=== PATIENT | female | born 1985 | race Caucasian/White ===

== ENCOUNTER 2023-09-20 10:57 | Emergency (ER) | payer OTHER, SELFPAY ==
[2023-09-20 11:01] VITALS: BP 155/112
--- NOTE | 2023-09-20 11:38 | ED.GENMED ---
History of Present Illness
General
Chief Complaint: Suicidal Ideation
Source: patient and records
Exam Limitations: none
Time Seen by Provider: 09/20/23 11:16
Nursing documentation reviewed up to this point in time: agreed with
Travel History
Have you had any contact with someone who has COVID-19?: No
Do you have any symptoms of coronavirus? Fever > 100 degrees, chills, cough, shortness of breath, sore throat, loss of taste or smell, muscle aches, or headache?: No
History of Present Illness
History of Present Illness:
37-year-old female with past medical history as documented who presents to the emergency department for evaluation of suicidal ideation. Patient says that she has had 'a steady decline in my mental health' over the past 2 weeks. She says that she
is persistently suicidal and that yesterday she tried to strangulate herself although she was unsuccessful she says. She says she did not sustain any injuries to her neck. She was admitted to the hospital in July after an intentional overdose
with Tylenol toxicity. Patient denies any ingestions recently. She says that she was initially at [facility] earlier today�she says she was there on 302 and was discharged from the manage she spoke with her psychiatrist who recommended
she come here due to worsening mental health and suicidality. Patient denies any physical complaints today. She denies any drug or alcohol use.
Past History
Past History
ED Past Medical History: Arrthythmia (Tachycardia), Asthma, HTN, Seizures, Hypothyroidism, Psychiatric (Bipolar, PTSD, suicide attempts, Anxiety/Depression, Borderline personality, ) and Other (TBI 2006, migraines, Cardiomyopathy,
Subarachnoid/Subdural hemorrhage, Intraparenchymal hem, Sleep apnea, GI bleeding, Pernicious anemia, ADHD, DVT with IVC filter)
ED Past Surgical History: , Orthopedic (R and left knee surgery, Carlos L leg removed, Left arm plate, Right wrist surgery, ) and Other (Green field filter)
Social History
Tobacco: Smoker
Alcohol: None
Drug: None
Personal: Single
Living: alone
Employment: Disabled
Family History
Family History: Other (Diabetes, colon cancer, thyroid disease)
Review of Systems
Review of Systems
All Other Systems: ROS reviewed and negative except as documented in HPI and ROS
Constitutional: Denies fever
Respiratory: Denies trouble breathing
Cardiac: Denies chest pain
ABD/GI: Denies abdominal pain, nausea or vomiting
: Denies flank pain
Musculoskeletal: Denies neck pain or back pain
Neurological: Denies dizzy, headache, weakness or numbness
Phy Exam
Physical Exam
Physical Exam:
General: Awake, alert, oriented x3; no acute distress
Head: Normocephalic, atraumatic
Eyes: Conjunctiva normal, sclera anicteric
Throat: Airway intact, handling secretions
Neck: Trachea midline, supple without meningismus; no bruising, no tenderness, no bruits
Lungs: Clear to auscultation bilaterally, no wheezing, rales, rhonchi
Heart: Regular rate and rhythm, no murmurs, gallops, or rubs
Abd: Soft, non distended, nontender
Neuro: No gross deficits
Skin: no rash
Extremities: No edema in extremities, warm and well-perfused
Psych: Depressed mood, normal affect
Scores
Heart Failure Risk
Heart Failure Risk Score: Not Applicable
Heart Score for Chest Pain Patients
STEMI patient?: Not applicable
Withdrawal Assessment of Alcohol
Withdrawal Assessment Completed?: Not applicable
Course
Orders/Labs/Results
Orders:
Orders
09/20/23 11:02
EKG [Electrocardiogram (*1)] Urgent
Reason for Study: Chest Pain
EKG- Treatment ONCE
09/20/23 11:33
Crisis Consult Routine
Reason for Consult: suicidal
Test Result ONCE
09/20/23 11:44
PSYCHIATRY CONSULT Urgent
Consulting Provider: Valeriano Peck
Was physician already notified: Yes
09/20/23 12:46
COVID-19 Antigen Urgent
Source: Nasal Swab
Drug Screen, Urine [Urine Drug Abuse Screen] Urgent
Date Specimen was Collected: 09/20/23
Time Specimen was Collected: 11:41
Fentanyl, Urine Urgent
09/20/23 13:15
Acetaminophen Urgent
Alcohol Urgent
Complete Blood Count/With Diff Urgent
Comprehensive Metabolic Panel Urgent
HCG, Serum Qualitative Screen Urgent
Salicylate Urgent
09/20/23 14:21
Metoprolol Xl [Toprol Xl] 12.5 mg PO NOW STA
09/20/23 15:42
Lorazepam [Ativan] 1 mg PO Q6HPRN PRN
09/20/23 15:54
Case Management Consult ONCE
Case Management Consult: Suicide Risk
Comment: Pt is being seen by crisis for placement at this time, COVID+
09/20/23 15:59
Valsartan [Diovan] 40 mg PO NOW STA
09/20/23 17:42
Diazepam [Valium] 5 mg PO NOW STA
09/20/23 18:32
Albuterol [ProAIR HFA INHALER] 2 puff INH R Q4HPRN PRN
Abnormal Lab Results
09/20/23 09/20/23
12:46 13:15
Hgb 10.9 L g/dL
(12.0-16.0)
Hct 32.8 L %
(37.0-47.0)
MCV 77.0 L fL
(81.0-99.0)
MCH 25.6 L pg
(27.0-31.0)
RDW 15.5 H %
(11.5-14.5)
MPV 11.2 H fL
(7.4-10.4)
Salicylates < 1.0 L mg/dl
(2.0-20.0)
Acetaminophen < 10 L ug/ml
(10-30)
U Benzodiazepines Scrn Positive H
(Negative)
SARS-CoV-2 Antigen Positive A
(Negative)
09/20/23 13:15
09/20/23 13:15
Vital Signs
Initial and Last Documented VS:
Initial Vital Signs
Temp Pulse Resp BP Pulse Ox
98.9 F 141 20 155/112 97
09/20/23 11:01 09/20/23 11:01 09/20/23 11:01 09/20/23 11:01 09/20/23 11:01
Last Documented Vital Signs
Temp Pulse Resp BP Pulse Ox
98.9 F 123 20 133/99 97
09/20/23 11:01 09/20/23 16:09 09/20/23 11:01 09/20/23 16:09 09/20/23 11:01
MDM/Problems Addressed
Differential Diagnosis Includes:
Suicidal ideation
MDM/Problems Addressed:
37-year-old female presents for evaluation of suicidal ideation. She says she attempted to strangle herself yesterday unsuccessfully. History of similar presentation many times in the past�was admitted in July after an overdose. She is
hypertensive and tachycardic here. She is known to have resting tachycardia. Exam as above. Will plan to place an IV and check labs including a CBC and CMP, hCG, Tylenol and salicylate level, alcohol level, UDS. Screening EKG. Monitor on
one-to-one observation. Consult to crisis. Reassess after the above.
Screening EKG shows sinus tachycardia no significant changes. Patient is refusing any blood work or urine testing. She does not want any laboratory evaluation until she is seen by a psychiatrist. No clear indication for lab testing against her
well at this point. I did discuss the case with the psychiatrist evaluate. She has already been assessed by crisis.
Patient now agreeable to blood work, still pending psychiatric evaluation. Continue to monitor.
Labs reviewed: CBC shows stable anemia, CMP no clinically significant abnormalities. UDS positive for benzodiazepines. Tylenol and salicylate levels negative. Alcohol level negative. Her screening COVID swab was positive. She has no symptoms of
COVID. Continue to monitor.
Psychiatry evaluated patient in the ER. Recommended inpatient psychiatric treatment. Patient is amenable to treatment�will continue to monitor while pending placement. Patient's blood pressure has been elevated here�she was on metoprolol during
her previous hospitalization this was discontinued due to some hypotension. She tells me that she was recently restarted on medicine for blood pressure but she actually takes valsartan now at a dose of 40 mg daily, did not take her dose today.
Will provide her home dose.
Chronic conditions affecting care:
Anxiety/depression
Acute Exacerbation and/or Progression of Chronic Illness:
Acutely hypertensive
Acute Exacerbation and/or Progression of Chronic Illness: HTN
*Pulse Oximetry
Patient hypoxic: no
*EKG
Interpreted by ED Provider?: Yes
Heart Rate: 117
Rate: tachycardiac
Rhythm: sinus and sinus tachycardia
[place]: normal axis
Interval: normal interval
QRS Pattern: left vent hypertrophy
Ischemia: no ischemia
*Critical Care Note
Total Time (30-74mins, 75-104mins- exclusive of procedures): Not Applicable
Data Reviewed
Source: patient and records
Patient Management
Discussion with other providers: Other (Crisis)
ED Attending Note
-
Portions of this chart may have been created with voice recognition software.� Occasional wrong word or��sound alike� substitutions may have occurred due to the inherent limitations of voice recognition software.
Discharge Plan
Departure
Patient Disposition: Psych Facility
Date of Disposition: 09/20/23
Time of Disposition: 14:21
Patient with high blood pressure during this ER visit?: Yes
Discharge Problem:
Suicidal ideation, COVID-19
Instructions: Suicide Prevention
Prescriptions:
No Action
gabapentin 300 mg capsule
300 mg PO BID
folic acid 1 mg Tablet
1 mg PO DAILY
Rx Instructions:
AM
cholecalciferol (vitamin D3) [Vitamin D3] 25 mcg (1,000 unit) Tablet
25 mcg PO DAILY
Rx Instructions:
AM
levothyroxine 25 mcg Tablet
25 mcg PO DAILY
ondansetron 4 mg Tablet,Disintegrating
4 mg PO Q6H PRN (Reason: nausea)
omeprazole 40 mg capsule,delayed release(DR/EC)
40 mg PO DAILY
clonidine HCl 0.1 mg tablet
0.1 mg PO BID
diazepam 5 mg tablet
5 mg PO TID
Patient Comments:
09/20/2023: last filled 09/13/23, 7 tabs for 2 days from [facility]
melatonin 10 mg Tablet
10 mg PO HS
Linzess 72 mcg capsule
72 mcg PO DAILY
cyanocobalamin (vitamin B-12) 1,000 mcg/mL solution
1,000 mcg IM MONTHLY
triamcinolone acetonide [Nasacort] 55 mcg Aerosol,[place]
1 spray INTRANASAL DAILY PRN (Reason: allergies)
Rx Instructions:
administer into each nostril
celecoxib 100 mg capsule
100 mg PO BID
valsartan 40 mg tablet
40 mg PO DAILY
Aimovig Autoinjector 140 mg/mL auto-injector
140 mg SC MONTHLY
Nurtec ODT 75 mg tablet,disintegrating
75 mg PO Q48H
albuterol sulfate 90 mcg/actuation Hfa Aerosol Inhaler
2 puff INHALATION R Q6 PRN (Reason: sob/wheezing)
Referrals:
UNKNOWN,NO INTERVIEW [Family Provider] -
Interventions
Interventions:
*Risk Screen - Suicide Last Done: 09/20/23 15:51
*General Assessment Last Done: 09/20/23 15:51
*Neglect/Abuse Screening Last Done: 09/20/23 15:51
ED- Fall Risk Assessment Last Done: 09/20/23 15:51
*ED COVID-19 Vaccine History Last Done: 09/20/23 15:51
ED-Psychological Assessment Last Done: 09/20/23 15:51
[2023-09-20 13:20] LABS: COVID-19 Antigen Positive (Negative)
[2023-09-20 13:27] LABS: Amphetamines Negative (Negative); Barbiturates Negative (Negative); Benzodiazepines Positive (Negative); Buprenorphine Negative (Negative); Cocaine Negative (Negative); Marijuana Negative (Negative); Methadone Negative (Negative); Methamphetamines Negative (Negative); Opiates Negative (Negative); Phencyclidine Negative (Negative); Tricyclic Antidepressants Negative (Negative)
[2023-09-20 13:33] LABS: % Basophils 0.5 % (0-2); % Eosinophils 1.1 % (0-6); % Immature Granulocytes 0.4 % (0-0.5); % Lymphocytes 22.9 % (20.5-51.1); % Monocytes 8.5 % (1.7-9.3); % Neutrophils 66.6 % (42.2-75.2); Absolute Eosinophils 0.1 10^3/uL (0-0.7); Absolute Lymphocytes 1.3 10^3/uL (1.2-3.4); Absolute Monocytes 0.5 10^3/uL (0.1-0.6); Absolute Neutrophils 3.7 10^3/uL (1.4-6.5); Hematocrit 32.8 % (37.0-47.0); Hemoglobin 10.9 g/dL (12.0-16.0); Mean Corp Hgb Conc. 33.2 g/dL (33.0-37.0); Mean Corpuscular Hgb 25.6 pg (27.0-31.0); Mean Platelet Volume 11.2 fL (7.4-10.4); Nucleated Red Blood Cells % 0 %; Platelet Count 267 10^3/uL (130-400); Red Blood Cell Count 4.26 10^6/uL (4.20-5.40); Red Cell Dist. Width 15.5 % (11.5-14.5); White Blood Cell Count 5.6 10^3/uL (4.8-10.8)
[2023-09-20 13:44] LABS: ALT (SGPT) 18 U/L (0-35); AST (SGOT) 27 U/L (14-36); Acetaminophen < 10 ug/ml (10-30); Albumin 4.6 g/dl (3.5-5.0); Alkaline Phosphatase 115 U/L (38-126); Blood Urea Nitrogen 9 mg/dl (7-17); Calcium 9.2 mg/dl (8.4-10.2); Carbon Dioxide 23 mmol/L (22-30); Chloride 106 mmol/L (98-107); Glucose 96 mg/dl (70-99); Salicylate < 1.0 mg/dl (2.0-20.0); Sodium 136 mmol/L (135-145); Total Bilirubin 0.5 mg/dl (0.2-1.3); Total Protein 7.3 g/dl (6.3-8.2); eGFR > 60.00
[2023-09-20 13:46] LABS: Alcohol None Detected
[2023-09-20 13:52] LABS: Fentanyl, Urine Negative (Negative)
[2023-09-20 14:00] LABS: HCG, Serum Qualitative Screen Negative
--- NOTE | 2023-09-20 15:44 | W.PN.UPDATE ---
Update Note
Progress Note Update
Patient is stating she has suicidal thoughts and has attempted to strangle self. She reports being dysphoric and anhedonic and feels she has nothing to live for. She is now also diagnosed with COVID and feels that her tiredness and loss of energy
may be related to this infection. Appetite stable, denies insomnia.
At this point patient is willing to sign in voluntarily but it will be difficult for her to be placed given her past history and COVID diagnosis.
If she wants to leave she should be reassessed and if no longer seen as danger to self and having a place to go she can be discharged.
Will order Ativan prn; discussed with Dr. Elder.
Will continue F/U while she is in hospital.
--- NOTE | 2023-09-20 15:50 | EDRN ---
Pt stated she will not change into scrubs as she has not been provided the correct size of 2X.
[2023-09-20 15:51] VITALS: BMI 33.7
[2023-09-20] MEDS: DIOVAN 40 MG PO (16:09)
--- NOTE | 2023-09-20 16:17 | EDRN ---
Pt was upset about her lunch tray and demanded that a new tray be ordered. New tray was ordered and will need to be picked up in 45 minutes. Pt was upset that ALL her meds were not ordered for her. This RN informed pt that a med rec would need to be
done then the physician can order her meds. Pt is unaware of what meds she is taking. Pt was offered Ativan as ordered for her anxiety. Pt declined saying 'I take valium 5 mg' so many times a day but I did not understand how many times a day. pt is
now in paper scrubs after she was brought appropriate size. Pt administered her valsartan and pharmacy technician instructor went to [facility] for pt's med list and is working on the medication reconciliation at this time.
--- NOTE | 2023-09-20 16:38 | PHANOTE ---
Med Rec Note:
Spoke with Devora Vasquez and got a list of medications from their provider. Called and spoke with Pharmacist at [facility] to confirm what regime of medications pt is currently supposed to be on.
Did not interview pt due to pt's current behavior and pt being Covid +.
--- NOTE | 2023-09-20 18:25 | EDRN ---
Pt is now asking for her inhaler. THis RN will not MD know.
[2023-09-20] MEDS: VALIUM 5 MG PO (18:29)
--- NOTE | 2023-09-20 18:32 | EDRN ---
Pharmacy called to send an albuterol inhaler.
[2023-09-20] MEDS: ProAIR HFA INHALER 2 PUFF INH (18:54)
--- NOTE | 2023-09-20 19:12 | EDRN ---
Pt is requesting all of her nighttime medications at this time.
[2023-09-20] MEDS: CATAPRES PO (22:52)
[2023-09-20] MEDS: MELATONIN PO (23:00)
[2023-09-21] MEDS: CATAPRES 0.100000000000000006 MG PO ×2 (01:29→08:15)
[2023-09-21] MEDS: MELATONIN 10 MG PO (01:29)
[2023-09-21] MEDS: CELEBREX 100 MG PO ×2 (01:31→08:14)
[2023-09-21] MEDS: VALIUM 5 MG PO ×2 (02:24→10:41)
[2023-09-21] MEDS: ProAIR HFA INHALER 2 PUFF INH ×2 (02:24→08:12)
[2023-09-21] MEDS: MOTRIN 800 MG PO (04:08)
[2023-09-21] MEDS: LINZESS 72 MCG PO (08:13)
[2023-09-21] MEDS: FOLVITE 1 MG PO (08:14)
--- NOTE | 2023-09-21 09:21 | ED.CRISIS ---
ED Crisis Note
ED Crisis Note
Subjective:
201
Assessment/Plan:
Patient expresses recent suicidal thoughts. Crisis is working on placement, however, given patient has an acute COVID infection this has made the process more challenging. Patient appears nontoxic and is breathing comfortably, she appears well and
comfortable
--- NOTE | 2023-09-21 11:09 | W.PN.UPDATE ---
Update Note
Progress Note Update
Patient reports she still has suicidal thoughts but in the Crisis unit she has been relatively cooperative and not agitated or aggressive.Appetite stable. She is now interested in going back to the [facility] but realizes that is not possible
given her statements regarding harming herself.
ER changed the Ativan to Valium prn.
We will continue F/U.
[2023-09-21 13:31] LABS: COVID-19 Antigen Positive (Negative)
[2023-09-21 14:07] VITALS: BP 114/65
[2023-09-21] MEDS: MOTRIN 600 MG PO (14:35)
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
[2023-09-21] MEDS: NEURONTIN PO (23:41)
[2023-09-21] MEDS: MELATONIN PO (23:41)
[2023-09-21] MEDS: CELEBREX PO (23:41)
[2023-09-21] MEDS: CATAPRES PO (23:41)
[2023-09-22 10:59] VITALS: BP 138/91
[2023-09-22] MEDS: CELEBREX 100 MG PO ×2 (11:51→20:10)
[2023-09-22] MEDS: NEURONTIN 300 MG PO ×2 (11:51→20:09)
[2023-09-22] MEDS: FOLVITE 1 MG PO (11:52)
[2023-09-22] MEDS: CATAPRES 0.100000000000000006 MG PO ×2 (11:52→20:09)
[2023-09-22] MEDS: LINZESS 72 MCG PO (11:52)
[2023-09-22] MEDS: VALIUM 5 MG PO ×2 (12:01→20:10)
[2023-09-22] MEDS: MOTRIN 600 MG PO (13:53)
[2023-09-22 14:05] VITALS: BP 132/88
[2023-09-22] MEDS: ATIVAN 1 MG PO (16:01)
--- NOTE | 2023-09-22 17:10 | W.PN.UPDATE ---
Update Note
Progress Note Update
Pt seen, record/paperwork reviewed, discussed with Crisis staff. Pt on 302 for suicidal ideation with plan and stated intent. Pt pressing for release, stating she is 'not a danger' to herself. Pt stating wish to go to [facility], states she was
'decompensating on Sunday' at the [facility]. Pt has active warrant and charge for aggravated assault, reportedly in [facility]. Pt Covid positive. Pt states she had brief SI yesterday, though this conflicts with the record. Pt denies SI
today, pushing to be released. Pt complains about not receiving her medications on time. Pt agitated, yelling earlier, would not cooperate with staying in her room to allow interview with pt in room next to hers.
Imp: Unspecified Depression
Borderline personality d/o
Rec: continue observation/assessment on 302 with placement effort, although unlikely to place due to history and Covid positive status
--- NOTE | 2023-09-22 18:37 | ED.CRISIS ---
ED Crisis Note
ED Crisis Note
Subjective:
Expresses suicidal thoughts
Objective:
Verbally combative. Walking around the room
Assessment/Plan:
302 upheld. Psych recommended bed search. Patient becoming combative walking around. Security escorted her to her room. She is requesting Ativan and DuoNeb. Patient given both
[2023-09-22] MEDS: DUONEB 3 ML INH (18:40)
[2023-09-22 20:15] VITALS: BP 130/78
[2023-09-22] MEDS: MELATONIN 10 MG PO (20:21)
[2023-09-23] MEDS: MOTRIN 600 MG PO (00:29)
[2023-09-23 00:54] VITALS: BP 124/76
[2023-09-23] MEDS: DUONEB 3 ML INH (04:13)
[2023-09-23] MEDS: NEURONTIN 300 MG PO (09:40)
[2023-09-23] MEDS: CELEBREX 100 MG PO (09:40)
[2023-09-23] MEDS: FOLVITE 1 MG PO (09:41)
[2023-09-23] MEDS: CATAPRES 0.100000000000000006 MG PO (09:41)
[2023-09-23] MEDS: LINZESS 72 MCG PO (09:48)
--- NOTE | 2023-09-23 09:50 | ED.CRISIS ---
ED Crisis Note
ED Crisis Note
Subjective:
Patient awake and alert requesting to go home today. She states she just wants to take a shower. She states she is no longer suicidal. She shows me an email with her counselor and she plans to follow-up. No other new complaint
Objective:
Awake, alert, not suicidal, rational conversation was had. Patient is eating and drinking without difficulty.
Assessment/Plan:
Case discussed with Dr. Moreland. At this time we both feel that she is stable for discharge. No clinical concerns on my evaluation this morning. The patient does agree to follow-up with her counselor and return for any progressive symptoms
--- NOTE | 2023-09-23 09:55 | W.PN.UPDATE ---
Update Note
Progress Note Update
Pt seen, reviewed with Crisis staff, discussed with Dr Terrazas. Pt alert, calm, cooperative, with stable affect. Pt consistently denies SI; mood appears to be stable. Pt asking to go home to recuperate from being Covid positive- has mild symptoms;
pt aware that she cannot be placed in a psych facility. Pt states she will return to her [facility] apartment ([facility] transitional living) and follow up with outpatient care. No agitation, no signs of psychosis.
Imp: Unspecified Depression; hx of PTSD, appears stable for discharge; do not find grounds for 303 petition/to extend involuntary commitment
�� � � �Borderline personality d/o
Rec: Would continue current medications. If continuing Valium 5 mg prn, would give max 2 per day
Pt appears stable to be released from the 302
[2023-09-23] MEDS: ProAIR HFA INHALER 2 PUFF INH (10:38)
[2023-09-23 12:14] VITALS: BP 117/55
== END 2023-09-23 10:00 | disposition home or self-care (01) ==
LOC: EMR 10:57
PROVIDERS: CONSULT PHYSICIAN Psychiatry & Neurology Psychiatry; EMERGENCY PHYSICIAN Emergency Medicine
DX: R45.851 Suicidal ideations (principal); U07.1 COVID-19; F17.200 Nicotine dependence, unspecified, uncomplicated; I10 Essential (primary) hypertension
CPT/HCPCS: 99285; 94640; 80053; 80143; 80179; 80306; 80307; 82077; 84703; 85025; 87811; 93005

== ENCOUNTER 2023-11-10 12:17 | Emergency (ER) | payer OTHER, SELFPAY ==
[2023-11-10 12:26] VITALS: BP 127/91
--- NOTE | 2023-11-10 13:30 | ED.GENMED ---
History of Present Illness
General
Chief Complaint: Crisis Evaluation
Source: patient
Exam Limitations: none
Time Seen by Provider: 11/10/23 12:49
Nursing documentation reviewed up to this point in time: agreed with
Travel History
Have you had any contact with someone who has COVID-19?: No
Do you have any symptoms of coronavirus? Fever > 100 degrees, chills, cough, shortness of breath, sore throat, loss of taste or smell, muscle aches, or headache?: No
History of Present Illness
History of Present Illness:
37-year-old female presents for medical evaluation prior to psychiatric placement history of mental illness recently incarcerated and then released had suicidal ideation was admitted through the [facility] system just discharged yesterday meds were
adjusted on hold today as well some pictures of her son who is in an open adoption she felt suicidal came here
Does not appear intoxicated, she is cooperative with the exam
Past History
Past History
ED Past Medical History: Arrthythmia (Tachycardia), Asthma, HTN, Seizures, Hypothyroidism, Psychiatric (Bipolar, PTSD, suicide attempts, Anxiety/Depression, Borderline personality, ) and Other (TBI 2005, migraines, Cardiomyopathy,
Subarachnoid/Subdural hemorrhage, Intraparenchymal hem, Sleep apnea, GI bleeding, Pernicious anemia, ADHD, DVT with IVC filter)
ED Past Surgical History: , Orthopedic (R and left knee surgery, Carlos L leg removed, Left arm plate, Right wrist surgery, ) and Other (Green field filter)
Social History
Tobacco: Smoker
Alcohol: None
Drug: None
Personal: Single
Living: alone
Employment: Disabled
Family History
Family History: Other (Diabetes, colon cancer, thyroid disease)
Review of Systems
Review of Systems
All Other Systems: Not applicable
Constitutional: Denies fever
Cardiac: Reports no symptoms
ABD/GI: Reports no symptoms
: Reports no symptoms
Psychiatric: Reports suicidal; Denies anxiety or hallucinations
Phy Exam
Physical Exam
Physical Exam:
Physical Exam
General: Cooperative female
Neck: No jaundice
Lungs: no acute respiratory distress.
Neuro: alert and oriented. no focal neurological deficits
Skin: no rash
Psychiatric: Cooperative does not appear to be hallucinating, states she feels suicidal
Extremities: no edema.
Course
Orders/Labs/Results
Orders:
Orders
11/10/23 13:23
Acetaminophen Urgent
Alcohol Urgent
Complete Blood Count/With Diff Urgent
Comprehensive Metabolic Panel Urgent
HCG, Serum Qualitative Screen Urgent
Salicylate Urgent
Urine Drug Abuse Screen Urgent
Date Specimen was Collected: 11/10/23
Time Specimen was Collected: 13:28
Test Result ONCE
Vital Signs
Initial and Last Documented VS:
Initial Vital Signs
Temp Pulse Resp BP Pulse Ox
99.0 F 117 18 127/91 98
11/10/23 12:26 11/10/23 12:26 11/10/23 12:26 11/10/23 12:26 11/10/23 12:26
Last Documented Vital Signs
Temp Pulse Resp BP Pulse Ox
99.0 F 117 18 127/91 98
11/10/23 12:26 11/10/23 12:26 11/10/23 12:26 11/10/23 12:26 11/10/23 12:26
MDM/Problems Addressed
Differential Diagnosis Includes:
Suicidal ideation, anxiety depression psychosis borderline personality
MDM/Problems Addressed:
Suicidal
Chronic conditions affecting care:
Mental illness
Acute Exacerbation and/or Progression of Chronic Illness:
Mental illness
*Pulse Oximetry
Patient hypoxic: no
*Critical Care Note
Total Time (30-74mins, 75-104mins- exclusive of procedures): Not Applicable
Update Note
Update Note:
Reviewed with crisis plan will be labs and then placement
ED Attending Note
-
Portions of this chart may have been created with voice recognition software.� Occasional wrong word or��sound alike� substitutions may have occurred due to the inherent limitations of voice recognition software.
Discharge Plan
Departure
Patient Disposition: Psych Facility
Date of Disposition: 11/10/23
Time of Disposition: 13:34
Patient with high blood pressure during this ER visit?: No
Condition: Good
Covid-19: Not Applicable
Discharge Problem:
Suicidal ideation
Prescriptions:
No Action
gabapentin 300 mg capsule
300 mg PO BID
folic acid 1 mg Tablet
1 mg PO DAILY
Rx Instructions:
AM
cholecalciferol (vitamin D3) [Vitamin D3] 25 mcg (1,000 unit) Tablet
25 mcg PO DAILY
Rx Instructions:
AM
levothyroxine 25 mcg Tablet
25 mcg PO DAILY
ondansetron 4 mg Tablet,Disintegrating
4 mg PO Q6H PRN (Reason: nausea)
omeprazole 40 mg capsule,delayed release(DR/EC)
40 mg PO DAILY
clonidine HCl 0.1 mg tablet
0.1 mg PO BID
diazepam 5 mg tablet
5 mg PO TID
Patient Comments:
09/20/2023: last filled 09/13/23, 7 tabs for 2 days from [place]
melatonin 10 mg Tablet
10 mg PO HS
Linzess 72 mcg capsule
72 mcg PO DAILY
cyanocobalamin (vitamin B-12) 1,000 mcg/mL solution
1,000 mcg IM MONTHLY
triamcinolone acetonide [Nasacort] 55 mcg Aerosol,[place]
1 spray INTRANASAL DAILY PRN (Reason: allergies)
Rx Instructions:
administer into each nostril
celecoxib 100 mg capsule
100 mg PO BID
valsartan 40 mg tablet
40 mg PO DAILY
Aimovig Autoinjector 140 mg/mL auto-injector
140 mg SC MONTHLY
Nurtec ODT 75 mg tablet,disintegrating
75 mg PO Q48H
albuterol sulfate 90 mcg/actuation Hfa Aerosol Inhaler
2 puff INHALATION R Q6 PRN (Reason: sob/wheezing)
Referrals:
UNKNOWN - PT NOT,INTERVIEWE [Family Provider] -
Interventions
Interventions:
*General Assessment Last Done: 11/10/23 12:26
*ED COVID-19 Vaccine History Last Done: 11/10/23 12:26
ED-Psychological Assessment Last Done: 11/10/23 12:49
[2023-11-10 13:50] LABS: % Basophils 0.6 % (0-2); % Immature Granulocytes 0.5 % (0-0.5); % Lymphocytes 25.9 % (20.5-51.1); % Monocytes 5.3 % (1.7-9.3); % Neutrophils 65.7 % (42.2-75.2); Absolute Eosinophils 0.1 10^3/uL (0-0.7); Absolute Lymphocytes 1.7 10^3/uL (1.2-3.4); Absolute Monocytes 0.4 10^3/uL (0.1-0.6); Absolute Neutrophils 4.4 10^3/uL (1.4-6.5); Hematocrit 28.5 % (37.0-47.0); Hemoglobin 9.6 g/dL (12.0-16.0); Mean Corp Hgb Conc. 33.7 g/dL (33.0-37.0); Mean Corpuscular Hgb 25.7 pg (27.0-31.0); Mean Corpuscular Volume 76.4 fL (81.0-99.0); Mean Platelet Volume 11.4 fL (7.4-10.4); Nucleated Red Blood Cells % 0 %; Platelet Count 285 10^3/uL (130-400); Red Blood Cell Count 3.73 10^6/uL (4.20-5.40); Red Cell Dist. Width 15.3 % (11.5-14.5); White Blood Cell Count 6.6 10^3/uL (4.8-10.8)
[2023-11-10 14:03] LABS: HCG, Serum Qualitative Screen Negative
[2023-11-10 14:05] LABS: ALT (SGPT) 13 U/L (0-35); AST (SGOT) 18 U/L (14-36); Acetaminophen < 10 ug/ml (10-30); Albumin 3.7 g/dl (3.5-5.0); Alkaline Phosphatase 96 U/L (38-126); Blood Urea Nitrogen 7 mg/dl (7-17); Calcium 8.8 mg/dl (8.4-10.2); Carbon Dioxide 22 mmol/L (22-30); Chloride 106 mmol/L (98-107); Glucose 108 mg/dl (70-99); Potassium 4.1 mmol/L (3.5-5.1); Salicylate < 1.0 mg/dl (2.0-20.0); Sodium 134 mmol/L (135-145); Total Bilirubin 0.2 mg/dl (0.2-1.3); Total Protein 6.3 g/dl (6.3-8.2); eGFR > 60.00
[2023-11-10 14:08] LABS: Alcohol None Detected
[2023-11-10 14:18] LABS: Amphetamines Negative (Negative); Barbiturates Negative (Negative); Benzodiazepines Positive (Negative); Buprenorphine Negative (Negative); Cocaine Negative (Negative); Marijuana Negative (Negative); Methadone Negative (Negative); Methamphetamines Negative (Negative); Opiates Negative (Negative); Phencyclidine Negative (Negative); Tricyclic Antidepressants Positive (Negative)
[2023-11-10 14:27] LABS: Fentanyl, Urine Negative (Negative)
[2023-11-10] MEDS: ZANAFLEX 4 MG PO (14:33)
== END 2023-11-10 17:42 ==
LOC: EMR 12:17
PROVIDERS: EMERGENCY PHYSICIAN Emergency Medicine
DX: R45.851 Suicidal ideations (principal); I10 Essential (primary) hypertension; F17.200 Nicotine dependence, unspecified, uncomplicated; Z53.29 Procedure and treatment not carried out because of patient's decision for other reasons
CPT/HCPCS: 80053; 80143; 80179; 80306; 80307; 82077; 84703; 85025; 99285

== ENCOUNTER 2023-11-10 18:46 | Emergency (ER) | payer OTHER, SELFPAY ==
--- NOTE | 2023-11-10 19:47 | EDRN ---
Attempted to obtain vital signs and admission questions. Pt states 'I am not answering anything.' Pt asked if pt has SI with plan. Pt denies at this time.
--- NOTE | 2023-11-10 21:53 | ED.GENMED ---
History of Present Illness
General
Chief Complaint: Suicidal Ideation
Source: patient
Exam Limitations: none
Time Seen by Provider: 11/10/23 19:28
Travel History
Have you had any contact with someone who has COVID-19?: Unable to Answer
Do you have any symptoms of coronavirus? Fever > 100 degrees, chills, cough, shortness of breath, sore throat, loss of taste or smell, muscle aches, or headache?: Unable to Answer
History of Present Illness
History of Present Illness:
Patient presented with depression. 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 She was brought back by police. Patient does not want to be here and would like to go home.
Past History
Past History
ED Past Medical History: Arrthythmia (Tachycardia), Asthma, HTN, Seizures, Hypothyroidism, Psychiatric (Bipolar, PTSD, suicide attempts, Anxiety/Depression, Borderline personality, ) and Other (TBI 2006, migraines, Cardiomyopathy,
Subarachnoid/Subdural hemorrhage, Intraparenchymal hem, Sleep apnea, GI bleeding, Pernicious anemia, ADHD, DVT with IVC filter)
ED Past Surgical History: , Orthopedic (R and left knee surgery, Carlos L leg removed, Left arm plate, Right wrist surgery, ) and Other (Green field filter)
Social History
Tobacco: Smoker
Alcohol: None
Drug: None
Personal: Single
Living: alone
Employment: Disabled
Family History
Family History: Other (Diabetes, colon cancer, thyroid disease)
Review of Systems
Review of Systems
All Other Systems: Not applicable
Respiratory: Reports no symptoms
Cardiac: Reports no symptoms
Phy Exam
Physical Exam
Physical Exam:
GENERAL: Alert and oriented. Pounding on the crisis room door. No distress.
LUNGS: No respiratory distress
NEUROLOGICAL: Alert and oriented , grossly non-focal. Gait normal
SKIN: Warm and dry
PSYCH: Somewhat agitated but relatively cooperative
*Critical Care Note
Total Time (30-74mins, 75-104mins- exclusive of procedures): Not Applicable
Update Note
Update Note:
302 was upheld. Apparently placement is pending. No acute medical issues
ED Attending Note
-
Portions of this chart may have been created with voice recognition software.� Occasional wrong word or��sound alike� substitutions may have occurred due to the inherent limitations of voice recognition software.
Discharge Plan
Departure
Patient Disposition: Psych Facility
Date of Disposition: 11/10/23
Time of Disposition: 21:54
Discharge Problem:
Depression/suicidal ideation
Prescriptions:
No Action
gabapentin 300 mg capsule
300 mg PO BID
folic acid 1 mg Tablet
1 mg PO DAILY
Rx Instructions:
AM
cholecalciferol (vitamin D3) [Vitamin D3] 25 mcg (1,000 unit) Tablet
25 mcg PO DAILY
Rx Instructions:
AM
levothyroxine 25 mcg Tablet
25 mcg PO DAILY
ondansetron 4 mg Tablet,Disintegrating
4 mg PO Q6H PRN (Reason: nausea)
omeprazole 40 mg capsule,delayed release(DR/EC)
40 mg PO DAILY
clonidine HCl 0.1 mg tablet
0.1 mg PO BID
diazepam 5 mg tablet
5 mg PO TID
Patient Comments:
09/20/2023: last filled 09/13/23, 7 tabs for 2 days from [place]
melatonin 10 mg Tablet
10 mg PO HS
Linzess 72 mcg capsule
72 mcg PO DAILY
cyanocobalamin (vitamin B-12) 1,000 mcg/mL solution
1,000 mcg IM MONTHLY
triamcinolone acetonide [Nasacort] 55 mcg Aerosol,[place]
1 spray INTRANASAL DAILY PRN (Reason: allergies)
Rx Instructions:
administer into each nostril
celecoxib 100 mg capsule
100 mg PO BID
valsartan 40 mg tablet
40 mg PO DAILY
Aimovig Autoinjector 140 mg/mL auto-injector
140 mg SC MONTHLY
Nurtec ODT 75 mg tablet,disintegrating
75 mg PO Q48H
albuterol sulfate 90 mcg/actuation Hfa Aerosol Inhaler
2 puff INHALATION R Q6 PRN (Reason: sob/wheezing)
Referrals:
NONE,* [Family Provider] -
Interventions
Interventions:
*Risk Screen - Suicide Last Done: 11/10/23 19:48
*General Assessment Last Done: 11/10/23 19:48
*Neglect/Abuse Screening Last Done: 11/10/23 19:48
*ED COVID-19 Vaccine History Last Done: 11/10/23 19:48
ED-Psychological Assessment Last Done: 11/10/23 21:16
[2023-11-10] MEDS: TORADOL 30 MG IM (23:03)
== END 2023-11-11 00:40 ==
LOC: EMR 18:46
PROVIDERS: EMERGENCY PHYSICIAN Emergency Medicine
DX: R45.851 Suicidal ideations (principal); F32.A Depression, unspecified; F17.200 Nicotine dependence, unspecified, uncomplicated
CPT/HCPCS: 99285; 96372

== ENCOUNTER 2023-11-24 13:35 | Emergency (ER) | payer OTHER, SELFPAY ==
[2023-11-24 13:37] VITALS: BP 125/98
[2023-11-24 14:01] VITALS: BP 116/71
== END 2023-11-24 14:50 | disposition home or self-care (01) ==
LOC: EMR 13:35
PROVIDERS: EMERGENCY PHYSICIAN Emergency Medicine; FAMILY PHYSICIAN Nurse Practitioner Primary Care
DX: R07.9 Chest pain, unspecified (principal); R11.0 Nausea; R53.83 Other fatigue; R06.00 Dyspnea, unspecified
CPT/HCPCS: 99281; 93005

== ENCOUNTER 2024-06-25 09:40 | Emergency (ER) | payer OTHER, SELFPAY ==
[2024-06-25 09:42] VITALS: BP 118/78
[2024-06-25 10:15] VITALS: BMI 40.2
--- NOTE | 2024-06-25 10:20 | ED.GENMED ---
History of Present Illness
General
Chief Complaint: Crisis Evaluation
Source: patient
Exam Limitations: none
Time Seen by Provider: 06/25/24 10:12
Nursing documentation reviewed up to this point in time: agreed with
History of Present Illness
History of Present Illness:
38 yo female well know to [facility] and the ED, hx Arrthythmia (Tachycardia), Asthma, HTN, Seizures, Hypothyroidism, Psychiatric (Bipolar, PTSD, suicide attempts, Anxiety/Depression, Borderline personality, ) and Other (TBI 2006, migraines,
Cardiomyopathy, Subarachnoid/Subdural hemorrhage, Intraparenchymal hem, Sleep apnea, GI bleeding, Pernicious anemia, ADHD, DVT with IVC filter), presents stating 'I'm dissociating, nightmares,' Took a gummy this a.m. 'made my psyche problems worse.'
Pt denies any physical issues, denies feeling suicidal.
[facility] they made arrangement for her to go to [facility] but she didn't want to go so she left. She is asking for a meal.
She states [facility] and ACT team goes to her residence 5 days a week for her meds.
States 'I don't know' when asked what we can do for her today.
Lisa from Crisis in.
Past History
Past History
ED Past Medical History: Arrthythmia (Tachycardia), Asthma, HTN, Seizures, Hypothyroidism, Psychiatric (Bipolar, PTSD, suicide attempts, Anxiety/Depression, Borderline personality, ) and Other (TBI 2006, migraines, Cardiomyopathy,
Subarachnoid/Subdural hemorrhage, Intraparenchymal hem, Sleep apnea, GI bleeding, Pernicious anemia, ADHD, DVT with IVC filter)
ED Past Surgical History: , Orthopedic (R and left knee surgery, Carlos L leg removed, Left arm plate, Right wrist surgery, ) and Other (Green field filter)
Social History
Tobacco: Smoker
Alcohol: None
Drug: Other (Took a Hemp gummy this a.m.)
Personal: Single
Living: alone
Employment: Disabled
Family History
Family History: Other (Diabetes, colon cancer, thyroid disease)
Review of Systems
Review of Systems
Allergies reviewed?: Yes
All Other Systems: ROS reviewed and negative except as documented in HPI and ROS
Constitutional: Reports no symptoms
EENT: Reports no symptoms
Respiratory: Reports no symptoms
Cardiac: Reports no symptoms
ABD/GI: Reports no symptoms
: Reports no symptoms
Musculoskeletal: Reports no symptoms
Skin: Reports no symptoms
Neurological: Reports no symptoms
Psychiatric: Reports other (here 'psyche problems' are 'worse')
Phy Exam
Physical Exam
Physical Exam:
GENERAL: No acute distress. A&Ox3.
CONSTITUTIONAL: Afebrile.
EYES: clear, conjunctivae normal
ENMT: moist mucus membranes
RESPIRATORY: Regular respirations, nonlabored, lungs clear.
CARDIOVASCULAR: Regular rate and rhythm, no murmurs, no rubs.
GI: Soft, nontender, normal BS
MUSCULOSKELETAL: Moves with ease. Well perfused.
SKIN: Warm, dry, pink
PSYCH: Normal mood and affect. Well kept, interactive and appropriate
NEUROLOGIC: Awake, alert and oriented. No focal neurological deficits
Course
Vital Signs
Initial and Last Documented VS:
Initial Vital Signs
Temp Pulse Resp BP Pulse Ox
97.8 F 88 18 118/78 99
06/25/24 09:42 06/25/24 09:42 06/25/24 09:42 06/25/24 09:42 06/25/24 09:42
Last Documented Vital Signs
Temp Pulse Resp BP Pulse Ox
97.8 F 88 18 118/78 99
06/25/24 09:42 06/25/24 09:42 06/25/24 09:42 06/25/24 09:42 06/25/24 09:42
MDM/Problems Addressed
MDM/Problems Addressed:
38 yo female well know to [facility] and the ED, hx Arrthythmia (Tachycardia), Asthma, HTN, Seizures, Hypothyroidism, Psychiatric (Bipolar, PTSD, suicide attempts, Anxiety/Depression, Borderline personality, ) and Other (TBI 2006, migraines,
Cardiomyopathy, Subarachnoid/Subdural hemorrhage, Intraparenchymal hem, Sleep apnea, GI bleeding, Pernicious anemia, ADHD, DVT with IVC filter), presents stating 'I'm dissociating, nightmares,' Took a gummy this a.m. 'made my psyche problems worse.'
Pt denies any physical issues, denies feeling suicidal.
She states she was at [facility] days ago, they made arrangement for her to go to [facility] but she didn't want to go so she left. She is asking for a meal.
She states she goes [facility] a [facility] and ACT team goes to her residence 5 days a week for her meds.
States 'I don't know' when asked what we can do for her today.
Lisa from Crisis in.
11:10 a.m.
Pt is asking to leave, this is OK with Crisis
Again, she denies SI, she is going back 'to my place.'
*Critical Care Note
Total Time (30-74mins, 75-104mins- exclusive of procedures): Not Applicable
ED Attending Note
-
Portions of this chart may have been created with voice recognition software.� Occasional wrong word or��sound alike� substitutions may have occurred due to the inherent limitations of voice recognition software.
Discharge Plan
Departure
Patient Disposition: Home (Routine Discharge)
Date of Disposition: 06/25/24
Time of Disposition: 11:10
Patient with high blood pressure during this ER visit?: No
Condition: Good
Discharge Problem:
Emotional disorder
Prescriptions:
No Action
gabapentin 300 mg capsule
300 mg PO BID
folic acid 1 mg Tablet
1 mg PO DAILY
Rx Instructions:
AM
cholecalciferol (vitamin D3) [Vitamin D3] 25 mcg (1,000 unit) Tablet
25 mcg PO DAILY
Rx Instructions:
AM
levothyroxine 25 mcg Tablet
25 mcg PO DAILY
ondansetron 4 mg Tablet,Disintegrating
4 mg PO Q6H PRN (Reason: nausea)
omeprazole 40 mg capsule,delayed release(DR/EC)
40 mg PO DAILY
clonidine HCl 0.1 mg tablet
0.1 mg PO BID
diazepam 5 mg tablet
5 mg PO TID
Patient Comments:
09/20/2023: last filled 09/13/23, 7 tabs for 2 days from [place]
melatonin 10 mg Tablet
10 mg PO HS
Linzess 72 mcg capsule
72 mcg PO DAILY
cyanocobalamin (vitamin B-12) 1,000 mcg/mL solution
1,000 mcg IM MONTHLY
triamcinolone acetonide [Nasacort] 55 mcg Aerosol,[place]
1 spray INTRANASAL DAILY PRN (Reason: allergies)
Rx Instructions:
administer into each nostril
celecoxib 100 mg capsule
100 mg PO BID
valsartan 40 mg tablet
40 mg PO DAILY
Aimovig Autoinjector 140 mg/mL auto-injector
140 mg SC MONTHLY
Nurtec ODT 75 mg tablet,disintegrating
75 mg PO Q48H
albuterol sulfate 90 mcg/actuation Hfa Aerosol Inhaler
2 puff INHALATION R Q6 PRN (Reason: sob/wheezing)
Referrals:
Tiffanie Xiong CRNP [Family Provider] -
Activity Restrictions/Additional Instructions:
Keep your appointments with [facility] out pt.
Interventions
Interventions:
*Risk Screen - Suicide Last Done: 06/25/24 11:00
*General Assessment Last Done: 06/25/24 10:30
*Neglect/Abuse Screening Last Done: 06/25/24 11:00
ED- Fall Risk Assessment Last Done: 06/25/24 11:00
*ED COVID-19 Vaccine History Last Done: 06/25/24 10:30
*Nursing Disposition Last Done: 06/25/24 11:00
ED-Psychological Assessment Last Done: 06/25/24 11:00
Discharge Date and Time
Discharge Date/Time: 06/25/24 11:00
Print Language: JAPANESE
== END 2024-06-25 11:00 | disposition home or self-care (01) ==
LOC: EMR 09:40
PROVIDERS: EMERGENCY PHYSICIAN Emergency Medicine; FAMILY PHYSICIAN Nurse Practitioner Primary Care
DX: F34.9 Persistent mood [affective] disorder, unspecified (principal); E03.9 Hypothyroidism, unspecified; F17.200 Nicotine dependence, unspecified, uncomplicated; G47.30 Sleep apnea, unspecified; I10 Essential (primary) hypertension; I42.9 Cardiomyopathy, unspecified; J45.909 Unspecified asthma, uncomplicated; Z86.718 Personal history of other venous thrombosis and embolism; Z87.820 Personal history of traumatic brain injury
CPT/HCPCS: 99283

== ENCOUNTER 2024-06-29 09:30 | Emergency (ER) | payer OTHER, SELFPAY ==
--- NOTE | 2024-06-29 09:43 | ED.GENMED ---
History of Present Illness
General
Chief Complaint: Crisis Evaluation
Source: patient
Time Seen by Provider: 06/29/24 09:36
History of Present Illness
History of Present Illness:
Increasing depression with some remote suicidal ideation but has no plan and states she would not do it at this time. She just wants more help and feels she needs med adjustments. She came voluntarily. She has no medical complaints
Past History
Past History
ED Past Medical History: Arrthythmia (Tachycardia), Asthma, HTN, Seizures, Hypothyroidism, Psychiatric (Bipolar, PTSD, suicide attempts, Anxiety/Depression, Borderline personality, ) and Other (TBI 2006, migraines, Cardiomyopathy,
Subarachnoid/Subdural hemorrhage, Intraparenchymal hem, Sleep apnea, GI bleeding, Pernicious anemia, ADHD, DVT with IVC filter)
ED Past Surgical History: , Orthopedic (R and left knee surgery, Carlos L leg removed, Left arm plate, Right wrist surgery, ) and Other (Green field filter)
Social History
Tobacco: Smoker
Alcohol: None
Drug: Other (Took a Hemp gummy this a.m.)
Personal: Single
Living: alone
Employment: Disabled
Family History
Family History: Other (Diabetes, colon cancer, thyroid disease)
Review of Systems
Review of Systems
All Other Systems: Not applicable
Constitutional: Denies fever or chills
Respiratory: Reports no symptoms
Cardiac: Reports no symptoms
ABD/GI: Reports no symptoms
Phy Exam
Physical Exam
Physical Exam:
GENERAL: Alert and oriented in no apparent distress
EYE: Orbits normal.
NECK: Supple
CARDIAC: Regular rate and rhythm without any obvious murmurs.
LUNGS: Clear breath sounds,normal
ABDOMEN: Soft, without focal tenderness or distention
NEUROLOGICAL: Alert and oriented , grossly non-focal
SKIN: Warm and dry, no rash or lesion, no discoloration, skin intact.
MUSCULOSKELETAL: No edema,no deformity.Good color
PSYCH: Normal and appropriate interaction.
Course
Orders/Labs/Results
Orders:
Orders
06/29/24 09:42
Crisis Consult Urgent
Reason for Consult: depression suicidal ideation
06/29/24 09:57
1:1 Observation - Suicide/ Violent Behavior As Directed
06/29/24 12:37
Test Result ONCE
06/29/24 12:38
Fentanyl, Urine Urgent
HCG, Urine Qualitative Screen Urgent
Date Specimen was Collected: 06/29/24
Time Specimen was Collected: 12:37
Urine Drug Abuse Screen Urgent
Date Specimen was Collected: 06/29/24
Time Specimen was Collected: 12:37
06/29/24 12:59
Lorazepam [Ativan] 1 mg PO NOW STA
Abnormal Lab Results
06/29/24
12:38
Ur Amphetamines Screen Positive H
(Negative)
Vital Signs
Initial and Last Documented VS:
Initial Vital Signs
Temp Pulse Resp BP Pulse Ox
98.3 F 94 18 128/85 97
06/29/24 09:50 06/29/24 09:50 06/29/24 09:50 06/29/24 09:50 06/29/24 09:50
Last Documented Vital Signs
Temp Pulse Resp BP Pulse Ox
98.7 F 69 16 112/69 99
06/29/24 10:00 06/29/24 14:00 06/29/24 14:00 06/29/24 14:00 06/29/24 14:00
MDM/Problems Addressed
Differential Diagnosis Includes:
Patient presents with increasing depression and some suicidal ideation although no plan or expectation to attempt. She just feels like she is going downhill and is requesting more help and care. She denies acute medical complaints denying chest of
breath fever chills unusual headaches etc. Medically she feels well. She lives in a transitional house by herself. She does not work. She has no drug or alcohol issues. Medically stable. No indication for labs at this time. Previous labs were
reviewed from a few months ago and were all stable. Her exam is unremarkable. Currently she is here voluntarily. At this time I would not commit her. She has no plan to attempt.
*Pulse Oximetry
Patient hypoxic: no
*Critical Care Note
Total Time (30-74mins, 75-104mins- exclusive of procedures): Not Applicable
Data Reviewed
Review of Other/Old Records Reveals: Labs, Records and Testing
Update Note
Update Note:
253pm.... Patient apparently will be somewhat of a difficult placement. She is here voluntarily. Crisis talk to the patient explaining this. She was offered to stay but states she now wants to go home. At this time she is not acutely suicidal
and has no plan. No indication or reason for psychiatric committal.
ED Attending Note
-
Portions of this chart may have been created with voice recognition software.� Occasional wrong word or��sound alike� substitutions may have occurred due to the inherent limitations of voice recognition software.
Discharge Plan
Departure
Patient Disposition: Psych Facility
Date of Disposition: 06/29/24
Time of Disposition: 10:44
Patient with high blood pressure during this ER visit?: No
Prescriptions:
No Action
gabapentin 300 mg capsule
300 mg PO BID
folic acid 1 mg Tablet
1 mg PO DAILY
Rx Instructions:
AM
cholecalciferol (vitamin D3) [Vitamin D3] 25 mcg (1,000 unit) Tablet
25 mcg PO DAILY
Rx Instructions:
AM
levothyroxine 25 mcg Tablet
25 mcg PO DAILY
ondansetron 4 mg Tablet,Disintegrating
4 mg PO Q6H PRN (Reason: nausea)
omeprazole 40 mg capsule,delayed release(DR/EC)
40 mg PO DAILY
clonidine HCl 0.1 mg tablet
0.1 mg PO BID
diazepam 5 mg tablet
5 mg PO TID
Patient Comments:
09/20/2023: last filled 09/13/23, 7 tabs for 2 days from [place]
melatonin 10 mg Tablet
10 mg PO HS
Linzess 72 mcg capsule
72 mcg PO DAILY
cyanocobalamin (vitamin B-12) 1,000 mcg/mL solution
1,000 mcg IM MONTHLY
triamcinolone acetonide [Nasacort] 55 mcg Aerosol,[place]
1 spray INTRANASAL DAILY PRN (Reason: allergies)
Rx Instructions:
administer into each nostril
celecoxib 100 mg capsule
100 mg PO BID
valsartan 40 mg tablet
40 mg PO DAILY
Aimovig Autoinjector 140 mg/mL auto-injector
140 mg SC MONTHLY
Nurtec ODT 75 mg tablet,disintegrating
75 mg PO Q48H
albuterol sulfate 90 mcg/actuation Hfa Aerosol Inhaler
2 puff INHALATION R Q6 PRN (Reason: sob/wheezing)
Interventions
Interventions:
*Risk Screen - Suicide Last Done: 06/29/24 09:50
*General Assessment Last Done: 06/29/24 09:50
*Neglect/Abuse Screening Last Done: 06/29/24 09:50
ED- Fall Risk Assessment Last Done: 06/29/24 09:50
*ED COVID-19 Vaccine History Last Done: 06/29/24 09:50
*Nursing Disposition Last Done: 06/29/24 14:53
ED-Psychological Assessment Last Done: 06/29/24 09:50
Discharge Date and Time
Discharge Date/Time: 06/29/24 14:53
Print Language: CITIZ[place]
[2024-06-29 09:50] VITALS: BP 128/85; BMI 38.6
[2024-06-29 10:00] VITALS: BP 128/85
[2024-06-29 11:00] VITALS: BP 118/74
[2024-06-29 12:00] VITALS: BP 117/67
[2024-06-29 13:00] VITALS: BP 121/79
[2024-06-29] MEDS: ATIVAN 1 MG PO (13:01)
[2024-06-29 13:04] LABS: HCG, Urine Qualitative Screen Negative
[2024-06-29 13:15] LABS: Amphetamines Positive (Negative); Barbiturates Negative (Negative); Benzodiazepines Negative (Negative); Buprenorphine Negative (Negative); Cocaine Negative (Negative); Marijuana Negative (Negative); Methadone Negative (Negative); Methamphetamines Negative (Negative); Opiates Negative (Negative); Phencyclidine Negative (Negative); Tricyclic Antidepressants Negative (Negative)
[2024-06-29 13:37] LABS: Fentanyl, Urine Negative (Negative)
[2024-06-29 14:00] VITALS: BP 112/69
== END 2024-06-29 14:53 ==
LOC: EMR 09:30
PROVIDERS: EMERGENCY PHYSICIAN Emergency Medicine
DX: F32.A Depression, unspecified (principal); I10 Essential (primary) hypertension; E03.9 Hypothyroidism, unspecified; F17.200 Nicotine dependence, unspecified, uncomplicated; G47.30 Sleep apnea, unspecified; J45.909 Unspecified asthma, uncomplicated; Z87.820 Personal history of traumatic brain injury; Z91.51 Personal history of suicidal behavior; Z86.718 Personal history of other venous thrombosis and embolism
CPT/HCPCS: 99283; 80306; 80307; 81025

== ENCOUNTER 2024-07-01 09:16 | Emergency (ER) | payer OTHER, SELFPAY ==
[2024-07-01 09:20] VITALS: BP 145/87
--- NOTE | 2024-07-01 09:46 | ED.GENMED ---
History of Present Illness
General
Chief Complaint: Crisis Evaluation
Source: patient
Time Seen by Provider: 07/01/24 09:34
History of Present Illness
History of Present Illness:
38-year-old female presents to the emergency room complaining having suicidal ideations. Patient states she wants to overdose on Tylenol. She also states that she feels like banging her head against the wall. She has had suicidal thoughts and
suicide attempts in the past. Patient was actually here yesterday but was determined not to be in need of a 302. Patient states she did not actually do anything to herself. Patient has had multiple visits for similar complaints.
Past History
Past History
ED Past Medical History: Arrthythmia (Tachycardia), Asthma, HTN, Seizures, Hypothyroidism, Psychiatric (Bipolar, PTSD, suicide attempts, Anxiety/Depression, Borderline personality, ) and Other (TBI 2005, migraines, Cardiomyopathy,
Subarachnoid/Subdural hemorrhage, Intraparenchymal hem, Sleep apnea, GI bleeding, Pernicious anemia, ADHD, DVT with IVC filter)
ED Past Surgical History: , Orthopedic (R and left knee surgery, Carlos L leg removed, Left arm plate, Right wrist surgery, ) and Other (Green field filter)
Social History
Tobacco: Smoker
Alcohol: None
Drug: Other (Took a Hemp gummy this a.m.)
Personal: Single
Living: alone
Employment: Disabled
Family History
Family History: Other (Diabetes, colon cancer, thyroid disease)
Phy Exam
Physical Exam
Physical Exam:
General: Awake, Alert, Oriented X3. Flat affect
Vitals: unremarkable
Head: Atraumatic
Eyes: Pupils equal, EOMI
Throat: Airway intact, no exudates
Neck: Trachea midline
Lungs: Clear and equal b/l
Heart: Regular rate, no murmurs
Abd: Soft, Nontender, No pulsatile mass
Neuro: Nonfocal
Skin: Warm, dry, no rash
Extremities: pulses equal b/l, no edema
Course
Orders/Labs/Results
Orders:
Orders
07/01/24 09:45
Crisis Consult Urgent
Reason for Consult: suididal ideations
07/01/24 12:09
Fentanyl, Urine Urgent
Urine Drug Abuse Screen Urgent
Date Specimen was Collected: 07/01/24
Time Specimen was Collected: 12:06
07/01/24 13:31
Diphenhydramine [Benadryl] 50 mg PO HSPRN PRN
07/01/24 16:00
Gabapentin [Neurontin] 800 mg PO TID
07/01/24 17:00
METFORMIN HCl [Glucophage] 500 mg PO BID@0800,1700
07/01/24 20:00
Celecoxib [Celebrex] 100 mg PO BID
Clonidine [Catapres] 0.1 mg PO BID
Risperidone [Risperdal] 2 mg PO BID
Tramadol HCl [Ultram] 50 mg PO BID
07/01/24 22:00
Melatonin 5 mg PO HS
Trazodone [Desyrel] 200 mg PO HS
07/02/24 06:00
Levothyroxine [Synthroid] 25 mcg PO DAILY @ 0600
Linaclotide [Linzess] 145 mcg PO DAILY @ 0600
07/02/24 08:00
Famotidine [Pepcid] 40 mg PO DAILY
Loratadine [Claritin] 10 mg PO DAILY
Propranolol Extended Release [Inderal LA] 60 mg PO DAILY
Abnormal Lab Results
07/01/24
12:09
Ur Amphetamines Screen Positive H
(Negative)
Vital Signs
Initial and Last Documented VS:
Initial Vital Signs
Temp Pulse Resp BP Pulse Ox
98.5 F 90 18 145/87 100
07/01/24 09:20 07/01/24 09:20 07/01/24 09:20 07/01/24 09:20 07/01/24 09:20
Last Documented Vital Signs
Temp Pulse Resp BP Pulse Ox
98.5 F 90 18 145/87 100
07/01/24 09:20 07/01/24 09:20 07/01/24 09:20 07/01/24 09:20 07/01/24 09:20
MDM/Problems Addressed
Differential Diagnosis Includes:
suicidal ideations, manipulative behavior
MDM/Problems Addressed:
Pt presents stating she has suicidal ideations. She communicates a plan of taking Tylenol to kill herself. Pt has had multiple visits for similar and very disruptive behavior. Pt will need to be held for psychiatry to assess how to proceed.
*Pulse Oximetry
Patient hypoxic: no
*Critical Care Note
Total Time (30-74mins, 75-104mins- exclusive of procedures): Not Applicable
ED Attending Note
-
Portions of this chart may have been created with voice recognition software.� Occasional wrong word or��sound alike� substitutions may have occurred due to the inherent limitations of voice recognition software.
Discharge Plan
Departure
Patient Disposition: [facility]
Date of Disposition: 07/03/24
Time of Disposition: 09:06
Patient Status:: 302
Condition: Fair
Discharge Problem:
Suicidal ideations
Prescriptions:
No Action
levothyroxine 25 mcg Tablet
25 mcg PO DAILY
ondansetron 4 mg Tablet,Disintegrating
4 mg PO Q6H PRN (Reason: nausea)
clonidine HCl 0.1 mg tablet
0.1 mg PO BID
celecoxib 100 mg capsule
100 mg PO BID
Nurtec ODT 75 mg tablet,disintegrating
75 mg PO Q48H
albuterol sulfate 90 mcg/actuation Hfa Aerosol Inhaler
2 puff INHALATION R Q6 PRN (Reason: sob/wheezing)
metformin 500 mg tablet
500 mg PO BID@0800,1700
diphenhydramine HCl [Banophen] 50 mg capsule
50 mg PO HS
famotidine 40 mg tablet
40 mg PO DAILY
propranolol 60 mg capsule,extended release 24 hr
60 mg PO DAILY
sennosides-docusate sodium [Stool Softener-Stimulant Laxat] 8.6-50 mg tablet
1 tab PO DAILY
tramadol 50 mg tablet
50 mg PO BID
Rx Instructions:
07/01/24: filled 60 tabs/30 days on 06/04/24 at [facility]
risperidone 2 mg tablet
2 mg PO BID
methocarbamol 750 mg tablet
750 mg PO BIDPRN PRN (Reason: pain)
gabapentin 800 mg tablet
800 mg PO TID
trazodone 100 mg tablet
200 mg PO HS
ergocalciferol (vitamin D2) [Vitamin D2] 1,250 mcg (50,000 unit) capsule
1,250 mcg PO MO
loratadine 10 mg tablet
10 mg PO DAILY
budesonide-formoterol 80-4.5 mcg/actuation HFA aerosol inhaler
2 inh INHALATION BID
lisdexamfetamine 20 mg capsule
20 mg PO DAILY
Rx Instructions:
07/01/24: filled # day supply on 06/04/24 [facility]
Linzess 145 mcg capsule
145 mcg PO DAILY
Caplyta 42 mg capsule
42 mg PO DAILY
docusate sodium 100 mg Capsule
100 mg PO Q48H
cyanocobalamin (vitamin B-12) 1,000 mcg Tablet, Sublingual
1,000 mcg SUBLINGUAL DAILY
melatonin 5 mg Tablet
5 mg PO HS
Referrals:
UNKNOWN,NO INTERVIEW [Family Provider] -
Interventions
Interventions:
*Risk Screen - Suicide Last Done: 07/01/24 09:22
*General Assessment Last Done: 07/01/24 09:22
*Neglect/Abuse Screening Last Done: 07/01/24 09:22
ED- Fall Risk Assessment Last Done: 07/01/24 16:02
*ED COVID-19 Vaccine History Last Done: 07/01/24 16:02
*Nursing Disposition Last Done: 07/01/24 16:02
ED-Psychological Assessment Last Done: 07/01/24 10:10
Discharge Date and Time
Discharge Date/Time: 07/01/24 16:04
Print Language: CITIZEN [place]
[2024-07-01 12:43] LABS: Amphetamines Positive (Negative); Barbiturates Negative (Negative); Benzodiazepines Negative (Negative); Buprenorphine Negative (Negative); Cocaine Negative (Negative); Marijuana Negative (Negative); Methadone Negative (Negative); Methamphetamines Negative (Negative); Opiates Negative (Negative); Phencyclidine Negative (Negative); Tricyclic Antidepressants Negative (Negative)
[2024-07-01 13:06] LABS: Fentanyl, Urine Negative (Negative)
--- NOTE | 2024-07-01 15:20 | CON.MD ---
Consultation - Medical
-
patient seen chart reviewed. discussed w staff. the patient is very well known to me from rx here at and at [facility]. she comes to er w complaint of si 'off and on' she made a comment to one of our staff re wanting to od on tylenol staff member
petitioned for a 302 . when i saw her the patient protested that while she had such thoughts she had no intention of acting upon them. she has a comprehensive care team incuding [facility] at [facility] and two therapists at [facility] gennaro and favio and also
has a home health ink printer. she is seeing gennaro tomorrow favio on and home health tomorrow as well. she was dc from [facility] after a five + mo stay in apr. she was hosp originally for an od. she had prior to that been in [facility] but
charges were dismissed. she reports her son emerald now nine told her he loves her in the summer and this was a great plus for her but still w the stressors of her life she wound up in the hospital. she is feeling more supported at present but had
presented yesterday to [facility] and felt dissed when the doctor there told her to seek [facility] or crisis residential. she then came her today for support. her meds are dispensed through act and delivered each day. she is taking risperdal and aplyta as
well as clonidine gabapentin. she has pain meds of back and knee pain including tramadol and robaxin. she does not know doses and cannot name all of her meds but has a list and as started act packages them and delivers them for her. sleep is fair.
appetite is good. ate her lunch here. no psychosis noted.
please see prior records for extensive history
mental status exam: casual dress. no acute distress. speech and thought process normal. mood now neutral affect ok denies will harm self. no psychosis intelligence average insight judgment very variable and diminish with stress and frustration
dx borderline personality disorder ptsd unspecified mood disorder
plan will not uphold 302. patient to return to ACT and usual therapies. called act and spoke to staff member to apprise her that patient is leaving the ER and will need her meds tomorrow.
== END 2024-07-01 16:04 ==
LOC: EMR 09:16
PROVIDERS: EMERGENCY PHYSICIAN Emergency Medicine; OTHER PHYSICIAN Psychiatry & Neurology Psychiatry
DX: R45.851 Suicidal ideations (principal); F17.200 Nicotine dependence, unspecified, uncomplicated
CPT/HCPCS: 99283; 80306; 80307

== ENCOUNTER 2024-07-12 14:45 | Emergency (ER) | payer OTHER, SELFPAY ==
[2024-07-12 14:47] VITALS: BP 136/95
--- NOTE | 2024-07-12 15:28 | ED.GENMED ---
History of Present Illness
General
Chief Complaint: Suicidal Ideation
Time Seen by Provider: 07/12/24 15:08
History of Present Illness
History of Present Illness:
38-year-old female with history of borderline personality well-known to this hospital presents for depression and vague suicidal ideation. When asked if she has a plan she states 'male that I always go back to what I always do'. She was seen in
this emergency department last week for similar complaints at that time a 302 was initially filed however psychiatry saw the patient and released 302. Patient is undergoing care from [facility] and receives visiting aides to provide
medications at least twice a week. She denies access to weapons at home.
Past History
Past History
ED Past Medical History: Arrthythmia (Tachycardia), Asthma, HTN, Seizures, Hypothyroidism, Psychiatric (Bipolar, PTSD, suicide attempts, Anxiety/Depression, Borderline personality, ) and Other (TBI 2005, migraines, Cardiomyopathy,
Subarachnoid/Subdural hemorrhage, Intraparenchymal hem, Sleep apnea, GI bleeding, Pernicious anemia, ADHD, DVT with IVC filter)
ED Past Surgical History: , Orthopedic (R and left knee surgery, Carlos L leg removed, Left arm plate, Right wrist surgery, ) and Other (Green field filter)
Social History
Tobacco: Smoker
Alcohol: None
Drug: Other (Took a Hemp gummy this a.m.)
Personal: Single
Living: alone
Employment: Disabled
Family History
Family History: Other (Diabetes, colon cancer, thyroid disease)
Review of Systems
Review of Systems
Allergies reviewed?: Yes
All Other Systems: ROS reviewed and negative except as documented in HPI and ROS
Phy Exam
Physical Exam
Physical Exam:
GEN: Well appearing, NAD, WDWN
HEENT: Oral mucosa moist, no scleral icterus
Cardiac: Regular rate
Lung: No respiratory distress, no tachypnea
MSK: No gross deformity or injuries
Skin: Good color, no pallor or jaundice, no rashes
Neuro: AO x3, moves all extremities freely
Psych: Calm, flat and withdrawn affect
Course
Orders/Labs/Results
Orders:
Orders
07/12/24 14:49
Crisis Consult Urgent
Reason for Consult: SI
Vital Signs
Initial and Last Documented VS:
Initial Vital Signs
Temp Pulse Resp BP Pulse Ox
97.6 F 84 16 136/95 100
07/12/24 14:47 07/12/24 14:47 07/12/24 14:47 07/12/24 14:47 07/12/24 14:47
Last Documented Vital Signs
Temp Pulse Resp BP Pulse Ox
97.6 F 84 16 136/95 100
07/12/24 14:47 07/12/24 14:47 07/12/24 14:47 07/12/24 14:47 07/12/24 14:47
MDM/Problems Addressed
MDM/Problems Addressed:
Patient does not have any side, this patient has a resting level of severe depression with passive SI. She was seen by crisis and we are in agreement that the patient does not require inpatient hospitalization, discharged home
*Critical Care Note
Total Time (30-74mins, 75-104mins- exclusive of procedures): Not Applicable
ED Attending Note
-
Portions of this chart may have been created with voice recognition software.� Occasional wrong word or��sound alike� substitutions may have occurred due to the inherent limitations of voice recognition software.
Discharge Plan
Departure
Patient Disposition: Home (Routine Discharge)
Date of Disposition: 07/12/24
Time of Disposition: 15:28
Patient with high blood pressure during this ER visit?: No
Discharge Problem:
Depression
Instructions: Depression, Adult (DC)
Prescriptions:
No Action
levothyroxine 25 mcg Tablet
25 mcg PO DAILY
ondansetron 4 mg Tablet,Disintegrating
4 mg PO Q6H PRN (Reason: nausea)
clonidine HCl 0.1 mg tablet
0.1 mg PO BID
celecoxib 100 mg capsule
100 mg PO BID
Nurtec ODT 75 mg tablet,disintegrating
75 mg PO Q48H
albuterol sulfate 90 mcg/actuation Hfa Aerosol Inhaler
2 puff INHALATION R Q6 PRN (Reason: sob/wheezing)
metformin 500 mg tablet
500 mg PO BID@0800,1700
diphenhydramine HCl [Banophen] 50 mg capsule
50 mg PO HS
famotidine 40 mg tablet
40 mg PO DAILY
propranolol 60 mg capsule,extended release 24 hr
60 mg PO DAILY
sennosides-docusate sodium [Stool Softener-Stimulant Laxat] 8.6-50 mg tablet
1 tab PO DAILY
tramadol 50 mg tablet
50 mg PO BID
Rx Instructions:
07/01/24: filled 60 tabs/30 days on 06/04/24 at [place]
risperidone 2 mg tablet
2 mg PO BID
methocarbamol 750 mg tablet
750 mg PO BIDPRN PRN (Reason: pain)
gabapentin 800 mg tablet
800 mg PO TID
trazodone 100 mg tablet
200 mg PO HS
ergocalciferol (vitamin D2) [Vitamin D2] 1,250 mcg (50,000 unit) capsule
1,250 mcg PO MO
loratadine 10 mg tablet
10 mg PO DAILY
budesonide-formoterol 80-4.5 mcg/actuation HFA aerosol inhaler
2 inh INHALATION BID
lisdexamfetamine 20 mg capsule
20 mg PO DAILY
Rx Instructions:
07/01/24: filled # day supply on 06/04/24 [place]
Linzess 145 mcg capsule
145 mcg PO DAILY
Caplyta 42 mg capsule
42 mg PO DAILY
docusate sodium 100 mg Capsule
100 mg PO Q48H
cyanocobalamin (vitamin B-12) 1,000 mcg Tablet, Sublingual
1,000 mcg SUBLINGUAL DAILY
melatonin 5 mg Tablet
5 mg PO HS
Referrals:
UNKNOWN - PT NOT,INTERVIEWE [Family Provider] -
Interventions
Interventions:
*Risk Screen - Suicide Last Done: 07/12/24 14:47
*General Assessment Last Done: 07/12/24 16:00
*Neglect/Abuse Screening Last Done: 07/12/24 14:50
ED- Fall Risk Assessment Last Done: 07/12/24 16:00
*ED COVID-19 Vaccine History Last Done: 07/12/24 16:00
*Nursing Disposition Last Done: 07/12/24 16:00
ED-Psychological Assessment Last Done: 07/12/24 16:41
Discharge Date and Time
Discharge Date/Time: 07/12/24 16:00
Print Language: AMHARIC
== END 2024-07-12 16:00 | disposition home or self-care (01) ==
LOC: EMR 14:45
PROVIDERS: EMERGENCY PHYSICIAN Emergency Medicine
DX: F32.A Depression, unspecified (principal); R45.851 Suicidal ideations; J45.909 Unspecified asthma, uncomplicated; E03.9 Hypothyroidism, unspecified; G47.30 Sleep apnea, unspecified; I10 Essential (primary) hypertension; I42.9 Cardiomyopathy, unspecified; Z91.51 Personal history of suicidal behavior; Z87.820 Personal history of traumatic brain injury; Z86.718 Personal history of other venous thrombosis and embolism; F17.200 Nicotine dependence, unspecified, uncomplicated
CPT/HCPCS: 99283

== ENCOUNTER 2024-07-16 19:54 | Inpatient (IN) | payer OTHER, SELFPAY ==
[2024-07-16] VITALS (10 sets, daily range): BP systolic 86–153; BP diastolic 53–91; BMI 40.8
--- NOTE | 2024-07-16 15:31 | ED.GENMED ---
History of Present Illness
General
Chief Complaint: Depression
Source: patient
Exam Limitations: none
Time Seen by Provider: 07/16/24 15:30
Nursing documentation reviewed up to this point in time: agreed with
History of Present Illness
History of Present Illness:
38-year-old female with history as documented presents to the emergency department for evaluation of suicidal ideation. Patient reports that she has been dealing with suicidal ideation for at least the past few weeks. She has been here in this
emergency room multiple times this month she also says that she was in the emergency room at [facility] multiple times for similar and has been pursuing intensive outpatient treatment but feels she is not having any improvement. She has 2
therapists and apparently disclosed to one of her therapists that she had a plan to overdose on Tylenol�she adamantly denies that she has had a specific plan and she denies any attempts at self-harm or overdose recently although she did have suicide
attempt by overdose in the past. She is seeking inpatient psychiatric treatment. Physically she denies any complaints�denies any chest pain, abdominal pain, nausea, recent illness. She reports compliance with all of her neuropsychiatric
medications. She reports that she had a drink of alcohol today, denies any drug use.
Past History
Past History
ED Past Medical History: Arrthythmia (Tachycardia), Asthma, HTN, Seizures, Hypothyroidism, Psychiatric (Bipolar, PTSD, suicide attempts, Anxiety/Depression, Borderline personality, ) and Other (TBI 2006, migraines, Cardiomyopathy,
Subarachnoid/Subdural hemorrhage, Intraparenchymal hem, Sleep apnea, GI bleeding, Pernicious anemia, ADHD, DVT with IVC filter)
ED Past Surgical History: , Orthopedic (R and left knee surgery, Carlos L leg removed, Left arm plate, Right wrist surgery, ) and Other (Green field filter)
Social History
Tobacco: Smoker
Alcohol: None
Drug: Other (Took a Hemp gummy this a.m.)
Personal: Single
Living: alone
Employment: Disabled
Family History
Family History: Other (Diabetes, colon cancer, thyroid disease)
Review of Systems
Review of Systems
All Other Systems: ROS reviewed and negative except as documented in HPI and ROS
Constitutional: Denies fever
Respiratory: Denies trouble breathing
Cardiac: Denies chest pain
ABD/GI: Denies abdominal pain, nausea or vomiting
: Denies flank pain
Musculoskeletal: Denies neck pain or back pain
Neurological: Denies headache
Phy Exam
Physical Exam
Physical Exam:
General: Awake, alert, oriented x3; no acute distress
Head: Normocephalic, atraumatic
Eyes: Conjunctiva normal, pupils equal round and reactive to light bilaterally, sclera anicteric
Throat: Airway intact, handling secretions
Neck: Trachea midline, supple without meningismus
Lungs: Clear to auscultation bilaterally, no wheezing, rales, rhonchi
Heart: Regular rate and rhythm, no murmurs, gallops, or rubs
Abd: Soft, non distended, nontender
Neuro: No gross deficits
Extremities: No edema in extremities, equal pulses in all extremities
Psych: Depressed mood, flat affect
Scores
Heart Failure Risk
Heart Failure Risk Score: Not Applicable
Heart Score for Chest Pain Patients
STEMI patient?: Not applicable
Withdrawal Assessment of Alcohol
Withdrawal Assessment Completed?: Not applicable
Course
Orders/Labs/Results
Orders:
Orders
07/16/24 15:30
Electrocardiogram (*1) Urgent
Reason for Study: QTc Monitoring
EKG- Treatment ONCE
Drug Screen, Urine [Urine Drug Abuse Screen] Urgent
Test Result ONCE
07/16/24 15:31
Crisis Consult Routine
Reason for Consult: suicidal ideation
07/16/24 15:38
Acetaminophen Urgent
Alcohol Urgent
Complete Blood Count/With Diff Urgent
Comprehensive Metabolic Panel Urgent
HCG, Serum Qualitative Screen Urgent
Salicylate Urgent
07/16/24 15:49
1:1 Observation - Suicide/ Violent Behavior As Directed
07/16/24 15:53
Acetylcysteine [Acetadote] 10,000 mg 0.45% Sodium Chloride 1000 ml [0.45%NaCl] 1,000 ml IV ONCE
Acetylcysteine [Acetadote] 15,000 mg 0.45% Sodium Chloride 250 ml [0.45%NaCl] 200 ml IV NOW
Acetylcysteine [Acetadote] 5,000 mg 0.45% Sodium Chloride 500 ml [0.45%NaCl] 500 ml IV ONCE
07/16/24 15:58
Prothrombin Time Urgent
07/16/24 16:19
PSYCHIATRY CONSULT Urgent
Consulting Provider: Shari Hannah
Was physician already notified: Yes
07/16/24 19:38
Acetaminophen Urgent
Abnormal Lab Results
07/16/24
15:38
RBC 4.14 L 10^6/uL
(4.20-5.40)
Hgb 10.8 L g/dL
(12.0-16.0)
Hct 34.0 L %
(37.0-47.0)
MCH 26.1 L pg
(27.0-31.0)
MCHC 31.8 L g/dL
(33.0-37.0)
MPV 11.1 H fL
(7.4-10.4)
Abs Immat Gran (auto) 0.1 H 10^3/uL
(0-0.05)
Immature Gran % 0.9 H %
(0-0.5)
Glucose 123 H mg/dl
(70-99)
Total Bilirubin 0.1 L mg/dl
(0.2-1.3)
Salicylates < 1.0 L mg/dl
(2.0-20.0)
Acetaminophen 140 H ug/ml
(10-30)
07/16/24 15:38
07/16/24 15:38
Vital Signs
Initial and Last Documented VS:
Initial Vital Signs
BP
153/91
07/16/24 15:28
Last Documented Vital Signs
Temp Pulse Resp BP Pulse Ox
37.2 C 111 15 153/91 96
07/16/24 15:36 07/16/24 15:36 07/16/24 15:36 07/16/24 15:36 07/16/24 15:36
MDM/Problems Addressed
Differential Diagnosis Includes:
Suicidal ideation
MDM/Problems Addressed:
38-year-old female presents to the emergency room for evaluation of worsening suicidality. She did apparently disclose plan to overdose to a therapist although she denies this to me. She denies any recent attempts at self-harm/overdose but given
her history we will plan to check labs including a CBC and a CMP, Tylenol salicylate level, alcohol level, UDS. Check EKG. Will monitor closely�if medically cleared plan for inpatient psychiatric treatment. Case discussed with crisis to assist.
After further discussion with patient and nurse patient did admit that today she took Tylenol and attempt to overdose and kill herself. She says that she took 24 total tablets of 500 mg acetaminophen (12,000 mg total reported ingestion). She says
she cannot remember exactly what time she took it but she thinks it has been at least a few hours. She denies taking any other medications.
Case discussed with poison control: Agreed with workup as above; recommended no activated charcoal with at least a few hours reported since ingestion unlikely be of benefit. With somewhat unclear timing and large reported ingestion recommended
empiric N-acetylcysteine while awaiting results.
Labs reviewed: CBC shows stable anemia, CMP notable for normal LFTs. hCG negative. Salicylate level negative. Tylenol level 140�unclear where [facility] falls [facility] without clear ingestion timing, will need repeat level in 4 hours
for trend. Will continue with empiric NAC. Trend APAP levels and LFTs. Admit for continued monitoring. Patient willing to undergo voluntary treatment but back up 302 filed by therapist. Case discussed with psychiatry to follow. Case discussed
with hospitalist for admission.
Chronic conditions affecting care:
Anxiety/depression, BPD
*Pulse Oximetry
Patient hypoxic: no
*Critical Care Note
Total Time (30-74mins, 75-104mins- exclusive of procedures): Not Applicable
Data Reviewed
Review of Other/Old Records Reveals: Labs and Records
Source: patient, records and ambulance crew
Patient Management
Discussion with other providers: Hospitalist (Discussed with hospitalist), Streetcar Repairer Helper (Discussed with psychiatry) and Other (Discussed with crisis team, discussed with poison control)
Escalation/DeEscalation of care consider admission/obs:
Admission indicated
ED Attending Note
-
Portions of this chart may have been created with voice recognition software.� Occasional wrong word or��sound alike� substitutions may have occurred due to the inherent limitations of voice recognition software.
Discharge Plan
Departure
Patient Disposition: Admit
Date of Disposition: 07/16/24
Time of Disposition: 16:26
Admit to doctor: Ninfa
Presentation/result/management discussed w/ accepting MD/DO: Hospitalist
Discharge Problem:
Tylenol overdose, Suicidal ideations
Prescriptions:
No Action
levothyroxine 25 mcg Tablet
25 mcg PO DAILY
ondansetron 4 mg Tablet,Disintegrating
4 mg PO Q6H PRN (Reason: nausea)
clonidine HCl 0.1 mg tablet
0.1 mg PO BID
celecoxib 100 mg capsule
100 mg PO BID
Nurtec ODT 75 mg tablet,disintegrating
75 mg PO Q48H
albuterol sulfate 90 mcg/actuation Hfa Aerosol Inhaler
2 puff INHALATION R Q6 PRN (Reason: sob/wheezing)
metformin 500 mg tablet
500 mg PO BID@0800,1700
diphenhydramine HCl [Banophen] 50 mg capsule
50 mg PO HS
famotidine 40 mg tablet
40 mg PO DAILY
propranolol 60 mg capsule,extended release 24 hr
60 mg PO DAILY
sennosides-docusate sodium [Stool Softener-Stimulant Laxat] 8.6-50 mg tablet
1 tab PO DAILY
tramadol 50 mg tablet
50 mg PO BID
Rx Instructions:
07/01/24: filled 60 tabs/30 days on 06/04/24 at [facility]
risperidone 2 mg tablet
2 mg PO BID
methocarbamol 750 mg tablet
750 mg PO BIDPRN PRN (Reason: pain)
gabapentin 800 mg tablet
800 mg PO TID
trazodone 100 mg tablet
200 mg PO HS
ergocalciferol (vitamin D2) [Vitamin D2] 1,250 mcg (50,000 unit) capsule
1,250 mcg PO MO
loratadine 10 mg tablet
10 mg PO DAILY
budesonide-formoterol 80-4.5 mcg/actuation HFA aerosol inhaler
2 inh INHALATION BID
lisdexamfetamine 20 mg capsule
20 mg PO DAILY
Rx Instructions:
07/01/24: filled #/ day supply on 06/04/24 [facility]
Linzess 145 mcg capsule
145 mcg PO DAILY
Caplyta 42 mg capsule
42 mg PO DAILY
docusate sodium 100 mg Capsule
100 mg PO Q48H
cyanocobalamin (vitamin B-12) 1,000 mcg Tablet, Sublingual
1,000 mcg SUBLINGUAL DAILY
melatonin 5 mg Tablet
5 mg PO HS
Referrals:
UNKNOWN - PT NOT,INTERVIEWE [Family Provider] -
Discharge Date and Time
Print Language: GERMAN
[2024-07-16 15:56] LABS: % Basophils 0.5 % (0-2); % Eosinophils 2.9 % (0-6); % Immature Granulocytes 0.9 % (0-0.5); % Lymphocytes 26.8 % (20.5-51.1); % Monocytes 6.1 % (1.7-9.3); % Neutrophils 62.8 % (42.2-75.2); Absolute Basophils 0.1 10^3/uL (0-0.2); Absolute Eosinophils 0.3 10^3/uL (0-0.7); Absolute Immature Granulocytes 0.1 10^3/uL (0-0.05); Absolute Lymphocytes 2.5 10^3/uL (1.2-3.4); Absolute Monocytes 0.6 10^3/uL (0.1-0.6); Absolute Neutrophils 5.8 10^3/uL (1.4-6.5); Hemoglobin 10.8 g/dL (12.0-16.0); Mean Corp Hgb Conc. 31.8 g/dL (33.0-37.0); Mean Corpuscular Hgb 26.1 pg (27.0-31.0); Mean Corpuscular Volume 82.1 fL (81.0-99.0); Nucleated Red Blood Cells % 0 %; Red Blood Cell Count 4.14 10^6/uL (4.20-5.40); Red Cell Dist. Width 14.2 % (11.5-14.5); White Blood Cell Count 9.3 10^3/uL (4.8-10.8)
[2024-07-16 15:57] LABS: HCG, Serum Qualitative Screen Negative
[2024-07-16 16:02] LABS: ALT (SGPT) 22 U/L (0-35); AST (SGOT) 23 U/L (14-36); Acetaminophen 140 ug/ml (10-30); Albumin 4.4 g/dl (3.5-5.0); Alkaline Phosphatase 95 U/L (38-126); Blood Urea Nitrogen 7 mg/dl (7-17); Calcium 8.8 mg/dl (8.4-10.2); Carbon Dioxide 23 mmol/L (22-30); Chloride 103 mmol/L (98-107); Estimated Creatinine Clearance > 125 ml/min; Glucose 123 mg/dl (70-99); Potassium 4.2 mmol/L (3.5-5.1); Salicylate < 1.0 mg/dl (2.0-20.0); Sodium 139 mmol/L (135-145); Total Bilirubin 0.1 mg/dl (0.2-1.3); eGFR > 60.00
[2024-07-16 16:03] LABS: Alcohol None Detected
[2024-07-16 16:21] LABS: Mean Platelet Volume 11.1 fL (7.4-10.4); Platelet Count 268 10^3/uL (130-400)
[2024-07-16] MEDS: ACETADOTE 275 MG IV (17:17)
[2024-07-16 17:29] LABS: Amphetamines Positive (Negative); Barbiturates Negative (Negative); Benzodiazepines Positive (Negative); Buprenorphine Negative (Negative); Cocaine Negative (Negative); INR 0.95; Marijuana Negative (Negative); Methadone Negative (Negative); Methamphetamines Negative (Negative); Opiates Negative (Negative); PT 13.2 Sec (11.4-14.6); Phencyclidine Negative (Negative); Tricyclic Antidepressants Negative (Negative)
[2024-07-16 17:31] LABS: Acetaminophen 124 ug/ml (10-30)
[2024-07-16] MEDS: NSS 1000 IV (17:31)
[2024-07-16 17:43] LABS: Fentanyl, Urine Negative (Negative)
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
[2024-07-16] MEDS: ACETADOTE 525 MG IV (19:16)
--- NOTE | 2024-07-16 20:37 | W.PN.UPDATE ---
Update Note
Progress Note Update
This is an addendum to the H&P written by Nazanin Easley on 07/16/2024. Patient seen and examined independently with COUNSELING AIDE.
38-year-old female past medical history of bipolar disorder, PTSD, suicide times, anxiety/depression, TBI in 2006, subarachnoid/subdural hemorrhage, intraparenchymal hemorrhage, seizures, migraines, cardiomyopathy, hypertension, asthma, diabetes,
hypothyroidism, sleep apnea, GI bleeding, pernicious anemia, DVT with IVC filter, presenting for Tylenol overdose. She ingested 24 tablets of 500 mg equaling 12,000 mg of Tylenol.
Patient recently had her Valium increased from 2.5 to 5 mg twice daily on 07/07.
UDS positive for amphetamines, benzos consistent with her Vyvanse and Valium use.
Labs show normal LFTs. PT/INR normal. ER discussed with poison control who recommended NAC protocol and checking labs per NAC protocol. Check LFTs, Tylenol level, PT/INR every 4 hours. Discussed possibility of transfer to tertiary center with
GI, but given normal labs patient is able to stay for now. Patient initially hypotensive but blood pressures improved with IV fluids.
One-to-one sitter. Psychiatry consulted.
[2024-07-16] MEDS: ACETADOTE 1050 MG IV (23:41)
[2024-07-16] MEDS: BENADRYL 25 MG PO (23:50)
[2024-07-16] MEDS: NEURONTIN 800 MG PO (23:50)
[2024-07-16] MEDS: ULTRAM 50 MG PO (23:51)
[2024-07-16] MEDS: CELEBREX 100 MG PO (23:51)
[2024-07-16] MEDS: RISPERDAL 2 MG PO (23:51)
[2024-07-16] MEDS: DESYREL 200 MG PO (23:51)
[2024-07-16] MEDS: NSS IV (23:55)
--- NOTE | 2024-07-17 00:10 | EDRN ---
Assumed care of pt. in rm. Crisis 1, pt. refuses to keep case monitor on. Pt. is upset she is a hold in ED, states, 'can't you guys just put me on med-surg, I'm not going to be able to sleep in this room'. RN explained to pt. she is IMU admit and
no beds available, pt. provided pillows/blanket, lights dimmed, all efforts in place to attempt to keep pt. comfortable in current room. Pt. took oral nighttime medications, has IV fluids ordered; however, currently has medication infusion that is
not compatible w/ 0.9% NSS, and pt. refuses this RN to place second IV/ is refusing current ordered labs. Pt. is aware will need repeat labs drawn during her stay, is agreeable to 'get stuck when you stick me for morning labs'. RN will again offer
second IV access at that time via ultrasound, so has two sources of access, but pt. is currently refusing.
[2024-07-17 04:13] VITALS: BP 124/85
--- NOTE | 2024-07-17 04:14 | EDRN ---
Pt. was agreeable for this RN to attempt venipuncture for ordered labs. This RN attempted in rt. AC, was unsuccessful. Second RN to bedside to assist, attempted venipuncture to lt. upper arm, unsuccessful. Pt. stated, 'that's it, if you guys don't
get it with the second stick you're not sticking me again'. Pt. was agreeable to allow RN to obtain vitals. Vitals stable.
[2024-07-17] MEDS: NSS 1000 IV (04:18)
[2024-07-17 05:06] LABS: % Basophils 0.5 % (0-2); % Eosinophils 3.2 % (0-6); % Immature Granulocytes 0.8 % (0-0.5); % Lymphocytes 26.2 % (20.5-51.1); % Monocytes 7.5 % (1.7-9.3); % Neutrophils 61.8 % (42.2-75.2); Absolute Eosinophils 0.2 10^3/uL (0-0.7); Absolute Immature Granulocytes 0.1 10^3/uL (0-0.05); Absolute Lymphocytes 1.6 10^3/uL (1.2-3.4); Absolute Monocytes 0.5 10^3/uL (0.1-0.6); Absolute Neutrophils 3.7 10^3/uL (1.4-6.5); Hematocrit 32.7 % (37.0-47.0); Hemoglobin 10.3 g/dL (12.0-16.0); Mean Corp Hgb Conc. 31.5 g/dL (33.0-37.0); Mean Corpuscular Hgb 25.9 pg (27.0-31.0); Mean Corpuscular Volume 82.2 fL (81.0-99.0); Mean Platelet Volume 10.6 fL (7.4-10.4); Nucleated Red Blood Cells % 0 %; Platelet Count 261 10^3/uL (130-400); Red Blood Cell Count 3.98 10^6/uL (4.20-5.40); Red Cell Dist. Width 14.1 % (11.5-14.5)
[2024-07-17 05:14] LABS: APTT 26.4 Sec (23.4-35.0)
[2024-07-17 05:26] LABS: AST (SGOT) 23 U/L (14-36); Albumin 3.6 g/dl (3.5-5.0); Alkaline Phosphatase 72 U/L (38-126); Blood Urea Nitrogen 8 mg/dl (7-17); Carbon Dioxide 24 mmol/L (22-30); Estimated Creatinine Clearance > 125 ml/min; Glucose 90 mg/dl (70-99); Total Bilirubin 0.2 mg/dl (0.2-1.3); eGFR > 60.00
[2024-07-17 05:39] LABS: ALT (SGPT) 20 U/L (0-35); Acetaminophen < 10 ug/ml (10-30); Calcium 8.1 mg/dl (8.4-10.2); Chloride 108 mmol/L (98-107); Potassium 4.4 mmol/L (3.5-5.1); Sodium 140 mmol/L (135-145)
[2024-07-17 06:37] VITALS: BP 132/89
[2024-07-17] MEDS: SYNTHROID 25 MCG PO (06:40)
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
[2024-07-17] MEDS: RISPERDAL 2 MG PO (08:33)
[2024-07-17] MEDS: VITAMIN B-12 1000 MCG PO (08:33)
[2024-07-17] MEDS: LINZESS 145 MCG PO (08:33)
[2024-07-17] MEDS: CLARITIN 10 MG PO (08:34)
[2024-07-17] MEDS: CELEBREX 100 MG PO (08:34)
[2024-07-17] MEDS: ULTRAM 50 MG PO (08:34)
[2024-07-17] MEDS: GLUCOPHAGE 500 MG PO (08:36)
[2024-07-17] MEDS: NEURONTIN 800 MG PO (08:36)
[2024-07-17] MEDS: SENOKOT-S 1 TABLET PO (08:36)
[2024-07-17] MEDS: COLACE 100 MG PO (08:36)
[2024-07-17] MEDS: PEPCID 40 MG PO (08:36)
[2024-07-17 08:38] LABS: Glucose - Point of Care 98 mg/dl (70-99)
[2024-07-17 09:10] LABS: APTT 27.5 Sec (23.4-35.0)
[2024-07-17 09:20] LABS: ALT (SGPT) 21 U/L (0-35); AST (SGOT) 19 U/L (14-36); Acetaminophen < 10 ug/ml (10-30); Albumin 3.9 g/dl (3.5-5.0); Alkaline Phosphatase 79 U/L (38-126); Blood Urea Nitrogen 6 mg/dl (7-17); Calcium 8.5 mg/dl (8.4-10.2); Carbon Dioxide 24 mmol/L (22-30); Chloride 107 mmol/L (98-107); Estimated Creatinine Clearance > 125 ml/min; Glucose 88 mg/dl (70-99); Potassium 4.7 mmol/L (3.5-5.1); Sodium 141 mmol/L (135-145); Total Bilirubin 0.2 mg/dl (0.2-1.3); Total Protein 6.3 g/dl (6.3-8.2); eGFR > 60.00
[2024-07-17] MEDS: NSS IV (09:32)
--- NOTE | 2024-07-17 10:32 | W.PN.HOSP.TC ---
Addendum entered and electronically signed by Kait Holder MD 07/17/24 13:45:
I saw and evaluated the patient independently. I reviewed the resident�s note and agree with findings and plan as documented by Dr. Dong.
GENERAL: well developed, well nourished, morbidly obese in no apparent distress
HEENT: NC/AT--poor dentition
HEART: regular rate and rhythm, +S1, +S2
LUNGS : clear to auscultation bilaterally
ABDOM: soft, nontender, nondistended, + bowel sounds
EXT: no cyanosis, clubbing, or edema
NEUROLOGIC: grossly intact
Intentional Acetaminophen overdose--pt denies it was suicide attempt (she said 'I know how much tylenol to take so I don't hurt myself. I couldn't deal with my stress.')--finished NAC protocol--seen in consultation by GI and psych--Acetaminophen
levels downtrending from 140--> 124--> <10--UDS positive for amphetamines and benzos, consistent with home medications--lever tests now WNL--psych cleared for D/C, Dr. Hannah
Acute hypotension/ history of essential HTN--BP at time of admission 86/53, increased to 120/71 after IV NSS--hold clonidine and propranolol until BP stabilizes
Bipolar disorder/ PTSD/Suicidal Ideation/ Anxiety and depression--continue risperidone and Caplyta
Chronic Back pain--continue tramadol, gabapentin, celebrex
type 2 diabetes mellitus--Accu-Cheks with SSI, check DcvL2b--Hjhawyly metformin--pt denies h/o, states metformin is for weight loss.....
migraines--continue Nurtec
Asthma--continue budesonide and albuterol
GERD--Continue Pepcid
Pernicious anemia--Hemoglobin 10.8 near baseline, continue vitamin B12
Hypothyroidism---Continue levothyroxine
ADHD--Hold Vyvanse during admission
Chronic constipation--Continue Linzess
Nicotine use--Cessation discussed by admitting team
Insomnia--Continue trazodone
History of sleep apnea/Class III obesity BMI 40.8--affects all aspects of care
history of TBI/history of subarachnoid/ subdural/intraparenchymal hemorrhage
VTE prophylaxis: SCDs
Full code
Original Note:
Today's Communication/Plan
-
.
Assessment / Plan
Assessment / Plan
Patient is a 38 YO F with past medical history bipolar disorder, PTSD, suicide attempts, anxiety/depression, TBI 2009, seizures, migraines, cardiomyopathy, subarachnoid/subdural hemorrhage, intraparenchymal hemorrhage,, HTN, asthma, hypothyroidism,
tachycardia sleep apnea, GI bleed, pernicious anemia, ADHD, DVT with IVC filter, nicotine abuse, marijuana Gummies, chronic normocytic anemia, class III obesity BMI 40.8 kg presenting to with suicidal ideation after attempted suicide attempt on
07/16.
# Intentional Acetaminophen overdose
history of salicylate OD in 12/18, treated at [facility]
Acetaminophen levels downtrending from 140--> 124--> <10
UDS positive for amphetamines and benzos, consistent with home medications
Current LFTs not indicative of liver failure, follow LFTs
GI consulted and recommend NAC
Psych consulted and ok for discharge
#Acute hypotension/ history of essential HTN
BP at time of admission 86/53, increased to 120/71 after IV NSS
hold clonidine and propranolol until BP stabilizes
1-1 observation
#Bipolar disorder/ PTSD/Suicidal Ideation/ Anxiety and depression
continue risperidone and Caplyta
#Chronic Back pain
continue tramadol, gabapentin, celebrex
#DM2
Accu-Cheks with SSI, check HgbA1c
Continue metformin
#migraines
continue Nurtec
#Asthma
continue budesonide and albuterol
#GERD
Continue Pepcid
#Pernicious anemia
Hemoglobin 10.8 near baseline, continue vitamin B12
#Hypothyroidism
Continue levothyroxine
#ADHD
Hold Vyvanse during admission
#Chronic constipation
Continue Linzess
#Nicotine use
Cessation discussed by admitting team
#Insomnia
Continue trazodone
#History of sleep apnea
#Class III obesity BMI 40.8
#history of TBI
#history of subarachnoid/ subdural/intraparenchymal hemorrhage
VTE prophylaxis: SCDs
Full code
Anticipated Discharge: Within 24 hours
Subjective/Interval History
-
Date of Service: July 17, 2024
Patient is a 38 YO F with past medical history bipolar disorder, PTSD, suicide attempts, anxiety/depression, TBI 2009, seizures, migraines, cardiomyopathy, subarachnoid/subdural hemorrhage, intraparenchymal hemorrhage,, HTN, asthma, hypothyroidism,
tachycardia sleep apnea, GI bleed, pernicious anemia, ADHD, DVT with IVC filter, nicotine abuse, marijuana Gummies, chronic normocytic anemia, class III obesity BMI 40.8 kg presenting to with suicidal ideation after attempted suicide attempt on
07/16. She states she tool 24 tablets of 500 mg acetaminophen (87240 mg total) at an unknown time. She states she took the same amount to OD in November 2023, for which she was treated for at [facility] and [facility]. UDS positive for amphetamines and
benzodiazepines, consistent with her Vyvanse and Valium use.This morning she reports no acute events overnight. She reports no headache, NVD, CP, SOB, tremulousness, or hallucinations. She reports intermittent RUQ and LUQ abdominal pain without
inciting events for last few weeks.
Objective Data
-
Labs:
Laboratory Results
07/17/24 07/17/24 07/17/24
00:04 02:21 04:34
WBC 6.0
Hgb 10.3 L
Hct 32.7 L
Plt Count 261
APTT Cancelled Cancelled 26.4
Sodium Cancelled Cancelled 140
Potassium Cancelled Cancelled 4.4
Chloride Cancelled Cancelled 108 H
Carbon Dioxide Cancelled Cancelled 24
BUN Cancelled Cancelled 8
Creatinine Cancelled Cancelled 0.6
Glucose Cancelled Cancelled 90
Calcium Cancelled Cancelled 8.1 L
Total Bilirubin Cancelled Cancelled 0.2
AST Cancelled Cancelled 23
ALT Cancelled Cancelled 20
Alkaline Phosphatase Cancelled Cancelled 72
07/17/24 07/17/24 07/17/24
08:41 14:21 18:21
WBC
Hgb
Hct
Plt Count
APTT 27.5 Pending Pending
Sodium 141 Pending Pending
Potassium 4.7 Pending Pending
Chloride 107 Pending Pending
Carbon Dioxide 24 Pending Pending
BUN 6 L Pending Pending
Creatinine 0.5 L Pending Pending
Glucose 88 Pending Pending
Calcium 8.5 Pending Pending
Total Bilirubin 0.2 Pending Pending
AST 19 Pending Pending
ALT 21 Pending Pending
Alkaline Phosphatase 79 Pending Pending
07/17/24
22:21
WBC
Hgb
Hct
Plt Count
APTT Pending
Sodium Pending
Potassium Pending
Chloride Pending
Carbon Dioxide Pending
BUN Pending
Creatinine Pending
Glucose Pending
Calcium Pending
Total Bilirubin Pending
AST Pending
ALT Pending
Alkaline Phosphatase Pending
Vital Signs:
Vital Signs
Temp Pulse Resp BP Pulse Ox
98.9 F 89 18 132/89 98
07/16/24 15:36 07/17/24 06:37 07/17/24 06:37 07/17/24 06:37 11/21/24 06:37
Review of Systems
-
History Source: Patient
Constitutional: Reports No Symptoms
EENT: Reports No Symptoms Reported
Respiratory: Reports No Symptoms
Cardiac: Reports No Symptoms
Abdomen/GI: Reports No Symptoms
Genitourinary: Reports No Symptoms
Musculoskeletal: Reports No Symptoms
Neuro: Reports No Symptoms
Physical Exam
-
General: Well Developed, Well Nourished, No Apparent Distress, Comfortable and Conversant
HEENT: Normocephalic and Atraumatic
Respiratory: Clear to Auscultation
Cardiac: Regular Rhythm and S1/S2
GI: Soft, Nondistended, Normal Bowel Sounds and Tender
Musculoskeletal: No Clubbing, No Cyanosis and No Edema
Skin: Warm and Dry
Neuro: AO x 3
Psych: Calm
Data Reviewed
-
Labs: Labs Reviewed by me and Discussed with Physician
Old Records: Reviewed
[2024-07-17 12:10] LABS: Glucose - Point of Care 149 mg/dl (70-99)
--- NOTE | 2024-07-17 13:10 | CON.MD ---
Consultation - Medical
-
Patient seen, chart reviewed from prior times here. Patient is well known both here and at [facility]. Presented following intentional ingestion of Tylenol, reportedly 12,000mg. Acetaminophen levels 140-->124--> <10. UDS positive for amphetamines and
benzos, which is consistent with home medications. Completed NAC protocol and doing well physically, medically cleared now.
Patient denies this being a suicide attempt, rather an impulsive action in response to being reminded of her son's birthday. Reports having a 9 yr old son whom was adopted in open adoption agreement, yesterday was his birthday and patient forgot the
day of so was overwhelmed emotionally when reminded by the concrete bucket unloaderweight caller for [facility] team. Says that she had not been suicidal prior, has been working on skills to manage emotions, engaging in hobbies & therapy weekly. Ordered [employer] right before
taking the Tylenol and was planning on eating the food when delivered, so remained future oriented. Someone from [facility] reached out to her shortly afterward and she immediately disclosed taking the Tylenol. Is glad she is OK now and is able to identify
impulsivitiy of behavior. Is seeing son in few weeks and is looking forward to this, has already prepared his presents for his birthday and for the upcoming holidays - visibly lights up when talking about this.
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 Has extensive psychiatric hx with multiple prior inpatient admissions, both on 201 and 302. Medication management is via ACT team, takes risperidone,
caplyta, clonidine, gabapentin, vyvanse. No acute psychiatric symptoms currently reported or observed, recent impulsive behavior is part of patient's usual presentation and impulsivity often present at baseline. Patient is clear and adamant she is
not suicidal, has told multiple staff both now and in the past that she knows how much to take if she truly wanted to hurt herself. Is laying comfortably in bed, listening to music and eating.
Please see prior records for extensive history
MSE: calm,cooperative,pleasant,speech is normal rate & rhythm,,mood is OK, affect is appropriate & congruent to mood, thought process is logical & goal directed, thought content: deniesSI/HI/AVH/delusions. AAOx3. Memory not formally tested. Insight
fair. Judgement fair
dx, as per hx: borderline personality disorder ptsd unspecified mood disorder
Discharge home - no acute psychiatric need for inpatient admission at this time, is future oriented. Behavior not unusual for baseline presentation and without suicidal intent. Has extensive psychiatric supports at home.
--- NOTE | 2024-07-17 13:36 | W.DCSUMMARY ---
Addendum entered and electronically signed by Kait Holder MD 07/17/24 18:52:
Read, reviewed, and agree. See same day progress note for additional details. Time spent coordinating care, DC planning, review of DC plan of care with resident, transition of care, review of records in EMR, med rec, consults, notes, d/w
consultants, nursing, family, and CM = 42 minutes
Patient denied that this was a suicide attempt but rather a reaction to her stress levels. This was confirmed by psychiatry. Patient has been deemed cleared for discharge by both GI and psychiatry at this time.
Original Note:
Discharge Summary
Discharge Data
Date of Admission: 07/16/24
Date of Discharge: 07/17/24
Total time spent discharging patient (in min): 42
-
Pending Results: No
Hospital Course
Presenting symptom: Acetaminophen overdose
Hospital admission: Suicidal ideation
Hospital course:Patient is a 38 YO F with past medical history bipolar disorder, PTSD, suicide attempts, anxiety/depression, TBI 2009, seizures, migraines, cardiomyopathy, subarachnoid/subdural hemorrhage, intraparenchymal hemorrhage,, HTN, asthma,
hypothyroidism, tachycardia sleep apnea, GI bleed, pernicious anemia, ADHD, DVT with IVC filter, nicotine abuse, marijuana Gummies, chronic normocytic anemia, class III obesity BMI 40.8 kg presenting to with suicidal ideation after attempted
suicide attempt on 07/16. She states she tool 24 tablets of 500 mg acetaminophen (16060 mg total) at an unknown time. She states she took the same amount to OD in November 2023, for which she was treated for at [place] and [facility]. UDS positive for
amphetamines and benzodiazepines, consistent with her Vyvanse and Valium use. GI was consulted and patient was started on NAC. Psych was consulted and cleared patient medically for home discharge.
# Intentional Acetaminophen overdose
Patient treated with NAC per GI recommendations. Acetaminophen levels <10.
#Acute hypotension/ history of essential HTN: Resolved
#Bipolar disorder/ PTSD/Suicidal Ideation/ Anxiety and depression: continue risperidone and Caplyta
#Chronic Back pain: continue tramadol, gabapentin, celebrex
#DM2: Continue metformin
#migraines: continue Nurtec
#Asthma: continue budesonide and albuterol
#GERD: Continue Pepcid
#Pernicious anemia: continue vitamin B12
#Hypothyroidism: Continue levothyroxine
#ADHD: Hold Vyvanse during admission. Can resume at home.
#Chronic constipation: Continue Linzess
#Nicotine use: Cessation discussed by admitting team
#Insomnia: Continue trazodone
#History of sleep apnea
#Class III obesity BMI 40.8
#history of TBI
#history of subarachnoid/ subdural/intraparenchymal hemorrhage
Imaging reviewed during admission: NA
Discharge Plan
-
Patient Disposition: Home (Routine Discharge)
Discharge Diagnosis/Procedures: Suicidal ideation
Condition: Fair
Diet: No restrictions and As tolerated
Activity: No restrictions and As tolerated
Driving Restrictions: As prior to admission
Bathing Restrictions: None
Referrals:
UNKNOWN - PT NOT,INTERVIEWE [Family Provider] -
Prescriptions:
Continued
levothyroxine 25 mcg Tablet
25 mcg PO DAILY
ondansetron 4 mg Tablet,Disintegrating
4 mg PO Q6HPRN PRN (Reason: nausea)
clonidine HCl 0.1 mg tablet
0.1 mg PO BID
celecoxib 100 mg capsule
100 mg PO BID
Nurtec ODT 75 mg tablet,disintegrating
75 mg PO Q48H
albuterol sulfate 90 mcg/actuation Hfa Aerosol Inhaler
2 puff INHALATION R Q6 PRN (Reason: sob/wheezing)
metformin 500 mg tablet
500 mg PO BID@0800,1700
diphenhydramine HCl [Banophen] 50 mg capsule
50 mg PO HS
famotidine 40 mg tablet
40 mg PO DAILY
propranolol 60 mg capsule,extended release 24 hr
60 mg PO DAILY
sennosides-docusate sodium [Stool Softener-Stimulant Laxat] 8.6-50 mg tablet
1 tab PO DAILY
tramadol 50 mg tablet
50 mg PO BID
Rx Instructions:
07/01/24: filled 60 tabs/30 days on 06/04/24 at [facility]
risperidone 2 mg tablet
2 mg PO BID
gabapentin 800 mg tablet
800 mg PO TID
trazodone 100 mg tablet
200 mg PO HS
ergocalciferol (vitamin D2) [Vitamin D2] 1,250 mcg (50,000 unit) capsule
1,250 mcg PO MO
loratadine 10 mg tablet
10 mg PO DAILY
budesonide-formoterol 80-4.5 mcg/actuation HFA aerosol inhaler
2 inh INHALATION R BID
lisdexamfetamine [Vyvanse] 20 mg capsule
20 mg PO DAILY
Rx Instructions:
07/01/24: filled # day supply on 06/04/24 [facility]
Linzess 145 mcg capsule
145 mcg PO DAILY
Caplyta 42 mg capsule
42 mg PO DAILY
docusate sodium 100 mg Capsule
100 mg PO Q48H
cyanocobalamin (vitamin B-12) 1,000 mcg Tablet, Sublingual
1,000 mcg SUBLINGUAL DAILY
melatonin 5 mg Tablet
5 mg PO HS
cyclobenzaprine 5 mg tablet
5 mg PO TIDPRN PRN (Reason: muscle spasms)
diazepam [Valium] 5 mg Tablet
5 mg PO BID
Discharge Orders:
Discharge Patient (As Directed); Ordered 07/17/24
Ordered By: Ara Dong
Discharge Date and Time
Print Language: KISWAHILI
--- NOTE | 2024-07-17 14:00 | CM ---
Patient seen in ED crisis with physician. Patient states that she lives alone with an aide that she recently fired. Patient states that she is working with the agency who is arranging for another aide. Patient unable to clarify name of agency.
Patient stated that her aide was fired for not paying attention to the patient and working on her own problems. Patient stated that she has a ride home and would be following up with her psychiatrist and would be willing to go to partial
hospitalization after talking to Psychiatrist. Patient also to follow up with [employer] [employer] bilingual patient support caseworker and is aware of their vacation schedule and how to get a hold of them. Patient eager to go home. CM will continue to follow for discharge planning
needs.
Plan; Home with partial hospitalization pending psychiatrist assessment
[2024-07-17 14:07] LABS: Glycohemoglobin (HgbA1c) 5.7 % (4.0-5.6)
== END 2024-07-17 15:00 | disposition home or self-care (01) | DRG 918 ==
LOC: ED 19:54
PROVIDERS: Clinical Nurse Specialist Family Health; ADMITTING PHYSICIAN Hospitalist; ATTENDING PHYSICIAN Internal Medicine; CONSULT PHYSICIAN Internal Medicine Gastroenterology; CONSULT PHYSICIAN Psychiatry & Neurology Psychiatry; EMERGENCY PHYSICIAN Emergency Medicine
DX: T39.1X2A Poisoning by 4-Aminophenol derivatives, intentional self-harm, initial encounter (principal); I42.9 Cardiomyopathy, unspecified; Z68.41 Body mass index [BMI] 40.0-44.9, adult; F31.9 Bipolar disorder, unspecified; F41.9 Anxiety disorder, unspecified; D51.0 Vitamin B12 deficiency anemia due to intrinsic factor deficiency; E03.9 Hypothyroidism, unspecified; F60.3 Borderline personality disorder; F90.9 Attention-deficit hyperactivity disorder, unspecified type; G47.30 Sleep apnea, unspecified; I10 Essential (primary) hypertension; R56.9 Unspecified convulsions; G43.909 Migraine, unspecified, not intractable, without status migrainosus; I95.9 Hypotension, unspecified; R82.5 Elevated urine levels of drugs, medicaments and biological substances; Y92.009 Unspecified place in unspecified non-institutional (private) residence as the place of occurrence of the external cause; E66.813 Obesity, class 3; D64.9 Anemia, unspecified; F12.90 Cannabis use, unspecified, uncomplicated; F17.210 Nicotine dependence, cigarettes, uncomplicated; E66.01 Morbid (severe) obesity due to excess calories; J45.909 Unspecified asthma, uncomplicated; F43.10 Post-traumatic stress disorder, unspecified; E11.9 Type 2 diabetes mellitus without complications; V49.9XXS Car occupant (driver) (passenger) injured in unspecified traffic accident, sequela; M54.9 Dorsalgia, unspecified; G89.29 Other chronic pain; K21.9 Gastro-esophageal reflux disease without esophagitis; K59.09 Other constipation; G47.00 Insomnia, unspecified; Z60.2 Problems related to living alone; Z91.51 Personal history of suicidal behavior; Z87.820 Personal history of traumatic brain injury; Z86.718 Personal history of other venous thrombosis and embolism; Z85.038 Personal history of other malignant neoplasm of large intestine; Z79.890 Hormone replacement therapy; Z87.19 Personal history of other diseases of the digestive system; Z95.828 Presence of other vascular implants and grafts; Z83.3 Family history of diabetes mellitus; Z88.8 Allergy status to other drugs, medicaments and biological substances; Z91.041 Radiographic dye allergy status; Z79.84 Long term (current) use of oral hypoglycemic drugs
CPT/HCPCS: 80053; 80143; 80179; 80306; 80307; 82077; 82962; 83036; 84703; 85025; 85610; 85730; 93005; 96361; 96374; 99285; J0132; J7030

== ENCOUNTER 2024-07-20 10:12 | Emergency (ER) | payer OTHER, SELFPAY ==
[2024-07-20 10:13] VITALS: BP 124/83
--- NOTE | 2024-07-20 10:36 | ED.GENMED ---
History of Present Illness
General
Chief Complaint: Suicidal Ideation
Source: patient, records and previous hospital records
Exam Limitations: none
Time Seen by Provider: 07/20/24 10:19
Nursing documentation reviewed up to this point in time: agreed with
History of Present Illness
History of Present Illness:
38-year-old female presents with suicidal thoughts, related to planning to see her adopted son soon, was admitted recently with a suicide attempt on Tylenol treated with Mucomyst, discharged with normal LFTs no recurrent overdose, no jaundice, took
some Valium today as prescribed states she has been feeling suicidal with no specific plan
Past History
Past History
ED Past Medical History: Arrthythmia (Tachycardia), Asthma, HTN, Seizures, Hypothyroidism, Psychiatric (Bipolar, PTSD, suicide attempts, Anxiety/Depression, Borderline personality, ) and Other (TBI 2005, migraines, Cardiomyopathy,
Subarachnoid/Subdural hemorrhage, Intraparenchymal hem, Sleep apnea, GI bleeding, Pernicious anemia, ADHD, DVT with IVC filter)
ED Past Surgical History: , Orthopedic (R and left knee surgery, Carlos L leg removed, Left arm plate, Right wrist surgery, ) and Other (Green field filter)
Social History
Tobacco: Smoker
Alcohol: None
Personal: Single
Living: alone
Employment: Disabled
Family History
Family History: Other (Diabetes, colon cancer, thyroid disease)
Review of Systems
Review of Systems
All Other Systems: Not applicable
EENT: Reports other (no jaundice)
Psychiatric: Reports depression and suicidal
Phy Exam
Physical Exam
Physical Exam:
Physical Exam
General: no apparent distress, not acutely ill
Neck: No jaundice
Lungs: no acute respiratory distress.
Neuro: alert and oriented. no focal neurological deficits
Skin: no rash
Psychiatric: Affect is flat she is cooperative admits to suicidal ideation does not appear to be hallucinating
Course
Orders/Labs/Results
Orders:
Orders
07/20/24 10:15
1:1 Observation - Suicide/ Violent Behavior As Directed
Crisis Consult Urgent
Reason for Consult: Suicidal
Vital Signs
Initial and Last Documented VS:
Initial Vital Signs
Temp Pulse Resp BP Pulse Ox
98.1 F 118 18 124/83 100
07/20/24 10:13 07/20/24 10:13 07/20/24 10:13 07/20/24 10:13 07/20/24 10:13
Last Documented Vital Signs
Temp Pulse Resp BP Pulse Ox
98.3 F 74 25 114/74 97
07/20/24 13:27 07/20/24 13:27 07/20/24 13:27 07/20/24 13:27 07/20/24 13:27
MDM/Problems Addressed
Differential Diagnosis Includes:
Suicidal ideations bipolar, borderline,
MDM/Problems Addressed:
Suicide
Chronic conditions affecting care: Psychiatric illness
Acute Exacerbation and/or Progression of Chronic Illness: Psychiatric illness
*Critical Care Note
Total Time (30-74mins, 75-104mins- exclusive of procedures): Not Applicable
Update Note
Update Note:
Update discussed with crisis and they have recommended inpatient psychiatric care
ED Attending Note
-
Portions of this chart may have been created with voice recognition software.� Occasional wrong word or��sound alike� substitutions may have occurred due to the inherent limitations of voice recognition software.
Discharge Plan
Departure
Patient Disposition: Psych Facility
Date of Disposition: 07/20/24
Time of Disposition: 12:38
Patient with high blood pressure during this ER visit?: No
Condition: Good
Covid-19: Not Applicable
Discharge Problem:
Suicidal ideations
Prescriptions:
No Action
levothyroxine 25 mcg Tablet
25 mcg PO DAILY
ondansetron 4 mg Tablet,Disintegrating
4 mg PO Q6HPRN PRN (Reason: nausea)
clonidine HCl 0.1 mg tablet
0.1 mg PO BID
celecoxib 100 mg capsule
100 mg PO BID
Nurtec ODT 75 mg tablet,disintegrating
75 mg PO Q48H
albuterol sulfate 90 mcg/actuation Hfa Aerosol Inhaler
2 puff INHALATION R Q6 PRN (Reason: sob/wheezing)
metformin 500 mg tablet
500 mg PO BID@0800,1700
diphenhydramine HCl [Banophen] 50 mg capsule
50 mg PO HS
famotidine 40 mg tablet
40 mg PO DAILY
propranolol 60 mg capsule,extended release 24 hr
60 mg PO DAILY
sennosides-docusate sodium [Stool Softener-Stimulant Laxat] 8.6-50 mg tablet
1 tab PO DAILY
tramadol 50 mg tablet
50 mg PO BID
Rx Instructions:
07/01/24: filled 60 tabs/30 days on 06/04/24 at [facility]
risperidone 2 mg tablet
2 mg PO BID
gabapentin 800 mg tablet
800 mg PO TID
trazodone 100 mg tablet
200 mg PO HS
ergocalciferol (vitamin D2) [Vitamin D2] 1,250 mcg (50,000 unit) capsule
1,250 mcg PO MO
loratadine 10 mg tablet
10 mg PO DAILY
budesonide-formoterol 80-4.5 mcg/actuation HFA aerosol inhaler
2 inh INHALATION R BID
lisdexamfetamine [Vyvanse] 20 mg capsule
20 mg PO DAILY
Rx Instructions:
07/01/24: filled # day supply on 06/04/24 [facility]
Linzess 145 mcg capsule
145 mcg PO DAILY
Caplyta 42 mg capsule
42 mg PO DAILY
docusate sodium 100 mg Capsule
100 mg PO Q48H
cyanocobalamin (vitamin B-12) 1,000 mcg Tablet, Sublingual
1,000 mcg SUBLINGUAL DAILY
melatonin 5 mg Tablet
5 mg PO HS
cyclobenzaprine 5 mg tablet
5 mg PO TIDPRN PRN (Reason: muscle spasms)
diazepam [Valium] 5 mg Tablet
5 mg PO BID
Referrals:
Tiffanie Xiong CRNP [Family Provider] -
Interventions
Interventions:
*Risk Screen - Suicide Last Done: 07/20/24 10:14
*General Assessment Last Done: 07/20/24 10:13
*Neglect/Abuse Screening Last Done: 07/20/24 10:13
Discharge Date and Time
Print Language: GABONESE
[2024-07-20 13:27] VITALS: BP 114/74
[2024-07-20] MEDS: ULTRAM 50 MG PO (15:09)
[2024-07-20 18:18] VITALS: BP 117/80
[2024-07-20] MEDS: GLUCOPHAGE 500 MG PO (18:33)
[2024-07-20] MEDS: FLEXERIL 5 MG PO (18:33)
== END 2024-07-20 19:58 ==
LOC: EMR 10:12
PROVIDERS: EMERGENCY PHYSICIAN Emergency Medicine; FAMILY PHYSICIAN Nurse Practitioner Primary Care
DX: R45.851 Suicidal ideations (principal); F31.9 Bipolar disorder, unspecified; F41.9 Anxiety disorder, unspecified; E03.9 Hypothyroidism, unspecified; F17.200 Nicotine dependence, unspecified, uncomplicated; I10 Essential (primary) hypertension; G47.30 Sleep apnea, unspecified; Z87.820 Personal history of traumatic brain injury; Z91.51 Personal history of suicidal behavior
CPT/HCPCS: 99285

== ENCOUNTER 2024-07-27 14:21 | Emergency (ER) | payer OTHER, SELFPAY ==
[2024-07-27 14:25] VITALS: BP 144/97
[2024-07-27 14:48] VITALS: BMI 40.8
--- NOTE | 2024-07-27 16:23 | ED.GENMED ---
History of Present Illness
General
Chief Complaint: Crisis Evaluation
Time Seen by Provider: 07/27/24 15:28
History of Present Illness
History of Present Illness:
I did not evaluate patient, patient was not in the room when I went to see her. I was told by security staff that she had eloped.
Past History
Past History
ED Past Medical History: Arrthythmia (Tachycardia), Asthma, HTN, Seizures, Hypothyroidism, Psychiatric (Bipolar, PTSD, suicide attempts, Anxiety/Depression, Borderline personality, ) and Other (TBI 2006, migraines, Cardiomyopathy,
Subarachnoid/Subdural hemorrhage, Intraparenchymal hem, Sleep apnea, GI bleeding, Pernicious anemia, ADHD, DVT with IVC filter)
ED Past Surgical History: , Orthopedic (R and left knee surgery, Carlos L leg removed, Left arm plate, Right wrist surgery, ) and Other (Green field filter)
Social History
Tobacco: Smoker
Alcohol: None
Drug: Other (Took a Hemp gummy this a.m.)
Personal: Single
Living: alone
Employment: Disabled
Family History
Family History: Other (Diabetes, colon cancer, thyroid disease)
Phy Exam
Physical Exam
Physical Exam:
n/a
Course
Orders/Labs/Results
Orders:
Orders
07/27/24 14:28
1:1 Observation - Suicide/ Violent Behavior As Directed
Vital Signs
Initial and Last Documented VS:
Initial Vital Signs
Temp Pulse Resp BP Pulse Ox
98.3 F 98 20 144/97 99
07/27/24 14:25 07/27/24 14:25 07/27/24 14:25 07/27/24 14:25 07/27/24 14:25
Last Documented Vital Signs
Temp Pulse Resp BP Pulse Ox
98.3 F 98 20 144/97 99
07/27/24 14:25 07/27/24 14:25 07/27/24 14:25 07/27/24 14:25 07/27/24 14:25
*Critical Care Note
Total Time (30-74mins, 75-104mins- exclusive of procedures): Not Applicable
ED Attending Note
-
Portions of this chart may have been created with voice recognition software.� Occasional wrong word or��sound alike� substitutions may have occurred due to the inherent limitations of voice recognition software.
Discharge Plan
Departure
Patient Disposition: Elopement
Date of Disposition: 07/27/24
Time of Disposition: 16:23
Discharge Problem:
Eloped from emergency department
Prescriptions:
No Action
levothyroxine 25 mcg Tablet
25 mcg PO DAILY
ondansetron 4 mg Tablet,Disintegrating
4 mg PO Q6HPRN PRN (Reason: nausea)
clonidine HCl 0.1 mg tablet
0.1 mg PO BID
celecoxib 100 mg capsule
100 mg PO BID
Nurtec ODT 75 mg tablet,disintegrating
75 mg PO Q48H
albuterol sulfate 90 mcg/actuation Hfa Aerosol Inhaler
2 puff INHALATION R Q6 PRN (Reason: sob/wheezing)
metformin 500 mg tablet
500 mg PO BID@0800,1700
diphenhydramine HCl [Banophen] 50 mg capsule
50 mg PO HS
famotidine 40 mg tablet
40 mg PO DAILY
propranolol 60 mg capsule,extended release 24 hr
60 mg PO DAILY
sennosides-docusate sodium [Stool Softener-Stimulant Laxat] 8.6-50 mg tablet
1 tab PO DAILY
tramadol 50 mg tablet
50 mg PO BID
Rx Instructions:
07/01/24: filled 60 tabs/30 days on 06/04/24 at [facility] [place]
risperidone 2 mg tablet
2 mg PO BID
gabapentin 800 mg tablet
800 mg PO TID
trazodone 100 mg tablet
200 mg PO HS
ergocalciferol (vitamin D2) [Vitamin D2] 1,250 mcg (50,000 unit) capsule
1,250 mcg PO MO
loratadine 10 mg tablet
10 mg PO DAILY
budesonide-formoterol 80-4.5 mcg/actuation HFA aerosol inhaler
2 inh INHALATION R BID
lisdexamfetamine [Vyvanse] 20 mg capsule
20 mg PO DAILY
Rx Instructions:
07/01/24: filled # day supply on 06/04/24 [facility], [place]
Linzess 145 mcg capsule
145 mcg PO DAILY
Caplyta 42 mg capsule
42 mg PO DAILY
docusate sodium 100 mg Capsule
100 mg PO Q48H
cyanocobalamin (vitamin B-12) 1,000 mcg Tablet, Sublingual
1,000 mcg SUBLINGUAL DAILY
melatonin 5 mg Tablet
5 mg PO HS
cyclobenzaprine 5 mg tablet
5 mg PO TIDPRN PRN (Reason: muscle spasms)
diazepam [Valium] 5 mg Tablet
5 mg PO BID
Referrals:
UNKNOWN - PT NOT,INTERVIEWE [Family Provider] -
Interventions
Interventions:
*Risk Screen - Suicide Last Done: 07/27/24 14:25
*General Assessment Last Done: 07/27/24 14:25
*Neglect/Abuse Screening Last Done: 07/27/24 14:25
ED- Fall Risk Assessment Last Done: 07/27/24 14:48
*ED COVID-19 Vaccine History Last Done: 07/27/24 14:46
*Nursing Disposition Last Done: 07/27/24 18:10
ED-Psychological Assessment Last Done: 07/27/24 14:49
Discharge Date and Time
Discharge Date/Time: 07/27/24 18:12
Print Language: BHUTANESE
== END 2024-07-27 18:12 | disposition left against medical advice (07) ==
LOC: EMR 14:21
PROVIDERS: EMERGENCY PHYSICIAN Emergency Medicine
DX: J45.909 Unspecified asthma, uncomplicated (principal); I10 Essential (primary) hypertension; E03.9 Hypothyroidism, unspecified; F31.9 Bipolar disorder, unspecified; F41.9 Anxiety disorder, unspecified; F43.10 Post-traumatic stress disorder, unspecified; F90.9 Attention-deficit hyperactivity disorder, unspecified type; G47.30 Sleep apnea, unspecified; I42.9 Cardiomyopathy, unspecified; F17.200 Nicotine dependence, unspecified, uncomplicated; Z80.0 Family history of malignant neoplasm of digestive organs; Z83.3 Family history of diabetes mellitus; Z83.49 Family history of other endocrine, nutritional and metabolic diseases; Z86.718 Personal history of other venous thrombosis and embolism; Z87.820 Personal history of traumatic brain injury; Z91.51 Personal history of suicidal behavior
CPT/HCPCS: 99283

== ENCOUNTER 2024-08-02 16:13 | Emergency (ER) | payer OTHER, SELFPAY ==
--- NOTE | 2024-08-02 16:15 | ED.GENMED ---
History of Present Illness
General
Chief Complaint: Crisis Evaluation
Time Seen by Provider: 08/02/24 16:14
History of Present Illness
History of Present Illness:
TIME OF INITIAL ENCOUNTER: 4:15 PM
HPI: Patient is well-known to this emergency department. She has a history of bipolar and/or borderline personality disorder and has had suicidal ideation/attempt in the past. The patient tells me that she took 24 of the extra strength Tylenol
approximately 5 to 6 hours ago. She has been feeling suicidal. She states that she lives by herself in an apartment complex next little while in [place].
EXAM:
GENERAL: Flat depressed affect, somewhat upset
HEENT: Moist oral mucosa
CARDIOVASCULAR: No murmurs, normal heart rate, regular rhythm, No chest wall tenderness
PULMONARY: No respiratory distress, breath sounds are clear and equal
ABDOMEN: Soft with no peritoneal signs, no tenderness, elevated BMI
NEUROLOGIC: Excellent strength all extremities, no coordination deficits
PSYCHIATRIC: Flat/depressed affect, appears somewhat upset
EXTREMITIES: Nontender, no edema, moves all extremities equally
SKIN: No rash, no lesions
NUMBER AND COMPLEXITY OF PROBLEMS ADDRESSED AT THE ENCOUNTER
� Chronic conditions affecting care: Bipolar, borderline, anxiety/depression, history of SI, history of TBI/SAH, asthma, migraines, chronic constipation, insomnia
� Acute Exacerbation and/or Progression of Chronic Illness: This is an acute but recurring problem
� Differential Diagnosis includes: Suicide attempt, Tylenol overdose
AMOUNT AND/OR COMPLEXITY OF DATA TO BE REVIEWED AND ANALYZED
� I performed an independent evaluation of and my interpretation is:
EKG:
CT:
X-rays:
Laboratory Studies:
Other:
� Review of other/old records: The patient was treated for intentional Tylenol overdose last month with [facility]
� Clinical information was obtained by an independent historian: I spoke to EMS who indicates that she was picked up just outside of the [facility] in [place]
� Prescriptions/Medications Considered but not given:
� Further testing considered but not performed:
RISK OF COMPLICATIONS AND/OR MORBIDITY OR MORTALITY OF PATIENT MANAGEMENT
� Social determinants of health affecting care: Lives at home by herself
� Discussion with other providers:
� Escalation of care including admission/observation vs risk of discharge considered: The patient reports intentionally overdosing on Tylenol�labs obtained.
ANY OTHER UPDATES:
6 PM: As I went in to reassess the patient, crisis security indicates that the patient had left. I did not authorize her to be discharged. I looked for her in the waiting room which she was not found. She does have a history of similar events.
Past History
Past History
ED Past Medical History: Arrthythmia (Tachycardia), Asthma, HTN, Seizures, Hypothyroidism, Psychiatric (Bipolar, PTSD, suicide attempts, Anxiety/Depression, Borderline personality, ) and Other (TBI 2006, migraines, Cardiomyopathy,
Subarachnoid/Subdural hemorrhage, Intraparenchymal hem, Sleep apnea, GI bleeding, Pernicious anemia, ADHD, DVT with IVC filter)
ED Past Surgical History: , Orthopedic (R and left knee surgery, Carlos L leg removed, Left arm plate, Right wrist surgery, ) and Other (Green field filter)
Social History
Tobacco: Smoker
Alcohol: None
Drug: Other (Took a Hemp gummy this a.m.)
Personal: Single
Living: alone
Employment: Disabled
Family History
Family History: Other (Diabetes, colon cancer, thyroid disease)
Phy Exam
Physical Exam
Physical Exam:
See HPI
Course
Orders/Labs/Results
Orders:
Orders
08/02/24 16:23
Acetaminophen Urgent
Alcohol Urgent
Complete Blood Count/With Diff Urgent
Comprehensive Metabolic Panel Urgent
HCG, Serum Qualitative Screen Urgent
Prothrombin Time Urgent
Salicylate Urgent
Urine Drug Abuse Screen Urgent
Test Result ONCE
Vital Signs
Initial and Last Documented VS:
Initial Vital Signs
Temp Pulse Resp BP Pulse Ox
37.0 C 110 18 124/86 98
08/02/24 16:17 08/02/24 16:17 08/02/24 16:17 08/02/24 16:17 08/02/24 16:17
Last Documented Vital Signs
Temp Pulse Resp BP Pulse Ox
37.0 C 110 18 124/86 98
08/02/24 16:17 08/02/24 16:17 08/02/24 16:17 08/02/24 16:17 08/02/24 16:17
*Critical Care Note
Total Time (30-74mins, 75-104mins- exclusive of procedures): Not Applicable
ED Attending Note
-
Portions of this chart may have been created with voice recognition software.� Occasional wrong word or��sound alike� substitutions may have occurred due to the inherent limitations of voice recognition software.
Discharge Plan
Departure
Prescriptions:
No Action
levothyroxine 25 mcg Tablet
25 mcg PO DAILY
ondansetron 4 mg Tablet,Disintegrating
4 mg PO Q6HPRN PRN (Reason: nausea)
clonidine HCl 0.1 mg tablet
0.1 mg PO BID
celecoxib 100 mg capsule
100 mg PO BID
Nurtec ODT 75 mg tablet,disintegrating
75 mg PO Q48H
albuterol sulfate 90 mcg/actuation Hfa Aerosol Inhaler
2 puff INHALATION R Q6 PRN (Reason: sob/wheezing)
metformin 500 mg tablet
500 mg PO BID@0800,1700
diphenhydramine HCl [Banophen] 50 mg capsule
50 mg PO HS
famotidine 40 mg tablet
40 mg PO DAILY
propranolol 60 mg capsule,extended release 24 hr
60 mg PO DAILY
sennosides-docusate sodium [Stool Softener-Stimulant Laxat] 8.6-50 mg tablet
1 tab PO DAILY
tramadol 50 mg tablet
50 mg PO BID
Rx Instructions:
07/01/24: filled 60 tabs/30 days on 06/04/24 at [facility]
risperidone 2 mg tablet
2 mg PO BID
gabapentin 800 mg tablet
800 mg PO TID
trazodone 100 mg tablet
200 mg PO HS
ergocalciferol (vitamin D2) [Vitamin D2] 1,250 mcg (50,000 unit) capsule
1,250 mcg PO MO
loratadine 10 mg tablet
10 mg PO DAILY
budesonide-formoterol 80-4.5 mcg/actuation HFA aerosol inhaler
2 inh INHALATION R BID
lisdexamfetamine [Vyvanse] 20 mg capsule
20 mg PO DAILY
Rx Instructions:
07/01/24: filled # day supply on 06/04/24 [facility]
Linzess 145 mcg capsule
145 mcg PO DAILY
Caplyta 42 mg capsule
42 mg PO DAILY
docusate sodium 100 mg Capsule
100 mg PO Q48H
cyanocobalamin (vitamin B-12) 1,000 mcg Tablet, Sublingual
1,000 mcg SUBLINGUAL DAILY
melatonin 5 mg Tablet
5 mg PO HS
cyclobenzaprine 5 mg tablet
5 mg PO TIDPRN PRN (Reason: muscle spasms)
diazepam [Valium] 5 mg Tablet
5 mg PO BID
Referrals:
UNKNOWN - PT NOT,INTERVIEWE [Family Provider] -
Interventions
Interventions:
*Risk Screen - Suicide Last Done: 08/02/24 16:28
*General Assessment Last Done: 08/02/24 16:28
*ED COVID-19 Vaccine History Last Done: 08/02/24 16:28
Discharge Date and Time
Print Language: ISRAELI
[2024-08-02 16:17] VITALS: BP 124/86
== END 2024-08-02 17:58 | disposition left against medical advice (07) ==
LOC: EMR 16:13
PROVIDERS: EMERGENCY PHYSICIAN Emergency Medicine
DX: R45.851 Suicidal ideations (principal); F31.9 Bipolar disorder, unspecified; F17.200 Nicotine dependence, unspecified, uncomplicated; E03.9 Hypothyroidism, unspecified; F41.9 Anxiety disorder, unspecified; I42.9 Cardiomyopathy, unspecified; J45.909 Unspecified asthma, uncomplicated; I10 Essential (primary) hypertension; Z86.718 Personal history of other venous thrombosis and embolism; Z87.820 Personal history of traumatic brain injury; Z91.51 Personal history of suicidal behavior
CPT/HCPCS: 99281

== ENCOUNTER 2024-08-18 20:58 | Emergency (ER) | payer OTHER, SELFPAY ==
--- NOTE | 2024-08-18 21:26 | ED.GENMED ---
History of Present Illness
General
Chief Complaint: Suicidal Ideation
Source: patient
Time Seen by Provider: 08/18/24 21:20
History of Present Illness
History of Present Illness:
38-year-old female presents to the emergency room by ambulance due to suicidal ideations. Patient has had multiple visits to the emergency room for similar complaints. She has had suicide attempts in the past. Patient has frequently been quite
uncooperative and combative in the emergency room. She was evidently just discharged from [place] for suicidal ideations. Patient states her plan was to hang herself today. She did wrap a bedsheet around her neck and began to strangle herself but
stopped. She denies any loss of consciousness. She has ingested pills in the past but denies ingestion today. Infectious states she is out of her medication.
Past History
Past History
ED Past Medical History: Arrthythmia (Tachycardia), Asthma, HTN, Seizures, Hypothyroidism, Psychiatric (Bipolar, PTSD, suicide attempts, Anxiety/Depression, Borderline personality, ) and Other (TBI 2005, migraines, Cardiomyopathy,
Subarachnoid/Subdural hemorrhage, Intraparenchymal hem, Sleep apnea, GI bleeding, Pernicious anemia, ADHD, DVT with IVC filter)
ED Past Surgical History: , Orthopedic (R and left knee surgery, Carlos L leg removed, Left arm plate, Right wrist surgery, ) and Other (Green field filter)
Social History
Tobacco: Smoker
Alcohol: None
Drug: Other (Took a Hemp gummy this a.m.)
Personal: Single
Living: alone
Employment: Disabled
Family History
Family History: Other (Diabetes, colon cancer, thyroid disease)
Phy Exam
Physical Exam
Physical Exam:
General: Awake, Alert, Oriented X3. Flat affect
Vitals: unremarkable
Head: Atraumatic
Eyes: Pupils equal, EOMI
Throat: Airway intact, no exudates
Neck: Trachea midline
Lungs: Clear and equal b/l
Heart: Regular rate, no murmurs
Abd: Soft, Nontender, No pulsatile mass
Neuro: Nonfocal l
Skin: Warm, dry, no rash
Extremities: pulses equal b/l, no edema
Course
Orders/Labs/Results
Orders:
Orders
08/18/24 21:06
Crisis Consult Urgent
Reason for Consult: SI with plan
08/18/24 21:09
1:1 Observation - Suicide/ Violent Behavior As Directed
08/18/24 21:26
Test Result ONCE
08/18/24 21:30
Acetaminophen Urgent
Complete Blood Count/With Diff Urgent
Comprehensive Metabolic Panel Urgent
HCG, Serum Qualitative Screen Urgent
Salicylate Urgent
08/18/24 21:32
Urine Drug Abuse Screen Urgent
08/18/24 21:39
Lorazepam [Ativan] 2 mg PO NOW STA
08/18/24 22:05
1:1 Observation - Suicide/ Violent Behavior As Directed
Haloperidol Lactate [Haldol] 5 mg IM NOW STA
Restraints - Violent As Directed
Restraint Type-: Locked-4 point/4 rails
Apply From (date): 08/18/24
Apply from (time): 22:05
Remove (date): 08/19/24
Remove (time): 02:05
08/18/24 22:13
EKG- Treatment ONCE
08/19/24 06:00
Electrocardiogram (*1) IN AM
Reason for Study: QTc Monitoring
Abnormal Lab Results
08/18/24
21:30
Hgb 10.9 L g/dL
(12.0-16.0)
Hct 33.6 L %
(37.0-47.0)
MCV 77.4 L fL
(81.0-99.0)
MCH 25.1 L pg
(27.0-31.0)
MCHC 32.4 L g/dL
(33.0-37.0)
RDW 15.6 H %
(11.5-14.5)
Abs Immat Gran (auto) 0.1 H 10^3/uL
(0-0.05)
Absolute Neuts (auto) 6.6 H 10^3/uL
(1.4-6.5)
Immature Gran % 0.6 H %
(0-0.5)
Sodium 134 L mmol/L
(135-145)
BUN 6 L mg/dl
(7-17)
Glucose 109 H mg/dl
(70-99)
Salicylates < 1.0 L mg/dl
(2.0-20.0)
Acetaminophen < 10 L ug/ml
(10-30)
08/18/24 21:30
08/18/24 21:30
Vital Signs
Initial and Last Documented VS:
Initial Vital Signs
Temp Pulse Resp BP Pulse Ox
98.3 F 91 20 123/91 96
08/18/24 21:33 08/18/24 21:33 08/18/24 21:33 08/18/24 21:33 08/18/24 21:33
Last Documented Vital Signs
Temp Pulse Resp BP Pulse Ox
98.3 F 91 20 123/91 96
08/18/24 21:33 08/18/24 21:33 08/18/24 21:33 08/18/24 21:33 08/18/24 21:33
MDM/Problems Addressed
Differential Diagnosis Includes:
Depression, suicidal ideations, toxic ingestion
MDM/Problems Addressed:
Patient presents ambulance after expressing suicidal ideations. Patient states she attempted to kill self by strangling herself with a bedsheet. Fortunately there is no evidence of any asphyxiation or ligature around her neck. Labs are
reassuring. Salicylate and Tylenol levels are nondetectable. Urinalysis and urine drug screen ordered but patient has yet to provide urine. Crisis consult obtained. Plan is to place her for inpatient management. She remains a safety hold.
*Pulse Oximetry
Patient hypoxic: no
*EKG
Interpreted by ED Provider?: Yes
Interpretation: normal
Heart Rate: 83
Rate: normal
Rhythm: sinus
[place]: normal axis
Interval: normal interval
QRS Pattern: normal QRS
Ischemia: no ischemia
*Gift Packer Interpretation
Rate: normal
Interpretation: normal
Rhythm: sinus
*Critical Care Note
Total Time (30-74mins, 75-104mins- exclusive of procedures): Not Applicable
ED Attending Note
-
Portions of this chart may have been created with voice recognition software.� Occasional wrong word or��sound alike� substitutions may have occurred due to the inherent limitations of voice recognition software.
Discharge Plan
Departure
Patient Disposition: Psych Facility
Date of Disposition: 08/19/24
Time of Disposition: 02:53
Condition: Fair
Discharge Problem:
Suicidal ideation
Prescriptions:
No Action
levothyroxine 25 mcg Tablet
25 mcg PO DAILY
ondansetron 4 mg Tablet,Disintegrating
4 mg PO Q6HPRN PRN (Reason: nausea)
clonidine HCl 0.1 mg tablet
0.1 mg PO BID
celecoxib 100 mg capsule
100 mg PO BID
Nurtec ODT 75 mg tablet,disintegrating
75 mg PO Q48H
albuterol sulfate 90 mcg/actuation Hfa Aerosol Inhaler
2 puff INHALATION R Q6 PRN (Reason: sob/wheezing)
metformin 500 mg tablet
500 mg PO BID@0800,1700
diphenhydramine HCl [Banophen] 50 mg capsule
50 mg PO HS
famotidine 40 mg tablet
40 mg PO DAILY
propranolol 60 mg capsule,extended release 24 hr
60 mg PO DAILY
sennosides-docusate sodium [Stool Softener-Stimulant Laxat] 8.6-50 mg tablet
1 tab PO DAILY
tramadol 50 mg tablet
50 mg PO BID
Rx Instructions:
07/01/24: filled 60 tabs/30 days on 06/04/24 at [facility]
risperidone 2 mg tablet
2 mg PO BID
gabapentin 800 mg tablet
800 mg PO TID
trazodone 100 mg tablet
200 mg PO HS
ergocalciferol (vitamin D2) [Vitamin D2] 1,250 mcg (50,000 unit) capsule
1,250 mcg PO MO
loratadine 10 mg tablet
10 mg PO DAILY
budesonide-formoterol 80-4.5 mcg/actuation HFA aerosol inhaler
2 inh INHALATION R BID
lisdexamfetamine [Vyvanse] 20 mg capsule
20 mg PO DAILY
Rx Instructions:
07/01/24: filled # day supply on 06/04/24 [facility]
Linzess 145 mcg capsule
145 mcg PO DAILY
Caplyta 42 mg capsule
42 mg PO DAILY
docusate sodium 100 mg Capsule
100 mg PO Q48H
cyanocobalamin (vitamin B-12) 1,000 mcg Tablet, Sublingual
1,000 mcg SUBLINGUAL DAILY
melatonin 5 mg Tablet
5 mg PO HS
cyclobenzaprine 5 mg tablet
5 mg PO TIDPRN PRN (Reason: muscle spasms)
diazepam [Valium] 5 mg Tablet
5 mg PO BID
Referrals:
NONE,* [Family Provider] -
Interventions
Interventions:
*Risk Screen - Suicide Last Done: 08/18/24 21:07
*General Assessment Last Done: 08/18/24 21:35
*Neglect/Abuse Screening Last Done: 08/18/24 22:31
ED-Psychological Assessment Last Done: 08/18/24 21:35
Discharge Date and Time
Print Language: SAUDI ARABIAN
[2024-08-18 21:33] VITALS: BP 123/91
[2024-08-18 21:36] LABS: % Basophils 0.4 % (0-2); % Eosinophils 2.1 % (0-6); % Immature Granulocytes 0.6 % (0-0.5); % Lymphocytes 23.9 % (20.5-51.1); % Monocytes 5.5 % (1.7-9.3); % Neutrophils 67.5 % (42.2-75.2); Absolute Eosinophils 0.2 10^3/uL (0-0.7); Absolute Immature Granulocytes 0.1 10^3/uL (0-0.05); Absolute Lymphocytes 2.3 10^3/uL (1.2-3.4); Absolute Monocytes 0.5 10^3/uL (0.1-0.6); Absolute Neutrophils 6.6 10^3/uL (1.4-6.5); Hematocrit 33.6 % (37.0-47.0); Hemoglobin 10.9 g/dL (12.0-16.0); Mean Corp Hgb Conc. 32.4 g/dL (33.0-37.0); Mean Corpuscular Hgb 25.1 pg (27.0-31.0); Mean Corpuscular Volume 77.4 fL (81.0-99.0); Mean Platelet Volume 10.3 fL (7.4-10.4); Nucleated Red Blood Cells % 0 %; Platelet Count 322 10^3/uL (130-400); Red Blood Cell Count 4.34 10^6/uL (4.20-5.40); Red Cell Dist. Width 15.6 % (11.5-14.5); White Blood Cell Count 9.7 10^3/uL (4.8-10.8)
[2024-08-18] MEDS: ATIVAN 2 MG PO (21:42)
[2024-08-18 21:57] LABS: ALT (SGPT) 20 U/L (0-35); AST (SGOT) 22 U/L (14-36); Albumin 4.5 g/dl (3.5-5.0); Alkaline Phosphatase 103 U/L (38-126); Blood Urea Nitrogen 6 mg/dl (7-17); Calcium 9.2 mg/dl (8.4-10.2); Carbon Dioxide 24 mmol/L (22-30); Chloride 101 mmol/L (98-107); Glucose 109 mg/dl (70-99); HCG, Serum Qualitative Screen Negative; Potassium 3.9 mmol/L (3.5-5.1); Sodium 134 mmol/L (135-145); Total Bilirubin 0.4 mg/dl (0.2-1.3); Total Protein 7.2 g/dl (6.3-8.2); eGFR > 60.00
[2024-08-18 22:07] LABS: Acetaminophen < 10 ug/ml (10-30); Salicylate < 1.0 mg/dl (2.0-20.0)
[2024-08-18] MEDS: HALDOL 5 MG IM (22:09)
[2024-08-19 07:34] VITALS: BP 140/86; BMI 28.2
--- NOTE | 2024-08-19 09:38 | ED.CRISIS ---
ED Crisis Note
ED Crisis Note
Subjective:
38-year-old female with history as documented multiple visits with suicidality and prior suicide attempts. She is currently here with suicidal ideation and apparently she says she attempted to strangle himself with a bedsheet. Initially she was
willing to stay voluntarily for psychiatric treatment but was becoming acutely agitated overnight required physical and chemical restraints. 302 petitioned.
Objective:
Resting comfortably in the bed not in distress. Breathing comfortably. Calm.
Assessment/Plan:
38-year-old female currently here on a 302 for suicidality with reported attempt at strangulation. She does have multiple prior suicide attempts including serious attempts with Tylenol overdose recently. Medical screening exam unremarkable, we are
monitoring pending psychiatric placement. Psychiatry has been consulted to follow while awaiting placement.
Update
Progress Note Update
Patient becoming acutely agitated now once again she is yelling, banging on the door and trying to leave the emergency room. She is being held on a 302 for suicidality with reported suicide attempt and high risk history. Will proceed with physical
and chemical restraints, de-escalate physical restraints as able. Monitor very closely. EKG last night did show acceptable QTc.
We were able to verbally de-escalate patient without restraint, orders canceled. She is requesting a dose of Valium for severe anxiety which we will provide.
Patient seen and evaluated by the psychiatrist and they are releasing her from 302. She is requesting discharge. She will be in an intensive outpatient program. Discharged in consultation with psychiatry and crisis team.
[2024-08-19] MEDS: VALIUM 5 MG PO (10:29)
--- NOTE | 2024-08-19 10:30 | CON.MD ---
Consultation - Medical
-
This 38 yr old white female presented to the ER yesterday for suicidal ideation. She has a long hx of suicidal thoughts and is in treatment at [facility] and with the ACT team through [facility]. Pt was discharged from [facility] last
Sunday (4 days ago). after signing a 72 hour release. She claims she has not had her usual psych meds since then- Caplyta, Risperdal, Gabapentin, Vyvanse, and Valium prn.
She lives in transitional housing in her own apartment at [facility].
Pt tells me that she was having thoughts of harming herself- perhaps strangling herself- but then called for help instead. As of this morning she is denying thoughts of harming herself and wants to return home. The ACT team is scheduled to do a
home visit this afternoon to bring her her medications and to check on her.
MSE- Talkative young woman, thoughts distractible but nonpsychotic. Denies aud hallucinations. Denies current S.I. Mood wnl.
Oriented x 3. Insight and judgment fair.
A/P- Borderline personality disorder, hx of bipolar disorder (from [facility] chart).
recommend she be discharged from ER to return home.
Crisis plan needs to be reviewed with pt and treatment team to try and break this cycle of ER /Crisis center visits.
30 minutes spent w patient.
--- NOTE | 2024-08-19 10:36 | EDRN ---
[facility] is speaking with the pt now and the pt is currently trying to get an uber
== END 2024-08-19 10:40 | disposition home or self-care (01) ==
LOC: EMR 20:58
PROVIDERS: CONSULT PHYSICIAN Psychiatry & Neurology Psychiatry; EMERGENCY PHYSICIAN Emergency Medicine
DX: F60.3 Borderline personality disorder (principal); R45.851 Suicidal ideations; F31.9 Bipolar disorder, unspecified; E03.9 Hypothyroidism, unspecified; F17.200 Nicotine dependence, unspecified, uncomplicated; I10 Essential (primary) hypertension; I42.9 Cardiomyopathy, unspecified; J45.909 Unspecified asthma, uncomplicated; Z87.820 Personal history of traumatic brain injury; Z91.51 Personal history of suicidal behavior
CPT/HCPCS: 96372; 99284; 80053; 80143; 80179; 84703; 85025; 93005

== ENCOUNTER 2024-08-27 10:27 | Emergency (ER) | payer OTHER, SELFPAY ==
[2024-08-27 10:42] VITALS: BP 115/84
--- NOTE | 2024-08-27 11:46 | ED.GENMED ---
History of Present Illness
General
Chief Complaint: Crisis Evaluation
Source: patient
Exam Limitations: none
Time Seen by Provider: 08/27/24 11:38
Nursing documentation reviewed up to this point in time: agreed with
History of Present Illness
History of Present Illness:
38 yo female well know to this ER states she's here for anxiety and 'dissociating.' States she felt suicidal but she will feel better if she talks to Crisis. Crisis consulted.
Past History
Past History
ED Past Medical History: Arrthythmia (Tachycardia), Asthma, HTN, Seizures, Hypothyroidism, Psychiatric (Bipolar, PTSD, suicide attempts, Anxiety/Depression, Borderline personality, ) and Other (TBI 2006, migraines, Cardiomyopathy,
Subarachnoid/Subdural hemorrhage, Intraparenchymal hem, Sleep apnea, GI bleeding, Pernicious anemia, ADHD, DVT with IVC filter)
ED Past Surgical History: , Orthopedic (R and left knee surgery, Carlos L leg removed, Left arm plate, Right wrist surgery, ) and Other (Green field filter)
Social History
Tobacco: Smoker
Alcohol: None
Drug: Other (Took a Hemp gummy this a.m.)
Personal: Single
Living: alone
Employment: Disabled
Family History
Family History: Other (Diabetes, colon cancer, thyroid disease)
Review of Systems
Review of Systems
Allergies reviewed?: Yes
All Other Systems: ROS reviewed and negative except as documented in HPI and ROS
Respiratory: Denies trouble breathing
Cardiac: Denies chest pain
ABD/GI: Denies abdominal pain
Skin: Reports no symptoms
Neurological: Reports no symptoms
Psychiatric: Reports anxiety
Phy Exam
Physical Exam
Physical Exam:
GENERAL: No acute distress. A&Ox3.
CONSTITUTIONAL: Afebrile.
EYES: clear, conjunctivae normal
ENMT: moist mucus membranes
RESPIRATORY: Regular respirations, nonlabored, lungs clear.
CARDIOVASCULAR: Regular rate and rhythm, no murmurs, no rubs.
GI: Soft, nontender
MUSCULOSKELETAL: Moves with ease. Well perfused.
SKIN: Warm, dry, pink
PSYCH: Normal mood and affect. Well kept, interactive and appropriate
NEUROLOGIC: Awake, alert and oriented. No focal neurological deficits
Course
Orders/Labs/Results
Orders:
Orders
08/27/24 10:45
1:1 Observation - Suicide/ Violent Behavior As Directed
Crisis Consult Urgent
Reason for Consult: SI
Vital Signs
Initial and Last Documented VS:
Initial Vital Signs
Temp Pulse Resp BP Pulse Ox
98.4 F 104 22 115/84 99
08/27/24 10:42 08/27/24 10:42 08/27/24 10:42 08/27/24 10:42 08/27/24 10:42
Last Documented Vital Signs
Temp Pulse Resp BP Pulse Ox
98.4 F 104 22 115/84 99
08/27/24 10:42 08/27/24 10:42 08/27/24 10:42 08/27/24 10:42 08/27/24 10:42
MDM/Problems Addressed
MDM/Problems Addressed:
Crisis in and cleared pt for discharge, pt states she feels better after talking to Crisis person.
Medically cleared for discharge
Has appt with her therapist tomorrow.
*Critical Care Note
Total Time (30-74mins, 75-104mins- exclusive of procedures): Not Applicable
ED Attending Note
-
Portions of this chart may have been created with voice recognition software.� Occasional wrong word or��sound alike� substitutions may have occurred due to the inherent limitations of voice recognition software.
Discharge Plan
Departure
Patient Disposition: Home (Routine Discharge)
Date of Disposition: 08/27/24
Time of Disposition: 11:45
Patient with high blood pressure during this ER visit?: No
Condition: Good
Discharge Problem:
Anxiety
Instructions: Anxiety, Adult (DC)
Prescriptions:
No Action
levothyroxine 25 mcg Tablet
25 mcg PO DAILY
ondansetron 4 mg Tablet,Disintegrating
4 mg PO Q6HPRN PRN (Reason: nausea)
clonidine HCl 0.1 mg tablet
0.1 mg PO BID
celecoxib 100 mg capsule
100 mg PO BID
Nurtec ODT 75 mg tablet,disintegrating
75 mg PO Q48H
albuterol sulfate 90 mcg/actuation Hfa Aerosol Inhaler
2 puff INHALATION R Q6 PRN (Reason: sob/wheezing)
metformin 500 mg tablet
500 mg PO BID@0800,1700
diphenhydramine HCl [Banophen] 50 mg capsule
50 mg PO HS
famotidine 40 mg tablet
40 mg PO DAILY
propranolol 60 mg capsule,extended release 24 hr
60 mg PO DAILY
sennosides-docusate sodium [Stool Softener-Stimulant Laxat] 8.6-50 mg tablet
1 tab PO DAILY
risperidone 2 mg tablet
2 mg PO BID
gabapentin 800 mg tablet
800 mg PO TID
trazodone 100 mg tablet
200 mg PO HS
ergocalciferol (vitamin D2) [Vitamin D2] 1,250 mcg (50,000 unit) capsule
1,250 mcg PO MO
loratadine 10 mg tablet
10 mg PO DAILY
budesonide-formoterol 80-4.5 mcg/actuation HFA aerosol inhaler
2 inh INHALATION R BID
lisdexamfetamine [Vyvanse] 20 mg capsule
20 mg PO DAILY
Rx Instructions:
07/01/24: filled # day supply on 06/04/24 [facility]
Linzess 145 mcg capsule
145 mcg PO DAILY
Caplyta 42 mg capsule
42 mg PO DAILY
docusate sodium 100 mg Capsule
100 mg PO Q48H
cyanocobalamin (vitamin B-12) 1,000 mcg Tablet, Sublingual
1,000 mcg SUBLINGUAL DAILY
melatonin 5 mg Tablet
5 mg PO HS
cyclobenzaprine 5 mg tablet
5 mg PO TIDPRN PRN (Reason: muscle spasms)
diazepam [Valium] 5 mg Tablet
5 mg PO BID
Referrals:
UNKNOWN - PT NOT,INTERVIEWE [Family Provider] -
Activity Restrictions/Additional Instructions:
Keep your appointment with your therapist tomorrow
Interventions
Interventions:
*Risk Screen - Suicide Last Done: 08/27/24 10:42
*General Assessment Last Done: 08/27/24 10:42
*Neglect/Abuse Screening Last Done: 08/27/24 10:42
*Nursing Disposition Last Done: 08/27/24 11:56
ED-Psychological Assessment Last Done: 08/27/24 11:10
Discharge Date and Time
Discharge Date/Time: 08/27/24 11:57
Print Language: NAMIBIAN
== END 2024-08-27 11:57 | disposition home or self-care (01) ==
LOC: EMR 10:27
PROVIDERS: EMERGENCY PHYSICIAN Emergency Medicine
DX: F41.9 Anxiety disorder, unspecified (principal); F31.9 Bipolar disorder, unspecified; E03.9 Hypothyroidism, unspecified; I10 Essential (primary) hypertension; G47.30 Sleep apnea, unspecified; F17.200 Nicotine dependence, unspecified, uncomplicated; Z86.718 Personal history of other venous thrombosis and embolism; Z91.51 Personal history of suicidal behavior
CPT/HCPCS: 99283

== ENCOUNTER 2024-09-04 18:29 | Inpatient (IN) | payer OTHER, SELFPAY ==
[2024-09-04] VITALS (9 sets, daily range): BP systolic 89–127; BP diastolic 68–89; BMI 42.0
--- NOTE | 2024-09-04 16:30 | ED.GENMED ---
History of Present Illness
General
Chief Complaint: Overdose Intentional
Source: patient
Exam Limitations: none
Time Seen by Provider: 09/04/24 15:52
Nursing documentation reviewed up to this point in time: agreed with
History of Present Illness
History of Present Illness:
38-year-old female with past medical history as noted including borderline personality disorder and multiple suicide attempts in the past; she presents to the ER today reporting intentional overdose on Tylenol. Patient reports that her
mother's birthday is tomorrow and this stressor in the context of recent issues with her outpatient psychiatry team has made her increasingly depressed and posterior to the point of suicide she says. She says that at around 10 AM (6 hours prior to
arrival) she ingested approximately #50 tablets of 500 mg Tylenol. She denies any coingestants. She says that she feels mildly nauseated and vomited prior to arrival. She says that she decided to come to the ER for help. She says that right now
she does not want to but when things get stressful she does feel suicidal. Denies homicidal ideation. Aside from feeling nauseated she denies any other complaints. She has multiple similar presentations in the past.
Past History
Past History
ED Past Medical History: Arrthythmia (Tachycardia), Asthma, HTN, Seizures, Hypothyroidism, Psychiatric (Bipolar, PTSD, suicide attempts, Anxiety/Depression, Borderline personality, ) and Other (TBI 2006, migraines, Cardiomyopathy,
Subarachnoid/Subdural hemorrhage, Intraparenchymal hem, Sleep apnea, GI bleeding, Pernicious anemia, ADHD, DVT with IVC filter)
ED Past Surgical History: , Orthopedic (R and left knee surgery, Carlos L leg removed, Left arm plate, Right wrist surgery, ) and Other (Green field filter)
Social History
Tobacco: Smoker
Alcohol: None
Drug: Other (Took a Hemp gummy this a.m.)
Personal: Single
Living: alone
Employment: Disabled
Family History
Family History: Other (Diabetes, colon cancer, thyroid disease)
Review of Systems
Review of Systems
All Other Systems: ROS reviewed and negative except as documented in HPI and ROS
Respiratory: Denies trouble breathing
Cardiac: Denies chest pain
ABD/GI: Reports nausea and vomiting; Denies abdominal pain or diarrhea
: Denies flank pain
Musculoskeletal: Denies neck pain or back pain
Neurological: Denies headache
Phy Exam
Physical Exam
Physical Exam:
General: Awake, alert, oriented x3; no acute distress
Head: Normocephalic, atraumatic
Eyes: Conjunctiva normal, sclera anicteric
Throat: Airway intact, handling secretions
Neck: Trachea midline, supple without meningismus
Lungs: Clear to auscultation bilaterally, no wheezing, rales, rhonchi
Heart: Tachycardia with regular rhythm, no murmurs, gallops, or rubs
Abd: Soft, non distended, nontender
Neuro: No gross deficit
Skin: no rash
Extremities: Warm and well-perfused with no edema
Scores
Heart Failure Risk
Heart Failure Risk Score: Not Applicable
Heart Score for Chest Pain Patients
STEMI patient?: Not applicable
Withdrawal Assessment of Alcohol
Withdrawal Assessment Completed?: Not applicable
Course
Orders/Labs/Results
Orders:
Orders
09/04/24 15:45
1:1 Observation - Suicide/ Violent Behavior As Directed
Crisis Consult Urgent
Reason for Consult: suicide attempt
09/04/24 15:53
Electrocardiogram (*1) Urgent
Reason for Study: QTc Monitoring
EKG- Treatment ONCE
Acetaminophen Urgent
Alcohol Urgent
Complete Blood Count/With Diff Urgent
Comprehensive Metabolic Panel Urgent
Drug Screen, Urine [Urine Drug Abuse Screen] Urgent
HCG, Serum Qualitative Screen Urgent
Salicylate Urgent
Urinalysis Reflex To Culture Urgent
Test Result ONCE
09/04/24 16:18
Acetylcysteine [Acetadote] 10,000 mg 0.45% Sodium Chloride 1000 ml [0.45%NaCl] 1,000 ml IV ONCE
Acetylcysteine [Acetadote] 15,000 mg 0.45% Sodium Chloride 250 ml [0.45%NaCl] 200 ml IV NOW
Acetylcysteine [Acetadote] 5,000 mg 0.45% Sodium Chloride 500 ml [0.45%NaCl] 500 ml IV ONCE
Vital Signs
Initial and Last Documented VS:
Initial Vital Signs
Temp Pulse Resp BP Pulse Ox
36.6 C 105 16 127/80 97
09/04/24 15:41 09/04/24 15:41 09/04/24 15:41 09/04/24 15:41 09/04/24 15:41
Last Documented Vital Signs
Temp Pulse Resp BP Pulse Ox
36.6 C 105 16 127/80 97
09/04/24 15:41 09/04/24 15:41 09/04/24 15:41 09/04/24 15:41 09/04/24 15:41
MDM/Problems Addressed
Differential Diagnosis Includes:
Intentional overdose
MDM/Problems Addressed:
38-year-old female presents for evaluation after an intentional overdose on Tylenol due to depression/suicidality. Tachycardic but otherwise normal vitals. She has some nausea but no other symptoms reported. Similar presentation in the past. She
says ingestion time was roughly 10 AM, reports ingestion of approximately #50 total 500 mg tablets of acetaminophen. Denies coingestions. Based on this timeline no utility for activated charcoal. IV placed labs sent off including a CBC and a CMP,
hCG, Tylenol and salicylate levels, alcohol level, UDS. Will check an EKG for QTc monitoring. Case discussed with poison control�will treat empirically with N-acetylcysteine based on reported amount of ingestion and history of similar requiring
N-acetylcysteine. Will place on continuous observation after the suicide attempt. Case discussed with psychiatry for consultation as well as our crisis team.
Chronic conditions affecting care:
Depression, borderline personality disorder
*Pulse Oximetry
Patient hypoxic: no
*EKG
Interpreted by ED Provider?: Yes
Heart Rate: 90
Rate: normal
Rhythm: sinus
Garrison: left axis deviation
Interval: normal interval and normal QT interval
QRS Pattern: left vent hypertrophy
Ischemia: no ischemia
*Critical Care Note
Total Time (30-74mins, 75-104mins- exclusive of procedures): Not Applicable
Data Reviewed
Review of Other/Old Records Reveals: Labs, Records and Discharge Summary
Source: patient and records
Patient Management
Discussion with other providers: Hospitalist (Discussed with hospitalist), Recreation Attendant (Discussed with poison control, discussed with psychiatry) and Other (Discussed with crisis team)
Escalation/DeEscalation of care consider admission/obs:
Admission indicated
ED Attending Note
-
Portions of this chart may have been created with voice recognition software.� Occasional wrong word or��sound alike� substitutions may have occurred due to the inherent limitations of voice recognition software.
Discharge Plan
Departure
Discharge Problem:
Intentional overdose, Tylenol overdose, Suicide attempt
Prescriptions:
No Action
levothyroxine 25 mcg Tablet
25 mcg PO DAILY
ondansetron 4 mg Tablet,Disintegrating
4 mg PO Q6HPRN PRN (Reason: nausea)
clonidine HCl 0.1 mg tablet
0.1 mg PO BID
celecoxib 100 mg capsule
100 mg PO BID
Nurtec ODT 75 mg tablet,disintegrating
75 mg PO Q48H
albuterol sulfate 90 mcg/actuation Hfa Aerosol Inhaler
2 puff INHALATION R Q6 PRN (Reason: sob/wheezing)
metformin 500 mg tablet
500 mg PO BID@0800,1700
diphenhydramine HCl [Banophen] 50 mg capsule
50 mg PO HS
famotidine 40 mg tablet
40 mg PO DAILY
propranolol 60 mg capsule,extended release 24 hr
60 mg PO DAILY
sennosides-docusate sodium [Stool Softener-Stimulant Laxat] 8.6-50 mg tablet
1 tab PO DAILY
risperidone 2 mg tablet
2 mg PO BID
gabapentin 800 mg tablet
800 mg PO TID
trazodone 100 mg tablet
200 mg PO HS
ergocalciferol (vitamin D2) [Vitamin D2] 1,250 mcg (50,000 unit) capsule
1,250 mcg PO MO
loratadine 10 mg tablet
10 mg PO DAILY
budesonide-formoterol 80-4.5 mcg/actuation HFA aerosol inhaler
2 inh INHALATION R BID
lisdexamfetamine [Vyvanse] 20 mg capsule
20 mg PO DAILY
Rx Instructions:
07/01/24: filled # day supply on 06/04/24 [facility]
Linzess 145 mcg capsule
145 mcg PO DAILY
Caplyta 42 mg capsule
42 mg PO DAILY
docusate sodium 100 mg Capsule
100 mg PO Q48H
cyanocobalamin (vitamin B-12) 1,000 mcg Tablet, Sublingual
1,000 mcg SUBLINGUAL DAILY
melatonin 5 mg Tablet
5 mg PO HS
cyclobenzaprine 5 mg tablet
5 mg PO TIDPRN PRN (Reason: muscle spasms)
diazepam [Valium] 5 mg Tablet
5 mg PO BID
Referrals:
UNKNOWN - PT NOT,INTERVIEWE [Family Provider] -
Interventions
Interventions:
*Risk Screen - Suicide Last Done: 09/04/24 15:41
*General Assessment Last Done: 09/04/24 15:41
*Neglect/Abuse Screening Last Done: 09/04/24 15:41
ED- Fall Risk Assessment Last Done: 09/04/24 16:13
*ED COVID-19 Vaccine History Last Done: 09/04/24 16:13
ED- Cardiac Assessment Last Done: 09/04/24 16:13
ED- Neurological Assessment Last Done: 09/04/24 16:13
ED-Psychological Assessment Last Done: 09/04/24 16:13
ED- Pulmonary Assessment Last Done: 09/04/24 16:13
Discharge Date and Time
Print Language: BARBADIAN
[2024-09-04 16:43] LABS: % Basophils 0.6 % (0-2); % Eosinophils 3.3 % (0-6); % Immature Granulocytes 0.6 % (0-0.5); % Lymphocytes 26.3 % (20.5-51.1); % Monocytes 6.3 % (1.7-9.3); % Neutrophils 62.9 % (42.2-75.2); Absolute Basophils 0.1 10^3/uL (0-0.2); Absolute Eosinophils 0.3 10^3/uL (0-0.7); Absolute Immature Granulocytes 0.1 10^3/uL (0-0.05); Absolute Lymphocytes 2.2 10^3/uL (1.2-3.4); Absolute Monocytes 0.5 10^3/uL (0.1-0.6); Absolute Neutrophils 5.2 10^3/uL (1.4-6.5); Hematocrit 30.7 % (37.0-47.0); Hemoglobin 9.8 g/dL (12.0-16.0); Mean Corp Hgb Conc. 31.9 g/dL (33.0-37.0); Mean Corpuscular Hgb 24.6 pg (27.0-31.0); Mean Corpuscular Volume 76.9 fL (81.0-99.0); Nucleated Red Blood Cells % 0 %; Platelet Count 306 10^3/uL (130-400); Red Blood Cell Count 3.99 10^6/uL (4.20-5.40); Red Cell Dist. Width 15.6 % (11.5-14.5); White Blood Cell Count 8.3 10^3/uL (4.8-10.8)
[2024-09-04 17:26] LABS: ALT (SGPT) 21 U/L (0-35); AST (SGOT) 25 U/L (14-36); Albumin 4.1 g/dl (3.5-5.0); Alcohol None Detected; Alkaline Phosphatase 98 U/L (38-126); Blood Urea Nitrogen 11 mg/dl (7-17); Calcium 8.7 mg/dl (8.4-10.2); Carbon Dioxide 23 mmol/L (22-30); Estimated Creatinine Clearance > 125 ml/min; Glucose 159 mg/dl (70-99); Salicylate < 1.0 mg/dl (2.0-20.0); Total Bilirubin 0.2 mg/dl (0.2-1.3); Total Protein 6.5 g/dl (6.3-8.2); eGFR > 60.00
[2024-09-04] MEDS: ACETADOTE 275 MG IV (17:28)
[2024-09-04 17:35] LABS: HCG, Serum Qualitative Screen Negative
[2024-09-04 17:40] LABS: Acetaminophen 255 ug/ml (10-30)
--- NOTE | 2024-09-04 17:49 | HPS.HSE ---
Family Physician
-
Family Physician: INTERVIEWE UNKNOWN - PT NOT
Chief Complaint
-
suicidal attempt
History of Present Illness
38-year-old female with past medical history of borderline personality disorder and multiple suicide attempts,Bipolar, depression, anxiety presented to us with intentional overdose on Tylenol. she is in lots of stress and took 50mg of 500ml Tylenol.
She denies any co ingestants. She says that she feels mildly nauseated and vomited prior to arrival. she is complaining of abdominal pain since then. she is also having [place]. denied dizzy or syncope. denied fever, chills, chest pain, sob. denied
dysuria or hematuria.
initiated on Acetadote and admitting for further management.
Medical History
Past Medical History
Past Medical History: Reports Other
Additional Past Medical History:
achycardia), Asthma, HTN, Seizures, Hypothyroidism, Psychiatric (Bipolar, PTSD, suicide attempts, Anxiety/Depression, Borderline personality, ) and Other (TBI 2005, migraines, Cardiomyopathy, Subarachnoid/Subdural hemorrhage, Intraparenchymal hem,
Sleep apnea, GI bleeding, Pernicious anemia, ADHD, DVT with IVC filter)
Past Surgical History: Reports Other
Additional Past Surgical History:
, Orthopedic (R and left knee surgery, Carlos L leg removed, Left arm plate, Right wrist surgery, ) and Other (Green field filter)
Social History
Tobacco: Smoker (1-2 pACKS DAILY)
Alcohol: None
Drug: None
Personal: Single
Living: Alone
Family History
Family History: Not pertinent
Allergies / Home Medications
Allergies reflects when Allergies were last updated in [facility] [employer].
Home Medications with original date entered in [facility] [employer]
Allergy/Medication List:
Allergies
Allergy/AdvReac Type Severity Reaction Status Date / Time
chlorpromazine Allergy AGITATION Verified 09/04/24 15:41
Iodinated Contrast Media Allergy Unknown Verified 09/04/24 15:41
olanzapine [From Zyprexa] Allergy Rash Verified 09/04/24 15:41
zafirlukast Allergy HALF OF Verified 09/04/24 15:41
BODY
TURNED
PURPLE
Home Medications
levothyroxine 25 mcg tablet 25 mcg PO DAILY Thyroid 03/23/23
celecoxib 100 mg capsule 100 mg PO BID Pain 09/20/23
clonidine HCl 0.1 mg tablet 0.1 mg PO BID anxiety/BP 09/20/23
cyanocobalamin (vitamin B-12) 1,000 mcg sublingual tablet 1,000 mcg sublingual DAILY Supplement 07/01/24
ergocalciferol (vitamin D2) 1,250 mcg (50,000 unit) capsule (Vitamin D2) 1,250 mcg PO MO Supplement 07/01/24
famotidine 40 mg tablet 40 mg PO DAILY GERD 07/01/24
gabapentin 800 mg tablet 800 mg PO TID Pain 07/01/24
linaclotide 145 mcg capsule (Linzess) 145 mcg PO DAILY Constipation 07/01/24
lumateperone 42 mg capsule (Caplyta) 42 mg PO DAILY Mental Health/Anxiety 07/01/24
melatonin 5 mg tablet 5 mg PO HS Sleep 07/01/24
metformin 500 mg tablet 500 mg PO BID diabetes 07/01/24
propranolol 60 mg capsule,24 hr,extended release 60 mg PO DAILY Blood Pressure 07/01/24
risperidone 2 mg tablet 2 mg PO HS Mental Health/Anxiety 07/01/24
diazepam 5 mg tablet (Valium) 5 mg PO DAILY anxiety 07/16/24
atogepant 60 mg tablet (Qulipta) 60 mg PO NOON 09/04/24
dextroamphetamine-amphetamine ER 20 mg 24hr capsule,extend release 20 mg PO DAILY 09/04/24
diazepam 5 mg tablet 2.5 mg PO DAILYPRN PRN anxiety 09/04/24
methocarbamol 500 mg tablet 500 mg PO TIDPRN PRN muscle spasms 09/04/24
omeprazole 40 mg capsule,delayed release 40 mg PO DAILY 09/04/24
risperidone 1 mg tablet 1 mg PO DAILY 09/04/24
tramadol 50 mg tablet 50 mg PO BIDPRN PRN moderate pain 09/04/24
trazodone 150 mg tablet 300 mg PO HS 09/04/24
Review of Systems
-
Constitutional: Reports No Symptoms
EENT: Reports No Symptoms
Respiratory: Reports No Symptoms
Cardiac: Reports No Symptoms
Abdomen/GI: Reports Abdominal Pain, Nausea and Vomiting
: Reports No Symptoms
Musculoskeletal: Reports No Symptoms
Skin: Reports No Symptoms
Neurological: Reports No Symptoms
Endocrine: Reports No Symptoms
Hematologic/Lymphatic: Reports No Symptoms
Psych: Reports No Symptoms
Physical Exam
Vital Signs
Vital Signs
Temp Pulse Resp BP Pulse Ox
97.8 F 86 20 111/83 96
09/04/24 15:41 09/04/24 16:30 09/04/24 16:30 09/04/24 16:20 09/04/24 16:30
Physical Exam
General: Well Developed, Well Nourished and No Apparent Distress
HEENT: NormoCephalic, Moist mucous membranes and Atraumatic
Respiratory: Clear
Cardiac: S1/S2 and Regular Rhythm; No Murmur or Rub
GI: Soft, Non Tender, Non Distended and Normal Bowel Sounds; No Organomegaly
Rectal: Deferred by Provider
Musculoskeletal: No Clubbing, No Cyanosis and No Edema
Skin: No Rash
Neuro: Nonfocal/grossly intact
Psych: Calm and Depressed
Laboratory Results
-
09/04/24 16:31
09/04/24 16:31
Laboratory Results
Total Bilirubin 0.2 mg/dl (0.2-1.3) 09/04/24 16:31
AST 25 U/L (14-36) 09/04/24 16:31
ALT 21 U/L (0-35) 09/04/24 16:31
Alkaline Phosphatase 98 U/L (38-126) 09/04/24 16:31
Data Reviewed
-
Lab Data: Labs Reviewed by me
Impression/Plan
-
#APAP overdose
-empirically started on NAC
-psych and crisis consulted
#anemia of chronic disease
-hgb stable at 9.8
-no active bleeding
-ctm
Acute hypotension/ history of essential HTN
-hold clonidine and propranolol until BP stabilizes
#Bipolar disorder/ PTSD/Suicidal Ideation/ Anxiety and depression
-continue risperidone and Caplyta,dextroamphetamine-amphetamine, diazepam and trazadone
#Chronic Back pain--continue tramadol, gabapentin, celebrex
#type 2 diabetes mellitus--Accu-Cheks with SSI, check [id number]--Aweiacfb metformin
#migraines--continue qulipta
#Asthma
-not in acute exacerbation
#GERD--Continue Pepcid
#Hypothyroidism---Continue levothyroxine
#Chronic constipation--Continue Linzess
#Nicotine use--Cessation discussed by admitting team.Denied Nicotine patch
#Insomnia--Continue trazodone
#History of sleep apnea/Class III obesity BMI 40.8--affects all aspects of care
#history of TBI/history of subarachnoid/ subdural/intraparenchymal hemorrhage
#VTE prophylaxis: SCDs
#Full code
[2024-09-04 17:53] LABS: Chloride 101 mmol/L (98-107); Potassium 4.2 mmol/L (3.5-5.1); Sodium 134 mmol/L (135-145)
[2024-09-04 17:55] LABS: Urine Albumin Trace (Neg - Trace); Urine Bilirubin Negative (Negative); Urine Character Clear (Clear); Urine Color Yellow; Urine Glucose Negative (Negative); Urine Ketone Negative (Negative); Urine Leukocyte Trace (Negative); Urine Nitrite Negative (Negative); Urine Occult Blood Negative (Negative); Urine Urobilinogen Negative (Neg - 1+)
[2024-09-04 18:04] LABS: Amphetamines Positive (Negative); Barbiturates Negative (Negative); Benzodiazepines Positive (Negative); Buprenorphine Negative (Negative); Cocaine Negative (Negative); Marijuana Negative (Negative); Methadone Negative (Negative); Methamphetamines Negative (Negative); Opiates Negative (Negative); Phencyclidine Negative (Negative); Tricyclic Antidepressants Negative (Negative)
[2024-09-04 18:07] LABS: Urine Squamous Cell >30 /LPF (Few)
[2024-09-04 18:08] LABS: Urine Red Blood Cell 0-2 /HPF (0-2)
[2024-09-04 18:09] LABS: Urine Bacteria Moderate (Negative)
[2024-09-04 18:11] LABS: Urine Yeast Few (Negative)
--- NOTE | 2024-09-04 18:11 | W.PN.UPDATE ---
Update Note
Progress Note Update
This is an addendum to the H&P written by Ruth Ann Alvarez on 09/04/2024. Patient seen and examined independently with ATTENDANT CAMPGROUND.
38-year-old female past medical history of borderline personality disorder, anxiety/depression, ADHD, multiple suicide attempts previously, asthma, hypertension, seizures, hypothyroidism, TBI in 2005, migraines, cardiomyopathy, subarachnoid/subdural
hemorrhage, obstructive sleep apnea, pernicious anemia, presenting with intentional Tylenol overdose at 10 AM. Her diseases mother's birthday is tomorrow.
She ingested 50 tablets of 500 mg of Tylenol. Had nausea/vomiting.
She was admitted for Tylenol overdose 2 months ago.
EKG shows normal sinus rhythm. Labs otherwise unremarkable including LFTs. Tylenol level 255. Salicylates negative. Alcohol negative. UDS pending.
Patient slightly hypotensive. Hold clonidine and propranolol for now.
Start N-acetylcysteine per protocol and check CMP/Tylenol level every 6 hours. IV fluids. One-to-one sitter. Psychiatry/crisis consulted.
[2024-09-04] MEDS: ZOFRAN 4 MG IV (18:14)
[2024-09-04 18:27] LABS: Fentanyl, Urine Negative (Negative)
[2024-09-04 18:35] LABS: INR 1.01; PT 13.8 Sec (11.4-14.6)
[2024-09-04] MEDS: ACETADOTE 525 MG IV (18:45)
[2024-09-04] MEDS: NSS 1000 IV (19:28)
[2024-09-05] VITALS (7 sets, daily range): BP systolic 97–133; BP diastolic 50–93
[2024-09-05] MEDS: ACETADOTE 1050 MG IV (00:43)
[2024-09-05] MEDS: GLUCOPHAGE PO (00:46)
[2024-09-05] MEDS: NEURONTIN 800 MG PO ×2 (00:47→09:57)
[2024-09-05] MEDS: NSS 1000 IV (00:48)
[2024-09-05] MEDS: DESYREL 300 MG PO (00:48)
[2024-09-05] MEDS: RISPERDAL 2 MG PO (00:48)
[2024-09-05] MEDS: MELATONIN 5 MG PO (00:48)
[2024-09-05 00:59] LABS: ALT (SGPT) 20 U/L (0-35); AST (SGOT) 25 U/L (14-36); Acetaminophen 21 ug/ml (10-30); Albumin 3.7 g/dl (3.5-5.0); Alkaline Phosphatase 67 U/L (38-126); Blood Urea Nitrogen 10 mg/dl (7-17); Carbon Dioxide 22 mmol/L (22-30); Chloride 103 mmol/L (98-107); Estimated Creatinine Clearance > 125 ml/min; Glucose 115 mg/dl (70-99); Potassium 4.2 mmol/L (3.5-5.1); Sodium 134 mmol/L (135-145); Total Bilirubin 0.3 mg/dl (0.2-1.3); Total Protein 6.2 g/dl (6.3-8.2); eGFR > 60.00
[2024-09-05] MEDS: CELEBREX 100 MG PO ×2 (00:59→09:45)
[2024-09-05 06:42] LABS: ALT (SGPT) 20 U/L (0-35); AST (SGOT) 22 U/L (14-36); Acetaminophen < 10 ug/ml (10-30); Albumin 3.5 g/dl (3.5-5.0); Alkaline Phosphatase 85 U/L (38-126); Blood Urea Nitrogen 8 mg/dl (7-17); Carbon Dioxide 23 mmol/L (22-30); Chloride 105 mmol/L (98-107); Estimated Creatinine Clearance > 125 ml/min; Glucose 112 mg/dl (70-99); Potassium 4.1 mmol/L (3.5-5.1); Sodium 136 mmol/L (135-145); Total Bilirubin 0.3 mg/dl (0.2-1.3); Total Protein 5.9 g/dl (6.3-8.2); eGFR > 60.00
--- NOTE | 2024-09-05 08:05 | EDRN ---
At assessment pt is aaox3, vss, iv patent with ordered medications infusing. Pt assessment currently benign. Pt refusing AccuCheck and insulin at this time, states she will take her morning medications when her breakfast arrives and not before.
Safety one to one maintained at the bedside. Pt updated on current plan of care. Care ongoing.
[2024-09-05] MEDS: GLUCOPHAGE 500 MG PO (09:43)
[2024-09-05] MEDS: RISPERDAL 1 MG PO (09:44)
[2024-09-05] MEDS: VALIUM 5 MG PO (09:44)
[2024-09-05] MEDS: PEPCID 40 MG PO (09:45)
[2024-09-05] MEDS: NON-FORMULARY ITEM 500 MG PO (10:17)
--- NOTE | 2024-09-05 11:07 | CM ---
Addendum entered by Ana Richard RN 09/05/24 15:04:
CM was updated that DR. Arredondo will clear patient for home with outpatient follow up.
Original Note:
CM reviewed medical records. Patient is well known to [facility] and this CM. CM will await psychiatry's note to follow up on discharge planning efforts.
PLAN: Pending psychiatry's note.
--- NOTE | 2024-09-05 11:09 | W.PN.HOSP.TC ---
Today's Communication/Plan
-
Tylenol level currently undetectable with normal liver function test.
Patient refused to complete third back of acetylcysteine.
Denies any further suicidal ideation.
Pending psychiatric consult.
Disposition up to crisis and psychiatry determination.
Assessment / Plan
Assessment / Plan
Impression:
Intentional Tylenol overdose
Other conditions:
Borderline personality disorder
Depression/anxiety/ADHD.
Multiple suicidal attempts in the past.
Essential hypertension.
Hypothyroidism.
Migraines.
Cardiomyopathy by history.
Obstructive sleep apnea.
Pernicious anemia.
Chronic pain on opiates.
Plan:
Intentional Tylenol overdose.
Tylenol level on presentation over 200
Normal liver function test
Completing acetylcysteine infusion
Follow-up: Level less than 10.
Hemodynamically stable with no evidence of encephalopathy and normal liver function test
Continue to monitor LFT once completed acetylcysteine infusion.
Suicidal attempt.
Prior history of such.
Borderline personality disorder.
ADHD
Patient currently denies any suicidal ideation and overall not happy with her psychiatric treatment as outpatient as well as she is upset given her mother's birthday time.
She is attempting to leave AGAINST MEDICAL ADVICE pending psychiatric evaluation.
Outpatient psychiatric regimen: Risperdal, Valium, trazodone
Type 2 diabetes.
Obesity with BMI of 42.
Check hemoglobin A1c.
Continue with diabetic control diet
Continue metformin
Hypothyroidism on replacement
Chronic pain.
Continue Neurontin.
Continue tramadol
DVT prophylaxis with Lovenox
Anticipated Discharge: 24 - 48 hours
Subjective/Interval History
-
Date of Service: September 05, 2024
Objective Data
-
Labs:
Laboratory Results
09/05/24 09/05/24
00:32 05:38
Sodium 134 L 136
Potassium 4.2 4.1
Chloride 103 105
Carbon Dioxide 22 23
BUN 10 8
Creatinine 0.5 L 0.5 L
Glucose 115 H 112 H
Calcium 8.0 L 8.0 L
Total Bilirubin 0.3 0.3
AST 25 22
ALT 20 20
Alkaline Phosphatase 67 85
Vital Signs:
Vital Signs
Temp Pulse Resp BP Pulse Ox
98.4 F 82 18 124/75 96
09/04/24 16:00 09/05/24 09:00 09/05/24 09:00 09/05/24 04:00 09/04/24 23:45
Physical Exam
-
General: Well Developed and No Apparent Distress
HEENT: Normocephalic, Atraumatic and Moist Mucous Membranes
Respiratory: Clear to Auscultation
Cardiac: Regular Rhythm and S1/S2; Negative Murmur, Rub or Gallop
GI: Soft, Nontender, Nondistended and Normal Bowel Sounds; Negative Organomegaly
Rectal: Deferred by Provider
Musculoskeletal: No Clubbing, No Cyanosis and No Edema
Skin: Negative Rash
Neuro: Nonfocal/Grossly Intact
--- NOTE | 2024-09-05 11:27 | EDRN ---
Pt stated she was going to sign out AMA if she was not seen by the dr. fairchild. Dr. abrams made aware and to the bedside. Dr. abrams gave pt paper to sign out AMA. building certifier made aware and told this RN to hold patient as she was going to get crisis
back involved. Crisis quickly to the bedside to speak with pt. Pt calmed down, agreeable to stay, back up [address] Pt made aware of current plan of care. 1:1 maintained at the bedside for safety, care ongoing.
[2024-09-05 11:57] LABS: Glycohemoglobin (HgbA1c) 5.8 % (4.0-5.6)
[2024-09-05] MEDS: NON-FORMULARY ITEM 60 MG PO (12:52)
[2024-09-05] MEDS: NSS IV (14:39)
--- NOTE | 2024-09-05 15:13 | CON.MD ---
Addendum entered and electronically signed by Marguerite Arredondo MD 09/05/24 15:43:
note dr barnard was in agreement w ak. we also discussed futility of medication as a panacea and neither of us feels DID is an appropriate dx. removing her from forensic act program is being discussed. i will speak to [facility] staff as well.
Addendum entered and electronically signed by Marguerite Arredondo MD 09/05/24 15:39:
spoke to dr barnard and fact team
Addendum entered and electronically signed by Marguerite Arredondo MD 09/05/24 15:34:
medical: cardiomyopathy of florinda was told she should never become again.
Original Note:
Consultation - Medical
-
patient seen chart reviewed. this patient is very well knowm to me from numerous interventions over the years. she is currently seen for therapy at [facility] and also is engaged in the forensic act program at [facility] where she sees dr bermudez
evon. the patient was angry yesterday for a number of reasons. she cited she does not want to be in fact for one thing...and she says '[facility]' is insisting that she be rx there. she also says that they do not have a female available to meet
with her on and she does not like the men in the program except for her dr. she said she was offered a visit at 5 pm w a woman she likes but that was too late. florinda makes no pretense of any other reason for the tylenol overdose except
that she was angry and wanted to show the staff how she felt and she did not feel there was any other way to get that message through to them. we processed all the negatives about that response and how it has not helped her move from point a to
point b in all the years i have known her. she showed me a px of her nine year old son and i pointed out to her that her by suicide would telegraph a lot of negative vibes to him which did seem to make some impression her. as in the past she
is now that she has been medically cleared clear that she is no longer wanting to hurt herself for any reason. she is dealing with a lot of medical issues...high prolactin anemia iron deficiency and is in the throes of workup for same. she is
currently medicated with caplyta 42 mg risperdal 1 in the am 2 mg q hs adderall 20 mg which she has not started and is considering not taking bc she realizes it could affect her sleep trazodone 300 mg q hs valium 5 mg in the am and 2.5 mg once
daily prn melatonin 5 mg q hs sleep is fair with medications. appetite is good. her mood is at this point neutral now that her anger is dissipated. there is no evidence of psychosis
past psych hx patient has extensive hx of psych rx in local facilities and on license of [facility]. she has been on just about every psych med there is and from what i have seen no appreciable + results. see above re current rx
medical hx patient w a number of med issues see above ibs migraines knee and back pain. anemia low serum fe being addressed gerd ibs vit d deficiency obesity
substance abuse denied
fh there is a fh of psych
social resides in own place. has a son who has been adopted. 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
mse alert ox3 cooperative pleasant speech and thought process nl mood is neutral affect appropriate at the moment denies si no psychosis ave intelligence insight lacking judgment at this moment is fair.
dx borderline personality disorder ptsd unspecified mood disorder
plan florinda is not at this moment suicidal. she acknowledges that this was not an act of wanting to but rather to express her anger and get her staff to notice we discussed how this in the end is counterproductive and results in staff being
unable to help her and possibly pulling away from her. we talked about how only she can make the decision to move forward with her life in a + direction and learn to deal with stress and frustration. also empathized w the pain and loneliness of her
life but on a + note there are people willing to help her if she does not push them awayi will talk to dr barnard at [facility] and apprise him that she is being discharged. she is committed to attending to her medical issues. we discussed the
impact of obesity on her life which is profound. i would support dc of risperdal which is causing prolactin issue and doubtless contributes to obesity. i told her point blank i don't think medication cocktails are the full answer to her issues. she
will be allowed to leave the er when dc orders are written. she should talk w her prescribers specialists and therapists and has appts set up already .
--- NOTE | 2024-09-05 15:15 | EDRN ---
Pt seen, spoken with, and cleared by Dr. Arredondo. Per Dr. Arredondo pt can leave the department and go home. This RN updated Dr. montgomery who states his recommendation is for the patient to stay medical observation one more night, pt refuses to stay
any longer. Pt signed ama form. Pt vss, iv removed, ambulatory with independent steady gait out of department.
== END 2024-09-05 15:31 | disposition home or self-care (01) | DRG 918 ==
LOC: ED 18:29
PROVIDERS: Registered Nurse; ADMITTING PHYSICIAN Hospitalist; ATTENDING PHYSICIAN Internal Medicine; CONSULT PHYSICIAN Psychiatry & Neurology Psychiatry; EMERGENCY PHYSICIAN Emergency Medicine
DX: T39.1X2A Poisoning by 4-Aminophenol derivatives, intentional self-harm, initial encounter (principal); I42.9 Cardiomyopathy, unspecified; Z68.41 Body mass index [BMI] 40.0-44.9, adult; R11.2 Nausea with vomiting, unspecified; Y92.9 Unspecified place or not applicable; F41.9 Anxiety disorder, unspecified; F31.9 Bipolar disorder, unspecified; F60.3 Borderline personality disorder; D51.0 Vitamin B12 deficiency anemia due to intrinsic factor deficiency; E03.9 Hypothyroidism, unspecified; F90.9 Attention-deficit hyperactivity disorder, unspecified type; G43.909 Migraine, unspecified, not intractable, without status migrainosus; G47.33 Obstructive sleep apnea (adult) (pediatric); I10 Essential (primary) hypertension; R56.9 Unspecified convulsions; J45.909 Unspecified asthma, uncomplicated; F43.10 Post-traumatic stress disorder, unspecified; D63.8 Anemia in other chronic diseases classified elsewhere; I95.9 Hypotension, unspecified; G89.29 Other chronic pain; M54.9 Dorsalgia, unspecified; E11.9 Type 2 diabetes mellitus without complications; K21.9 Gastro-esophageal reflux disease without esophagitis; K59.09 Other constipation; G47.00 Insomnia, unspecified; E66.813 Obesity, class 3; F17.210 Nicotine dependence, cigarettes, uncomplicated; Z91.51 Personal history of suicidal behavior; Z83.3 Family history of diabetes mellitus; Z80.0 Family history of malignant neoplasm of digestive organs; Z83.49 Family history of other endocrine, nutritional and metabolic diseases; Z87.820 Personal history of traumatic brain injury; Z86.718 Personal history of other venous thrombosis and embolism; Z95.828 Presence of other vascular implants and grafts; Z79.890 Hormone replacement therapy; Z79.1 Long term (current) use of non-steroidal anti-inflammatories (NSAID); Z79.84 Long term (current) use of oral hypoglycemic drugs; Z79.51 Long term (current) use of inhaled steroids; Z88.8 Allergy status to other drugs, medicaments and biological substances; Z91.041 Radiographic dye allergy status
CPT/HCPCS: 80053; 80143; 80179; 80306; 80307; 81003; 81015; 82077; 83036; 84703; 85025; 85610; 87086; 93005; 96374; 99285; J0132; J7030

== ENCOUNTER 2024-09-23 09:11 | Emergency (ER) | payer OTHER, SELFPAY ==
[2024-09-23 09:26] VITALS: BP 143/101
[2024-09-23 09:59] LABS: COVID-19 Antigen Negative (Negative)
[2024-09-23 12:22] VITALS: BP 145/89
[2024-09-23] MEDS: DELTASONE 50 MG PO (12:22)
--- NOTE | 2024-09-25 09:57 | ED.GENMED ---
History of Present Illness
General
Chief Complaint: Breathing Problem
Source: patient
Exam Limitations: none
Time Seen by Provider: 09/23/24 11:41
History of Present Illness
History of Present Illness:
38-year-old female complaining of ongoing cough congestion. Minimal sputum. No pleuritic pain. Some central chest pain with coughing however. No fever. Started Augmentin yesterday.
Past History
Past History
ED Past Medical History: Arrthythmia (Tachycardia), Asthma, HTN, Seizures, Hypothyroidism, Psychiatric (Bipolar, PTSD, suicide attempts, Anxiety/Depression, Borderline personality, ) and Other (TBI 2006, migraines, Cardiomyopathy,
Subarachnoid/Subdural hemorrhage, Intraparenchymal hem, Sleep apnea, GI bleeding, Pernicious anemia, ADHD, DVT with IVC filter)
ED Past Surgical History: , Orthopedic (R and left knee surgery, Carlos L leg removed, Left arm plate, Right wrist surgery, ) and Other ([place] filter)
Social History
Tobacco: Smoker
Alcohol: None
Drug: Other (Took a Hemp gummy this a.m.)
Personal: Single
Living: alone
Employment: Disabled
Family History
Family History: Other (Diabetes, colon cancer, thyroid disease)
Review of Systems
Review of Systems
All Other Systems: Not applicable
Constitutional: Denies fever
Respiratory: Denies hemoptysis
Cardiac: Denies syncope
Phy Exam
Physical Exam
Physical Exam:
GENERAL: Alert and oriented in no apparent distress
EYE: Orbits normal.
NECK: Supple, no significant adenopathy.
ENT: Pharynx without erythema
CARDIAC: Regular rate and rhythm without any obvious murmurs.
LUNGS: No respiratory distress. Mild end expiratory wheezing. Mild nasal congestion with speaking
ABDOMEN: Soft, without focal tenderness or distention
NEUROLOGICAL: Alert and oriented , grossly non-focal
SKIN: Warm and dry, no rash or lesion, no discoloration, skin intact.
MUSCULOSKELETAL: No edema,no deformity.Good color
PSYCH: Normal and appropriate interaction.
Course
Orders/Labs/Results
Orders:
Orders
09/23/24 09:29
Electrocardiogram (*1) Urgent
Reason for Study: Shortness of Breath
EKG- Treatment ONCE
09/23/24 09:38
COVID-19 Antigen Urgent
Source: Nasal Swab
Influenza A+B Rapid Molecular Urgent
KERLINE Source: Nasal Swab
Specimen Description:
09/23/24 12:09
Prednisone [Deltasone] 50 mg PO NOW STA
Vital Signs
Initial and Last Documented VS:
Initial Vital Signs
Temp Pulse Resp BP Pulse Ox
98.4 F 96 16 143/101 96
09/23/24 09:26 09/23/24 09:26 09/23/24 09:26 09/23/24 09:26 09/23/24 09:26
Last Documented Vital Signs
Temp Pulse Resp BP Pulse Ox
98.4 F 86 16 145/89 97
09/23/24 09:26 09/23/24 12:22 09/23/24 12:22 09/23/24 12:22 09/23/24 12:22
MDM/Problems Addressed
Differential Diagnosis Includes:
Symptoms all consistent with bronchitis. Some mild end expiratory wheezing with asthma history. Just darted Augmentin yesterday. However likely viral. Discussed x-ray versus ongoing treatment. Patient is comfortable with holding on x-ray at
this time think is very reasonable. With her asthma history and end expiratory wheezing we will add a short course of steroids.
*EKG
Interpreted by ED Provider?: Yes
Comparison EKG: no changes
Heart Rate: 88
Rate: normal
Rhythm: sinus
[place]: normal axis
Interval: normal interval
QRS Pattern: normal QRS
Ischemia: no ischemia
*Critical Care Note
Total Time (30-74mins, 75-104mins- exclusive of procedures): Not Applicable
ED Attending Note
-
Portions of this chart may have been created with voice recognition software.� Occasional wrong word or��sound alike� substitutions may have occurred due to the inherent limitations of voice recognition software.
Discharge Plan
Departure
Patient Disposition: Home (Routine Discharge)
Date of Disposition: 09/23/24
Time of Disposition: 12:18
Patient with high blood pressure during this ER visit?: Yes
Discharge Problem:
Bronchitis
Instructions: Bronchitis in adults - ED discharge instructions, BLOOD PRESSURE
Prescriptions:
New
prednisone 10 mg tablet
10 mg PO DAILY Qty: 20 0RF
Rx Instructions:
4 tabs day one then one less tab every other day until done
No Action
levothyroxine 25 mcg Tablet
25 mcg PO DAILY
clonidine HCl 0.1 mg tablet
0.1 mg PO BID
celecoxib 100 mg capsule
100 mg PO BID
metformin 500 mg tablet
500 mg PO BID
famotidine 40 mg tablet
40 mg PO DAILY
propranolol 60 mg capsule,extended release 24 hr
60 mg PO DAILY
risperidone 2 mg tablet
2 mg PO HS
gabapentin 800 mg tablet
800 mg PO TID
ergocalciferol (vitamin D2) [Vitamin D2] 1,250 mcg (50,000 unit) capsule
1,250 mcg PO MO
Linzess 145 mcg capsule
145 mcg PO DAILY
Caplyta 42 mg capsule
42 mg PO DAILY
cyanocobalamin (vitamin B-12) 1,000 mcg Tablet, Sublingual
1,000 mcg SUBLINGUAL DAILY
melatonin 5 mg Tablet
5 mg PO HS
diazepam [Valium] 5 mg Tablet
5 mg PO DAILY
methocarbamol 500 mg Tablet
500 mg PO TIDPRN PRN (Reason: muscle spasms)
omeprazole 40 mg Capsule,Delayed Release(Dr/Ec)
40 mg PO DAILY
tramadol 50 mg Tablet
50 mg PO BIDPRN PRN (Reason: moderate pain)
dextroamphetamine-amphetamine 20 mg Capsule,Extended Release 24hr
20 mg PO DAILY
trazodone 150 mg Tablet
300 mg PO HS
risperidone 1 mg Tablet
1 mg PO DAILY
diazepam 5 mg Tablet
2.5 mg PO DAILYPRN PRN (Reason: anxiety)
Qulipta 60 mg Tablet
60 mg PO NOON
Referrals:
Tiffanie Xiong CRNP [Family Provider] - Follow up in 2-3 days
Activity Restrictions/Additional Instructions:
Continue the Augmentin
Start the oral prednisone tomorrow
Get rechecked if symptoms have not improved in 2 or 3 days or if symptoms progress.
Also recommend a chest x-ray if symptoms or not improving in 2 to 4 days
Your prescription was sent to your pharmacy
Interventions
Interventions:
*Risk Screen - Suicide Last Done: 09/23/24 09:26
*General Assessment Last Done: 09/23/24 12:23
*Neglect/Abuse Screening Last Done: 09/23/24 12:23
ED- Fall Risk Assessment Last Done: 09/23/24 12:29
*ED COVID-19 Vaccine History Last Done: 09/23/24 12:23
*Nursing Disposition Last Done: 09/23/24 12:29
KN-Cdeosf-Vciofswyez Assessment Last Done: 09/23/24 12:23
ED- Cardiac Assessment Last Done: 09/23/24 12:23
ED- Pulmonary Assessment Last Done: 09/23/24 12:23
Discharge Date and Time
Discharge Date/Time: 09/23/24 12:30
Print Language: YORUBA
== END 2024-09-23 12:30 | disposition home or self-care (01) ==
LOC: EMR 09:11
PROVIDERS: EMERGENCY PHYSICIAN Emergency Medicine; FAMILY PHYSICIAN Nurse Practitioner Primary Care
DX: J40 Bronchitis, not specified as acute or chronic (principal); I10 Essential (primary) hypertension; E03.9 Hypothyroidism, unspecified; F31.9 Bipolar disorder, unspecified; F41.9 Anxiety disorder, unspecified; F90.9 Attention-deficit hyperactivity disorder, unspecified type; G47.30 Sleep apnea, unspecified; I42.9 Cardiomyopathy, unspecified; F17.200 Nicotine dependence, unspecified, uncomplicated; Z80.0 Family history of malignant neoplasm of digestive organs; Z83.3 Family history of diabetes mellitus; Z83.49 Family history of other endocrine, nutritional and metabolic diseases; Z86.718 Personal history of other venous thrombosis and embolism; Z87.820 Personal history of traumatic brain injury; Z91.51 Personal history of suicidal behavior
CPT/HCPCS: 99283; 87502; 87811; 93005

== ENCOUNTER 2024-10-02 09:38 | Emergency (ER) | payer OTHER, SELFPAY ==
[2024-10-02 09:40] VITALS: BP 145/94
--- NOTE | 2024-10-02 10:26 | ED.GENMED ---
History of Present Illness
General
Chief Complaint: Crisis Evaluation
Source: patient
Exam Limitations: none
Time Seen by Provider: 10/02/24 09:58
History of Present Illness
History of Present Illness:
Patient complaining of some increased suicidal ideation. Was thinking of taking Tylenol. Has not acted on this. Also complaining of ongoing cough. Some right upper back pleuritic pain. Cough is not improved. Still has some wheezing at times.
Here primarily for psychiatric concerns
Past History
Past History
ED Past Medical History: Arrthythmia (Tachycardia), Asthma, HTN, Seizures, Hypothyroidism, Psychiatric (Bipolar, PTSD, suicide attempts, Anxiety/Depression, Borderline personality, ) and Other (TBI 2006, migraines, Cardiomyopathy,
Subarachnoid/Subdural hemorrhage, Intraparenchymal hem, Sleep apnea, GI bleeding, Pernicious anemia, ADHD, DVT with IVC filter)
ED Past Surgical History: , Orthopedic (R and left knee surgery, Carlos L leg removed, Left arm plate, Right wrist surgery, ) and Other (Green field filter)
Social History
Tobacco: Smoker
Alcohol: None
Drug: Other (Took a Hemp gummy this a.m.)
Personal: Single
Living: alone
Employment: Disabled
Family History
Family History: Other (Diabetes, colon cancer, thyroid disease)
Review of Systems
Review of Systems
All Other Systems: Not applicable
Constitutional: Denies fever or chills
Respiratory: Denies hemoptysis
Cardiac: Denies chest pain
Phy Exam
Physical Exam
Physical Exam:
GENERAL: Alert and oriented in no apparent distress
EYE: Orbits normal.
NECK: Supple
CARDIAC: Regular rate and rhythm without any obvious murmurs.
LUNGS: No respiratory distress. Occasional dry cough. Minimal bibasilar rhonchi.
ABDOMEN: Soft, without focal tenderness or distention
NEUROLOGICAL: Alert and oriented , grossly non-focal
SKIN: Warm and dry, no rash or lesion, no discoloration, skin intact.
MUSCULOSKELETAL: No edema,no deformity.Good color
PSYCH: Normal and appropriate interaction.
Course
Orders/Labs/Results
Orders:
Orders
10/02/24 09:44
1:1 Observation - Suicide/ Violent Behavior As Directed
10/02/24 10:11
Crisis Consult Urgent
Reason for Consult: Depression/suicidal ideation
CXR2 [CR Chest - 2 Views ] Urgent
Comment:
Reason For Exam: Ongoing cough
10/02/24 11:31
Test Result ONCE
US Periph Venous LOWER Ext LT Urgent
Comment:
Reason For Exam: Left calf pain
10/02/24 11:36
Fentanyl, Urine Urgent
HCG, Urine Qualitative Screen Urgent
Date Specimen was Collected: 10/02/24
Time Specimen was Collected: 11:31
Urine Drug Abuse Screen Urgent
Date Specimen was Collected: 10/02/24
Time Specimen was Collected: 11:31
10/02/24 13:00
Case Management Consult ONCE
Case Management Consult: Other
10/02/24 13:33
Apixaban [Eliquis] 10 mg PO NOW STA
Abnormal Lab Results
10/02/24
11:36
Ur Amphetamines Screen Positive H
(Negative)
U Benzodiazepines Scrn Positive H
(Negative)
Vital Signs
Initial and Last Documented VS:
Initial Vital Signs
Temp Pulse Resp BP Pulse Ox
99.1 F 96 16 145/94 96
10/02/24 09:40 10/02/24 09:40 10/02/24 09:40 10/02/24 09:40 10/02/24 09:40
Last Documented Vital Signs
Temp Pulse Resp BP Pulse Ox
99.1 F 96 16 145/94 96
10/02/24 09:40 10/02/24 09:40 10/02/24 09:40 10/02/24 09:40 10/02/24 09:40
MDM/Problems Addressed
Differential Diagnosis Includes:
Patient with 2 issues. #1 his suicidal ideation with some mild plan. History of same. Referred to crisis. Problem #2 is ongoing cough. I saw her previously. She was placed on Augmentin and steroids. However cough has persisted. We will get a
chest x-ray. Likely ongoing viral issue.
*Pulse Oximetry
Patient hypoxic: no
*Critical Care Note
Total Time (30-74mins, 75-104mins- exclusive of procedures): Not Applicable
Data Reviewed
Review of Other/Old Records Reveals: Labs, Records, Radiology Studies and Testing
Update Note
Update Note:
Patient's leg exam has mild tenderness to the left posterior calf. No obvious cord. No warmth no erythema no swelling. She does have any occlusive DVT of her left peroneal vein. She has a Michael filter that has been there for about 15 years
from trauma at that time. However the [place] filter is broken per the patient. She has a remote history of intracranial bleed but again this was trauma related about 15 years ago. She is on Celebrex. She has no GI bleed history she has no
contraindication to anticoagulation. She has had some respiratory issues recently that clinically sound more viral or asthma related. It is remotely possible that she could have some small PEs however clinically she is very stable. She is a very
difficult IV stick and would be difficult to get a antecubital IV in. In addition she is allergic to the dye. CT scan for PE evaluation would not change control specialist as she is clinically stable and nontoxic. She is not hypoxic she is not in
respiratory distress discussed the options of proving plus minus pulmonary emboli versus management of the DVT. Both management protocols would be the same at this point there is no indication for admission for this reason. She had labs done in
August. These are all stable. No indication for repeating labs at this time. It appears anticoagulation after the epidural yesterday is reasonable. I have tried to contact her pain specialist to confirm that they are okay with starting
anticoagulation. We will also include case management to make sure of coverage.
1320.... Discussed with patient's pain management person. Anticoagulation is fine at this time
1340... Cleared by psychiatry. Prescriptions will be sent in. Patient nontoxic cooperative and stable
ED Attending Note
-
Portions of this chart may have been created with voice recognition software.� Occasional wrong word or��sound alike� substitutions may have occurred due to the inherent limitations of voice recognition software.
Discharge Plan
Departure
Patient Disposition: Home (Routine Discharge)
Date of Disposition: 10/02/24
Time of Disposition: 13:42
Patient with high blood pressure during this ER visit?: Yes
Discharge Problem:
Depression/suicidal ideation, DVT left leg
Instructions: Depression, Adult (DC), Managing increased bleeding risk, Deep vein thrombosis (DVT) - ED discharge instructions, BLOOD PRESSURE
Prescriptions:
New
Eliquis DVT-PE Treat 30D Start 5 mg (74 tabs) tablets,dose pack
See Rx Instructions .ROUTE .COMPLEX Qty: 74 0RF
Rx Instructions:
orally per package directions
No Action
levothyroxine 25 mcg Tablet
25 mcg PO DAILY
clonidine HCl 0.1 mg tablet
0.1 mg PO BID
celecoxib 100 mg capsule
100 mg PO BID
metformin 500 mg tablet
500 mg PO BID
famotidine 40 mg tablet
40 mg PO DAILY
propranolol 60 mg capsule,extended release 24 hr
60 mg PO DAILY
risperidone 2 mg tablet
2 mg PO HS
gabapentin 800 mg tablet
800 mg PO TID
ergocalciferol (vitamin D2) [Vitamin D2] 1,250 mcg (50,000 unit) capsule
1,250 mcg PO MO
Linzess 145 mcg capsule
145 mcg PO DAILY
Caplyta 42 mg capsule
42 mg PO DAILY
cyanocobalamin (vitamin B-12) 1,000 mcg Tablet, Sublingual
1,000 mcg SUBLINGUAL DAILY
melatonin 5 mg Tablet
5 mg PO HS
diazepam [Valium] 5 mg Tablet
5 mg PO DAILY
methocarbamol 500 mg Tablet
500 mg PO TIDPRN PRN (Reason: muscle spasms)
omeprazole 40 mg Capsule,Delayed Release(Dr/Ec)
40 mg PO DAILY
tramadol 50 mg Tablet
50 mg PO BIDPRN PRN (Reason: moderate pain)
dextroamphetamine-amphetamine 20 mg Capsule,Extended Release 24hr
20 mg PO DAILY
trazodone 150 mg Tablet
300 mg PO HS
risperidone 1 mg Tablet
1 mg PO DAILY
diazepam 5 mg Tablet
2.5 mg PO DAILYPRN PRN (Reason: anxiety)
Qulipta 60 mg Tablet
60 mg PO NOON
prednisone 10 mg tablet
10 mg PO DAILY Qty: 20 0RF
Rx Instructions:
4 tabs day one then one less tab every other day until done
Referrals:
UNKNOWN - PT NOT,INTERVIEWE [Family Provider] -
Activity Restrictions/Additional Instructions:
Your prescription will be sent to your pharmacy
Stop your Celebrex. You cannot take any of these kind of medications while on the blood thinner
Recommend repeat ultrasound in 7 to 10 days
Return with increasing shortness of breath increasing leg pain or any other concerning symptoms
The Eliquis is 2 tablets twice a day for 1 week. Then 1 tablet twice a day.
Close follow-up with your primary physician in the next few days
Interventions
Interventions:
*Risk Screen - Suicide Last Done: 10/02/24 09:40
*General Assessment Last Done: 10/02/24 12:02
*Neglect/Abuse Screening Last Done: 10/02/24 09:40
ED- Fall Risk Assessment Last Done: 10/02/24 11:08
*ED COVID-19 Vaccine History Last Done: 10/02/24 12:02
*Nursing Disposition Last Done: 10/02/24 14:10
ED-Psychological Assessment Last Done: 10/02/24 11:08
Discharge Date and Time
Discharge Date/Time: 10/02/24 14:17
Print Language: SWEDISH
[2024-10-02 11:51] LABS: HCG, Urine Qualitative Screen Negative
[2024-10-02 12:04] LABS: Amphetamines Positive (Negative); Barbiturates Negative (Negative); Benzodiazepines Positive (Negative); Buprenorphine Negative (Negative); Cocaine Negative (Negative); Marijuana Negative (Negative); Methadone Negative (Negative); Methamphetamines Negative (Negative); Opiates Negative (Negative); Phencyclidine Negative (Negative); Tricyclic Antidepressants Negative (Negative)
[2024-10-02 12:27] LABS: Fentanyl, Urine Negative (Negative)
[2024-10-02] MEDS: ELIQUIS 10 MG PO (14:00)
--- NOTE | 2024-10-02 14:28 | W.PN.UPDATE ---
Update Note
Progress Note Update
patient seen chart reviewed. florinda is well known to me. she comes to with c.o suicidal ideation with thought of od w tylenol which she later rethought and decided she was not longer having these thoughts and requested dc. in the course of
medical assessment she was found to have dvt and dr carlton decided to put her on anticoagulants. he asked me how to proceed with scrip safely. i met with her to ascertain that she was no longer having si which is the case. she does want to go home
and is stating she will be safe. (this is usual for her). i spoke to dr lara barnard her md at [facility] and to the emergency tech extrusion technician. dr barnard recommends we give her one dose of anticoagulant today , call in the scrip to [facility], and
they will get it and dispense next dose tomorrow. gino is in agreement with this plan.she will call her brother to pick her up and bring her home.
== END 2024-10-02 14:17 | disposition home or self-care (01) ==
LOC: EMR 09:38
PROVIDERS: EMERGENCY PHYSICIAN Emergency Medicine
DX: F32.A Depression, unspecified (principal); R45.851 Suicidal ideations; I82.402 Acute embolism and thrombosis of unspecified deep veins of left lower extremity; J45.909 Unspecified asthma, uncomplicated; I10 Essential (primary) hypertension; E03.9 Hypothyroidism, unspecified; F43.10 Post-traumatic stress disorder, unspecified; F90.9 Attention-deficit hyperactivity disorder, unspecified type; F60.3 Borderline personality disorder; D51.0 Vitamin B12 deficiency anemia due to intrinsic factor deficiency; G47.30 Sleep apnea, unspecified; I42.9 Cardiomyopathy, unspecified; F17.200 Nicotine dependence, unspecified, uncomplicated; Z79.01 Long term (current) use of anticoagulants; Z80.0 Family history of malignant neoplasm of digestive organs; Z83.3 Family history of diabetes mellitus; Z83.49 Family history of other endocrine, nutritional and metabolic diseases; Z86.718 Personal history of other venous thrombosis and embolism; Z87.820 Personal history of traumatic brain injury; Z91.51 Personal history of suicidal behavior
CPT/HCPCS: 99284; 71046; 80306; 80307; 81025; 93971

== ENCOUNTER 2024-10-09 14:04 | Emergency (ER) | payer OTHER, SELFPAY ==
[2024-10-09 14:30] VITALS: BP 124/94
[2024-10-09 14:50] VITALS: BMI 42.3
--- NOTE | 2024-10-09 15:07 | ED.GENMED ---
History of Present Illness
General
Chief Complaint: DVT/Possible Blood Clot
Time Seen by Provider: 10/09/24 15:07
History of Present Illness
History of Present Illness:
TIME OF INITIAL ENCOUNTER: 3:10 PM
HPI: The patient was seen here 1 week ago and was found to have a left peroneal vein thrombus. The following day she went to [facility] due to shortness of breath and reports having a negative CTA for PE. More recently she has been having right
lower extremity pain. She was instructed to come here for ultrasound imaging. 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 She also reports having a stool that was dark and possibly bloody in appearance. It was loose.
EXAM:
GENERAL: Well appearing in no distress
HEENT: Moist oral mucosa, poor dentition
CARDIOVASCULAR: No murmurs, borderline tachycardic heart rate, regular rhythm, No chest wall tenderness
PULMONARY: No respiratory distress, breath sounds are clear and equal
ABDOMEN: Soft with no peritoneal signs, no tenderness
NEUROLOGIC: Excellent strength all extremities, no coordination deficits
PSYCHIATRIC: Appropriate mental status, normal insight and judgement
EXTREMITIES: Surgical scars noted to both legs, soft compartments, no evidence of cellulitis, no clinical signs for DVT, some mild tenderness noted to palpation of the right knee diffusely but no significant joint effusion
SKIN: No rash, no lesions
NUMBER AND COMPLEXITY OF PROBLEMS ADDRESSED AT THE ENCOUNTER
� Chronic conditions affecting care: Multiple visits for suicidal ideation in the past, peripartum cardiomyopathy, pernicious anemia, bipolar disorder and/or borderline personality disorder bipolar
� Acute Exacerbation and/or Progression of Chronic Illness: This is an acute problem
� Differential Diagnosis includes: Nonspecific musculoskeletal pain, DVT, worsening anemia
AMOUNT AND/OR COMPLEXITY OF DATA TO BE REVIEWED AND ANALYZED
� I performed an independent evaluation of and my interpretation is:
EKG:
CT:
X-rays:
Laboratory Studies: White count 12.6, hemoglobin 11.7, of note, the hemoglobin on 09/04/2024 was 9.8
Other: Ultrasound imaging shows no blood clot in either leg
� Review of other/old records: I reviewed the note from 10/02/2024t that time she was found to have an occlusive thrombus at the mid/distal segments of the left peroneal vein, more proximal veins were patent. She was placed on
Eliquis.
� Clinical information was obtained by an independent historian: None needed
� Prescriptions/Medications Considered but not given:
� Further testing considered but not performed:
RISK OF COMPLICATIONS AND/OR MORBIDITY OR MORTALITY OF PATIENT MANAGEMENT
� Social determinants of health affecting care: Lives at home
� Discussion with other providers:
� Escalation of care including admission/observation vs risk of discharge considered: The patient reports having a negative CTA at [facility] 6 days ago for PE. She has a known left peroneal vein DVT and is compliant with taking
Eliquis (states she missed 1 dose last week). Will obtain ultrasound imaging. The patient's hemoglobin has improved compared to 1 month ago.
ANY OTHER UPDATES:
4:45 PM: I reassessed patient. Initial tachycardia has spontaneously improved. Doubt any clinically significant GI bleed as hemoglobin has improved and her main symptom is the pain at the right lower extremity.
Past History
Past History
ED Past Medical History: Arrthythmia (Tachycardia), Asthma, HTN, Seizures, Hypothyroidism, Psychiatric (Bipolar, PTSD, suicide attempts, Anxiety/Depression, Borderline personality, ) and Other (TBI 2005, migraines, Cardiomyopathy,
Subarachnoid/Subdural hemorrhage, Intraparenchymal hem, Sleep apnea, GI bleeding, Pernicious anemia, ADHD, DVT with IVC filter)
ED Past Surgical History: , Orthopedic (R and left knee surgery, Carlos L leg removed, Left arm plate, Right wrist surgery, ) and Other (Green field filter)
Social History
Tobacco: Smoker
Alcohol: None
Drug: Other (Took a Hemp gummy this a.m.)
Personal: Single
Living: alone
Employment: Disabled
Family History
Family History: Other (Diabetes, colon cancer, thyroid disease)
Phy Exam
Physical Exam
Physical Exam:
See HPI
Course
Orders/Labs/Results
Orders:
Orders
10/09/24 14:58
Complete Blood Count/With Diff Urgent
Comprehensive Metabolic Panel Urgent
10/09/24 15:16
US Periph Venous LOWER Ext [place] Urgent
Reason For Exam: known L peroneal V clot; some SOB
Abnormal Lab Results
10/09/24
14:58
WBC 12.6 H 10^3/uL
(4.8-10.8)
Hgb 11.7 L g/dL
(12.0-16.0)
Hct 35.8 L %
(37.0-47.0)
MCV 77.8 L fL
(81.0-99.0)
MCH 25.4 L pg
(27.0-31.0)
MCHC 32.7 L g/dL
(33.0-37.0)
RDW 20.1 H %
(11.5-14.5)
Abs Immat Gran (auto) 0.2 H 10^3/uL
(0-0.05)
Absolute Neuts (auto) 9.3 H 10^3/uL
(1.4-6.5)
Absolute Monos (auto) 0.7 H 10^3/uL
(0.1-0.6)
Immature Gran % 1.4 H %
(0-0.5)
Lymphocytes % 16.4 L %
(20.5-51.1)
Glucose 140 H mg/dl
(70-99)
10/09/24 14:58
10/09/24 14:58
Vital Signs
Initial and Last Documented VS:
Initial Vital Signs
Temp Pulse Resp BP Pulse Ox
37.6 C 119 18 124/94 98
10/09/24 14:30 10/09/24 14:30 10/09/24 14:30 10/09/24 14:30 10/09/24 14:30
Last Documented Vital Signs
Temp Pulse Resp BP Pulse Ox
36.6 C 101 16 115/76 96
10/09/24 16:24 10/09/24 16:24 10/09/24 16:24 10/09/24 16:24 10/09/24 16:24
*Critical Care Note
Total Time (30-74mins, 75-104mins- exclusive of procedures): Not Applicable
ED Attending Note
-
Portions of this chart may have been created with voice recognition software.� Occasional wrong word or��sound alike� substitutions may have occurred due to the inherent limitations of voice recognition software.
Discharge Plan
Departure
Patient Disposition: Home (Routine Discharge)
Date of Disposition: 10/09/24
Time of Disposition: 16:46
Patient with high blood pressure during this ER visit?: Yes
Discharge Problem:
Musculoskeletal pain of right lower extremity
Instructions: BLOOD PRESSURE
Prescriptions:
No Action
levothyroxine 25 mcg Tablet
25 mcg PO DAILY
clonidine HCl 0.1 mg tablet
0.1 mg PO BID
celecoxib 100 mg capsule
100 mg PO BID
metformin 500 mg tablet
500 mg PO BID
famotidine 40 mg tablet
40 mg PO DAILY
propranolol 60 mg capsule,extended release 24 hr
60 mg PO DAILY
risperidone 2 mg tablet
2 mg PO HS
gabapentin 800 mg tablet
800 mg PO TID
ergocalciferol (vitamin D2) [Vitamin D2] 1,250 mcg (50,000 unit) capsule
1,250 mcg PO MO
Linzess 145 mcg capsule
145 mcg PO DAILY
Caplyta 42 mg capsule
42 mg PO DAILY
cyanocobalamin (vitamin B-12) 1,000 mcg Tablet, Sublingual
1,000 mcg SUBLINGUAL DAILY
melatonin 5 mg Tablet
5 mg PO HS
diazepam [Valium] 5 mg Tablet
5 mg PO DAILY
methocarbamol 500 mg Tablet
500 mg PO TIDPRN PRN (Reason: muscle spasms)
omeprazole 40 mg Capsule,Delayed Release(Dr/Ec)
40 mg PO DAILY
tramadol 50 mg Tablet
50 mg PO BIDPRN PRN (Reason: moderate pain)
dextroamphetamine-amphetamine 20 mg Capsule,Extended Release 24hr
20 mg PO DAILY
trazodone 150 mg Tablet
300 mg PO HS
risperidone 1 mg Tablet
1 mg PO DAILY
diazepam 5 mg Tablet
2.5 mg PO DAILYPRN PRN (Reason: anxiety)
Qulipta 60 mg Tablet
60 mg PO NOON
prednisone 10 mg tablet
10 mg PO DAILY Qty: 20 0RF
Rx Instructions:
4 tabs day one then one less tab every other day until done
Eliquis DVT-PE Treat 30D Start 5 mg (74 tabs) tablets,dose pack
See Rx Instructions .ROUTE .COMPLEX Qty: 74 0RF
Rx Instructions:
orally per package directions
Referrals:
Tiffanie Xiong CRNP [Family Provider] -
Activity Restrictions/Additional Instructions:
There is no blood clot in either leg. Your hemoglobin level has improved compared to prior. Return here if worse or other concerns. Follow-up with your primary care doctor.
Interventions
Interventions:
*Risk Screen - Suicide Last Done: 10/09/24 14:09
*ED COVID-19 Vaccine History Last Done: 10/09/24 14:51
ED- Cardiac Assessment Last Done: 10/09/24 16:44
ED- Pulmonary Assessment Last Done: 10/09/24 16:44
ED-Peripheral Vascular Assessment Last Done: 10/09/24 14:51
ED-Skin Assessment Last Done: 10/09/24 14:51
Discharge Date and Time
Print Language: CITIZEN [place]
[2024-10-09 15:39] LABS: ALT (SGPT) 21 U/L (0-35); AST (SGOT) 19 U/L (14-36); Albumin 4.1 g/dl (3.5-5.0); Alkaline Phosphatase 86 U/L (38-126); Blood Urea Nitrogen 12 mg/dl (7-17); Calcium 9.1 mg/dl (8.4-10.2); Carbon Dioxide 25 mmol/L (22-30); Chloride 101 mmol/L (98-107); Estimated Creatinine Clearance > 125 ml/min; Glucose 140 mg/dl (70-99); Potassium 3.9 mmol/L (3.5-5.1); Sodium 137 mmol/L (135-145); Total Bilirubin 0.2 mg/dl (0.2-1.3); Total Protein 6.7 g/dl (6.3-8.2); eGFR > 60.00
[2024-10-09 16:03] LABS: % Basophils 0.9 % (0-2); % Eosinophils 2.1 % (0-6); % Immature Granulocytes 1.4 % (0-0.5); % Lymphocytes 16.4 % (20.5-51.1); % Monocytes 5.6 % (1.7-9.3); % Neutrophils 73.6 % (42.2-75.2); Absolute Basophils 0.1 10^3/uL (0-0.2); Absolute Eosinophils 0.3 10^3/uL (0-0.7); Absolute Immature Granulocytes 0.2 10^3/uL (0-0.05); Absolute Lymphocytes 2.1 10^3/uL (1.2-3.4); Absolute Monocytes 0.7 10^3/uL (0.1-0.6); Absolute Neutrophils 9.3 10^3/uL (1.4-6.5); Hematocrit 35.8 % (37.0-47.0); Hemoglobin 11.7 g/dL (12.0-16.0); Mean Corp Hgb Conc. 32.7 g/dL (33.0-37.0); Mean Corpuscular Hgb 25.4 pg (27.0-31.0); Mean Corpuscular Volume 77.8 fL (81.0-99.0); Mean Platelet Volume 10.2 fL (7.4-10.4); Nucleated Red Blood Cells % 0 %; Platelet Count 286 10^3/uL (130-400); Red Cell Dist. Width 20.1 % (11.5-14.5); White Blood Cell Count 12.6 10^3/uL (4.8-10.8)
[2024-10-09 16:24] VITALS: BP 115/76
== END 2024-10-09 17:04 | disposition home or self-care (01) ==
LOC: EMR 14:04
PROVIDERS: Emergency Medicine; EMERGENCY PHYSICIAN Emergency Medicine; FAMILY PHYSICIAN Nurse Practitioner Primary Care
DX: M79.604 Pain in right leg (principal); I10 Essential (primary) hypertension; F17.200 Nicotine dependence, unspecified, uncomplicated
CPT/HCPCS: 99284; 80053; 85025; 93970

== ENCOUNTER 2024-10-14 12:30 | Emergency (ER) | payer OTHER, SELFPAY ==
[2024-10-14 12:42] VITALS: BP 137/96
--- NOTE | 2024-10-14 13:27 | ED.GENMED ---
History of Present Illness
General
Chief Complaint: Crisis Evaluation
Source: patient and records
Exam Limitations: none
Time Seen by Provider: 10/14/24 12:53
Nursing documentation reviewed up to this point in time: agreed with
History of Present Illness
History of Present Illness:
38-year-old female with history as noted significant for borderline personality disorder and multiple prior suicide attempts who presents to the ER today saying that she is suicidal. She says that since Sunday she has had increased suicidal
thoughts. She says she is thinking of overdosing on Tylenol again. She says that this has been exacerbated by social issues. Came to the ER for crisis help and seeking inpatient care. She denies any attempts at suicide today that she said she
has not ingested any Tylenol or any other medications. She denies any other issues. She said she physically feels well denies any abdominal pain, nausea, vomiting or any other issues.
Past History
Past History
ED Past Medical History: Arrthythmia (Tachycardia), Asthma, HTN, Seizures, Hypothyroidism, Psychiatric (Bipolar, PTSD, suicide attempts, Anxiety/Depression, Borderline personality, ) and Other (TBI 2005, migraines, Cardiomyopathy,
Subarachnoid/Subdural hemorrhage, Intraparenchymal hem, Sleep apnea, GI bleeding, Pernicious anemia, ADHD, DVT with IVC filter)
ED Past Surgical History: , Orthopedic (R and left knee surgery, Carlos L leg removed, Left arm plate, Right wrist surgery, ) and Other (Green field filter)
Social History
Tobacco: Smoker
Alcohol: None
Drug: Other (Took a Hemp gummy this a.m.)
Personal: Single
Living: alone
Employment: Disabled
Family History
Family History: Other (Diabetes, colon cancer, thyroid disease)
Review of Systems
Review of Systems
All Other Systems: ROS reviewed and negative except as documented in HPI and ROS
Respiratory: Denies trouble breathing
Cardiac: Denies chest pain
ABD/GI: Denies abdominal pain, nausea or vomiting
: Denies flank pain
Musculoskeletal: Denies neck pain or back pain
Neurological: Denies headache
Psychiatric: Reports suicidal; Denies hallucinations
Phy Exam
Physical Exam
Physical Exam:
General: Awake, alert, oriented x3; no acute distress
Head: Normocephalic, atraumatic
Eyes: Conjunctiva normal, sclera anicteric
Throat: Airway intact, handling secretions
Neck: Trachea midline, supple without meningismus
Lungs: Clear to auscultation bilaterally, no wheezing, rales, rhonchi
Heart: Regular rate and rhythm, no murmurs, gallops, or rubs
Abd: Soft, non distended, nontender
Neuro: No gross deficit
Extremities: Warm and well-perfused
Psych: Depressed mood, irritable affect
Scores
Heart Failure Risk
Heart Failure Risk Score: Not Applicable
Heart Score for Chest Pain Patients
STEMI patient?: Not applicable
Withdrawal Assessment of Alcohol
Withdrawal Assessment Completed?: Not applicable
Course
Orders/Labs/Results
Orders:
Orders
10/14/24 12:33
1:1 Observation - Suicide/ Violent Behavior As Directed
Crisis Consult Urgent
Reason for Consult: SI with plan
10/14/24 12:50
Urine Drug Abuse Screen Urgent
Date Specimen was Collected: 10/14/24
Time Specimen was Collected: 12:51
10/14/24 13:36
Consult Psychiatry [PSYCHIATRY CONSULT] Urgent
Consulting Provider: Ever West
Was physician already notified: Yes
10/14/24 15:11
Acetaminophen Urgent
Alcohol Urgent
CMP [Comprehensive Metabolic Panel] Urgent
Complete Blood Count/With Diff Urgent
Salicylate Urgent
10/14/24 15:14
Diazepam [Valium] 2 mg PO NOW STA
Abnormal Lab Results
10/14/24
15:11
MCH 26.2 L pg
(27.0-31.0)
MCHC 32.2 L g/dL
(33.0-37.0)
RDW 20.0 H %
(11.5-14.5)
MPV 10.5 H fL
(7.4-10.4)
Abs Immat Gran (auto) 0.1 H 10^3/uL
(0-0.05)
Immature Gran % 0.9 H %
(0-0.5)
Lymphocytes % 20.2 L %
(20.5-51.1)
Sodium 134 L mmol/L
(135-145)
Creatinine 0.5 L mg/dL
(0.6-1.0)
Glucose 102 H mg/dl
(70-99)
Salicylates < 1.0 L mg/dl
(2.0-20.0)
Acetaminophen < 10 L ug/ml
(10-30)
10/14/24 15:11
10/14/24 15:11
Vital Signs
Initial and Last Documented VS:
Initial Vital Signs
Temp Pulse Resp BP Pulse Ox
37.1 C 103 18 137/96 97
10/14/24 12:42 10/14/24 12:42 10/14/24 12:42 10/14/24 12:42 10/14/24 12:42
Last Documented Vital Signs
Temp Pulse Resp BP Pulse Ox
37.1 C 103 18 137/96 99
10/14/24 12:42 10/14/24 12:42 10/14/24 12:42 10/14/24 12:42 10/14/24 13:46
MDM/Problems Addressed
Differential Diagnosis Includes:
Suicidal ideation
MDM/Problems Addressed:
38-year-old female presents with suicidal ideation with a plan to overdose on Tylenol. Multiple attempts at suicide in the past with similar. Vitals and exam as above. Will check labs including CBC and a CMP, alcohol level, UDS, Tylenol and
salicylate levels given her history. Monitor on continuous observation. Discussed with crisis team for consultation.
Patient initially refusing blood work but allowed for blood draw after discussion with her. Lab work is pending. She insist that she did not overdose. She was seen by Dr. West�he feels that she is psychologically stable and at her baseline and
can be treated as an outpatient. Patient says she now feels comfortable with this and in fact prefers and is requesting discharge. Will discharge pending labs. She is requesting her home dose of Valium which we will provide.
Labs reviewed: CBC and CMP no clinically significant abnormalities. Tylenol and salicylate levels negative. Patient requesting discharge cleared by psychiatry, stable for discharge.
Chronic conditions affecting care:
Borderline personality disorder, anxiety/depression
*Pulse Oximetry
Patient hypoxic: no
*Critical Care Note
Total Time (30-74mins, 75-104mins- exclusive of procedures): Not Applicable
Data Reviewed
Source: patient and records
Patient Management
Discussion with other providers: Superintendent Quarry (Seen in consultation with psychiatry) and Other (Discussed with our crisis team)
ED Attending Note
-
Portions of this chart may have been created with voice recognition software.� Occasional wrong word or��sound alike� substitutions may have occurred due to the inherent limitations of voice recognition software.
Discharge Plan
Departure
Patient Disposition: Home (Routine Discharge)
Date of Disposition: 10/14/24
Time of Disposition: 15:55
Patient with high blood pressure during this ER visit?: Yes
Discharge Problem:
Suicidal ideation
Instructions: Depression in adults
Prescriptions:
No Action
levothyroxine 25 mcg Tablet
25 mcg PO DAILY
clonidine HCl 0.1 mg tablet
0.1 mg PO BID
celecoxib 100 mg capsule
100 mg PO BID
metformin 500 mg tablet
500 mg PO BID
famotidine 40 mg tablet
40 mg PO DAILY
propranolol 60 mg capsule,extended release 24 hr
60 mg PO DAILY
risperidone 2 mg tablet
2 mg PO HS
gabapentin 800 mg tablet
800 mg PO TID
ergocalciferol (vitamin D2) [Vitamin D2] 1,250 mcg (50,000 unit) capsule
1,250 mcg PO MO
Linzess 145 mcg capsule
145 mcg PO DAILY
Caplyta 42 mg capsule
42 mg PO DAILY
cyanocobalamin (vitamin B-12) 1,000 mcg Tablet, Sublingual
1,000 mcg SUBLINGUAL DAILY
melatonin 5 mg Tablet
5 mg PO HS
diazepam [Valium] 5 mg Tablet
5 mg PO DAILY
methocarbamol 500 mg Tablet
500 mg PO TIDPRN PRN (Reason: muscle spasms)
omeprazole 40 mg Capsule,Delayed Release(Dr/Ec)
40 mg PO DAILY
tramadol 50 mg Tablet
50 mg PO BIDPRN PRN (Reason: moderate pain)
dextroamphetamine-amphetamine 20 mg Capsule,Extended Release 24hr
20 mg PO DAILY
trazodone 150 mg Tablet
300 mg PO HS
risperidone 1 mg Tablet
1 mg PO DAILY
diazepam 5 mg Tablet
2.5 mg PO DAILYPRN PRN (Reason: anxiety)
Qulipta 60 mg Tablet
60 mg PO NOON
prednisone 10 mg tablet
10 mg PO DAILY Qty: 20 0RF
Rx Instructions:
4 tabs day one then one less tab every other day until done
Eliquis DVT-PE Treat 30D Start 5 mg (74 tabs) tablets,dose pack
See Rx Instructions .ROUTE .COMPLEX Qty: 74 0RF
Rx Instructions:
orally per package directions
Referrals:
UNKNOWN - PT NOT,INTERVIEWE [Family Provider] -
Interventions
Interventions:
*Risk Screen - Suicide Last Done: 10/14/24 12:32
*General Assessment Last Done: 10/14/24 13:20
*Neglect/Abuse Screening Last Done: 10/14/24 13:20
ED- Fall Risk Assessment Last Done: 10/14/24 13:20
*ED COVID-19 Vaccine History Last Done: 10/14/24 12:42
ED-Psychological Assessment Last Done: 10/14/24 13:20
Discharge Date and Time
Print Language: [place]
--- NOTE | 2024-10-14 15:00 | CS.PSYCHR ---
Consult Summary - Psychiatry
-
Pt is a 38 yo female with a long psychiatric history, diagnosed with Borderline personality d/o, PTSD, followed by the [facility] FACT Team. Pt brought in by police for reported suicidal ideation and plan to OD on Tylenol. Pt states several
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 Pt reportedly wanted the FACT
Team to file [facility] for a housing voucher today, and they would not agree to do it today.
Pt states she is 'cool now', denies any intent to harm self or attempt suicide. Pt states she does not keep Tylenol due to her hx of OD, does not have access- does not drive and her walking is limited due to back/leg pain. Pt reports Risperdal at
[facility] was switched to a trial of Thorazine, also takes Trazodone at 'max' dose, melatonin. Pt states she would like to be home for visiting staff at 5 pm, would like to take a hot bath for her back.
MSE: Pt seen resting on stretcher, alert, calm, cooperative. Speech coherent, thought goal-directed, affect stable, mood okay. Denies SI/HI. No agitation. No signs of psychosis
Imp/Rec: Pt appears stable for discharge, denies any suicidal ideation/plan/intent. Pt psychiatrically cleared to return home with continued follow-up by [facility] FACT Team
[2024-10-14] MEDS: VALIUM 2 MG PO (15:27)
[2024-10-14 15:39] LABS: % Basophils 0.7 % (0-2); % Eosinophils 3.1 % (0-6); % Immature Granulocytes 0.9 % (0-0.5); % Lymphocytes 20.2 % (20.5-51.1); % Monocytes 5.6 % (1.7-9.3); % Neutrophils 69.5 % (42.2-75.2); Absolute Basophils 0.1 10^3/uL (0-0.2); Absolute Eosinophils 0.3 10^3/uL (0-0.7); Absolute Immature Granulocytes 0.1 10^3/uL (0-0.05); Absolute Lymphocytes 1.9 10^3/uL (1.2-3.4); Absolute Monocytes 0.5 10^3/uL (0.1-0.6); Absolute Neutrophils 6.5 10^3/uL (1.4-6.5); Hematocrit 38.5 % (37.0-47.0); Hemoglobin 12.4 g/dL (12.0-16.0); Mean Corp Hgb Conc. 32.2 g/dL (33.0-37.0); Mean Corpuscular Hgb 26.2 pg (27.0-31.0); Mean Corpuscular Volume 81.2 fL (81.0-99.0); Mean Platelet Volume 10.5 fL (7.4-10.4); Nucleated Red Blood Cells % 0 %; Platelet Count 308 10^3/uL (130-400); Red Blood Cell Count 4.74 10^6/uL (4.20-5.40); White Blood Cell Count 9.4 10^3/uL (4.8-10.8)
[2024-10-14 15:54] LABS: ALT (SGPT) 23 U/L (0-35); AST (SGOT) 22 U/L (14-36); Acetaminophen < 10 ug/ml (10-30); Albumin 4.4 g/dl (3.5-5.0); Alkaline Phosphatase 100 U/L (38-126); Blood Urea Nitrogen 7 mg/dl (7-17); Calcium 9.4 mg/dl (8.4-10.2); Carbon Dioxide 24 mmol/L (22-30); Chloride 100 mmol/L (98-107); Glucose 102 mg/dl (70-99); Potassium 4.4 mmol/L (3.5-5.1); Salicylate < 1.0 mg/dl (2.0-20.0); Sodium 134 mmol/L (135-145); Total Bilirubin 0.3 mg/dl (0.2-1.3); Total Protein 7.2 g/dl (6.3-8.2); eGFR > 60.00
[2024-10-14 15:57] LABS: Alcohol None Detected
== END 2024-10-14 15:55 | disposition home or self-care (01) ==
LOC: EMR 12:30
PROVIDERS: CONSULT PHYSICIAN Psychiatry & Neurology Psychiatry; EMERGENCY PHYSICIAN Emergency Medicine
DX: R45.851 Suicidal ideations (principal); I10 Essential (primary) hypertension; Z91.51 Personal history of suicidal behavior; F41.9 Anxiety disorder, unspecified; F31.9 Bipolar disorder, unspecified; F17.200 Nicotine dependence, unspecified, uncomplicated; F60.3 Borderline personality disorder
CPT/HCPCS: 99283; 80053; 80143; 80179; 82077; 85025

== ENCOUNTER 2024-11-18 11:48 | Emergency (ER) | payer OTHER, SELFPAY ==
[2024-11-18 12:01] VITALS: BP 130/87
--- NOTE | 2024-11-18 13:32 | ED.GENMED ---
History of Present Illness
General
Chief Complaint: Suicidal Ideation
Source: patient
Exam Limitations: none
Time Seen by Provider: 11/18/24 12:34
Nursing documentation reviewed up to this point in time: agreed with
History of Present Illness
History of Present Illness:
38-year-old female with past medical history as documented multiple ER visits and well-known to [facility]; she presents to the emergency room today initially stating suicidal ideation. Patient has history of borderline personality
disorder and frequently presents with suicidality that seems to come and go. She has had a number of suicide attempts by Tylenol overdose in the past. She says that over the weekend she was having some suicidal thoughts with a plan to overdose.
She says that she called the ACT team today and when the nurse asked her if she had been having suicidal thoughts recently she said yes; for this reason they referred her to [facility] for crisis assessment. Patient tells me that she is not actively
suicidal and does not plan to kill herself. She says she did not take any medications. She mentioned left calf pain to the nurse in triage�she has a history of DVT and is on Eliquis and says that she has had calf pain in the left side since. She
says that she recently had an ultrasound and they told her 'the clot was all gone.' She denies any other physical complaints. She says that she does not want to be here and she does not feel that she needs inpatient psychiatric treatment at this
time.
Past History
Past History
ED Past Medical History: Arrthythmia (Tachycardia), Asthma, HTN, Seizures, Hypothyroidism, Psychiatric (Bipolar, PTSD, suicide attempts, Anxiety/Depression, Borderline personality, ) and Other (TBI 2006, migraines, Cardiomyopathy,
Subarachnoid/Subdural hemorrhage, Intraparenchymal hem, Sleep apnea, GI bleeding, Pernicious anemia, ADHD, DVT with IVC filter)
ED Past Surgical History: , Orthopedic (R and left knee surgery, Carlos L leg removed, Left arm plate, Right wrist surgery, ) and Other (Green field filter)
Social History
Tobacco: Smoker
Alcohol: None
Drug: Other (Took a Hemp gummy this a.m.)
Personal: Single
Living: alone
Employment: Disabled
Family History
Family History: Other (Diabetes, colon cancer, thyroid disease)
Review of Systems
Review of Systems
All Other Systems: ROS reviewed and negative except as documented in HPI and ROS
Constitutional: Denies fever or chills
Respiratory: Denies cough or trouble breathing
Cardiac: Denies chest pain
ABD/GI: Denies abdominal pain, nausea or vomiting
: Denies flank pain
Musculoskeletal: Reports muscle pain (Chronic calf pain); Denies neck pain or back pain
Neurological: Denies headache
Phy Exam
Physical Exam
Physical Exam:
General: Awake, alert, laying in bed comfortably not in any distress
Head: Normocephalic, atraumatic
Eyes: Conjunctiva normal, sclera anicteric
Throat: Airway intact, handling secretions
Neck: Trachea midline, good active range of motion
Lungs: Breathing comfortably no distress
Heart: Regular rate
Neuro: No gross deficits
Skin: no rash, no jaundice, no signs of cutting or self-harm
Extremities: No edema in extremities, equal pulses in all extremities�specifically no edema in the left leg, no calf tenderness, no palpable cords, strong DP and PT pulse left lower extremity, no skin changes in the left lower extremity
Psych: Depressed mood, flat affect
Scores
Heart Failure Risk
Heart Failure Risk Score: Not Applicable
Heart Score for Chest Pain Patients
STEMI patient?: Not applicable
Withdrawal Assessment of Alcohol
Withdrawal Assessment Completed?: Not applicable
Course
Orders/Labs/Results
Orders:
Orders
11/18/24 12:35
Acetaminophen Urgent
Alcohol Urgent
Complete Blood Count/With Diff Urgent
Comprehensive Metabolic Panel Urgent
Drug Screen, Urine [Urine Drug Abuse Screen] Urgent
HCG, Serum Qualitative Screen Urgent
Salicylate Urgent
Test Result ONCE
11/18/24 12:57
Crisis Consult Routine
Reason for Consult: SI with plan
11/18/24 13:39
PSYCHIATRY CONSULT Urgent
Consulting Provider: Ever West
Was physician already notified: Yes
Vital Signs
Initial and Last Documented VS:
Initial Vital Signs
Temp Pulse Resp BP Pulse Ox
36.9 C 107 20 130/87 96
11/18/24 12:01 11/18/24 12:01 11/18/24 12:01 11/18/24 12:01 11/18/24 12:01
Last Documented Vital Signs
Temp Pulse Resp BP Pulse Ox
36.9 C 107 20 130/87 96
11/18/24 12:01 11/18/24 12:01 11/18/24 12:01 11/18/24 12:01 11/18/24 12:01
MDM/Problems Addressed
Differential Diagnosis Includes:
Suicidal ideation
MDM/Problems Addressed:
38-year-old female with history as documented presents for evaluation of suicidal ideation over the weekend�she says that she had suicidal thoughts over the weekend which seem to have improved. She disclosed this to the ACT team who referred her to
the ER for crisis assessment. Vitals and exam as above. Her only physical complaint is chronic left calf pain�she says she had a recent ultrasound that showed that her previously diagnosed DVT had resolved and she has been on Eliquis and reports
compliance. Offered ultrasound of the calf to follow-up on this in an abundance of caution given her history but she feels this is unnecessary and based on her clinical exam I tend to agree. Plan was initially for screening blood work prior to
psychiatric assessment. Patient declined and given that she has no symptoms, well-appearing with benign exam I do not think that there is any indication for involuntarily drawing blood work at this point in time. She says that she is not currently
suicidal and she does have a long history of waxing and waning suicidality. She feels that she can go home right now and the only reason she is here is because the ACT team told her that she had to come to the hospital. Given her history of
suicide attempts in the past I did discuss the case with our psychiatry and crisis team to perform an assessment. She is agreeable to this.
Patient seen by crisis team and our psychiatrist and again denying active suicidality at present. She wishes to go home and at this point no indication for involuntary commitment to the hospital. Discharged with close outpatient follow-up�patient
is already well-established with an outpatient team.
Chronic conditions affecting care:
Psychiatric conditions as noted�bipolar, anxiety/depression, borderline personality
*Pulse Oximetry
Patient hypoxic: no
*Critical Care Note
Total Time (30-74mins, 75-104mins- exclusive of procedures): Not Applicable
Data Reviewed
Source: patient and records
Further Testing Considered But Not Given:
Considered ultrasound, blood work as described above
Patient Management
Discussion with other providers: [facility]ighter (Discussed with psychiatry) and Other (Discussed with crisis team)
ED Attending Note
-
Portions of this chart may have been created with voice recognition software.� Occasional wrong word or��sound alike� substitutions may have occurred due to the inherent limitations of voice recognition software.
Discharge Plan
Departure
Patient Disposition: Home (Routine Discharge)
Date of Disposition: 11/18/24
Time of Disposition: 13:49
Patient with high blood pressure during this ER visit?: No
Discharge Problem:
Suicidal ideation
Instructions: Suicide prevention
Prescriptions:
No Action
levothyroxine 25 mcg Tablet
25 mcg PO DAILY
clonidine HCl 0.1 mg tablet
0.1 mg PO BID
celecoxib 100 mg capsule
100 mg PO BID
metformin 500 mg tablet
500 mg PO BID
famotidine 40 mg tablet
40 mg PO DAILY
propranolol 60 mg capsule,extended release 24 hr
60 mg PO DAILY
risperidone 2 mg tablet
2 mg PO HS
gabapentin 800 mg tablet
800 mg PO TID
ergocalciferol (vitamin D2) [Vitamin D2] 1,250 mcg (50,000 unit) capsule
1,250 mcg PO MO
Linzess 145 mcg capsule
145 mcg PO DAILY
Caplyta 42 mg capsule
42 mg PO DAILY
cyanocobalamin (vitamin B-12) 1,000 mcg Tablet, Sublingual
1,000 mcg SUBLINGUAL DAILY
melatonin 5 mg Tablet
5 mg PO HS
diazepam [Valium] 5 mg Tablet
5 mg PO DAILY
methocarbamol 500 mg Tablet
500 mg PO TIDPRN PRN (Reason: muscle spasms)
omeprazole 40 mg Capsule,Delayed Release(Dr/Ec)
40 mg PO DAILY
tramadol 50 mg Tablet
50 mg PO BIDPRN PRN (Reason: moderate pain)
dextroamphetamine-amphetamine 20 mg Capsule,Extended Release 24hr
20 mg PO DAILY
trazodone 150 mg Tablet
300 mg PO HS
risperidone 1 mg Tablet
1 mg PO DAILY
diazepam 5 mg Tablet
2.5 mg PO DAILYPRN PRN (Reason: anxiety)
Qulipta 60 mg Tablet
60 mg PO NOON
prednisone 10 mg tablet
10 mg PO DAILY Qty: 20 0RF
Rx Instructions:
4 tabs day one then one less tab every other day until done
Eliquis DVT-PE Treat 30D Start 5 mg (74 tabs) tablets,dose pack
See Rx Instructions .ROUTE .COMPLEX Qty: 74 0RF
Rx Instructions:
orally per package directions
Referrals:
UNKNOWN - PT DOES,NOT KNOW [Family Provider] -
Activity Restrictions/Additional Instructions:
Thank you for visiting the Emergency Department at [facility].
1. Please schedule a follow up appointment as directed. Call first thing tomorrow morning to make an appointment.
2. If indicated, please take your medications as instructed and indicated on discharge paperwork.
3. If any of your symptoms do not improve, or persist, or become more severe within 6-12 hours, please return to the emergency department for further care.
4. Please return to the emergency department if you develop a headache, neck pain/stiffness, fever greater than 100.4F, chest pain, shortness of breath, persistent nausea, vomiting, slurred speech, difficulty walking, numbness/tingling, weakness,
signs of infection or any other symptoms that are worrisome to you.
Please call [phone] if you have any questions.
Interventions
Interventions:
*Risk Screen - Suicide Last Done: 11/18/24 12:06
*General Assessment Last Done: 11/18/24 12:06
*Neglect/Abuse Screening Last Done: 11/18/24 12:06
*ED- Fall Risk Assessment Last Done: 11/18/24 12:06
*ED COVID-19 Vaccine History Last Done: 11/18/24 12:06
ED-Psychological Assessment Last Done: 11/18/24 12:06
Discharge Date and Time
Print Language: CITIZEN [place]
--- NOTE | 2024-11-18 15:08 | W.PN.UPDATE ---
Update Note
Progress Note Update
Pt seen, reviewed with Crisis staff. Pt alert, oriented, calm, making appropriate eye contact, trying to get a construction operations manager for her phone. Pt states she was told to come in for assessment or her ACT Team/ therapist would call the police. She
apparently expressed suicidal ideation/plan prior to arrival, but denies any suicidal ideation/plan/intent at present. Pt is future-oriented, stating she wants to get home in time to get her medications. Pt reports having some medical issues and
side effects from [place]. Pt is reacting to discussion about her psychiatric diagnosis- states her therapist said she is in a '[place] area' regarding dissociation; pt is convinced she has DID. Pt shows no signs of dissociation or psychosis this
afternoon.
Imp/Rec: Borderline personality d/o; hx of PTSD, appears at usual baseline. Pt appears stable for discharge, to return home with ACT Team follow-up
== END 2024-11-18 14:18 | disposition home or self-care (01) ==
LOC: EMR 11:48
PROVIDERS: CONSULT PHYSICIAN Psychiatry & Neurology Psychiatry; EMERGENCY PHYSICIAN Emergency Medicine
DX: R45.851 Suicidal ideations (principal); F41.9 Anxiety disorder, unspecified; F60.3 Borderline personality disorder; F17.200 Nicotine dependence, unspecified, uncomplicated; Z91.51 Personal history of suicidal behavior
CPT/HCPCS: 99283

== ENCOUNTER 2024-11-28 14:53 | Emergency (ER) | payer OTHER, SELFPAY ==
[2024-11-28 15:20] VITALS: BP 131/100
[2024-11-28 15:57] LABS: % Basophils 0.5 % (0-2); % Eosinophils 1.9 % (0-6); % Immature Granulocytes 0.3 % (0-0.5); % Lymphocytes 24.9 % (20.5-51.1); % Monocytes 4.5 % (1.7-9.3); % Neutrophils 67.9 % (42.2-75.2); Absolute Eosinophils 0.2 10^3/uL (0-0.7); Absolute Lymphocytes 2.1 10^3/uL (1.2-3.4); Absolute Monocytes 0.4 10^3/uL (0.1-0.6); Absolute Neutrophils 5.8 10^3/uL (1.4-6.5); Hematocrit 39.7 % (37.0-47.0); Hemoglobin 13.5 g/dL (12.0-16.0); Mean Corpuscular Volume 82.4 fL (81.0-99.0); Mean Platelet Volume 10.6 fL (7.4-10.4); Nucleated Red Blood Cells % 0 %; Platelet Count 274 10^3/uL (130-400); Red Blood Cell Count 4.82 10^6/uL (4.20-5.40); Red Cell Dist. Width 16.4 % (11.5-14.5); White Blood Cell Count 8.6 10^3/uL (4.8-10.8)
[2024-11-28 16:08] LABS: ALT (SGPT) 16 U/L (0-35); AST (SGOT) 17 U/L (14-36); Albumin 4.9 g/dl (3.5-5.0); Alkaline Phosphatase 91 U/L (38-126); Blood Urea Nitrogen 10 mg/dl (7-17); Calcium 9.9 mg/dl (8.4-10.2); Carbon Dioxide 23 mmol/L (22-30); Chloride 106 mmol/L (98-107); Glucose 106 mg/dl (70-99); Potassium 4.1 mmol/L (3.5-5.1); Sodium 140 mmol/L (135-145); Total Bilirubin 0.4 mg/dl (0.2-1.3); Total Protein 7.5 g/dl (6.3-8.2); eGFR > 60.00
[2024-11-28 16:19] LABS: Troponin I < 0.012 ng/ml
[2024-11-28] MEDS: ZOFRAN ODT (ORALLY DISINTEGRATING) 4 MG PO (17:26)
[2024-11-28 18:00] VITALS: BP 81/45
== END 2024-11-28 18:25 ==
LOC: EMR 14:53
PROVIDERS: EMERGENCY PHYSICIAN Emergency Medicine
DX: R11.2 Nausea with vomiting, unspecified (principal); R07.89 Other chest pain; R05.9 Cough, unspecified; R03.0 Elevated blood-pressure reading, without diagnosis of hypertension
CPT/HCPCS: 80053; 84484; 85025; 93005

== ENCOUNTER 2024-12-02 01:49 | Inpatient (IN) | payer OTHER, SELFPAY ==
[2024-12-01 18:44] VITALS: BP 139/93
[2024-12-01 20:19] VITALS: BP 116/85
[2024-12-01] MEDS: NSS 1000 IV (21:06)
[2024-12-01] MEDS: ULTRAM 50 MG PO (21:07)
[2024-12-01] MEDS: ZOFRAN 4 MG IV (21:07)
[2024-12-01] MEDS: PROTONIX IV 40 MG IV (21:08)
[2024-12-01 21:17] LABS: Hematocrit 38.8 % (37.0-47.0); Hemoglobin 13.2 g/dL (12.0-16.0); Mean Corpuscular Hgb 28.1 pg (27.0-31.0); Mean Corpuscular Volume 82.6 fL (81.0-99.0); Mean Platelet Volume 10.8 fL (7.4-10.4); Platelet Count 311 10^3/uL (130-400); Red Cell Dist. Width 16.1 % (11.5-14.5); White Blood Cell Count 12.5 10^3/uL (4.8-10.8)
[2024-12-01 21:23] LABS: HCG, Serum Qualitative Screen Negative
[2024-12-01 21:26] LABS: Lipase 91 U/L (23-300)
[2024-12-01 21:27] LABS: ALT (SGPT) 15 U/L (0-35); AST (SGOT) 17 U/L (14-36); Albumin 4.4 g/dl (3.5-5.0); Alkaline Phosphatase 83 U/L (38-126); Blood Urea Nitrogen 15 mg/dl (7-17); Calcium 9.9 mg/dl (8.4-10.2); Carbon Dioxide 25 mmol/L (22-30); Chloride 104 mmol/L (98-107); Glucose 140 mg/dl (70-99); Potassium 4.1 mmol/L (3.5-5.1); Sodium 138 mmol/L (135-145); Total Bilirubin 0.3 mg/dl (0.2-1.3); Total Protein 6.9 g/dl (6.3-8.2); eGFR > 60.00
[2024-12-01 21:33] LABS: Troponin I < 0.012 ng/ml
[2024-12-01 21:36] LABS: % Basophils 0.5 % (0-2); % Eosinophils 2.5 % (0-6); % Immature Granulocytes 0.5 % (0-0.5); % Lymphocytes 26.2 % (20.5-51.1); % Monocytes 5.7 % (1.7-9.3); % Neutrophils 64.6 % (42.2-75.2); Absolute Basophils 0.1 10^3/uL (0-0.2); Absolute Eosinophils 0.3 10^3/uL (0-0.7); Absolute Immature Granulocytes 0.1 10^3/uL (0-0.05); Absolute Lymphocytes 3.3 10^3/uL (1.2-3.4); Absolute Monocytes 0.7 10^3/uL (0.1-0.6); Absolute Neutrophils 8.1 10^3/uL (1.4-6.5); Nucleated Red Blood Cells % 0 %
--- NOTE | 2024-12-01 22:09 | ED.GENMED ---
History of Present Illness
General
Chief Complaint: Chest Pain
Source: patient
Exam Limitations: none
Time Seen by Provider: 12/01/24 20:17
Nursing documentation reviewed up to this point in time: agreed with
History of Present Illness
History of Present Illness:
Patient status post lower back surgery 1 week ago, along with known gallbladder disease, scheduled for surgery later this year, currently on Eliquis secondary to previously diagnosed DVT, presents to ED secondary to continual back pain, chest pain,
abdominal pain, along with multiple vomiting episodes today. Denies diarrhea. Denies fever. Denies shortness of breath. Denies leg pain or swelling. Denies trauma. Patient states that she has seen surgeon at [facility], but schedule
for surgery has been delayed, as she was told that she needed to be on Eliquis for at least 6 months before surgery can be performed.
Past History
Past History
ED Past Medical History: Arrthythmia (Tachycardia), Asthma, HTN, Seizures, Hypothyroidism, Psychiatric (Bipolar, PTSD, suicide attempts, Anxiety/Depression, Borderline personality, ) and Other (TBI 2006, migraines, Cardiomyopathy,
Subarachnoid/Subdural hemorrhage, Intraparenchymal hem, Sleep apnea, GI bleeding, Pernicious anemia, ADHD, DVT with IVC filter)
ED Past Surgical History: , Orthopedic (R and left knee surgery, Carlos L leg removed, Left arm plate, Right wrist surgery, ) and Other (Green field filter)
Social History
Tobacco: Smoker
Alcohol: None
Drug: Other (Took a Hemp gummy this a.m.)
Personal: Single
Living: alone
Employment: Disabled
Family History
Family History: Other (Diabetes, colon cancer, thyroid disease)
Review of Systems
Review of Systems
Allergies reviewed?: Yes
All Other Systems: ROS reviewed and negative except as documented in HPI and ROS
Constitutional: Reports no symptoms; Denies fever
Respiratory: Reports no symptoms
Cardiac: Reports chest pain
ABD/GI: Reports abdominal pain, nausea and vomiting; Denies diarrhea
Musculoskeletal: Reports no symptoms
Skin: Reports no symptoms
Neurological: Reports no symptoms
Phy Exam
Physical Exam
Physical Exam:
Physical Exam
General: mild distress, not acutely ill. afebrile
Head: nc/at. eomi
Neck: supple. normal range of motion.
Heart: s1/s2 regular rate and rhythm
Lungs: no acute respiratory distress. clear bilaterally
Abdomen: normal bowel sounds. mild epigastric/RUQ tenderness to palpation.
Neuro: alert and oriented x 3. no focal neurological deficits
Skin: no rash
Psychiatric: well kept. interactive and cooperative
Extremities: no edema. no calf tenderness.
Scores
Heart Score for Chest Pain Patients
STEMI patient?: Not applicable
Course
Orders/Labs/Results
Orders:
Orders
12/01/24 18:41
Electrocardiogram (*1) Urgent
Reason for Study: Chest Pain
EKG- Treatment ONCE
12/01/24 18:51
Test Result ONCE
12/01/24 20:18
CR Chest - 2 Views Urgent
Comment:
Reason For Exam: chest pain
12/01/24 20:55
0.9% Sodium Chloride 1000 ml [Nss] 1,000 ml IV BOLUS
Ondansetron Injectable [Zofran] 4 mg IV NOW STA
Pantoprazole [Protonix IV] 40 mg IV NOW STA
Tramadol HCl [Ultram] 50 mg PO NOW STA
12/01/24 21:00
Complete Blood Count/With Diff Urgent
Comprehensive Metabolic Panel Urgent
HCG, Serum Qualitative Screen Urgent
Lipase Urgent
Troponin I Urgent
12/01/24 21:35
US Abdomen Complete/Upper Urgent
Comment:
Reason For Exam: RUQ/epigastric pain
12/01/24 23:45
0.9% Sodium Chloride 500 ml [Nss] 500 ml IV 100 mls/hr
12/01/24 23:48
HYDROmorphone [Dilaudid] 0.5 mg IV NOW STA
12/01/24 23:51
Piperacillin/Tazo 3.375 Gram [Zosyn] 3.375 gram in 50 ml IV NOW
12/02/24 01:34
Admit/Transfer Patient As Directed
Co-Sign Provider:
Level of Care: Inpatient admission
Assign to:: Medical/Surgical
Physician / Group: Yoav
Diagnosis: Symptomatic Cholelithiasis
Reason for Hospitalization: Symptomatic Cholelithiasis
Expected length of stay greater than two midnights?: Yes
ELOS- Estimated Length of Stay in days: 2
I certify the patient meets the requirements for IP care: Yes
12/02/24 01:36
PRN Pain Medication Management As Directed
May give lesser potent ordered pain med per pt: Yes
preference::
Protocol:: Medication orders for pain may be administered in a
manner that supports deferring to patient preference
when the pt is:
- Requesting an ordered lesser potent pain medication.
Least to most potent pain medications are defined
as: acetaminophen < NSAID < tramadol < opioids
(morphine, oxycodone, hydromorphone).
- Requesting a lesser dose of the same medication IF
ORDERED.
- Requesting a less intrusive route of administration
if both routes are prescribed by the provider (PO <
IV).
12/02/24 01:38
Code Status As Directed
Resuscitation Status: Full Code
12/02/24 01:59
Acetaminophen [Tylenol] 650 mg PO Q4HPRN PRN
Dextrose 50%-Water [Dextrose 50% Syringe] 12.5 grams IV [id number] PRN
Diazepam [Valium] 2.5 mg PO DAILYPRN PRN
Glucagon [GlucaGen] 1 mg IM PRN PRN
HYDROmorphone [Dilaudid] 0.5 mg IV Q4HPRN PRN
Trimethobenzamide [Tigan] 200 mg IM Q6HPRN PRN
12/02/24 01:59
Consult Notification Routine
Specialty to Notify: Surgical
SURGICAL CONSULT Routine
Consulting Provider: Fish Ortiz
Was physician already notified: No
Reason for consult: Cholelithiasis
Activity As Directed
Activity Level: Ambulate
Bedside Glucose Monitoring As Directed
Frequency: AC&HS
Additional Instructions:: Change to q6h if pt on TPN, tube feeding or not eating
I/O [Intake/ Output] As Directed
Frequency: Per unit guidelines
Records Request [Obtain Records] As Directed
Dates of Information to be Released: Jeronimo
Type of Information Requested: Entire Record
Obtain Records from: [facility]
Vital Signs As Directed
Frequency: Per unit guidelines
Weight As Directed
Frequency: Daily
DX Deep Vein Thrombosis Video Routine
12/02/24 Breakfast
NPO
Allow oral meds: Yes
Allow clear liquids: Sips of Clears
Complete Blood Count/No Diff IN AM
Glycohemoglobin (HgbA1c) IN AM
Levothyroxine [Synthroid] 25 mcg PO DAILY@0600
Piperacillin/Tazo 3.375 Gram [Zosyn] 3.375 gram in 50 ml IV Q6H
12/02/24 07:30
Insulin Aspart Corrective Low [Novolog Flexpen-Low Resistance] See Protocol SC AC
12/02/24 08:00
Cyanocobalamin [Vitamin B-12] 1,000 mcg PO DAILY
Diazepam [Valium] 5 mg PO DAILY
Famotidine [Pepcid] 40 mg PO DAILY
Gabapentin [Neurontin] 800 mg PO TID
Propranolol Extended Release [Inderal LA] 60 mg PO DAILY
12/02/24 18:00
Enoxaparin Sodium [Lovenox] 40 mg SC QPM
12/02/24 22:00
Chlorpromazine [Thorazine] 50 mg PO HS
Clonidine [Catapres] 0.1 mg PO HS
Diphenhydramine [Benadryl] 50 mg PO HS
Melatonin 5 mg PO HS
Trazodone [Desyrel] 300 mg PO HS
Abnormal Lab Results
12/01/24
21:00
WBC 12.5 H 10^3/uL
(4.8-10.8)
RDW 16.1 H %
(11.5-14.5)
MPV 10.8 H fL
(7.4-10.4)
Abs Immat Gran (auto) 0.1 H 10^3/uL
(0-0.05)
Absolute Neuts (auto) 8.1 H 10^3/uL
(1.4-6.5)
Absolute Monos (auto) 0.7 H 10^3/uL
(0.1-0.6)
Glucose 140 H mg/dl
(70-99)
12/01/24 21:00
12/01/24 21:00
Vital Signs
Initial and Last Documented VS:
Initial Vital Signs
Temp Pulse Resp BP Pulse Ox
97.4 F 117 20 139/93 97
12/01/24 18:44 12/01/24 18:44 12/01/24 18:44 12/01/24 18:44 12/01/24 18:44
Last Documented Vital Signs
Temp Pulse Resp BP Pulse Ox
98 F 79 16 119/69 97
12/01/24 20:19 12/02/24 02:35 12/02/24 02:35 12/02/24 02:35 12/02/24 02:35
MDM/Problems Addressed
MDM/Problems Addressed:
Ultrasound report reviewed and discussed with patient. History and exam concerning for significant distress secondary to biliary colic with dehydration. In light of mild leukocytosis, with normal LFTs, difficult to exclude potential cholecystitis.
As such, patient will be admitted for further evaluation and treatment. Empiric dose of Zosyn given in ED.
*Critical Care Note
Total Time (30-74mins, 75-104mins- exclusive of procedures): Not Applicable
ED Attending Note
-
Portions of this chart may have been created with voice recognition software.� Occasional wrong word or��sound alike� substitutions may have occurred due to the inherent limitations of voice recognition software.
Discharge Plan
Departure
Patient Disposition: Admit
Date of Disposition: 12/01/24
Time of Disposition: 23:55
Admit to: Med/Surg
Presentation/result/management discussed w/ accepting MD/DO: Hospitalist
Discharge Problem:
Biliary colic
Interventions
Interventions:
*Risk Screen - Suicide Last Done: 12/01/24 18:44
*Neglect/Abuse Screening Last Done: 12/01/24 21:15
*ED- Fall Risk Assessment Last Done: 12/01/24 20:19
*ED COVID-19 Vaccine History Last Done: 12/01/24 20:19
ED- Cardiac Assessment Last Done: 12/01/24 20:19
[2024-12-02] MEDS: ZOSYN 50 IV ×5 (00:04→23:42)
[2024-12-02] MEDS: DILAUDID 0.5 MG IV ×4 (00:06→20:08)
[2024-12-02] MEDS: NSS 500 IV (00:10)
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
--- NOTE | 2024-12-02 01:45 | EDRN ---
Report received, Dr. Cason in to see patient and work on admission
[2024-12-02 02:35] VITALS: BP 119/69; BMI 39.1
[2024-12-02] MEDS: VALIUM 2.5 MG PO (02:44)
--- NOTE | 2024-12-02 02:47 | EDRN ---
Patient reporting some anxiety and having a hard time sleeping, given her PRN Valium, also asked for warm blankets, asked about something to drink aware she is NPO.
--- NOTE | 2024-12-02 04:21 | EDRN ---
patient reported being nausea, went to give her Tigan, she states she can't take that because she has a reaction to it at the site of injection, added to her allergy list this and abner texted the [employer] covering med. surg. to inform her of this,
awaiting new orders, patient has not thrown up thus far.
[2024-12-02] MEDS: SYNTHROID 25 MCG PO (05:55)
[2024-12-02 05:58] VITALS: BP 113/83
[2024-12-02 06:00] VITALS: BMI 37.9
[2024-12-02] MEDS: ZOFRAN 4 MG IV ×2 (06:01→21:04)
[2024-12-02 06:34] LABS: ALT (SGPT) 15 U/L (0-35); AST (SGOT) 16 U/L (14-36); Albumin 4.2 g/dl (3.5-5.0); Alkaline Phosphatase 83 U/L (38-126); Blood Urea Nitrogen 13 mg/dl (7-17); Calcium 8.9 mg/dl (8.4-10.2); Carbon Dioxide 24 mmol/L (22-30); Chloride 108 mmol/L (98-107); Direct Bilirubin 0.2 mg/dl (0.0-0.4); Estimated Creatinine Clearance > 125 ml/min; Glucose 89 mg/dl (70-99); Potassium 4.4 mmol/L (3.5-5.1); Sodium 140 mmol/L (135-145); Total Bilirubin 0.5 mg/dl (0.2-1.3); Total Protein 6.4 g/dl (6.3-8.2); eGFR > 60.00
[2024-12-02 06:51] LABS: Hematocrit 35.5 % (37.0-47.0); Hemoglobin 11.9 g/dL (12.0-16.0); Mean Corp Hgb Conc. 33.5 g/dL (33.0-37.0); Mean Corpuscular Volume 83.5 fL (81.0-99.0); Platelet Count 231 10^3/uL (130-400); Red Blood Cell Count 4.25 10^6/uL (4.20-5.40); Red Cell Dist. Width 16.2 % (11.5-14.5); White Blood Cell Count 8.6 10^3/uL (4.8-10.8)
[2024-12-02 07:25] VITALS: BP 118/75
[2024-12-02] MEDS: NSS IV ×3 (08:09→17:29)
[2024-12-02] MEDS: PROTONIX 40 MG PO (08:15)
[2024-12-02] MEDS: VALIUM 5 MG PO (08:17)
[2024-12-02] MEDS: PEPCID 40 MG PO (08:17)
[2024-12-02] MEDS: TIGAN 200 MG IM (08:22)
[2024-12-02] MEDS: NEURONTIN 800 MG PO ×3 (08:22→20:09)
[2024-12-02 10:00] VITALS: BP 120/85
[2024-12-02 10:32] LABS: Glycohemoglobin (HgbA1c) 5.7 % (4.0-5.6)
--- NOTE | 2024-12-02 11:02 | CON.GS ---
Medical History
-
Chief Complaint: Abdominal pain
History of Present Illness:
Patient is a 39 yo F with a PMH of obesity, depression/anxiety, bipolar disorder, PTSD, GERD, HTN, NIDDM, DVT (on Eliquis, LD 12/01/2024), hypothyroidism, IBS, s/p multiple orthopedic procedures, s/p IVC filter placement with partial retrieval, s/p
, and recently s/p MILD procedure in 11/2024. Ms. Aviles states that she has had intermittent epigastric and RUQ abdominal pain radiating to her back over the past 3 weeks. Symptoms occur postprandially and last minutes before self
resolving. Associated nausea, several episodes of emesis overnight. She reports darker urine. She has chronic GI issues related to IBS and fluctuates between constipation and diarrhea, she states that she not infrequently has to take stool
softeners and lactulose. She denies any clear or pale stools. No jaundice. Afebrile. Currently she states that her symptoms have improved though has some mild residual epigastric discomfort. Of note, she is previously met with a surgeon at
[facility] with plans for outpatient management of her gallbladder.
Past Medical History
Past Medical History: GERD, HTN, Hypothyroidism, NIDDM, Psychiatric (Depression/anxiety, bipolar disorder, PTSD) and Other (DVT, IBS)
Past Surgical History: , Orthopedic (LEFT foot surgery, RIGHT knee surgery, LEFT tib-fib ORIF, LEFT UE ORIF, RIGHT carpal tunnel release, MILD procedure) and Other (IVC filter s/p partial retrieval)
Social History
Tobacco: Smoker (1/2 PPD and vaping)
Alcohol: None
Drug: None
Living: Other (Lives at [facility] assisted living with a beam builder helper who visits daily)
Family History
Family History: Reviewed & Noncontributory
Allergies / Home Medications
Allergy/AdvReac Type Severity Reaction Status Date / Time
trimethobenzamide Allergy Mild Itching Verified 12/02/24 03:50
[From Tigan]
chlorpromazine Allergy AGITATION Verified 12/01/24 18:43
Iodinated Contrast Media Allergy Unknown Verified 12/01/24 18:43
olanzapine [From Zyprexa] Allergy Rash Verified 12/01/24 18:43
zafirlukast Allergy HALF OF Verified 12/01/24 18:43
BODY
TURNED
PURPLE
�Medication �Instructions �Recorded �Confirmed �Type
levothyroxine 25 mcg tablet 25 mcg PO DAILY Thyroid 03/23/23 12/02/24 History
clonidine HCl 0.1 mg tablet 0.1 mg PO HS anxiety/BP 09/20/23 12/02/24 History
cyanocobalamin (vitamin B-12) 1,000 mcg sublingual DAILY 07/01/24 12/02/24 History
1,000 mcg sublingual tablet Supplement
ergocalciferol (vitamin D2) 1,250 1,250 mcg PO MO Supplement 07/01/24 12/02/24 History
mcg (50,000 unit) capsule (Vitamin
D2)
famotidine 40 mg tablet 40 mg PO DAILY GERD 07/01/24 12/02/24 History
gabapentin 800 mg tablet 800 mg PO TID Pain 07/01/24 12/02/24 History
linaclotide 145 mcg capsule 145 mcg PO DAILY Constipation 07/01/24 12/02/24 History
(Linzess)
melatonin 5 mg tablet 5 mg PO HS Sleep 07/01/24 12/02/24 History
metformin 500 mg tablet 500 mg PO BID diabetes 07/01/24 12/02/24 History
propranolol 60 mg capsule,24 60 mg PO DAILY Blood Pressure 07/01/24 12/02/24 History
hr,extended release
diazepam 5 mg tablet (Valium) 5 mg PO DAILY anxiety 07/16/24 12/02/24 History
diazepam 5 mg tablet 2.5 mg PO DAILYPRN PRN anxiety 09/04/24 12/02/24 History
omeprazole 40 mg capsule,delayed 40 mg PO DAILY 09/04/24 12/02/24 History
release
trazodone 150 mg tablet 300 mg PO HS 09/04/24 12/02/24 History
apixaban 5 mg tablet (Eliquis) 5 mg PO BID 12/02/24 12/02/24 History
chlorpromazine 50 mg tablet 50 mg PO HS 12/02/24 12/02/24 History
diphenhydramine HCl 50 mg capsule 50 mg PO HS 12/02/24 12/02/24 History
eptinezumab-jjmr 100 mg/mL 100 mg IV [id number] 12/02/24 12/02/24 History
intravenous solution (Vyepti)
ubrogepant 100 mg tablet (Ubrelvy) 100 mg PO DAILY PRN migraine 12/02/24 12/02/24 History
Review of Systems
-
A 10 point review of systems was completed, and was negative except as per HPI.
Physical Exam
Vital Signs
Temp Pulse Resp BP Pulse Ox
97.4 F 68 20 120/85 96
12/02/24 10:00 12/02/24 10:00 12/02/24 10:00 12/02/24 10:00 12/02/24 10:00
12/01/24 12/02/24 12/03/24
06:59 06:59 06:59
Actual Weight 120 kg
Body Mass Index (BMI) 39.1
Lab Results
12/02/24 05:49
12/02/24 05:49
WBC 8.6 10^3/uL (4.8-10.8) 12/02/24 05:49
Hgb 11.9 g/dL (12.0-16.0) L 12/02/24 05:49
Hct 35.5 % (37.0-47.0) L 12/02/24 05:49
Plt Count 231 10^3/uL (130-400) D 12/02/24 05:49
Abs Immat Gran (auto) 0.1 10^3/uL (0-0.05) H 12/01/24 21:00
Neutrophils % 64.6 % (42.2-75.2) 12/01/24 21:00
Physical Exam
General: Well Developed, Well Nourished and No Apparent Distress
HEENT: Normocephalic and Anicteric
Respiratory: Non Labored Respirations
Cardiac: Regular Rhythm
GI: Soft, Non Distended, Tender (Mild epigastric and RUQ), Obese and Other (Nonperitoneal, negative Lerner's sign)
Skin: Warm and Dry
Neuro: Nonfocal/Grossly Intact
Data Reviewed
-
Ultrasound: Image Personally Visualized and interpreted and Report Reviewed by me
Labs: Labs Reviewed by me
Old Records: Reviewed
Assessment / Plan
-
Patient is a 39 yo F p/w symptomatic cholelithiasis
The natural history and pathophysiology of biliary and stone disease was discussed. Workup thus far including labs and imaging was reviewed. Options for management including attempt at outpatient management as previously scheduled versus
cholecystectomy during this admission were considered and discussed. Given her mild residual discomfort, current admission status, and almost 24 hours off Eliquis plan for management during this hospitalization. Of note, we discussed that she
likely has other chronic GI issues including constipation, IBS, and anxiety/gastritis that may contribute to some of her chronic GI issues. That being said her intermittent postprandial abdominal discomfort appears more in line with symptomatic
cholelithiasis as it currently stands.
Plan for a laparoscopic cholecystectomy with possible cholangiogram. The procedure itself, as well as the risks, benefits, and alternatives was discussed. Specifically, we discussed the risks of bleeding, infection, injury to surrounding
structures (bowel, bile ducts), CBD injury, need for open procedure. Typical postprocedure recovery was discussed. All questions answered.
-- Laparoscopic cholecystectomy with IOC, added to OR schedule tomorrow after Eliquis washout
-- NPO, IVF
-- Abx: Zosyn
-- Pain control: Tylenol, IV Dilaudid PRN
-- Continue to hold Eliquis
-- Further care per Hospitalist
--- NOTE | 2024-12-02 11:22 | W.PN.UPDATE ---
Update Note
Progress Note Update
seen and examiend
strange affect
follow up with surgery recs
on eliquis for dvt hx. if planned for surgery will need to stop and start hep gtt along with follow q6h ptt with hep protocol
ubervly ordered
[2024-12-02] MEDS: INDERAL LA 60 MG PO (12:10)
[2024-12-02] MEDS: VITAMIN B-12 1000 MCG PO (12:13)
[2024-12-02 13:06] LABS: Glucose - Point of Care 109 mg/dl (70-99)
[2024-12-02] MEDS: NON-FORMULARY ITEM 100 MG PO (14:06)
[2024-12-02 15:32] VITALS: BP 117/70
--- NOTE | 2024-12-02 16:44 | CM ---
senior nurse manager reviewed patient's chart and met with patient. Patient has had multiple admissions to the ED, mainly through crisis. [facility], patient is currently in Trans[facility] though [facility] program. Patient
reports she is independent with adl's and ambulation, has cane and walker if she needs it. From TBI patient has WAIVER services with caregivers 7 days a week 6 hours per day.
PCP: Dylan in [place]
Pharmacy: [facility] on [address].
Plan; Back to her condo/transitional housing and Waiver services.
[2024-12-02] MEDS: NSS 1000 IV (17:28)
--- NOTE | 2024-12-02 18:32 | PTCARENOTE ---
late entry: patient's own methacarbamol stored in pharmacy and belongings in security. Yellow pharmacy receipt and [employer] security receipt in paper chart.
[2024-12-02 18:34] LABS: Glucose - Point of Care 98 mg/dl (70-99)
--- NOTE | 2024-12-02 18:35 | PTCARENOTE ---
late entry: concerns raised by CM regarding need for 1:1. Suicide screen reassessed. Result per screen indicated moderate suicide risk. Reports she has a plan but unable to share because her 'others made the plan' therefore claims she in her
current state doesn't know the plan (reports history of dissociative personality disorder). Reports last suicidal ideation was 'in Janurary.' See flowsheet for more details on suicide screen. 1:1 observation auto populates w/ this suicide risk
documentation. This information was made known to Radha Murphy CM, Odalis [facility]ITTS Director, [facility] nursing supervisory training specialist all made aware of the above information.
[2024-12-02] MEDS: CATAPRES 0.1 MG PO (20:09)
[2024-12-02] MEDS: MELATONIN 5 MG PO (20:09)
[2024-12-02] MEDS: BENADRYL 50 MG PO (20:10)
[2024-12-02] MEDS: DESYREL 300 MG PO (20:10)
--- NOTE | 2024-12-02 20:10 | PTCARENOTE ---
Pt states 'I am not going to take the lovenox. I don't want it.' Reiterated to Pt purpose for lovenox and Pt verbalized understanding. States 'I know, I don't want it.' 1:1 observation and safe environment maintained.
[2024-12-02] MEDS: THORAZINE 50 MG PO (20:11)
[2024-12-02 23:00] VITALS: BP 108/66
[2024-12-03] VITALS (7 sets, daily range): BP systolic 83–122; BP diastolic 44–81; BMI 37.8
[2024-12-03 00:55] LABS: Glucose - Point of Care 138 mg/dl (70-99)
[2024-12-03] MEDS: NSS 1000 IV (04:14)
[2024-12-03] MEDS: SYNTHROID 25 MCG PO (06:39)
[2024-12-03] MEDS: ZOSYN 50 IV ×2 (06:40→12:14)
[2024-12-03] MEDS: DILAUDID 0.5 MG IV (06:40)
[2024-12-03 06:51] LABS: Glucose - Point of Care 111 mg/dl (70-99)
[2024-12-03] MEDS: PEPCID 40 MG PO (08:05)
[2024-12-03] MEDS: INDERAL LA 60 MG PO (08:05)
[2024-12-03] MEDS: VALIUM 5 MG PO (08:05)
[2024-12-03] MEDS: PROTONIX 40 MG PO (08:05)
[2024-12-03] MEDS: VITAMIN B-12 1000 MCG PO (08:05)
[2024-12-03] MEDS: NEURONTIN 800 MG PO (08:06)
--- NOTE | 2024-12-03 10:57 | W.PN.HOSP.TC ---
Today's Communication/Plan
-
Assessment / Plan
Assessment / Plan
NAD
Scleral Anicteric
DMM
No JVD
CTABL
RRR, S1/S2
Soft, NT, ND, BS+
Warm, Dry
AAOx3
Calm, thought process intact
Symptomatic cholelithiasis
- Surgery planned for OR later today
Continue n.p.o.
IV fluids
Zosyn
Tylenol and Dilaudid
Hold Eliquis, received 1 dose of Lovenox last night
PTSD/bipolar
- I evaluated her this morning. No suicidal or homicidal ideations. There is no intent nor thought process to commit suicide. However she did tell someone yesterday that she had a plan but she was not going to tell anyone. Therefore 121 was
started
- When I asked her about what she said to someone else yesterday she said note that is not true and adamantly refuses that she ever said this
At this time I do not believe she is suicidal nor homicidal. She does not have auditory visual tactile hallucinations. She denies being psychiatrically decompensated at this time. Would recommend to [facility]
Continue clonidine, Thorazine, Valium, Neurontin, propranolol, trazodone
Hypothyroidism
Continue levothyroxine
GERD
Continue Pepcid
Anticipated Discharge: 24 - 48 hours
Subjective/Interval History
-
Date of Service: December 03, 2024
Seen and examined. No new complaints. No acute overnight events.
Tells me that she is going for surgery around 08/07/1930.
Asking when she would be going home
Objective Data
-
Vital Signs:
Vital Signs
Temp Pulse Resp BP Pulse Ox
98.0 F 64 18 107/68 95
12/03/24 07:20 12/03/24 08:05 12/03/24 07:20 12/03/24 08:05 12/03/24 07:20
I&O
12/02/24 12/03/24 12/04/24
06:59 06:59 06:59
Output Total 425 / 425
Balance -425 / -425
--- NOTE | 2024-12-03 11:20 | PTCARENOTE ---
1:1 canceled by , states that pt has not expressed suicidal ideation.
[2024-12-03 12:49] LABS: Glucose - Point of Care 113 mg/dl (70-99)
--- NOTE | 2024-12-03 13:13 | CM ---
Met with patient as there was a consult for suicide risk. Patient denied any feelings or thoughts of SI. She stated that she has DID and is unable to regulate her emotions but feels safe at this time.
Plan: Case management will continue to follow and assist with discharge planning. Home when stable at [facility]
--- NOTE | 2024-12-03 13:38 | W.SUR.PREOP ---
Pre-Operative Surgical Note
-
I have examined this patient prior to the performance of the scheduled procedure.
The patient's condition is unchanged from the time of the current History and
Physical and the patient is able to undergo the scheduled procedure.
--- NOTE | 2024-12-03 13:38 | W.PN.GS2 ---
Today's Communication / Plan
-
-- Lap eleonora with IOC
Assessment / Plan
-
Patient is a 39 yo F p/w symptomatic cholelithiasis
AVSS
No repeat labs
The natural history and pathophysiology of biliary and stone disease was discussed. Options for management reviewed. Plan for a laparoscopic cholecystectomy. The procedure itself, as well as the risks, benefits, and alternatives was discussed.
All questions answered. Consent signed.
-- Lap eleonora with IOC
-- NPO, IVF
-- Abx: Zosyn
Subjective Data
-
Date of Service: December 03, 2024
Symptoms stable. Continue discomfort. No nausea or emesis. No fevers.
Objective Data
-
Intake and Output
12/02/24 12/03/24 12/04/24
06:59 06:59 06:59
Output Total 425 / 425
Balance -425 / -425
Output:
Urine, Voided 425 / 425
Vital Signs
Temp Pulse Resp BP Pulse Ox
98.0 F 64 18 107/68 95
12/03/24 07:20 12/03/24 08:05 12/03/24 07:20 12/03/24 08:05 12/03/24 07:20
Lab Results
12/02/24 11:27
12/02/24 05:49
Calcium 8.9 mg/dl (8.4-10.2) 12/02/24 05:49
Total Bilirubin 0.5 mg/dl (0.2-1.3) 12/02/24 05:49
Direct Bilirubin 0.2 mg/dl (0.0-0.4) 12/02/24 05:49
AST 16 U/L (14-36) 12/02/24 05:49
ALT 15 U/L (0-35) 12/02/24 05:49
Alkaline Phosphatase 83 U/L (38-126) 12/02/24 05:49
Total Protein 6.4 g/dl (6.3-8.2) 12/02/24 05:49
Albumin 4.2 g/dl (3.5-5.0) 12/02/24 05:49
Physical Exam
-
Gen: NAD
Abd: soft, tender in epigastrium, obese, non-peritoneal
Patient has a aleman catheter: No
Patient has a central line: No
--- NOTE | 2024-12-03 16:10 | W.IMMPOSTOP ---
Addendum entered and electronically signed by Fish Ortiz MD 12/03/24 16:36:
Plan:
-- No Hep gtt of therapeutic anticoagulation until tomorrow
-- No therapeutic Lovenox or PO anticoagulation for 48 hours post-op
Original Note:
Surgical Immed Post Op Note
-
Primary Surgeon: Diana
Assisting Surgeon: FERNANDO RomeroY1
Pre-op Diagnosis: Symptomatic cholelithiasis
Post-op Diagnosis: Symptomatic cholelithiasis
Procedure Performed: Laparoscopic cholecystectomy with IOC
Anesthesia Type: General
Specimen / Cultures:
1. Gallbladder
Estimated Blood Loss: 3 cc
Complications: None
Operative Findings:
1. Distended, thin walled GB, thick sludge
2. Critical view of safety
3. IOC negative
[2024-12-03] MEDS: NEURONTIN PO (17:38)
[2024-12-03] MEDS: NSS IV (17:38)
--- NOTE | 2024-12-03 17:40 | PTCARENOTE ---
Phone call conversation between Dr. Gurmeet Ibrahim and patient Caterina Aviles took place over speaker phone so that this RN (Erika Johnson) could witness.
Patient adamant about leaving AMA. Dr. Gurmeet Ibrahim completed competency evaluation to determine patient had understanding of her hospitalization. Patient able to recall why she came to the hospital and hospitalization events. Dr. Ibrahim, and
numerous other health care member including nursing reiterated the importance of postoperative recovery/the fact that she had general anesthesia and could leave later on tonight. Patient vocalized that 'My bedtime is 7pm, I am not staying here.' He
also explained that she is leaving at the risk of potential , septic shock, or infection. Caterina Aviles still requests to leave AMA. Dr. Ibrahim also reaffirmed that patient did not have any suicidal or homicidal thoughts.
AMA form signed by patient.
--- NOTE | 2024-12-04 14:11 | W.DCSUMMARY ---
Discharge Summary
Discharge Data
Date of Admission: 12/02/24
Date of Discharge: 12/03/24
-
Pending Results: No
Hospital Course
Left AMA
I was notified by nursing that she wanted to leave AMA. Therefore I called the nurses personal cell phone using the [employer]. Please refer to update nursing note for collateral information. Stated that she need to get home immediately as her
bedtime was 7 PM. I informed her she just had surgery I spoke with the surgical team and they recommended to wait until 8 9 PM until we can discharge her safely. If she wants to leave prior to that then this would likely be AGAINST MEDICAL ADVICE.
She told me it will take her approximately half an hour to get home by the time she gets home and neighbor arrived will be 6:30 PM. I asked her if she understood what has happened during this hospitalization she was able to verbalize to me in full
day exact steps and what exactly transpired including surgery. She also told me that she was on a 1-1. She denied suicidal homicidal ideation denied any type of hallucination such as tactile auditory and visual. She states that she is confident
she understands that if she goes home and if something happens/adverse events such as develops ileus/aspiration/respiratory arrest, hemorrhagic/circulatory/septic shock, falls, etc. taking out we were after recently having anesthesia to her
then she would be responsible as we discussed that at this time she is not medically cleared for discharge. She verbalized understanding and was okay with taking this risk.
It should also be noted that she did not even want to speak with me. I informed her that if she does not speak with me then I would have to deem her as not having capacity as she just received anesthesia previously and unclear if she is in her
right headspace. Once I said this she was able to calm down and she had a intellectual conversation with me. This conversation was witnessed by bedside nurse that documented on the nursing report.
I did inform her that surgery sent over her medications to her pharmacy. That she would need to follow-up with surgical specialties within 2 weeks and take good care of of her healing wounds from recent surgery. She verbalized understanding.
Discharge Plan
-
Patient Disposition: Against Medical Advice
Discharge Diagnosis/Procedures: Laparoscopic cholecystectomy with cholangiogram
Condition: Good
Diet: Regular and Low Fat
Additional Diets: If issues of bloating or diarrhea follow a low-fat diet
Activity: No strenuous activity
Additional Activity: No heavy lifting (>20 lbs) or strenuous activities for 2 to 3 weeks postoperatively
Driving Restrictions: No driving if too sore or take narcotics
Bathing Restrictions: OK to Shower
Wound Care: Keep incisions clean and dry. Glue will flake off in 2 to 3 weeks. Stitches will dissolve. Use ice to the abdomen to reduce any bruising or swelling.
Activity Restrictions/Additional Instructions:
Call for fevers (>100.5), nausea or vomiting, worsening abdominal pain, yellowing of the eyes or skin
Referrals:
Tiffanie Xiong CRNP [Family Provider] -
Fish Ortiz MD [Active] - in two to four weeks
Prescriptions:
New
acetaminophen [acetaminophen] 325 mg tablet
650 mg PO Q4HPRN PRN (Reason: mild pain) Qty: 1 0RF
tramadol 50 mg tablet
50 mg PO Q6HPRN PRN (Reason: severe pain/breakthrough pain) Qty: 5 0RF
ibuprofen 200 mg tablet
400 - 600 mg PO Q6HPRN PRN (Reason: moderate pain) Qty: 1 0RF
Continued
levothyroxine 25 mcg Tablet
25 mcg PO DAILY
clonidine HCl 0.1 mg tablet
0.1 mg PO HS
metformin 500 mg tablet
500 mg PO BID
famotidine 40 mg tablet
40 mg PO DAILY
propranolol 60 mg capsule,extended release 24 hr
60 mg PO DAILY
gabapentin 800 mg tablet
800 mg PO TID
ergocalciferol (vitamin D2) [Vitamin D2] 1,250 mcg (50,000 unit) capsule
1,250 mcg PO MO
Linzess 145 mcg capsule
145 mcg PO DAILY
cyanocobalamin (vitamin B-12) 1,000 mcg Tablet, Sublingual
1,000 mcg SUBLINGUAL DAILY
melatonin 5 mg Tablet
5 mg PO HS
diazepam [Valium] 5 mg Tablet
5 mg PO DAILY
omeprazole 40 mg Capsule,Delayed Release(Dr/Ec)
40 mg PO DAILY
trazodone 150 mg Tablet
300 mg PO HS
diazepam 5 mg Tablet
2.5 mg PO DAILYPRN PRN (Reason: anxiety)
diphenhydramine HCl 50 mg Capsule
50 mg PO HS
chlorpromazine 50 mg Tablet
50 mg PO HS
Vyepti 100 mg/mL Solution
100 mg IV [id number]
Ubrelvy 100 mg Tablet
100 mg PO DAILY PRN (Reason: migraine)
methocarbamol 500 mg Tablet
500 mg PO QIDPRN PRN (Reason: muscle spasms)
Held
Eliquis 5 mg Tablet
5 mg PO BID
Hold Instructions: Resume on 12/05/24.
Discharge Date and Time
Discharge Date/Time: 12/03/24 14:48
Print Language: MALAY
== END 2024-12-03 14:48 | disposition left against medical advice (07) | DRG 418 ==
LOC: 1 ACUTE 01:49
PROVIDERS: Student in an Organized Health Care Education/Training Program; ADMITTING PHYSICIAN Hospitalist; ATTENDING PHYSICIAN Hospitalist; CONSULT PHYSICIAN Surgery; EMERGENCY PHYSICIAN Emergency Medicine; FAMILY PHYSICIAN Nurse Practitioner Primary Care
PROC: BF141ZZ Fluoroscopy of Gallbladder, Bile Ducts and Pancreatic Ducts using Low Osmolar Contrast (ICD-10-PCS; 2024-12-03)
PROC: 0FT44ZZ Resection of Gallbladder, Percutaneous Endoscopic Approach (ICD-10-PCS; 2024-12-03)
DX: K80.20 Calculus of gallbladder without cholecystitis without obstruction (principal); F31.30 Bipolar disorder, current episode depressed, mild or moderate severity, unspecified; F17.210 Nicotine dependence, cigarettes, uncomplicated; Z79.01 Long term (current) use of anticoagulants; F43.10 Post-traumatic stress disorder, unspecified; E03.9 Hypothyroidism, unspecified; K21.9 Gastro-esophageal reflux disease without esophagitis; Z53.29 Procedure and treatment not carried out because of patient's decision for other reasons; K82.8 Other specified diseases of gallbladder; Z79.899 Other long term (current) drug therapy
CPT/HCPCS: 88304; 71046; 74300; 76000; 76700; 80053; 82248; 82962; 83036; 83690; 84484; 84703; 85025; 85027; 87070; 93005; 96361; 96365; 96375; 99285; A4300

== ENCOUNTER 2024-12-04 12:27 | Emergency (ER) | payer OTHER, SELFPAY ==
[2024-12-04 12:33] VITALS: BP 126/91
[2024-12-04] MEDS: TORADOL 15 MG IM (14:00)
[2024-12-04 14:17] LABS: % Basophils 0.4 % (0-2); % Eosinophils 0.9 % (0-6); % Immature Granulocytes 0.3 % (0-0.5); % Lymphocytes 26.2 % (20.5-51.1); % Monocytes 5.7 % (1.7-9.3); % Neutrophils 66.5 % (42.2-75.2); Absolute Eosinophils 0.1 10^3/uL (0-0.7); Absolute Lymphocytes 2.8 10^3/uL (1.2-3.4); Absolute Monocytes 0.6 10^3/uL (0.1-0.6); Absolute Neutrophils 7.1 10^3/uL (1.4-6.5); Hematocrit 37.1 % (37.0-47.0); Hemoglobin 12.7 g/dL (12.0-16.0); Mean Corp Hgb Conc. 34.2 g/dL (33.0-37.0); Mean Corpuscular Hgb 28.7 pg (27.0-31.0); Mean Corpuscular Volume 83.7 fL (81.0-99.0); Mean Platelet Volume 11.4 fL (7.4-10.4); Nucleated Red Blood Cells % 0 %; Platelet Count 274 10^3/uL (130-400); Red Blood Cell Count 4.43 10^6/uL (4.20-5.40); Red Cell Dist. Width 15.8 % (11.5-14.5); White Blood Cell Count 10.6 10^3/uL (4.8-10.8)
[2024-12-04 14:29] LABS: ALT (SGPT) 54 U/L (0-35); AST (SGOT) 42 U/L (14-36); Albumin 4.7 g/dl (3.5-5.0); Alkaline Phosphatase 111 U/L (38-126); Blood Urea Nitrogen 7 mg/dl (7-17); Calcium 9.4 mg/dl (8.4-10.2); Carbon Dioxide 25 mmol/L (22-30); Chloride 105 mmol/L (98-107); Glucose 105 mg/dl (70-99); Potassium 3.8 mmol/L (3.5-5.1); Sodium 139 mmol/L (135-145); Total Bilirubin 0.6 mg/dl (0.2-1.3); eGFR > 60.00
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
== END 2024-12-04 15:27 | disposition home or self-care (01) ==
LOC: EMR 12:27
PROVIDERS: EMERGENCY PHYSICIAN Student in an Organized Health Care Education/Training Program; FAMILY PHYSICIAN Nurse Practitioner Primary Care
DX: G89.18 Other acute postprocedural pain (principal); F43.10 Post-traumatic stress disorder, unspecified; I10 Essential (primary) hypertension; R00.0 Tachycardia, unspecified; J45.909 Unspecified asthma, uncomplicated; E03.9 Hypothyroidism, unspecified; F31.9 Bipolar disorder, unspecified; F41.9 Anxiety disorder, unspecified; G47.30 Sleep apnea, unspecified; I42.9 Cardiomyopathy, unspecified; F17.200 Nicotine dependence, unspecified, uncomplicated; Z80.0 Family history of malignant neoplasm of digestive organs; Z83.3 Family history of diabetes mellitus; Z83.49 Family history of other endocrine, nutritional and metabolic diseases; Z86.718 Personal history of other venous thrombosis and embolism; Z87.820 Personal history of traumatic brain injury; Z90.49 Acquired absence of other specified parts of digestive tract; Z91.51 Personal history of suicidal behavior
CPT/HCPCS: 99283; 96372; 80053; 85025

== ENCOUNTER 2024-12-11 23:32 | Observation (INO) | payer OTHER, SELFPAY ==
[2024-12-11 16:53] VITALS: BP 132/96
[2024-12-11 17:26] LABS: HCG, Serum Qualitative Screen Negative
[2024-12-11 17:29] LABS: % Basophils 0.6 % (0-2); % Eosinophils 2.8 % (0-6); % Immature Granulocytes 0.6 % (0-0.5); % Lymphocytes 25.5 % (20.5-51.1); % Monocytes 5.8 % (1.7-9.3); % Neutrophils 64.7 % (42.2-75.2); ALT (SGPT) 22 U/L (0-35); AST (SGOT) 19 U/L (14-36); Absolute Basophils 0.1 10^3/uL (0-0.2); Absolute Eosinophils 0.3 10^3/uL (0-0.7); Absolute Immature Granulocytes 0.1 10^3/uL (0-0.05); Absolute Lymphocytes 2.5 10^3/uL (1.2-3.4); Absolute Monocytes 0.6 10^3/uL (0.1-0.6); Absolute Neutrophils 6.4 10^3/uL (1.4-6.5); Albumin 4.8 g/dl (3.5-5.0); Alkaline Phosphatase 88 U/L (38-126); Blood Urea Nitrogen 5 mg/dl (7-17); Calcium 9.4 mg/dl (8.4-10.2); Carbon Dioxide 18 mmol/L (22-30); Chloride 106 mmol/L (98-107); Glucose 121 mg/dl (70-99); Hematocrit 37.1 % (37.0-47.0); Hemoglobin 13.5 g/dL (12.0-16.0); Mean Corp Hgb Conc. 36.4 g/dL (33.0-37.0); Mean Corpuscular Hgb 29.2 pg (27.0-31.0); Mean Corpuscular Volume 80.3 fL (81.0-99.0); Mean Platelet Volume 10.4 fL (7.4-10.4); Nucleated Red Blood Cells % 0 %; Platelet Count 233 10^3/uL (130-400); Potassium 4.1 mmol/L (3.5-5.1); Red Blood Cell Count 4.62 10^6/uL (4.20-5.40); Red Cell Dist. Width 15.6 % (11.5-14.5); Sodium 139 mmol/L (135-145); Total Bilirubin 0.3 mg/dl (0.2-1.3); Total Protein 7.1 g/dl (6.3-8.2); White Blood Cell Count 9.9 10^3/uL (4.8-10.8); eGFR > 60.00
[2024-12-11 17:42] LABS: Lipase 74 U/L (23-300)
[2024-12-11 18:41] LABS: Urine Albumin 1+ (Neg - Trace); Urine Bilirubin Negative (Negative); Urine Character Clear (Clear); Urine Color Yellow; Urine Glucose Negative (Negative); Urine Ketone Negative (Negative); Urine Leukocyte Negative (Negative); Urine Nitrite Negative (Negative); Urine Occult Blood Negative (Negative); Urine Urobilinogen Negative (Neg - 1+)
[2024-12-11 19:04] LABS: Urine Bacteria Few (Negative); Urine Mucus Few; Urine Red Blood Cell 0-2 /HPF (0-2); Urine Squamous Cell 16-20 /LPF (Few); Urine White Cell 0-2 /HPF (0-5)
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
[2024-12-11] MEDS: ZOFRAN 4 MG IV (22:22)
[2024-12-11] MEDS: PROTONIX IV 40 MG IV (22:23)
[2024-12-11] MEDS: NSS 1000 IV (22:23)
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
--- NOTE | 2024-12-11 23:22 | W.PN.UPDATE ---
Update Note
Progress Note Update
Patient seen in conjunction with BETTIE. I agree with the findings and physical. I concur with the assessment and plan.
Briefly, this is a 39-year-old female with extensive psychiatric history, who was recently admitted and is now status post total laparoscopic cholecystectomy on 12/03 discharged AGAINST MEDICAL ADVICE presents to the emergency department with 3 days
of abdominal symptoms.
She reports nonspecific generalized abdominal discomfort, dysuria with mild incontinence. She also reports nausea vomiting. Specifically she started vomiting about 3 days ago. She says she vomited twice yesterday. However today she had an
episode of intractable vomiting for about a 30-minute to 1 hour. She said it was nonbilious. Nonbloody. She denies any flank pain. She has not had any fevers or chills. She reports loose stools which is chronic for her. She denies voluminous
diarrhea. She denies abdominal bloating. She is not constipated.
In the emergency department she was afebrile, blood pressure was 130/90 with a pulse of 120 and she was satting 97% on room air. ECG shows sinus tachycardia but otherwise unremarkable. CT of the head was negative. UA was negative. Abnormal chest
x-ray was unremarkable showing nonobstructive bowel gas pattern. Mild colonic stool burden.
Assessment and plan
39-year-old female with history. For lap eleonora on 12 03 presents to the emergency department with nausea vomiting and abdominal pain. Possible gastritis. Abdominal exam was benign. Abdominal x-ray shows nonobstructive gas bowel pattern. Labs
unremarkable.
UA was negative.
- Will admit to MedSurg observation
- Treatment for acute gastritis with antiemetics, IV fluids and IV Protonix
-Full liquid diet for now, advance as tolerated
- Continue oral H2 blockade
- Pain control per home regimen
- Surgery consult
- Continue home psych medications.
DVT prophylaxis�Lovenox subcu
CODE STATUS�DNR
[2024-12-12] VITALS: BP 126/88
[2024-12-12 00:20] LABS: Amphetamines Negative (Negative); Barbiturates Negative (Negative); Benzodiazepines Positive (Negative); Buprenorphine Negative (Negative); Cocaine Negative (Negative); Marijuana Negative (Negative); Methadone Negative (Negative); Methamphetamines Negative (Negative); Opiates Negative (Negative); Phencyclidine Negative (Negative); Tricyclic Antidepressants Negative (Negative)
[2024-12-12 00:35] VITALS: BP 119/71
[2024-12-12 00:39] VITALS: BP 126/88
[2024-12-12 00:52] VITALS: BMI 37.8
--- NOTE | 2024-12-12 00:55 | PTCARENOTE ---
Pt arrived to [facility] from the ED at 0035 on a stretcher. Pt walked from stretcher to bed w/o incident with patient's own cane. Admission questions answered. Head to toe of pt assessed. 5 old lap sites AMENA and approximated. Pt oriented to room and
call nunes. Bed locked and in lowest position. Care ongoing.
[2024-12-12 02:30] LABS: Fentanyl, Urine Negative (Negative)
[2024-12-12] MEDS: SYNTHROID 25 MCG PO (06:09)
[2024-12-12 07:20] VITALS: BP 112/72
--- NOTE | 2024-12-12 08:13 | W.PN.HOSP.TC ---
Addendum entered and electronically signed by Lilian Muñoz MD 12/12/24 09:25:
patient remains nauseated
she has had chronic nausea but with acute worsening since Sunday, unable to keep food down
may be gastroenteritis
will give additional fluids, full liquids
hold metformin
zofran PRN (QTc OK on Chlorpromazine)
if remains nauseated tomorrow ill consider GI consult
patient in agreement with plan
patient also has a migraine and does not have her Ubrelvy will order one dose of sumatriptan
Original Note:
Today's Communication/Plan
-
see plan
Assessment / Plan
Assessment / Plan
Ms. Caterina Aviles is a 39-year-old female with extensive psychiatric history, who was recently admitted and is now status post total laparoscopic cholecystectomy on 12/03 discharged AGAINST MEDICAL ADVICE presents to the emergency department with 3 days
of abdominal symptoms.
Assessment and plan
Nausea/Vomiting/Abdominal Pain
Recent Lap Edwige 12/03
presents to the emergency department with nausea vomiting and abdominal pain. Possible gastritis. Abdominal exam was benign. Abdominal x-ray shows nonobstructive gas bowel pattern. Labs unremarkable.
UA was negative.
- Treatment for acute gastritis with antiemetics, IV fluids and IV Protonix
- advanced to regular diet
- Continue oral H2 blockade
- Pain control per home regimen
- Surgery consult; if tolerates diet OK for DC; if not will consider CT
- Continue home psych medications.
DVT prophylaxis�Lovenox subcu
CODE STATUS�DNR
Anticipated Discharge: Within 24 hours
Subjective/Interval History
-
Date of Service: December 12, 2024
she feels a little bit better than yestrday
Objective Data
-
Vital Signs:
Vital Signs
Temp Pulse Resp BP Pulse Ox
97.4 F 85 16 112/72 97
12/12/24 07:20 12/12/24 07:20 12/12/24 07:20 12/12/24 07:20 12/12/24 07:20
I&O
12/11/24 12/12/24 12/13/24
06:59 06:59 06:59
Intake Total 480 / 480
Output Total 600 / 600
Balance -120 / -120
Review of Systems
-
History Source: Patient
All other systems: Reviewed and negative
Physical Exam
-
General: No Apparent Distress and Obese
HEENT: PERRLA
Respiratory: Clear to Auscultation; Negative Wheezes
Cardiac: Regular Rhythm and S1/S2
GI: Soft and Other (mildly tender RUQ; incisions c/d/i)
Musculoskeletal: No Edema
Skin: Warm and Dry; Negative Rash
Neuro: AO x 3
Psych: Calm
Data Reviewed
-
Diagnostic Radiology: Report Reviewed by me
Labs: Labs Reviewed by me
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
[2024-12-12] MEDS: IMITREX 6 MG SC (10:31)
[2024-12-12] MEDS: PROTONIX IV 40 MG IV ×2 (10:34)
[2024-12-12] MEDS: LR 1000 IV ×2 (10:35→22:56)
[2024-12-12] MEDS: ZOFRAN 4 MG IV ×2 (11:00→17:04)
[2024-12-12 13:28] LABS: Magnesium 1.8 mg/dl (1.6-2.3)
[2024-12-12] MEDS: VALIUM 5 MG PO (13:42)
[2024-12-12] MEDS: LINZESS PO (13:52)
[2024-12-12] MEDS: NEURONTIN PO ×2 (13:52→16:10)
[2024-12-12] MEDS: REFRESH EYE DROPS (PF) 1 DROPS OPHTH (14:00)
[2024-12-12] MEDS: DILAUDID 0.25 MG IV ×2 (14:22→20:59)
--- NOTE | 2024-12-12 14:55 | CM ---
Addendum entered by Dorita Osman 12/12/24 15:00:
Patient was previously followed by [facility] Team. patient is currently in Transitional Housing though [facility]. Patient reports she is independent with adl's and ambulation.
Original Note:
Patient seen at bedside. Patient states she has support for the mental health and other medical issues, and is followed as of tomorrow by [facility] acts program. Patient is also working with [facility] and has [employer] home health aides from
[facility] care in [place]. Patient uses [facility] and her aides for transportation. Patient has had [place] home health in the past and would appreciate if she could have home health at discharge. Per patient her PCP is Dr. Kee from
[facility] in [place]. Patient uses the [facility] on [facility]. Patient home has steps and her plan is for discharge planning needs.
Plan; home with VN; requested referral to [place] care and aides.
[2024-12-12 15:09] VITALS: BP 121/81
--- NOTE | 2024-12-12 18:32 | PTCARENOTE ---
Nutritional Support Team consult entered as nursing measure after patient stated she would like to speak with a dog show judge/construction coordinator.
[2024-12-12 19:54] VITALS: BP 125/87
[2024-12-12] MEDS: THORAZINE 50 MG PO (21:40)
[2024-12-12] MEDS: BENADRYL 50 MG PO (21:40)
[2024-12-12] MEDS: MELATONIN 5 MG PO (21:40)
[2024-12-12] MEDS: NEURONTIN 800 MG PO (21:40)
[2024-12-12] MEDS: DESYREL 300 MG PO (21:40)
[2024-12-12] MEDS: CATAPRES 0.1 MG PO (21:44)
--- NOTE | 2024-12-12 22:03 | PTCARENOTE ---
pt refused 20:00 meds, requested pain medication , rec'vd PRN Dilaudid 20:59. PO psych meds given at 21:40 which were the only meds pt requested and at 21:50 pt called and expressed she vomited, Nurse assessed the vomitus and observed 50cc of
Snapple liquid in the vomit bag with no meds. Pt expressed this is her on going issue and why her meds are not working. Pt was educated regarding the Snapple fluid (which is what she said she drank her meds with) and it was explained as well as
shown that there were no meds in the vomitus and she had just had pain meds, she has to give time for her PO meds to take effect. Pt i not compliant with meds and expressing she wanted nurse to text [employer] regarding her vomiting/pain issue. Nurse
reached out to [employer].
[2024-12-13] MEDS: DILAUDID 0.25 MG IV ×2 (03:17→11:06)
[2024-12-13] MEDS: ZOFRAN 4 MG IV ×2 (04:48→11:05)
[2024-12-13 05:41] LABS: Blood Urea Nitrogen 7 mg/dl (7-17); Carbon Dioxide 25 mmol/L (22-30); Chloride 106 mmol/L (98-107); Estimated Creatinine Clearance > 125 ml/min; Glucose 107 mg/dl (70-99); Magnesium 1.9 mg/dl (1.6-2.3); Potassium 4.1 mmol/L (3.5-5.1); Sodium 138 mmol/L (135-145); eGFR > 60.00
[2024-12-13] MEDS: SYNTHROID PO (06:01)
[2024-12-13 07:01] VITALS: BP 121/77
[2024-12-13] MEDS: NSS (PRESERVATIVE FREE) 10 ML IV (08:24)
[2024-12-13] MEDS: PROTONIX IV 40 MG IV (08:25)
[2024-12-13] MEDS: LR 1000 IV (09:03)
--- NOTE | 2024-12-13 09:32 | W.PN.HOSP.TC ---
Today's Communication/Plan
-
consult GI
LE US ordered
clear liquids
IVF, IV Zofran PRN (QTc 420 this AM0, IV Protonix
Assessment / Plan
Assessment / Plan
Ms. Caterina Aviles is a 39-year-old female with extensive psychiatric history, who was recently admitted and is now status post total laparoscopic cholecystectomy on 12/03 discharged AGAINST MEDICAL ADVICE presents to the emergency department with 3 days
of abdominal pain, nausea/vomiting. Patient reports chronic nausea over past week. She had increased pain and nausea leading to diagnosis of symptomatic cholelithiasis. Symptoms had improved post-op but return of symptoms 3 days prior to
admission. Admitted for possible gastroenteritis but nausea persists.
Assessment and plan
Nausea/Vomiting/Abdominal Pain
Recent Lap Edwige 12/03
Acute on chronic nausea
- IVF
-IV Protonix daily, pepcid
-back to clear liquid diet
-appreciate GS consult
-with persistent symptoms will consult GI; patient also reported difficulty swallowing
LLE Peroneal Thrombosis
h/o DVT
DVT Prophylaxis
- Patient cites several prior 'DVT's in the LLE. No RLE DVTs, PE, etc.
- US done here on 10/02 showed peroneal thrombus - this is not a deep vein; Repeat US on 10/09 showed no thrombosis.
- patient self discontinued Eliquis - taken off OCT for now
- new calf pain today - obtain b/l LE
Bipolar Depression
PTSD
-continue [employer] psychiatric regimen
Benign Hypertension
- Stable. Continue propranolol.
DM-II
- Stable. Hold metformin acutely.
- SSI and update A1C.
Hypothyroidism
- Continue T4 replacement.
Obesity due to excess calories
- Affects all aspects of care.
- Encourage healthy diet and increased exercise with goal of weight loss.
Code Status: Full
DVT prophylaxis�patient ambulating - start lovenox if US neg
CODE STATUS�FULL CODE
51 minutes spent on patient care
Anticipated Discharge: 24 - 48 hours
Subjective/Interval History
-
Date of Service: December 13, 2024
persistent nausea and vomiting
she has not been taking Eliquis here
she had new b/l calf tenderness this morning
Objective Data
-
Labs:
Laboratory Results
12/13/24
04:47
Sodium 138
Potassium 4.1
Chloride 106
Carbon Dioxide 25
BUN 7
Creatinine 0.6
Glucose 107 H
Calcium 9.0
Vital Signs:
Vital Signs
Temp Pulse Resp BP Pulse Ox
99.3 F 87 17 121/77 98
12/13/24 07:01 12/13/24 07:01 12/13/24 07:01 12/13/24 07:01 12/13/24 07:01
I&O
12/12/24 12/13/24 12/14/24
06:59 06:59 06:59
Intake Total 2099 / 2099
Output Total 700 / 700
Balance 1400 / 1400
Review of Systems
-
History Source: Patient
All other systems: Reviewed and negative
Physical Exam
-
General: No Apparent Distress and Obese
HEENT: PERRLA
Respiratory: Clear to Auscultation; Negative Wheezes
Cardiac: Regular Rhythm and S1/S2
GI: Soft and Other (mildly tender RUQ; incisions c/d/i)
Musculoskeletal: No Edema
Skin: Warm and Dry; Negative Rash
Neuro: AO x 3
Psych: Calm
Data Reviewed
-
Diagnostic Radiology: Report Reviewed by me
Labs: Labs Reviewed by me
--- NOTE | 2024-12-13 10:53 | CON.GI ---
Addendum entered and electronically signed by Pola Talbert DO 12/13/24 13:33:
I saw and examined the patient.
The FARM WORKER's note was reviewed and I agree with the note.
Comment: Ms Aviles is a 39 y.o female with an extensive past medical as below including obesity, NIDDM, hypothyroidism, IBS, PTSD/bipolar disorder, chronic migraines, seizures, prior suicidal attempts (including prior acetaminophen overdose back on
06/2024) and recent lap eleonora for biliary colic / symptomatic cholelithiasis on 12/03/24 with (-) IOC and further left AMA back on 12/04 who re-presented on 12/11 with nausea/vomiting and abdominal pain. Lab work-up including LFTs reassuring and CBC
without leukocytosis along with previous X-ray obstruction series with a non-obstructive bowel gas pattern and mild colonic stool burden. She was also evaluated by general surgery and not felt to have any concern for any abscess/infectious process
or other concern for a potential biliary leak. She is without any other melena, bloody stools, coffee ground emesis, hematemesis, unintentional weight loss or other alarm symptoms. The etiology of patient's symptoms appear acute on chronic as she
reports chronic nausea/vomiting and nonspecific abdominal discomfort and notes she was previously advised to have an EGD/Colon at [facility]. Clinically, I think this is largely functional (ie FGID) and much less likely PUD, gastritis, duodenitis
or H pylori infection. Doubt gastroparesis although she is on multiple medications. Furthermore, I think there is a component of polypharmacy as well as she is on numerous medications with multiple medication changes including Vyvanse,
Caplyta,celecoxib, Nurtec, detraamphetamine-amphetoamine, trazadone, risperidone, quilipta, migraine medication including Vyepti, Ubrelby with multiple medication changes. Furthermore, patient reported she would like to go home this afternoon as she
wanted to smoke a cigarette as she reports feeling better. Would trial CLD over weekend and if able to tolerate, reasonable to pursue an outpatient evaluation given her chronic symptoms as this does not need to delay her discharge. Would defer
starting Reglan or other medications at this time given the concern for polypharmacy and multiple medication interactions. Would continue her current anti-emetic regimen for now and potentially a barium esophagram however cannot be performed over
weekend. However, if she were to remain in the hospital would consider an eventual EGD early next week to exclude alternative causes. See rest of care as outlined below.
Discussed with both patient and primary internal medicine team.
Original Note:
Consultation
-
Date/Time Consultation Requested: 12/13/24929
Date/Time Consultation Performed: 12/13/24 1050
Requesting Provider: Lilian Muñoz MD
Performing Provider: BETTIE Coffey, Pola Talbert DO
Reason for Consultation: nausea/vomiting/abdominal pain
Medical History
Chief Complaint / HPI
Chief Complaint: nausea/vomiting
History of Present Illness:
Pt is a 39yo with hx psychiatric illness with bipolar disorder, PTSD, TBI 2006 Subarachnoid/subdural hemorrhage Intraparenchymal hemorrhage Seizures Migraines,cardiomyopathy,DVT with IVC filter,Pernicious anemia, iron deficiency, GI bleed, Asthma,
HTN, NIDDM, DVT with old filter and more recent DVT on Eliquis prior to admission, Prior Tylenol overdose, hypothyroidism, obesity, IBS, and recent lap eleonora with cholangiogram 12/03 for chronic cholecystitis, cholelithiasis and cholesterolosis. She
was noted with post-op abdominal pain on chronic abdominal issues, poor appetite and now intractable nausea and vomiting. She has been seen by surgery on admission without concern for post-op abscess/infectious process or signs of bile leak. She
has been trialed on Zofran and has been on chronic and takes multiple chronic psych meds including valium, clonidine, chlorpromazine and benadryl. In review of chart earlier this year also noted prior meds Vyvanse, Caplyta,celecoxib, Nurtec,
detraamphetamine-amphetoamine, trazadone, risperidone, quilipta, and migraine medication including Vyepti, Ubrelby with multiple medication changes. Labs on admission with normal LFT's, lipase and WBC's.
In review with patient she has longstanding GI issues. She has chronic IBS, dysphagia, nausea, abdominal pain, diarrhea now constipation. Her current primary complaint is nausea and vomiting. She admits this year symptoms have been worse
prompting work up for gallbladder. She had multiple medication changes and eventually had eleonora in early November. She states since eleonora she now has constipation as was having diarrhea prior and intractable vomiting. She adits to
dysphagia/odynophagia with swallowing in upper esophagus. She had chronic GERD with worsening symptoms on chronic Omeprazole and Famotidine. She admits to 30 lbs wt loss last few months. She complaints of diffuse abdominal pain and hard stools.
Prior dark stools several months ago now brown. Last EGD 2011 at [facility] when she swallowed a battery and no prior colonoscopy. She has GI MD at [facility] and due for EGD/colon but was hold as recent Eliquis use for DVT.
Past Medical History
Past Medical History: HTN, Hypothyroidism, NIDDM, Psychiatric (Bipolar disorder,PTSD,Anxiety/depression,Suicidal attempts,nicotine abuse,ADHD, prior tylenol overdose ) and Other (TBI 2006 Subarachnoid/subdural hemorrhage Intraparenchymal hemorrhage
Seizures Migraines,cardiomyopathy,DVT with IVC filter,Perniciousanemia,GI bleed,Asthma, IBS)
Past Surgical History: Cholecystectomy (12/03/24), and Orthopedic (Right and left knee surgery, neha left leg removed, left arm plate, right wrist surgery )
Social History
Tobacco: Smoker (1 pack per day)
Alcohol: Other (denies current use )
Drug: None
Personal: Single
Living: Alone (but has cargivers )
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
Family History
Family History: Other (great aunt with colon CA)
Allergies / Home Medications
Allergy/AdvReac Type Severity Reaction Status Date / Time
trimethobenzamide Allergy Mild Itching Verified 12/11/24 16:53
[From Tigan]
chlorpromazine Allergy AGITATION Verified 12/11/24 16:53
Iodinated Contrast Media Allergy Unknown Verified 12/11/24 16:53
olanzapine [From Zyprexa] Allergy Rash Verified 12/11/24 16:53
zafirlukast Allergy HALF OF Verified 12/11/24 16:53
BODY
TURNED
PURPLE
�Medication �Instructions �Recorded
levothyroxine 25 mcg tablet 25 mcg PO DAILY Thyroid 03/23/23
clonidine HCl 0.1 mg tablet 0.1 mg PO HS anxiety/BP 09/20/23
cyanocobalamin (vitamin B-12) 1,000 mcg sublingual DAILY 07/01/24
1,000 mcg sublingual tablet Supplement
ergocalciferol (vitamin D2) 1,250 1,250 mcg PO MO Supplement 07/01/24
mcg (50,000 unit) capsule (Vitamin
D2)
famotidine 40 mg tablet 40 mg PO DAILY GERD 07/01/24
gabapentin 800 mg tablet 800 mg PO TID Pain 07/01/24
linaclotide 145 mcg capsule 145 mcg PO DAILY Constipation 07/01/24
(Linzess)
melatonin 5 mg tablet 5 mg PO HS Sleep 07/01/24
metformin 500 mg tablet 500 mg PO BID diabetes 07/01/24
propranolol 60 mg capsule,24 60 mg PO DAILY Blood Pressure 07/01/24
hr,extended release
diazepam 5 mg tablet (Valium) 5 mg PO DAILY anxiety 07/16/24
diazepam 5 mg tablet 2.5 mg PO DAILYPRN PRN anxiety 09/04/24
omeprazole 40 mg capsule,delayed 40 mg PO DAILY 09/04/24
release
trazodone 150 mg tablet 300 mg PO HS 09/04/24
chlorpromazine 50 mg tablet 50 mg PO HS 12/02/24
diphenhydramine HCl 50 mg capsule 50 mg PO HS 12/02/24
eptinezumab-jjmr 100 mg/mL 100 mg IV [id number] 12/02/24
intravenous solution (Vyepti)
methocarbamol 500 mg tablet 500 mg PO QIDPRN PRN muscle spasms 12/02/24
ubrogepant 100 mg tablet (Ubrelvy) 100 mg PO DAILY PRN migraine 12/02/24
acetaminophen 325 mg tablet 650 mg (2 x 325 mg) PO Q4HPRN PRN 12/03/24
mild pain #1 tab
ibuprofen 200 mg tablet 400 - 600 mg (2 - 3 x 200 mg) PO 12/03/24
Q6HPRN PRN moderate pain #1 tab
tramadol 50 mg tablet 50 mg PO Q6HPRN PRN severe 12/03/24
pain/breakthrough pain #5 tabs
Review of Systems
-
History Source: Patient
Constitutional: Reports Weight Loss
EENT: Reports Other (dysphagia with solids and liquids )
Respiratory: Reports Trouble Breathing
Cardiac: Reports Chest Pain
Abdomen/GI: Reports Abdominal Pain, Nausea, Vomiting and Constipated
: Reports Difficulty Voiding
Musculoskeletal: Reports Joint Pain
Skin: Reports No Symptoms
Neurological: Reports Dizzy, Headache and Weakness
Endocrine: Reports No Symptoms
Vital Signs
Temp Pulse Resp BP Pulse Ox
99.3 F 87 17 121/77 98
12/13/24 07:01 12/13/24 07:01 12/13/24 07:01 12/13/24 07:01 12/13/24 07:01
Physical Exam
Exam
General: Well Developed, Well Nourished and No Apparent Distress
HEENT: Normocephalic, Anicteric and Other (poor dentitian )
Respiratory: Clear
Cardiac: Regular Rhythm
GI: Soft, Non Distended, Tender (diffuse ) and Other (post -op sites intaact)
Musculoskeletal: No Clubbing and No Cyanosis
Skin: Warm and Dry
Neuro: Awake, Alert and AO x 3
Psych: Calm
Results
WBC 9.9 10^3/uL (4.8-10.8) 12/11/24 17:07
Hgb 13.5 g/dL (12.0-16.0) 12/11/24 17:07
Hct 37.1 % (37.0-47.0) 12/11/24 17:07
MCV 80.3 fL (81.0-99.0) L 12/11/24 17:07
Plt Count 233 10^3/uL (130-400) 12/11/24 17:07
Absolute Neuts (auto) 6.4 10^3/uL (1.4-6.5) 12/11/24 17:07
Sodium 138 mmol/L (135-145) 12/13/24 04:47
Potassium 4.1 mmol/L (3.5-5.1) 12/13/24 04:47
Chloride 106 mmol/L (98-107) 12/13/24 04:47
Carbon Dioxide 25 mmol/L (22-30) 12/13/24 04:47
BUN 7 mg/dl (7-17) 12/13/24 04:47
Creatinine 0.6 mg/dL (0.6-1.0) 12/13/24 04:47
Calcium 9.0 mg/dl (8.4-10.2) 12/13/24 04:47
Total Bilirubin 0.3 mg/dl (0.2-1.3) 12/11/24 17:07
AST 19 U/L (14-36) 12/11/24 17:07
ALT 22 U/L (0-35) 12/11/24 17:07
Alkaline Phosphatase 88 U/L (38-126) 12/11/24 17:07
Lipase 74 U/L (23-300) 12/11/24 17:07
Diagnostic Image Results:
12/11/24 CR Obstruct Series W/pa Chest
Nonobstructive bowel gas pattern. Mild colonic stool burden.
There are 2 linear metallic densities project over the right lower quadrant which are unchanged from prior CT in 2019 consistent with known IVC filter limb fractures/migration
12/01/24 US abdomen
1. Cholelithiasis without sonographic evidence for acute cholecystitis.
2. Increased echogenicity in the liver, compatible with underlying hepatocellular disease, which most commonly relates to fatty infiltration of the liver.
3. Mild splenomegaly.
Prior GI Procedures:
EGD: 2012 [facility] with battery ingestion
Colonoscopy: none due OP with [facility]
Assessment / Plan
-
Pt is a 39yo with hx psychiatric illness with bipolar disorder, PTSD, TBI 2006 Subarachnoid/subdural hemorrhage Intraparenchymal hemorrhage Seizures Migraines,cardiomyopathy,DVT with IVC filter,Pernicious anemia, iron deficiency, GI bleed, Asthma,
HTN, NIDDM, DVT with old filter and more recent DVT on Eliquis prior to admission, Prior Tylenol overdose, hypothyroidism, obesity, IBS, and recent lap eleonora with cholangiogram 12/03 for chronic cholecystitis, cholelithiasis and cholesterolosis. She
was noted with post-op abdominal pain on chronic abdominal issues, poor appetite and now intractable nausea and vomiting. She has been seen by surgery on admission without concern for post-op abscess/infectious process or signs of bile leak. She
has been trialed on Zofran and has been on chronic and takes multiple chronic psych meds including valium, clonidine, chlorpromazine and benadryl. In review of chart earlier this year also noted prior meds Vyvanse, Caplyta,celecoxib, Nurtec,
detraamphetamine-amphetoamine, trazadone, risperidone, quilipta, and migraine medication including Vyepti, Ubrelby with multiple medication changes. Labs on admission with normal LFT's, lipase and WBC's. In review with patient she has longstanding
GI issues. She has chronic IBS, dysphagia, nausea, abdominal pain, diarrhea now constipation. Her current primary complaint is nausea and vomiting. She admits this year symptoms have been worse prompting work up for gallbladder. She had
multiple medication changes and eventually had eleonora in early November. She states since eleonora she now has constipation as was having diarrhea prior and intractable vomiting. She adits to dysphagia/odynophagia with swallowing in upper esophagus. She
had chronic GERD with worsening symptoms on chronic Omeprazole and Famotidine. She admits to 30 lbs wt loss last few months. She complaints of diffuse abdominal pain and hard stools. Prior dark stools several months ago now brown. Last EGD 2011
at [facility] when she swallowed a battery and no prior colonoscopy. She has GI MD at [facility] and due for EGD/colon but was hold as recent Eliquis use for DVT.
-nausea/vomiting with inability to maintain oral intakes
-abdominal pain acute on chronic
-dysphagia
-constipation
-recent lap eleonora with neg IOC
-hx IBS
-recent DVT on Eliquis prior to admission
other med problems: bipolar disorder, PTSD, TBI 2006 Subarachnoid/subdural hemorrhage Intraparenchymal hemorrhage Seizures Migraines,cardiomyopathy,DVT with IVC filter,Pernicious anemia, iron deficiency, GI bleed, Asthma, HTN, NIDDM, DVT with old
filter and more recent DVT on Eliquis prior to admission, Prior Tylenol overdose, hypothyroidism, obesity
PLAN:
etiology of intractable nausea and vomiting unclear -- medication related with multiple changes, gastroparesis with hx DM, constipation related, anxiety related, vs other
appreciate surgical input no signs of complication of recent eleonora, LFT and lipase normal
cont linzess and treat constipation
add TSH and hbg A1c
will stop Benadryl as can cause gastroparesis and started around time of symptoms
Clonidine can also add to gastroparesis t/c trial of stopping if not improving
avoid narcotics
cont Zofran and Protonix
clear diet advance as tolerated
if not improving consider esophagram Sunday with strict NPO prior to testing with dysphagia complaints
will review with Dr. Talbert for further recs
OP followup with [facility] for EGD/colon
-
-
Thank you for consultation and allowing me to participate in the patient's care. Please call the [facility] GI physician during the after hours with any questions or concerns.
[2024-12-13] MEDS: LINZESS PO (11:14)
[2024-12-13] MEDS: VALIUM PO (11:14)
[2024-12-13] MEDS: NEURONTIN PO ×2 (11:14→16:39)
[2024-12-13] MEDS: LINZESS 145 MCG PO (12:18)
[2024-12-13] MEDS: REFRESH EYE DROPS (PF) 1 DROPS OPHTH (12:19)
[2024-12-13 13:34] LABS: TSH 3.11 uIU/ml (0.47-4.68)
[2024-12-13 15:15] VITALS: BP 122/85
[2024-12-13] MEDS: SYMBICORT 80/4.5 MCG INHALER 2 PUFF INH (15:21)
--- NOTE | 2024-12-13 17:22 | W.DS.TRANS ---
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
-
Discharge Instructions:
Discharge Diagnosis/Procedures acute on chronic nausea, possible gastritis
Additional Diets advance diet slowly as tolerated.
Activity As tolerated
Driving Restrictions As prior to admission
Instructions:
Stand-Alone Forms:
Changes to Home Medications: Yes
Discharge Medications:
DC Medications w/original date entered in [employer]
levothyroxine 25 mcg tablet 25 mcg PO DAILY Thyroid 03/23/23
clonidine HCl 0.1 mg tablet 0.1 mg PO HS anxiety/BP 09/20/23
cyanocobalamin (vitamin B-12) 1,000 mcg sublingual tablet 1,000 mcg sublingual DAILY Supplement 07/01/24
ergocalciferol (vitamin D2) 1,250 mcg (50,000 unit) capsule (Vitamin D2) 1,250 mcg PO MO Supplement 07/01/24
famotidine 40 mg tablet 40 mg PO DAILY GERD 07/01/24
gabapentin 800 mg tablet 800 mg PO TID Pain 07/01/24
linaclotide 145 mcg capsule (Linzess) 145 mcg PO DAILY Constipation 07/01/24
melatonin 5 mg tablet 5 mg PO HS Sleep 07/01/24
metformin 500 mg tablet 500 mg PO BID diabetes 07/01/24
propranolol 60 mg capsule,24 hr,extended release 60 mg PO DAILY Blood Pressure 07/01/24
diazepam 5 mg tablet (Valium) 5 mg PO DAILY anxiety 07/16/24
diazepam 5 mg tablet 2.5 mg PO DAILYPRN PRN anxiety 09/04/24
omeprazole 40 mg capsule,delayed release 40 mg PO DAILY 09/04/24
trazodone 150 mg tablet 300 mg PO HS 09/04/24
chlorpromazine 50 mg tablet 50 mg PO HS 12/02/24
eptinezumab-jjmr 100 mg/mL intravenous solution (Vyepti) 100 mg IV [id number] 12/02/24
methocarbamol 500 mg tablet 500 mg PO QIDPRN PRN muscle spasms 12/02/24
ubrogepant 100 mg tablet (Ubrelvy) 100 mg PO DAILY PRN migraine 12/02/24
acetaminophen 325 mg tablet 650 mg (2 x 325 mg) PO Q4HPRN PRN mild pain #1 tab 12/03/24
ibuprofen 200 mg tablet 400 - 600 mg (2 - 3 x 200 mg) PO Q6HPRN PRN moderate pain #1 tab 12/03/24
fluticasone furoate 50 mcg-vilanterol 25 mcg/dose inhalation powder (Breo Ellipta) 1 ea inhalation DAILY 12/13/24
Home Medication Changes
Stop Benadryl as this can worsen nausea.
Hold Metformin until your oral intake improves.
Pending Results: No
--- NOTE | 2024-12-13 17:22 | W.DCSUMMARY ---
Discharge Summary
Discharge Data
Date of Admission: 12/11/24
Date of Discharge: 12/13/24
-
Pending Results: No
Hospital Course
Discharging Physician : Dr. Lilian Muñoz
Disposition : Home
Primary care physician : Dr. Tiffanie Xiong
Principal Discharge diagnosis : Acute on Chronic Nausea
Hospital Course :
Ms. Caterina Aviles is a 39-year-old female with extensive psychiatric history, recent laparoscopic cholecystectomy on 12/03 (left AMA post-op) presents to the emergency department with 3 days of abdominal pain, nausea/vomiting. Patient reports chronic
nausea over past year. She had increased pain and nausea leading to diagnosis of symptomatic cholelithiasis and is now s/p lap eleonora. Symptoms had improved post-op but she had return of symptoms 3 days prior to admission.
Triage vitals stable. Labs without leukocytosis and normal renal function. Abdominal X-ray with nonobstructive bowel gas pattern. She was admitted to medicine with surgery consulting. Per surgery,no evidence of postoperative abscess/infection,
bile leak or bile duct injury. Symptoms persisted after 36 hours of conservative management. At this point GI consulted. Patient was eager for discharge and on hospital day 2 she started tolerating clears. Per GI, clinical history suggestive of
functional (FGID), less likely PUD or gastritis. Concern also raised for polypharmacy. Her Benadryl was stopped as that can exacerbate nausea. Given improvement with tolerating clears, patient opted for discharge with outpatient work-up. This
was discussed with GI. She is instructed to slowly advance her diet at home and follow up as outpatient with GI to discuss possible endoscopy.
Time spent on discharge was 32 minutes.
Important imaging findings :
Chest/Abdomen X-Ray
IMPRESSION:
Nonobstructive bowel gas pattern. Mild colonic stool burden.
There are 2 linear metallic densities project over the right lower quadrant which are unchanged from prior CT in 2019 consistent with known IVC filter limb fractures/migration.
Procedure findings :
Discharge Plan
-
Patient Disposition: Home (Routine Discharge)
Discharge Diagnosis/Procedures: acute on chronic nausea, possible gastritis
Additional Diets: advance diet slowly as tolerated.
Activity: As tolerated
Driving Restrictions: As prior to admission
Activity Restrictions/Additional Instructions:
Follow up with Gastroenterology for further work-up of nausea and discuss need for endoscopy
Referrals:
Tiffanie Xiong CRNP [Family Provider] - in less than 1 week
oPla Talbert DO [Active] - in one to two weeks
Additional Discharge Medication Instructions: Stop Benadryl as this can worsen nausea.
Hold Metformin until your oral intake improves.
Prescriptions:
Continued
levothyroxine 25 mcg Tablet
25 mcg PO DAILY
clonidine HCl 0.1 mg tablet
0.1 mg PO HS
famotidine 40 mg tablet
40 mg PO DAILY
propranolol 60 mg capsule,extended release 24 hr
60 mg PO DAILY
gabapentin 800 mg tablet
800 mg PO TID
ergocalciferol (vitamin D2) [Vitamin D2] 1,250 mcg (50,000 unit) capsule
1,250 mcg PO MO
Linzess 145 mcg capsule
145 mcg PO DAILY
cyanocobalamin (vitamin B-12) 1,000 mcg Tablet, Sublingual
1,000 mcg SUBLINGUAL DAILY
melatonin 5 mg Tablet
5 mg PO HS
diazepam [Valium] 5 mg Tablet
5 mg PO DAILY
omeprazole 40 mg Capsule,Delayed Release(Dr/Ec)
40 mg PO DAILY
trazodone 150 mg Tablet
300 mg PO HS
diazepam 5 mg Tablet
2.5 mg PO DAILYPRN PRN (Reason: anxiety)
chlorpromazine 50 mg Tablet
50 mg PO HS
Vyepti 100 mg/mL Solution
100 mg IV [id number]
Ubrelvy 100 mg Tablet
100 mg PO DAILY PRN (Reason: migraine)
methocarbamol 500 mg Tablet
500 mg PO QIDPRN PRN (Reason: muscle spasms)
acetaminophen 325 mg tablet
650 mg PO Q4HPRN PRN (Reason: mild pain) Qty: 1 0RF
ibuprofen 200 mg tablet
400 - 600 mg PO Q6HPRN PRN (Reason: moderate pain) Qty: 1 0RF
Breo Ellipta 50-25 mcg/dose Blister With Device
1 ea INHALATION DAILY
Held
metformin 500 mg tablet
500 mg PO BID
Hold Instructions: Resume on 12/20/24. hold until GI symptoms resolved
Discontinued
diphenhydramine HCl 50 mg Capsule
50 mg PO HS
tramadol 50 mg tablet
50 mg PO Q6HPRN PRN (Reason: severe pain/breakthrough pain) Qty: 5 0RF
Discharge Orders:
Discharge Patient (As Directed); Ordered 12/13/24
Ordered By: Lilian Muñoz
Discharge Date and Time
Print Language: FRISIAN
--- NOTE | 2024-12-13 18:22 | PTCARENOTE ---
Patient discharged; VAT ISAIAH Bolaños removed midline catheter, per instruction patient remained in bed for 30 minutes; no other peripheral IV sites noted.
== END 2024-12-13 18:25 | disposition home health service (06) ==
LOC: 2 SOUTH 23:32
PROVIDERS: Student in an Organized Health Care Education/Training Program; ADMITTING PHYSICIAN Internal Medicine; ATTENDING PHYSICIAN Student in an Organized Health Care Education/Training Program; CONSULT PHYSICIAN Student in an Organized Health Care Education/Training Program; EMERGENCY PHYSICIAN Emergency Medicine; FAMILY PHYSICIAN Nurse Practitioner Primary Care; OTHER PHYSICIAN Surgery
DX: R11.2 Nausea with vomiting, unspecified (principal); R10.9 Unspecified abdominal pain; G89.29 Other chronic pain; M54.9 Dorsalgia, unspecified; F17.210 Nicotine dependence, cigarettes, uncomplicated; F41.9 Anxiety disorder, unspecified; F31.9 Bipolar disorder, unspecified; J45.909 Unspecified asthma, uncomplicated; I42.9 Cardiomyopathy, unspecified; I10 Essential (primary) hypertension; G47.30 Sleep apnea, unspecified; E03.9 Hypothyroidism, unspecified; R00.0 Tachycardia, unspecified; R56.9 Unspecified convulsions; F43.10 Post-traumatic stress disorder, unspecified; K59.00 Constipation, unspecified; F17.290 Nicotine dependence, other tobacco product, uncomplicated; M79.661 Pain in right lower leg; M79.662 Pain in left lower leg; F60.3 Borderline personality disorder; G43.909 Migraine, unspecified, not intractable, without status migrainosus; E66.09 Other obesity due to excess calories; D50.9 Iron deficiency anemia, unspecified; D51.0 Vitamin B12 deficiency anemia due to intrinsic factor deficiency; F90.9 Attention-deficit hyperactivity disorder, unspecified type; Z91.51 Personal history of suicidal behavior; Z83.3 Family history of diabetes mellitus; Z90.49 Acquired absence of other specified parts of digestive tract; Z83.49 Family history of other endocrine, nutritional and metabolic diseases; Z80.0 Family history of malignant neoplasm of digestive organs; Z95.828 Presence of other vascular implants and grafts; Z87.820 Personal history of traumatic brain injury; Z87.19 Personal history of other diseases of the digestive system; Z86.718 Personal history of other venous thrombosis and embolism; Z68.37 Body mass index [BMI] 37.0-37.9, adult; Z60.2 Problems related to living alone; Z79.890 Hormone replacement therapy; Z79.84 Long term (current) use of oral hypoglycemic drugs; Z66 Do not resuscitate; Z88.8 Allergy status to other drugs, medicaments and biological substances; Z91.041 Radiographic dye allergy status; Z87.828 Personal history of other (healed) physical injury and trauma; Z94.0 Kidney transplant status; R13.10 Dysphagia, unspecified
CPT/HCPCS: 74022; 80048; 80053; 80306; 80307; 81003; 81015; 83690; 83735; 84443; 84703; 85025; 93005; 93970; 94640; 96361; 96374; 96375; 99285; G0378

== ENCOUNTER 2024-12-19 12:40 | Emergency (ER) | payer OTHER, SELFPAY ==
[2024-12-19 12:41] VITALS: BP 137/92
--- NOTE | 2024-12-19 13:45 | ED.GENMED ---
History of Present Illness
General
Chief Complaint: Musculo-Skeletal Complaint
Time Seen by Provider: 12/19/24 13:20
History of Present Illness
History of Present Illness:
39-year-old female well-known to this emergency department presents to the emergency department for evaluation of right leg pain as well as right low back pain. She has a history of lumbar degenerative disc disease and underwent MILD procedure
within the past month, states it did not help her back pain. She woke today with diffuse right leg pain from the calf to the foot. No paresthesias. No edema. Of note she is no longer on Eliquis for prior diagnosed DVT.
Past History
Past History
ED Past Medical History: Arrthythmia (Tachycardia), Asthma, HTN, Seizures, Hypothyroidism, Psychiatric (Bipolar, PTSD, suicide attempts, Anxiety/Depression, Borderline personality, ) and Other (TBI 2005, migraines, Cardiomyopathy,
Subarachnoid/Subdural hemorrhage, Intraparenchymal hem, Sleep apnea, GI bleeding, Pernicious anemia, ADHD, DVT with IVC filter)
ED Past Surgical History: Cholecystectomy, , Orthopedic (R and left knee surgery, Carlos L leg removed, Left arm plate, Right wrist surgery, ) and Other (Green field filter)
Social History
Tobacco: Smoker
Alcohol: None
Drug: Other (Took a Hemp gummy this a.m.)
Personal: Single
Living: alone
Employment: Disabled
Family History
Family History: Other (Diabetes, colon cancer, thyroid disease)
Review of Systems
Review of Systems
Allergies reviewed?: Yes
All Other Systems: ROS reviewed and negative except as documented in HPI and ROS
Phy Exam
Physical Exam
Physical Exam:
GEN: Well appearing, NAD, WDWN
HEENT: Oral mucosa moist, no scleral icterus
Cardiac: Regular rate
Lung: No respiratory distress, no tachypnea
MSK: No gross deformity or injuries. Right hip and knee range of motion is normal. Patient reports no pain throughout range of motion. No edema to the right lower extremity. Dorsalis pedis pulses strong. She does have pain with straight leg
raise above 45 degrees
Skin: Good color, no pallor or jaundice, no rashes
Neuro: AO x3, moves all extremities freely
Psych: Calm, cooperative
Course
Vital Signs
Initial and Last Documented VS:
Initial Vital Signs
Temp Pulse Resp BP Pulse Ox
98.9 F 106 20 137/92 97
12/19/24 12:41 12/19/24 12:41 12/19/24 12:41 12/19/24 12:41 12/19/24 12:41
Last Documented Vital Signs
Temp Pulse Resp BP Pulse Ox
98.9 F 106 20 137/92 97
12/19/24 12:41 12/19/24 12:41 12/19/24 12:41 12/19/24 12:41 12/19/24 12:41
MDM/Problems Addressed
MDM/Problems Addressed:
I suspect that this is acute lumbar radiculopathy given patient's known history of lumbar disc disease and diffuse leg pain. No edema to suggest DVT. No skin changes to suggest infectious etiology. Discussed supportive care
*Critical Care Note
Total Time (30-74mins, 75-104mins- exclusive of procedures): Not Applicable
ED Attending Note
-
Portions of this chart may have been created with voice recognition software.� Occasional wrong word or��sound alike� substitutions may have occurred due to the inherent limitations of voice recognition software.
Discharge Plan
Departure
Patient Disposition: Home (Routine Discharge)
Date of Disposition: 12/19/24
Time of Disposition: 13:45
Patient with high blood pressure during this ER visit?: No
Discharge Problem:
Acute lumbar radiculopathy
Instructions: Radiculopathy of the neck and back (including sciatica) - Discharge instruc
Prescriptions:
New
celecoxib [Celebrex] 200 mg capsule
200 mg PO BID Qty: 20 0RF
tramadol 50 mg tablet
50 mg PO Q8H PRN (Reason: Pain) Qty: 8 0RF
No Action
levothyroxine 25 mcg Tablet
25 mcg PO DAILY
clonidine HCl 0.1 mg tablet
0.1 mg PO HS
metformin 500 mg tablet
500 mg PO BID
famotidine 40 mg tablet
40 mg PO DAILY
propranolol 60 mg capsule,extended release 24 hr
60 mg PO DAILY
gabapentin 800 mg tablet
800 mg PO TID
ergocalciferol (vitamin D2) [Vitamin D2] 1,250 mcg (50,000 unit) capsule
1,250 mcg PO MO
Linzess 145 mcg capsule
145 mcg PO DAILY
cyanocobalamin (vitamin B-12) 1,000 mcg Tablet, Sublingual
1,000 mcg SUBLINGUAL DAILY
melatonin 5 mg Tablet
5 mg PO HS
diazepam [Valium] 5 mg Tablet
5 mg PO DAILY
omeprazole 40 mg Capsule,Delayed Release(Dr/Ec)
40 mg PO DAILY
trazodone 150 mg Tablet
300 mg PO HS
diazepam 5 mg Tablet
2.5 mg PO DAILYPRN PRN (Reason: anxiety)
chlorpromazine 50 mg Tablet
50 mg PO HS
Vyepti 100 mg/mL Solution
100 mg IV [id number]
Ubrelvy 100 mg Tablet
100 mg PO DAILY PRN (Reason: migraine)
methocarbamol 500 mg Tablet
500 mg PO QIDPRN PRN (Reason: muscle spasms)
acetaminophen 325 mg tablet
650 mg PO Q4HPRN PRN (Reason: mild pain) Qty: 1 0RF
ibuprofen 200 mg tablet
400 - 600 mg PO Q6HPRN PRN (Reason: moderate pain) Qty: 1 0RF
Breo Ellipta 50-25 mcg/dose Blister With Device
1 ea INHALATION DAILY
Referrals:
Tiffanie Xiong CRNP [Family Provider] -
Activity Restrictions/Additional Instructions:
Follow up with your crayon painter
Interventions
Interventions:
*Risk Screen - Suicide Last Done: 12/19/24 12:41
*General Assessment Last Done: 12/19/24 13:30
*Neglect/Abuse Screening Last Done: 12/19/24 13:30
*ED COVID-19 Vaccine History Last Done: 12/19/24 13:30
*Nursing Disposition Last Done: 12/19/24 13:55
ED-Musculoskeletal Assessment Last Done: 12/19/24 13:30
Discharge Date and Time
Discharge Date/Time: 12/19/24 13:56
Print Language: VIETNAMESE
== END 2024-12-19 13:56 | disposition home or self-care (01) ==
LOC: EMR 12:40
PROVIDERS: EMERGENCY PHYSICIAN Student in an Organized Health Care Education/Training Program; FAMILY PHYSICIAN Nurse Practitioner Primary Care
DX: M54.16 Radiculopathy, lumbar region (principal); R00.0 Tachycardia, unspecified; J45.909 Unspecified asthma, uncomplicated; I10 Essential (primary) hypertension; G40.89 Other seizures; E03.9 Hypothyroidism, unspecified; F31.9 Bipolar disorder, unspecified; F41.9 Anxiety disorder, unspecified; G47.30 Sleep apnea, unspecified; I42.9 Cardiomyopathy, unspecified; F17.200 Nicotine dependence, unspecified, uncomplicated; Z83.3 Family history of diabetes mellitus; Z83.49 Family history of other endocrine, nutritional and metabolic diseases; Z86.718 Personal history of other venous thrombosis and embolism; Z87.820 Personal history of traumatic brain injury; Z90.49 Acquired absence of other specified parts of digestive tract; Z91.51 Personal history of suicidal behavior
CPT/HCPCS: 99282

== ENCOUNTER 2024-12-21 22:10 | Emergency (ER) | payer OTHER, SELFPAY ==
[2024-12-21 22:24] VITALS: BP 119/68
[2024-12-21 22:34] VITALS: BMI 37.8
[2024-12-21 22:54] LABS: HCG, Urine Qualitative Screen Negative
--- NOTE | 2024-12-21 23:00 | ED.GENMED ---
History of Present Illness
<Luba Hirsch PA-C - Last Filed: 12/22/24 07:09>
General
Chief Complaint: Suicidal Ideation
Source: patient
Exam Limitations: none
Time Seen by Provider: 12/21/24 22:59
Nursing documentation reviewed up to this point in time: agreed with
History of Present Illness
History of Present Illness:
This is a 39-year-old female with past medical history of prediabetes, bipolar disorder, depression, traumatic brain injury, anxiety, borderline personality disorder who presents emergency department today with concerns of intentional overdose and
suicidal attempt. Patient reports that she was feeling hopeless and depressed and took the rest of her remaining propranolol tablets in the bottle in the hopes that she would end her life. Patient reports that she subsequently called 911. Patient
states that she has not been feeling any ill effects currently except for some confusion and mild fatigue. Patient states that she no longer feels suicidal and states that she wants to go home. Patient has a history of multiple suicide attempts in
the past. She states that she is not sure how many tablets she took but she estimates she took a 'handful' of her 60 mg propranolol tablets. She denies any homicidal ideation. She denies any visual or auditory hallucinations. She denies any chest
pain, shortness of breath, lightheadedness, dizziness, headaches.
Past History
<Luba Hirsch PA-C - Last Filed: 12/22/24 07:09>
Past History
ED Past Medical History: Arrthythmia (Tachycardia), Asthma, HTN, Seizures, Hypothyroidism, Psychiatric (Bipolar, PTSD, suicide attempts, Anxiety/Depression, Borderline personality, ) and Other (TBI 2006, migraines, Cardiomyopathy,
Subarachnoid/Subdural hemorrhage, Intraparenchymal hem, Sleep apnea, GI bleeding, Pernicious anemia, ADHD, DVT with IVC filter)
ED Past Surgical History: Cholecystectomy, , Orthopedic (R and left knee surgery, Carlos L leg removed, Left arm plate, Right wrist surgery, ) and Other (Green field filter)
Social History
Tobacco: Smoker
Alcohol: None
Drug: Other (Took a Hemp gummy this a.m.)
Personal: Single
Living: alone
Employment: Disabled
Family History
Family History: Other (Diabetes, colon cancer, thyroid disease)
Review of Systems
<Luba Hirsch PA-C - Last Filed: 12/22/24 07:09>
Review of Systems
All Other Systems: ROS reviewed and negative except as documented in HPI and ROS
Phy Exam
<DIONE Clarke Last Filed: 12/22/24 07:09>
Physical Exam
Physical Exam:
General: Patient is well appearing and in no acute distress; non-toxic
Skin: Warm and dry, no rashes or lesions
Head: Normocephalic, atraumatic
Eyes: Sclera non-icteric. EOMs intact.
Cardiac: Regular rate and rhythm, no murmurs
Peripheral Vascular: No lower extremity swelling or edema
Pulm: Normal respiratory effort, no wheezes, rales, rhonchi
Abdomen: No abdominal tenderness to palpation
Neuro: CN II-XII intact, no focal neurologic deficits.
Psychiatric: Reports suicidal ideations
Course
<DIONE Clarke Last Filed: 12/22/24 07:09>
Orders/Labs/Results
Orders:
Orders
12/21/24 22:26
1:1 Observation - Suicide/ Violent Behavior As Directed
12/21/24 22:38
Test Result ONCE
12/21/24 22:39
Fentanyl, Urine Urgent
HCG, Urine Qualitative Screen Urgent
Date Specimen was Collected: 12/21/24
Time Specimen was Collected: 22:38
Urinalysis Reflex To Culture Urgent
Date Specimen was Collected: 12/21/24
Time Specimen was Collected: 22:38
Comment: ADD ON
Urine Drug Abuse Screen Urgent
Date Specimen was Collected: 12/21/24
Time Specimen was Collected: 22:38
12/21/24 23:04
Electrocardiogram (*1) Stat
Reason for Study: Other
Other Reason for Exam: overdose
Bedside Glucose- Treatment ONCE
EKG- Treatment ONCE
Acetaminophen Urgent
Alcohol Urgent
Complete Blood Count/With Diff Urgent
Comprehensive Metabolic Panel Urgent
Salicylate Urgent
12/21/24 23:05
1:1 Observation - Suicide/ Violent Behavior As Directed
12/21/24 23:15
Cardiac Monitoring- Treatment ONCE
12/21/24 23:24
Crisis Consult Urgent
Reason for Consult: suicidal, intentional overdose
12/22/24 00:26
Add On- LAB Urgent
Tests Added?: UA and reflex to culture
12/22/24 01:13
Vital Signs- Treatment ONCE
Frequency: Once
12/22/24 02:48
PSYCHIATRY CONSULT Urgent
Consulting Provider: Ever West
Was physician already notified: No
Reason for consult: SUICIDE ATTEMPT
12/22/24 02:49
Consult Notification Routine
Specialty to Notify: Psychiatry
Abnormal Lab Results
12/21/24 12/22/24
22:39 02:12
RBC 3.66 L 10^6/uL
(4.20-5.40)
Hgb 10.7 L g/dL
(12.0-16.0)
Hct 31.0 L %
(37.0-47.0)
RDW 14.6 H %
(11.5-14.5)
Chloride 108 H mmol/L
(98-107)
Glucose 115 H mg/dl
(70-99)
Total Protein 5.8 L g/dl
(6.3-8.2)
Salicylates < 1.0 L mg/dl
(2.0-20.0)
Acetaminophen < 10 L ug/ml
(10-30)
U Benzodiazepines Scrn Positive H
(Negative)
12/22/24 02:12
12/22/24 02:12
Vital Signs
Initial and Last Documented VS:
Initial Vital Signs
Pulse Resp BP Pulse Ox
73 18 119/68 99
12/21/24 22:24 12/21/24 22:24 12/21/24 22:24 12/21/24 22:24
Last Documented Vital Signs
Pulse Resp BP Pulse Ox
60 18 100/66 96
12/22/24 02:49 12/22/24 02:49 12/22/24 02:49 12/22/24 02:49
<Valeriano Rashid, DO - Last Filed: 12/22/24 06:20>
Orders/Labs/Results
Orders:
Orders
12/21/24 22:26
1:1 Observation - Suicide/ Violent Behavior As Directed
12/21/24 22:38
Test Result ONCE
12/21/24 22:39
Fentanyl, Urine Urgent
HCG, Urine Qualitative Screen Urgent
Date Specimen was Collected: 12/21/24
Time Specimen was Collected: 22:38
Urinalysis Reflex To Culture Urgent
Date Specimen was Collected: 12/21/24
Time Specimen was Collected: 22:38
Comment: ADD ON
Urine Drug Abuse Screen Urgent
Date Specimen was Collected: 12/21/24
Time Specimen was Collected: 22:38
12/21/24 23:04
Electrocardiogram (*1) Stat
Reason for Study: Other
Other Reason for Exam: overdose
Bedside Glucose- Treatment ONCE
EKG- Treatment ONCE
Acetaminophen Urgent
Alcohol Urgent
Complete Blood Count/With Diff Urgent
Comprehensive Metabolic Panel Urgent
Salicylate Urgent
12/21/24 23:05
1:1 Observation - Suicide/ Violent Behavior As Directed
12/21/24 23:15
Cardiac Monitoring- Treatment ONCE
12/21/24 23:24
Crisis Consult Urgent
Reason for Consult: suicidal, intentional overdose
12/22/24 00:26
Add On- LAB Urgent
Tests Added?: UA and reflex to culture
12/22/24 01:13
Vital Signs- Treatment ONCE
Frequency: Once
12/22/24 02:48
PSYCHIATRY CONSULT Urgent
Consulting Provider: Ever West
Was physician already notified: No
Reason for consult: SUICIDE ATTEMPT
12/22/24 02:49
Consult Notification Routine
Specialty to Notify: Psychiatry
Abnormal Lab Results
12/21/24 12/22/24
22:39 02:12
RBC 3.66 L 10^6/uL
(4.20-5.40)
Hgb 10.7 L g/dL
(12.0-16.0)
Hct 31.0 L %
(37.0-47.0)
RDW 14.6 H %
(11.5-14.5)
Chloride 108 H mmol/L
(98-107)
Glucose 115 H mg/dl
(70-99)
Total Protein 5.8 L g/dl
(6.3-8.2)
Salicylates < 1.0 L mg/dl
(2.0-20.0)
Acetaminophen < 10 L ug/ml
(10-30)
U Benzodiazepines Scrn Positive H
(Negative)
12/22/24 02:12
12/22/24 02:12
Vital Signs
Initial and Last Documented VS:
Initial Vital Signs
Pulse Resp BP Pulse Ox
73 18 119/68 99
12/21/24 22:24 12/21/24 22:24 12/21/24 22:24 12/21/24 22:24
Last Documented Vital Signs
Pulse Resp BP Pulse Ox
60 18 100/66 96
12/22/24 02:49 12/22/24 02:49 12/22/24 02:49 12/22/24 02:49
<Luba Hirsch PA-C - Last Filed: 12/22/24 07:09>
MDM/Problems Addressed
Differential Diagnosis Includes:
ddx include propranolol overdose/toxicity, cardiac arrhythmia, BPPV, viral syndrome
MDM/Problems Addressed:
This is a 39-year-old female with past medical history of prediabetes, bipolar disorder, depression, traumatic brain injury, anxiety, borderline personality disorder who presents emergency department today with concerns of intentional overdose and
suicidal attempt. She took an unknown amount of beta-clint tablets. On physical exam patient is well-appearing in no acute distress. Her vital signs are stable. Her CBC and CMP are unremarkable. At first, patient is resistant and patient
psychiatric treatment and further workup for her overdose. Eventually, patient did agree to getting blood work done as well as being placed on a residential monitor. Patient remained stable. We did review case with [facility] toxicology and did
observe patient for multiple hours to assess for changes in her blood pressure and symptoms. Patient stable for psychiatric treatment at this point.
Chronic conditions affecting care:
Migraines, TBI, asthma, ADHD, bipolar disorder, multiple suicidal attempts,
<Luba Hirsch PA-C - Last Filed: 12/22/24 07:09>
*Pulse Oximetry
Patient hypoxic: no
*EKG
Interpreted by ED Provider?: Yes
EKG Intrepretation Date: 12/22/24
Interpretation: abnormal
Comparison EKG: changes noted
Heart Rate: 64
Rate: normal
Interval: first degree heart block
*Critical Care Note
Total Time (30-74mins, 75-104mins- exclusive of procedures): Not Applicable
Data Reviewed
Review of Other/Old Records Reveals: Records (He reviewed ER physician documentation from 12/19/2024 patient seen for acute lumbar radiculopathy, reviewed ER physician documentation from 11/18/2024 patient seen for suicidal ideation)
Source: patient and records
<Luba Hirsch PA-C - Last Filed: 12/22/24 07:09>
Update Note
Update Note:
1:12 am--Patient is refusing blood work and cardiac monitoring; I did explain to patient our clinical concern and my discussion with [facility] toxiccology. I spoke to Ruby Ortega, [facility] Manager User Experience bank reconciliator who responds that, despite
pt's well appearance and normal vitals, pt should be observed for an extended period of time to monitory for hypotension and bradycardia on telemetry however she does state that there is no specific ideal time for observation and monitoring; she
does recommend blood work. Will attempt again to obtain blood work.
1:58 am--Nursing staff reports that patient is still refusing blood work but continues to be well appearing
2:48 AM--Patient did finally agree to blood work. CBC and CMP unremarkable. Vital signs remained stable. Will continue to monitor
7:00 AM--Patient remains stable and well appearing. Patient was observed for an extended period of time. Patient medically clear for psychiatric treatment.
ED Attending Note
<Luba Hirsch PA-C - Last Filed: 12/22/24 07:09>
-
Portions of this chart may have been created with voice recognition software.� Occasional wrong word or��sound alike� substitutions may have occurred due to the inherent limitations of voice recognition software.
<Valeriano Rashid DO - Last Filed: 12/22/24 06:20>
ED Attending Note
Patient seen and examined by attending physician: Yes
ED Attending Note:
39-year-old female well-known to us presents to the emergency department intentional overdose for suicide attempt. She states that she is feeling down and depressed. She took her propranolol in an attempt to end her life. She then called 911.
Patient was seen in conjunction with the PA. I have reviewed and agree with her history and treatment plan. On my independent physical exam patient is somnolent. She is defiant. She told nursing that she would not allow them to draw blood on
multiple occasions. I went in to speak with her and she stated that she would allow us to do a straight stick. Nursing is currently doing well at. Since this is an intentional overdose patient will be placed. Crisis was consulted.
Discharge Plan
Departure
Patient Disposition: Psych Facility
Date of Disposition: 12/22/24
Time of Disposition: 06:19
Patient Status:: 302
Patient with high blood pressure during this ER visit?: Yes
Discharge Problem:
Suicide attempt by beta clint overdose
Prescriptions:
No Action
levothyroxine 25 mcg Tablet
25 mcg PO DAILY
clonidine HCl 0.1 mg tablet
0.1 mg PO HS
metformin 500 mg tablet
500 mg PO BID
famotidine 40 mg tablet
40 mg PO DAILY
propranolol 60 mg capsule,extended release 24 hr
60 mg PO DAILY
gabapentin 800 mg tablet
800 mg PO TID
ergocalciferol (vitamin D2) [Vitamin D2] 1,250 mcg (50,000 unit) capsule
1,250 mcg PO MO
Linzess 145 mcg capsule
145 mcg PO DAILY
cyanocobalamin (vitamin B-12) 1,000 mcg Tablet, Sublingual
1,000 mcg SUBLINGUAL DAILY
melatonin 5 mg Tablet
5 mg PO HS
diazepam [Valium] 5 mg Tablet
5 mg PO DAILY
omeprazole 40 mg Capsule,Delayed Release(Dr/Ec)
40 mg PO DAILY
trazodone 150 mg Tablet
300 mg PO HS
diazepam 5 mg Tablet
2.5 mg PO DAILYPRN PRN (Reason: anxiety)
chlorpromazine 50 mg Tablet
50 mg PO HS
Vyepti 100 mg/mL Solution
100 mg IV [id number]
Ubrelvy 100 mg Tablet
100 mg PO DAILY PRN (Reason: migraine)
methocarbamol 500 mg Tablet
500 mg PO QIDPRN PRN (Reason: muscle spasms)
acetaminophen 325 mg tablet
650 mg PO Q4HPRN PRN (Reason: mild pain) Qty: 1 0RF
ibuprofen 200 mg tablet
400 - 600 mg PO Q6HPRN PRN (Reason: moderate pain) Qty: 1 0RF
Breo Ellipta 50-25 mcg/dose Blister With Device
1 ea INHALATION DAILY
celecoxib [Celebrex] 200 mg capsule
200 mg PO BID Qty: 20 0RF
tramadol 50 mg tablet
50 mg PO Q8H PRN (Reason: Pain) Qty: 8 0RF
Referrals:
NONE,* [Family Provider] -
Interventions
Interventions:
*Risk Screen - Suicide Last Done: 12/21/24 22:25
*General Assessment Last Done: 12/21/24 22:21
*Neglect/Abuse Screening Last Done: 12/21/24 22:25
*ED- Fall Risk Assessment Last Done: 12/21/24 22:25
*ED COVID-19 Vaccine History Last Done: 12/21/24 22:21
ED-Psychological Assessment Last Done: 12/21/24 22:25
Discharge Date and Time
Print Language: KOREAN
[2024-12-21 23:02] LABS: Amphetamines Negative (Negative); Barbiturates Negative (Negative); Benzodiazepines Positive (Negative); Buprenorphine Negative (Negative); Cocaine Negative (Negative); Marijuana Negative (Negative); Methadone Negative (Negative); Methamphetamines Negative (Negative); Opiates Negative (Negative); Phencyclidine Negative (Negative); Tricyclic Antidepressants Negative (Negative)
[2024-12-21 23:15] LABS: Fentanyl, Urine Negative (Negative)
[2024-12-22 00:56] LABS: Urine Albumin Negative (Neg - Trace); Urine Bilirubin Negative (Negative); Urine Character Clear (Clear); Urine Color Yellow; Urine Glucose Negative (Negative); Urine Ketone Negative (Negative); Urine Leukocyte Negative (Negative); Urine Nitrite Negative (Negative); Urine Occult Blood Negative (Negative); Urine Urobilinogen Negative (Neg - 1+); Urine pH 6.5 (5.0-9.0)
[2024-12-22 02:33] LABS: Hemoglobin 10.7 g/dL (12.0-16.0); Mean Corp Hgb Conc. 34.5 g/dL (33.0-37.0); Mean Corpuscular Hgb 29.2 pg (27.0-31.0); Mean Corpuscular Volume 84.7 fL (81.0-99.0); Mean Platelet Volume 10.1 fL (7.4-10.4); Platelet Count 216 10^3/uL (130-400); Red Blood Cell Count 3.66 10^6/uL (4.20-5.40); Red Cell Dist. Width 14.6 % (11.5-14.5); White Blood Cell Count 7.4 10^3/uL (4.8-10.8)
[2024-12-22 02:36] LABS: ALT (SGPT) 19 U/L (0-35); AST (SGOT) 24 U/L (14-36); Acetaminophen < 10 ug/ml (10-30); Albumin 3.5 g/dl (3.5-5.0); Alkaline Phosphatase 81 U/L (38-126); Blood Urea Nitrogen 12 mg/dl (7-17); Calcium 8.8 mg/dl (8.4-10.2); Carbon Dioxide 24 mmol/L (22-30); Chloride 108 mmol/L (98-107); Estimated Creatinine Clearance > 125 ml/min; Glucose 115 mg/dl (70-99); Potassium 4.2 mmol/L (3.5-5.1); Salicylate < 1.0 mg/dl (2.0-20.0); Sodium 139 mmol/L (135-145); Total Bilirubin 0.4 mg/dl (0.2-1.3); Total Protein 5.8 g/dl (6.3-8.2); eGFR > 60.00
[2024-12-22 02:38] LABS: Alcohol None Detected
[2024-12-22 02:49] VITALS: BP 100/66
[2024-12-22 03:10] LABS: % Basophils 0.5 % (0-2); % Eosinophils 3.1 % (0-6); % Immature Granulocytes 0.3 % (0-0.5); % Lymphocytes 33.9 % (20.5-51.1); % Monocytes 5.8 % (1.7-9.3); % Neutrophils 56.4 % (42.2-75.2); Absolute Eosinophils 0.2 10^3/uL (0-0.7); Absolute Lymphocytes 2.5 10^3/uL (1.2-3.4); Absolute Monocytes 0.4 10^3/uL (0.1-0.6); Absolute Neutrophils 4.2 10^3/uL (1.4-6.5); Nucleated Red Blood Cells % 0 %
[2024-12-22] MEDS: ZOFRAN ODT (ORALLY DISINTEGRATING) 4 MG PO (08:30)
[2024-12-22] MEDS: VALIUM 5 MG PO (08:31)
[2024-12-22] MEDS: NEURONTIN 600 MG PO (08:33)
[2024-12-22] MEDS: ULTRAM 50 MG PO (10:25)
--- NOTE | 2024-12-22 10:36 | ED.CRISIS ---
ED Crisis Note
ED Crisis Note
Subjective:
39-year-old female well-known to us. Presents after she overdosed on propranolol. My assessment she states that she wants to just go home as she feels much better. She went to see her caregiver and her outpatient team. Patient is little agitated
she wants to go home
Objective:
Awake and alert, no distress.
Assessment/Plan:
Intermittently agitated wants to go home. Verbal de-escalation patient seen by psychiatry at this point cleared for discharge. This is reasonable
[2024-12-22 10:42] VITALS: BP 136/81
--- NOTE | 2024-12-22 12:27 | W.PN.UPDATE ---
Update Note
Progress Note Update
Pt seen, reviewed record, Crisis assessment. Pt reportedly took some Propranolol and then called Crisis line, states she was 'pissed off' because of her experience at [facility]. Pt denies any suicidal ideation today, presents at usual
baseline, stating she wants to get home and shower, meet her care-bag bundler. Pt alert, oriented, calm, cooperative, with appropriate affect, good eye contact, no signs of agitation or psychosis.
Imp/Rec: Borderline personality d/o; hx of PTSD, appears at usual baseline. Pt appears stable for discharge, to return home with ACT Team follow-up
== END 2024-12-22 10:46 | disposition home or self-care (01) ==
LOC: EMR 22:10
PROVIDERS: Family Medicine; Physician Assistant; CONSULT PHYSICIAN Psychiatry & Neurology Psychiatry; EMERGENCY PHYSICIAN Student in an Organized Health Care Education/Training Program
DX: T44.7X2A Poisoning by beta-adrenoreceptor antagonists, intentional self-harm, initial encounter (principal); R41.0 Disorientation, unspecified; R53.83 Other fatigue; X58.XXXA Exposure to other specified factors, initial encounter; F31.9 Bipolar disorder, unspecified; F41.9 Anxiety disorder, unspecified; E03.9 Hypothyroidism, unspecified; G47.30 Sleep apnea, unspecified; I10 Essential (primary) hypertension; I42.9 Cardiomyopathy, unspecified; J45.909 Unspecified asthma, uncomplicated; R73.03 Prediabetes; F17.200 Nicotine dependence, unspecified, uncomplicated
CPT/HCPCS: 99284; 80053; 80143; 80179; 80306; 80307; 81003; 81025; 82077; 85025; 93005

== ENCOUNTER 2024-12-29 12:37 | Emergency (ER) | payer OTHER, SELFPAY ==
[2024-12-29 12:46] VITALS: BP 120/99
--- NOTE | 2024-12-29 14:28 | ED.GENMED ---
History of Present Illness
<Odalis Serna MD - Last Filed: 12/29/24 20:34>
General
Chief Complaint: Crisis Evaluation
Source: patient
Time Seen by Provider: 12/29/24 14:18
History of Present Illness
History of Present Illness:
This patient is a 39-year-old female presents emergency department with SI. She spoke to her therapist today and was referred here. She states that she wants to overdose by taking pills. She describes this as the anniversary of upsetting events
including Mother's Day as she has a son through open adoption and will not see him until next month, etc. She denies any physical complaints with the exception of mild discomfort at the left third toe which she 'stubbed' yesterday.
Past History
<Odalis Serna MD - Last Filed: 12/29/24 20:34>
Past History
ED Past Medical History: Arrthythmia (Tachycardia), Asthma, HTN, Seizures, Hypothyroidism, Psychiatric (Bipolar, PTSD, suicide attempts, Anxiety/Depression, Borderline personality, ) and Other (TBI 2006, migraines, Cardiomyopathy,
Subarachnoid/Subdural hemorrhage, Intraparenchymal hem, Sleep apnea, GI bleeding, Pernicious anemia, ADHD, DVT with IVC filter)
ED Past Surgical History: Cholecystectomy, , Orthopedic (R and left knee surgery, Carlos L leg removed, Left arm plate, Right wrist surgery, ) and Other (Green field filter)
Social History
Tobacco: Smoker
Alcohol: None
Drug: Other (Took a Hemp gummy this a.m.)
Personal: Single
Living: alone
Employment: Disabled
Family History
Family History: Other (Diabetes, colon cancer, thyroid disease)
Phy Exam
<Odalis Serna MD - Last Filed: 12/29/24 20:34>
Physical Exam
Physical Exam:
GENERAL: Alert , in no apparent distress
EYE: pupils equal and reactive
NECK: Supple, no significant adenopathy.
ENT: o/p clr, mmm.
CARDIAC: Regular rate and rhythm .
LUNGS: Clear breath sounds bilaterally, no acute respiratory distress, no wheezes/rales/rhonchi
ABDOMEN: Soft, without focal tenderness, no r/g, no cvat
NEUROLOGICAL: Alert and oriented, no focal neuro deficits
SKIN: Warm and dry, The lap incisions are generally c/d/i. The most inferior incision is slightly open, dry, no ative bleeding, no dishcarge/ttp/fluctuance/redness/warmth or other abnl (pt admittedly 'picks at' area).
MUSCULOSKELETAL: No edema, well perfused. There is mild bruising and tenderness to palpation noted at the left third distal toe without break in skin, fluctuance, warmth, or other abnormalities
PSYCH: Sl flattened affect, expresses si
Course
<Odalis Serna MD - Last Filed: 12/29/24 20:34>
Orders/Labs/Results
Orders:
Orders
12/29/24 14:24
PSYCHIATRY CONSULT Urgent
Consulting Provider: Ever West
Was physician already notified: Yes
Crisis Consult Urgent
Reason for Consult: si
Foot, Left 3 View [CR Foot - Left Min 3 Views] Urgent
Comment:
Reason For Exam: 3rd toe injury
12/29/24 14:[address] Non Medication Order As Directed
Physician Order: please provide wound care and dressing at lap incision
Above order entered?: Yes
12/29/24 16:11
Drug Screen, Urine [Urine Drug Abuse Screen] Urgent
Date Specimen was Collected: 12/30/24
Time Specimen was Collected: 12:13
12/29/24 16:12
Test Result ONCE
12/29/24 16:28
Diazepam [Valium] 2.5 mg PO Q8HPRN PRN
12/29/24 16:46
Ibuprofen [Motrin] 600 mg .ROUTE .STK-MED ONE
12/29/24 16:54
Ibuprofen [Motrin] 600 mg .ROUTE .STK-MED ONE
12/29/24 16:55
Ibuprofen [Motrin] 600 mg PO NOW STA
12/29/24 16:56
Acetaminophen Urgent
Comment: ADD ON
Complete Blood Count/No Diff Urgent
Comprehensive Metabolic Panel Urgent
HCG, Serum Qualitative Screen Urgent
Salicylate Urgent
Comment: ADD ON
12/29/24 18:00
Flush (0.9% Sodium Chloride) [Flush (Nss)] See Dose Instructions IV PER PROTOCOL
12/29/24 20:02
Tramadol HCl [Ultram] 100 mg PO NOW STA
12/29/24 21:14
Add On- LAB Urgent
Tests Added?: tylenol level, ASA level
12/29/24 21:15
Haloperidol Lactate [Haldol] 5 mg IM NOW STA
Midazolam HCl [Versed] 5 mg IM NOW STA
12/29/24 22:00
Chlorpromazine [Thorazine] 50 mg PO HS
Clonidine [Catapres] 0.1 mg PO HS
Diphenhydramine [Benadryl] 50 mg PO HS
Melatonin 5 mg PO HS
Trazodone [Desyrel] 300 mg PO HS
12/29/24 23:22
Gabapentin [Neurontin] 800 mg PO NOW STA
12/30/24 08:00
Diazepam [Valium] 5 mg PO DAILY
12/30/24 09:32
Gabapentin [Neurontin] 800 mg PO NOW STA
12/30/24 12:22
Lorazepam [Ativan] 1 mg PO Q4HPRN PRN
12/30/24 12:31
Haloperidol [Haldol] 2.5 mg PO Q4HPRN PRN
12/30/24 12:42
Fentanyl, Urine Urgent
12/30/24 15:22
Gabapentin [Neurontin] 800 mg PO TID STA
12/30/24 22:51
observation [ED Special Safety Observation] ONCE
Observation level: One to Two
12/31/24 06:26
Tramadol HCl [Ultram] 50 mg PO NOW STA
12/31/24 09:45
Linaclotide [Linzess] 145 mcg PO DAILY @ 0600
12/31/24 09:46
Gabapentin [Neurontin] 800 mg PO NOW STA
12/31/24 10:00
Celecoxib [Celebrex] 200 mg PO BID
Famotidine [Pepcid] 40 mg PO DAILY
Levothyroxine [Synthroid] 25 mcg PO DAILY @ 0600
Pantoprazole [Protonix] 40 mg PO DAILY
12/31/24 10:45
Cholecalciferol (Vitamin D3) [VITAMIN D3 (cholecalciferol)] 25 mcg PO DAILY
12/31/24 11:00
Cyanocobalamin [Vitamin B-12] 1,000 mcg PO DAILY
12/31/24 16:00
Gabapentin [Neurontin] 800 mg PO TID
12/31/24 17:00
METFORMIN HCl [Glucophage] 500 mg PO BID@0800,1700
Abnormal Lab Results
12/29/24 12/30/24
16:56 12:42
Hct 36.1 L %
(37.0-47.0)
MPV 10.7 H fL
(7.4-10.4)
Glucose 119 H mg/dl
(70-99)
Salicylates < 1.0 L mg/dl
(2.0-20.0)
Acetaminophen < 10 L ug/ml
(10-30)
U Benzodiazepines Scrn Positive H
(Negative)
12/29/24 16:56
12/29/24 16:56
Vital Signs
Initial and Last Documented VS:
Initial Vital Signs
Temp Pulse Resp BP Pulse Ox
98.9 F 101 19 120/99 97
12/29/24 12:46 12/29/24 12:46 12/29/24 12:46 12/29/24 12:46 12/29/24 12:46
Last Documented Vital Signs
Temp Pulse Resp BP Pulse Ox
97.8 F 85 16 119/82 98
12/31/24 07:30 12/31/24 07:30 12/31/24 07:30 12/31/24 07:30 12/31/24 07:30
<Chun Coyle MD - Last Filed: 12/31/24 12:43>
Orders/Labs/Results
Orders:
Orders
12/29/24 14:24
PSYCHIATRY CONSULT Urgent
Consulting Provider: Ever West
Was physician already notified: Yes
Crisis Consult Urgent
Reason for Consult: si
Foot, Left 3 View [CR Foot - Left Min 3 Views] Urgent
Comment:
Reason For Exam: 3rd toe injury
12/29/24 14:[address] Non Medication Order As Directed
Physician Order: please provide wound care and dressing at lap incision
Above order entered?: Yes
12/29/24 16:11
Drug Screen, Urine [Urine Drug Abuse Screen] Urgent
Date Specimen was Collected: 12/30/24
Time Specimen was Collected: 12:13
12/29/24 16:12
Test Result ONCE
12/29/24 16:28
Diazepam [Valium] 2.5 mg PO Q8HPRN PRN
12/29/24 16:46
Ibuprofen [Motrin] 600 mg .ROUTE .STK-MED ONE
12/29/24 16:54
Ibuprofen [Motrin] 600 mg .ROUTE .STK-MED ONE
12/29/24 16:55
Ibuprofen [Motrin] 600 mg PO NOW STA
12/29/24 16:56
Acetaminophen Urgent
Comment: ADD ON
Complete Blood Count/No Diff Urgent
Comprehensive Metabolic Panel Urgent
HCG, Serum Qualitative Screen Urgent
Salicylate Urgent
Comment: ADD ON
12/29/24 18:00
Flush (0.9% Sodium Chloride) [Flush (Nss)] See Dose Instructions IV PER PROTOCOL
12/29/24 20:02
Tramadol HCl [Ultram] 100 mg PO NOW STA
12/29/24 21:14
Add On- LAB Urgent
Tests Added?: tylenol level, ASA level
12/29/24 21:15
Haloperidol Lactate [Haldol] 5 mg IM NOW STA
Midazolam HCl [Versed] 5 mg IM NOW STA
12/29/24 22:00
Chlorpromazine [Thorazine] 50 mg PO HS
Clonidine [Catapres] 0.1 mg PO HS
Diphenhydramine [Benadryl] 50 mg PO HS
Melatonin 5 mg PO HS
Trazodone [Desyrel] 300 mg PO HS
12/29/24 23:22
Gabapentin [Neurontin] 800 mg PO NOW STA
12/30/24 08:00
Diazepam [Valium] 5 mg PO DAILY
12/30/24 09:32
Gabapentin [Neurontin] 800 mg PO NOW STA
12/30/24 12:22
Lorazepam [Ativan] 1 mg PO Q4HPRN PRN
12/30/24 12:31
Haloperidol [Haldol] 2.5 mg PO Q4HPRN PRN
12/30/24 12:42
Fentanyl, Urine Urgent
12/30/24 15:22
Gabapentin [Neurontin] 800 mg PO TID STA
12/30/24 22:51
observation [ED Special Safety Observation] ONCE
Observation level: One to Two
12/31/24 06:26
Tramadol HCl [Ultram] 50 mg PO NOW STA
12/31/24 09:45
Linaclotide [Linzess] 145 mcg PO DAILY @ 0600
12/31/24 09:46
Gabapentin [Neurontin] 800 mg PO NOW STA
12/31/24 10:00
Celecoxib [Celebrex] 200 mg PO BID
Famotidine [Pepcid] 40 mg PO DAILY
Levothyroxine [Synthroid] 25 mcg PO DAILY @ 0600
Pantoprazole [Protonix] 40 mg PO DAILY
12/31/24 10:45
Cholecalciferol (Vitamin D3) [VITAMIN D3 (cholecalciferol)] 25 mcg PO DAILY
12/31/24 11:00
Cyanocobalamin [Vitamin B-12] 1,000 mcg PO DAILY
12/31/24 16:00
Gabapentin [Neurontin] 800 mg PO TID
12/31/24 17:00
METFORMIN HCl [Glucophage] 500 mg PO BID@0800,1700
Abnormal Lab Results
12/29/24 12/30/24
16:56 12:42
Hct 36.1 L %
(37.0-47.0)
MPV 10.7 H fL
(7.4-10.4)
Glucose 119 H mg/dl
(70-99)
Salicylates < 1.0 L mg/dl
(2.0-20.0)
Acetaminophen < 10 L ug/ml
(10-30)
U Benzodiazepines Scrn Positive H
(Negative)
12/29/24 16:56
12/29/24 16:56
Vital Signs
Initial and Last Documented VS:
Initial Vital Signs
Temp Pulse Resp BP Pulse Ox
98.9 F 101 19 120/99 97
12/29/24 12:46 12/29/24 12:46 12/29/24 12:46 12/29/24 12:46 12/29/24 12:46
Last Documented Vital Signs
Temp Pulse Resp BP Pulse Ox
97.8 F 85 16 119/82 98
12/31/24 07:30 12/31/24 07:30 12/31/24 07:30 12/31/24 07:30 12/31/24 07:30
<Odalis Serna MD - Last Filed: 12/29/24 20:34>
Update Note
Update Note:
Patient presents to the Emergency Department with ____suicidal ideation
Number and Complexity of Problems Addressed at the Encounter
� Chronic conditions affecting care:
� Acute Exacerbation and/or Progression of Chronic Illness:
� Differential Diagnosis includes: But not limited to depression, anxiety, etc.
Amount and/or Complexity of Data to be Reviewed and Analyzed
� I performed an independent evaluation of and my interpretation is:
EKG:
CT:
Xrays:nad
Laboratory Studies:
Other:
� Review of other/old records reveals:
� Clinical information was obtained by an independent historian: Case discussed with Devora casas at [phone], they state that patient sent here for potential suicidal ideation. They have already started making phone calls on
behalf of patient to try and find her placement however states that is extremely unlikely as she is well-known to multiple facilities all of whom refused the patient. In the meantime, I did place a consult to Dr. Blair, and notified him via [place]
text asking him to see her.
� Prescriptions/Medications Considered but not given:
� Further testing considered but not performed: I do not have clinical concerns for laboratory abnormalities, and highly doubt overdose as patient denies taking anything and physical exam/vitals, etc. unremarkable. We will
therefore avoid the trauma of laboratory evaluation at this time.
Risk of Complications and/or Morbidity or Mortality of Patient Management
� Social determinants of health affecting care:
� Discussion with other providers (PCP, Hospitalists, Consultants, etc):
� Escalation of care including admission/observation vs risk of discharge considered:8:03 PM Case discussed with crisis they believe that the facility is specifically looking into excepting her awaiting their call back. Patient
is agreeable to inpatient care. She is complaining of her typical back pain. I note that she is already on benzos and states that her pain management doctor is reluctant to prescribe her opioids in that context which I agree with. I offered her
either her nighttime medications that she typically would take or dose of tramadol, she elects tramadol.
<Chun Coyle MD - Last Filed: 12/31/24 12:43>
Update Note
Update Note:
Patient presents to the Emergency Department with ____suicidal ideation
Number and Complexity of Problems Addressed at the Encounter
� Chronic conditions affecting care:
� Acute Exacerbation and/or Progression of Chronic Illness:
� Differential Diagnosis includes: But not limited to depression, anxiety, etc.
Amount and/or Complexity of Data to be Reviewed and Analyzed
� I performed an independent evaluation of and my interpretation is:
EKG:
CT:
Xrays:nad
Laboratory Studies:
Other:
� Review of other/old records reveals:
� Clinical information was obtained by an independent historian: Case discussed with Devora casas at [phone], they state that patient sent here for potential suicidal ideation. They have already started making phone calls on
behalf of patient to try and find her placement however states that is extremely unlikely as she is well-known to multiple facilities all of whom refused the patient. In the meantime, I did place a consult to Dr. Blair, and notified him via [place]
text asking him to see her.
� Prescriptions/Medications Considered but not given:
� Further testing considered but not performed: I do not have clinical concerns for laboratory abnormalities, and highly doubt overdose as patient denies taking anything and physical exam/vitals, etc. unremarkable. We will
therefore avoid the trauma of laboratory evaluation at this time.
Risk of Complications and/or Morbidity or Mortality of Patient Management
� Social determinants of health affecting care:
� Discussion with other providers (PCP, Hospitalists, Consultants, etc):
� Escalation of care including admission/observation vs risk of discharge considered:8:03 PM Case discussed with crisis they believe that the facility is specifically looking into excepting her awaiting their call back. Patient
is agreeable to inpatient care. She is complaining of her typical back pain. I note that she is already on benzos and states that her pain management doctor is reluctant to prescribe her opioids in that context which I agree with. I offered her
either her nighttime medications that she typically would take or dose of tramadol, she elects tramadol.
Cleared by psychiatry for discharge.
ED Attending Note
<Odalis Serna MD - Last Filed: 12/29/24 20:34>
-
Portions of this chart may have been created with voice recognition software.� Occasional wrong word or��sound alike� substitutions may have occurred due to the inherent limitations of voice recognition software.
Discharge Plan
Departure
Patient Disposition: Home (Routine Discharge)
Date of Disposition: 12/29/24
Time of Disposition: 20:04
Patient with high blood pressure during this ER visit?: Yes
Discharge Problem:
Depression
Instructions: Depression, Adult (DC), BLOOD PRESSURE
Prescriptions:
No Action
levothyroxine 25 mcg Tablet
25 mcg PO DAILY
clonidine HCl 0.1 mg tablet
0.1 mg PO HS
metformin 500 mg tablet
500 mg PO BID
famotidine 40 mg tablet
40 mg PO DAILY
gabapentin 800 mg tablet
800 mg PO TID
ergocalciferol (vitamin D2) [Vitamin D2] 1,250 mcg (50,000 unit) capsule
1,250 mcg PO MO
Linzess 145 mcg capsule
145 mcg PO DAILY
cyanocobalamin (vitamin B-12) 1,000 mcg Tablet, Sublingual
1,000 mcg SUBLINGUAL DAILY
melatonin 5 mg Tablet
5 mg PO HS
diazepam [Valium] 5 mg Tablet
5 mg PO DAILY
Rx Instructions:
am
omeprazole 40 mg Capsule,Delayed Release(Dr/Ec)
40 mg PO DAILY
Rx Instructions:
am
trazodone 150 mg Tablet
300 mg PO HS
diazepam 5 mg Tablet
2.5 mg PO DAILYPRN PRN (Reason: anxiety)
chlorpromazine 50 mg Tablet
50 mg PO HS
Ubrelvy 100 mg Tablet
100 mg PO DAILY PRN (Reason: migraine)
methocarbamol 500 mg Tablet
500 mg PO QIDPRN PRN (Reason: muscle spasms)
ibuprofen 200 mg tablet
400 - 600 mg PO Q6HPRN PRN (Reason: moderate pain) Qty: 1 0RF
celecoxib [Celebrex] 200 mg capsule
200 mg PO BID Qty: 20 0RF
tramadol 50 mg tablet
50 mg PO Q8H PRN (Reason: Pain) Qty: 8 0RF
diphenhydramine HCl [Benadryl] 50 mg Capsule
50 mg PO HS
magnesium glycinate 100 mg Tablet
400 mg PO DAILY
riboflavin (vitamin B2) 400 mg Tablet
400 mg PO DAILY
cholecalciferol (vitamin D3) [Vitamin D3] 25 mcg (1,000 unit) Tablet
25 mcg PO DAILY
Referrals:
UNKNOWN,NO INTERVIEW [Family Provider] -
Activity Restrictions/Additional Instructions:
Follow-up per the psychiatrist and crisis
Interventions
Interventions:
*Risk Screen - Suicide Last Done: 12/29/24 12:47
*General Assessment Last Done: 12/29/24 18:00
*Neglect/Abuse Screening Last Done: 12/29/24 12:47
*ED- Fall Risk Assessment Last Done: 12/29/24 18:38
*ED COVID-19 Vaccine History Last Done: 12/30/24 11:22
ED-Psychological Assessment Last Done: 12/29/24 15:37
Discharge Date and Time
Print Language: LATVIAN
--- NOTE | 2024-12-29 16:16 | W.PN.UPDATE ---
Update Note
Progress Note Update
Pt is 39 yo female with Borderline personality d/o, hx of PTSD, referred to Crisis by outpatient therapist at [facility] due to plan to OD. Pt reportedly picking at laparoscopic incision points on her abdomen from recent gall bladder procedure. Pt
states she does not feel safe at home, afraid alternate identities may come to the front, reports she is not sleeping much. Caplyta was recently stopped due to concern for potential cardiac risks. Pt alert, mildly agitated, pacing, asking when
her toes will be X-ray'd. Speech coherent, thought circumstantial, no overt psychosis. Affect appropriate, mood depressed and irritable.
Imp: Unspecified Depressive d/o, with active SI to OD
PTSD by hx
Rec: Inpatient psychiatric tx on voluntary basis, with back-up 302 petition by pt's Outpatient therapist
Will continue Outpatient psych med regimen; will follow
[2024-12-29] MEDS: MOTRIN 600 MG PO (16:55)
[2024-12-29 17:17] LABS: Hematocrit 36.1 % (37.0-47.0); Hemoglobin 12.3 g/dL (12.0-16.0); Mean Corp Hgb Conc. 34.1 g/dL (33.0-37.0); Mean Corpuscular Hgb 29.1 pg (27.0-31.0); Mean Corpuscular Volume 85.5 fL (81.0-99.0); Mean Platelet Volume 10.7 fL (7.4-10.4); Platelet Count 293 10^3/uL (130-400); Red Blood Cell Count 4.22 10^6/uL (4.20-5.40); Red Cell Dist. Width 14.2 % (11.5-14.5); White Blood Cell Count 8.5 10^3/uL (4.8-10.8)
[2024-12-29 17:30] LABS: ALT (SGPT) 22 U/L (0-35); AST (SGOT) 19 U/L (14-36); Albumin 4.1 g/dl (3.5-5.0); Alkaline Phosphatase 84 U/L (38-126); Blood Urea Nitrogen 11 mg/dl (7-17); Calcium 9.6 mg/dl (8.4-10.2); Carbon Dioxide 27 mmol/L (22-30); Chloride 103 mmol/L (98-107); Glucose 119 mg/dl (70-99); HCG, Serum Qualitative Screen Negative; Potassium 4.2 mmol/L (3.5-5.1); Sodium 138 mmol/L (135-145); Total Bilirubin 0.3 mg/dl (0.2-1.3); Total Protein 6.6 g/dl (6.3-8.2); eGFR > 60.00
[2024-12-29 18:00] VITALS: BP 128/84
[2024-12-29] MEDS: ULTRAM 100 MG PO (20:08)
[2024-12-29 21:46] LABS: Acetaminophen < 10 ug/ml (10-30)
[2024-12-29] MEDS: NEURONTIN 800 MG PO (23:37)
[2024-12-29] MEDS: VALIUM 2.5 MG PO (23:38)
[2024-12-29] MEDS: BENADRYL 50 MG PO (23:38)
[2024-12-29] MEDS: THORAZINE 50 MG PO (23:39)
[2024-12-29] MEDS: CATAPRES 0.1 MG PO (23:39)
[2024-12-29] MEDS: MELATONIN 5 MG PO (23:39)
[2024-12-29] MEDS: DESYREL 300 MG PO (23:40)
[2024-12-29 23:46] LABS: Salicylate < 1.0 mg/dl (2.0-20.0)
[2024-12-30] VITALS: BP 132/86
[2024-12-30 04:20] VITALS: BP 126/74
[2024-12-30] MEDS: VALIUM 5 MG PO (08:37)
--- NOTE | 2024-12-30 09:40 | ED.CRISIS ---
Addendum entered and electronically signed by Keila Olmstead MD 12/30/24 13:26:
On reevaluation patient banging her hands and knees against a door. Patient asked multiple times to stop. However she is extremely agitated that she is still here. I did discuss with on-call psychiatrist Dr. Moreland who is upholding patient's
backup 302. He will order additional psychiatric medications. Patient is pending transfer awaiting acceptance.
Original Note:
ED Crisis Note
ED Crisis Note
Subjective:
Patient has no complaints except for wanting her gabapentin this AM. No acute events overnight. Did require haldol once.
Objective:
Patient pacing around room fixated on receiving her medications. Calm and cooperative
Assessment/Plan:
Pending inpatient psych placement
Will give AM meds. Patient requesting only gabapentin and does not want her other home meds at this time.
[2024-12-30] MEDS: NEURONTIN 800 MG PO ×2 (09:46→15:29)
[2024-12-30] MEDS: HALDOL 2.5 MG PO (12:53)
[2024-12-30 13:17] LABS: Amphetamines Negative (Negative); Barbiturates Negative (Negative); Benzodiazepines Positive (Negative); Buprenorphine Negative (Negative); Cocaine Negative (Negative); Marijuana Negative (Negative); Methadone Negative (Negative); Methamphetamines Negative (Negative); Opiates Negative (Negative); Phencyclidine Negative (Negative); Tricyclic Antidepressants Negative (Negative)
[2024-12-30 13:35] LABS: Fentanyl, Urine Negative (Negative)
--- NOTE | 2024-12-30 15:55 | W.PN.UPDATE ---
Update Note
Progress Note Update
Pt seen, reviewed with Crisis staff. Pt more agitated today, wanting to leave. However, on interview pt is angry, irritable, not willing to discuss a safety plan, not longer has [facility] ACT Team. Pt read an email exchange on her phone from this
morning in which her Outpatient therapist expressed concern about her safety and pt was angry and critical of the Crisis staff for not doing enough to get her placed. Later, pt was threatening to bang her face on the wall, called 911 c/o she is
being held against her will. The back-up 302 petition is in Crisis, but has not been activated yet. Pt increasingly disruptive, singing. Pt seen again with staff, security personnel, joined briefly by Dr Terrazas, who was able to redirect pt
regarding acting out. Pt was advised she does not appear stable for discharge today. Pt asked for items to keep her occupied, c/o being in the Crisis/C2 room- states it reminds her of a seclusion room she was kept in years ago.
Imp: Unspecified Depressive d/o, with reported SI to OD this weekend
PTSD by hx
Rec: Inpatient psychiatric tx on voluntary basis, with back-up 302 petition by pt's Outpatient therapist
Will continue Outpatient psych med regimen; added prn Haldol and Ativan. Will follow
[2024-12-30 22:30] VITALS: BP 127/78
[2024-12-30] MEDS: MELATONIN 5 MG PO (22:35)
[2024-12-30] MEDS: CATAPRES 0.1 MG PO (22:35)
[2024-12-30] MEDS: DESYREL 300 MG PO (22:36)
[2024-12-30] MEDS: THORAZINE 50 MG PO (22:36)
[2024-12-30] MEDS: BENADRYL 50 MG PO (22:36)
[2024-12-31] MEDS: ULTRAM 50 MG PO (06:43)
[2024-12-31 07:30] VITALS: BP 119/82
--- NOTE | 2024-12-31 09:19 | ED.CRISIS ---
ED Crisis Note
ED Crisis Note
Subjective:
Daily meds requested by RN. Patient has remained medically stable.
Assessment/Plan:
Pending inpatient psych placement
Psychiatric meds ordered by psychiatry. Meds were confirmed by RN. Additional nonpsychiatric daily meds were ordered
[2024-12-31] MEDS: PROTONIX 40 MG PO (09:28)
[2024-12-31] MEDS: VALIUM 5 MG PO (09:28)
[2024-12-31] MEDS: PEPCID 40 MG PO (09:28)
[2024-12-31] MEDS: SYNTHROID 25 MCG PO (09:28)
[2024-12-31] MEDS: NEURONTIN 800 MG PO (09:52)
[2024-12-31] MEDS: CELEBREX 200 MG PO (09:53)
[2024-12-31] MEDS: LINZESS 145 MCG PO (09:53)
[2024-12-31] MEDS: VITAMIN D3 (cholecalciferol) 25 MCG PO (11:21)
[2024-12-31] MEDS: VITAMIN B-12 1000 MCG PO (12:25)
--- NOTE | 2024-12-31 12:50 | EDRN ---
Discharge instructions reviewed with patient. Verbalized understanding. Patient being taken to [facility] by security.
--- NOTE | 2024-12-31 14:49 | W.PN.UPDATE ---
Update Note
Progress Note Update
patient seen chart reviewed. patient is very well known to me from prior treatment at [facility] in the [facility] in out pt and in crisis. she came to crisis yesterday after a session with her therapist judge at [facility]. ms judge advised her to come to the
crisis center for admit as florinda had expressed si. ms judge filed a backup 302 which was not called in to the delegate. . i did review the backup petition in which therapist said the she was threatening self harm and si as mother's day
approached and she was feeling the loss of her son who is adopted and whom she will not see until next month. no bed was found for her and she asked to see me to talk about being able to leave to meet with her therapist gennaro at 2pm. she said she
was going to try to secure a ride to [facility] with her survey interviewer who had gone home and if that was not possible could we give her a ride. she was denying that she was actively suicidal at this moment acknowledging that suicidal thoughts could come back
again but she felt she was safe at this point and would followup with her [facility] therapists and her prescriber dr garza. when she was unable to secure a ride crisis managed to enlist the help of security who got her over to [facility]. florinda knows how to
seek psych help at this point if she needs to.
== END 2024-12-31 12:54 | disposition home or self-care (01) ==
LOC: EMR 12:37
PROVIDERS: CONSULT PHYSICIAN Psychiatry & Neurology Psychiatry; EMERGENCY PHYSICIAN Emergency Medicine
DX: F31.9 Bipolar disorder, unspecified (principal); R00.0 Tachycardia, unspecified; J45.909 Unspecified asthma, uncomplicated; I10 Essential (primary) hypertension; E03.9 Hypothyroidism, unspecified; F41.9 Anxiety disorder, unspecified; G47.30 Sleep apnea, unspecified; I42.9 Cardiomyopathy, unspecified; F17.200 Nicotine dependence, unspecified, uncomplicated; Z80.0 Family history of malignant neoplasm of digestive organs; Z83.3 Family history of diabetes mellitus; Z83.49 Family history of other endocrine, nutritional and metabolic diseases; Z86.718 Personal history of other venous thrombosis and embolism; Z87.820 Personal history of traumatic brain injury; Z90.49 Acquired absence of other specified parts of digestive tract; Z91.51 Personal history of suicidal behavior
CPT/HCPCS: 73630; 80053; 80143; 80179; 80306; 80307; 84703; 85027; 99283

== ENCOUNTER 2025-01-02 15:25 | Emergency (ER) | payer OTHER, SELFPAY ==
[2025-01-02 15:26] VITALS: BMI 39.6
[2025-01-02 15:34] VITALS: BP 105/55
--- NOTE | 2025-01-02 15:43 | ED.GENMED ---
History of Present Illness
<Carlos Santos, DO - Last Filed: 01/02/25 18:22>
General
Chief Complaint: Suicidal Ideation
Time Seen by Provider: 01/02/25 15:39
<Courtney Fay NAIL TECH - Last Filed: 01/03/25 16:14>
General
Source: patient and ambulance crew
Exam Limitations: none
History of Present Illness
History of Present Illness:
39 yo female very well known to us for numerous threats of suicide, overdosing, has had Tylenol overdose in past, presents stating she left [place] this a.m. 'because the County to me I had to do Partial and that doesn't help.' States 'so I told
them to discharge me...they asked me if I'm sure I want to be discharged and I said yes and I'm going to go home and overdose.' She states she wants to kill herself by overdose, states she took 'pills' but is refusing to say what pills.
Dr. Santos in and she reports to him that she took '28 Eliquis and 20 Tylenol' at 12 noon. She is asking to speak to Crisis.
Past History
<Courtney Fay, NAIL TECH - Last Filed: 01/03/25 16:14>
Past History
ED Past Medical History: Arrthythmia (Tachycardia), Asthma, HTN, Seizures, Hypothyroidism, Psychiatric (Bipolar, PTSD, suicide attempts, Anxiety/Depression, Borderline personality, ) and Other (TBI 2005, migraines, Cardiomyopathy,
Subarachnoid/Subdural hemorrhage, Intraparenchymal hem, Sleep apnea, GI bleeding, Pernicious anemia, ADHD, DVT with IVC filter)
ED Past Surgical History: Cholecystectomy, , Orthopedic (R and left knee surgery, Carlos L leg removed, Left arm plate, Right wrist surgery, ) and Other (Green field filter)
Social History
Tobacco: Smoker
Alcohol: None
Drug: Other (Took a Hemp gummy this a.m.)
Personal: Single
Living: alone
Employment: Disabled
Family History
Family History: Other (Diabetes, colon cancer, thyroid disease)
Review of Systems
<Courtney Fay NAIL TECH - Last Filed: 01/03/25 16:14>
Review of Systems
Allergies reviewed?: Yes
All Other Systems: ROS reviewed and negative except as documented in HPI and ROS
Constitutional: Denies fever
Respiratory: Denies trouble breathing
Cardiac: Denies chest pain
ABD/GI: Denies abdominal pain, nausea, vomiting or diarrhea
: Denies dysuria
Musculoskeletal: Reports no symptoms
Skin: Reports no symptoms
Neurological: Reports no symptoms
Psychiatric: Reports suicidal
Phy Exam
<Courtney Fay, NAIL TECH - Last Filed: 01/03/25 16:14>
Physical Exam
Physical Exam:
GENERAL: No acute distress. A&Ox3.
CONSTITUTIONAL: Afebrile.
EYES: clear, conjunctivae normal
ENMT: moist mucus membranes
RESPIRATORY: Regular respirations, nonlabored, lungs clear.
CARDIOVASCULAR: Regular rate and rhythm, no murmurs, no rubs.
GI: Soft, nontender, normal BS
MUSCULOSKELETAL: Moves with ease. Well perfused.
SKIN: Warm, dry, pink
PSYCH: Indignant mood and affect. Stating she will only let who she names personnel know what she took, will only see certain Crisis workers, not others
NEUROLOGIC: Awake, alert and oriented. No focal neurological deficits
Course
<Carlos Santos, DO - Last Filed: 01/02/25 18:22>
Orders/Labs/Results
Orders:
Orders
01/02/25 15:37
1:1 Observation - Suicide/ Violent Behavior As Directed
01/02/25 16:02
Crisis Consult Urgent
Reason for Consult: reported overdose
01/02/25 16:05
Fentanyl, Urine Urgent
Urine Drug Abuse Screen Urgent
Date Specimen was Collected: 01/02/25
Time Specimen was Collected: 16:02
01/02/25 16:17
Electrocardiogram (*1) Urgent
Reason for Study: QTc Monitoring
EKG- Treatment ONCE
01/02/25 16:36
Acetaminophen Urgent
Complete Blood Count/With Diff Urgent
Comprehensive Metabolic Panel Urgent
Salicylate Urgent
01/02/25 18:44
Protime/PTT Urgent
01/02/25 23:43
Ondansetron Orally Disint [Zofran Odt (Orally Disintegrating)] 4 mg .ROUTE .STK-MED ONE
01/02/25 23:45
Ondansetron Orally Disint [Zofran Odt (Orally Disintegrating)] 4 mg PO NOW STA
01/03/25 01:08
Melatonin 5 mg PO NOW STA
01/03/25 01:26
Chlorpromazine [Thorazine] 50 mg PO NOW STA
01/03/25 01:27
Trazodone [Desyrel] 300 mg PO NOW STA
01/03/25 02:14
Ondansetron Orally Disint [Zofran Odt (Orally Disintegrating)] 4 mg .ROUTE .STK-MED ONE
01/03/25 02:15
Ondansetron Orally Disint [Zofran Odt (Orally Disintegrating)] 4 mg PO NOW STA
01/03/25 05:18
Acetaminophen Urgent
Complete Blood Count/No Diff Urgent
Prothrombin Time Urgent
01/03/25 06:00
Linaclotide [Linzess] 72 mcg PO DAILY @ 0600
01/03/25 06:36
PSYCHIATRY CONSULT Urgent
Consulting Provider: Valeriano Peck
Was physician already notified: No
Reason for consult: 302, intentional OD eliquis and tylenol.
01/03/25 06:39
Consult Notification Routine
Specialty to Notify: Psychiatry
Date consulting provider notified: 01/03/25
Time consulting provider notified: 09:00
Notified:: Provider
01/03/25 08:56
Pantoprazole [Protonix] 40 mg PO NOW STA
01/03/25 08:58
Haloperidol Lactate [Haldol] 5 mg IM NOW STA
Lorazepam [Ativan] 1 mg IM NOW STA
01/03/25 09:00
Famotidine [Pepcid] 40 mg PO DAILY
Levothyroxine [Synthroid] 25 mcg PO DAILY @ 0600
01/03/25 09:17
Diazepam [Valium] 5 mg PO NOW STA
01/03/25 09:19
Haloperidol Lactate [Haldol] 5 mg .ROUTE .STK-MED ONE
01/03/25 10:20
Haloperidol Lactate [Haldol] 10 mg IM NOW STA
Lorazepam [Ativan] 2 mg IM NOW STA
01/03/25 16:00
Gabapentin [Neurontin] 800 mg PO TID
Abnormal Lab Results
01/02/25 01/02/25 01/02/25
16:05 16:36 18:44
RBC 3.84 L 10^6/uL
(4.20-5.40)
Hgb 11.2 L g/dL
(12.0-16.0)
Hct 32.7 L %
(37.0-47.0)
MPV 10.7 H fL
(7.4-10.4)
Immature Gran % 0.6 H %
(0-0.5)
PT 40.5 H Sec
(11.4-14.6)
APTT 132.5 H Sec
(23.4-35.0)
Glucose 116 H mg/dl
(70-99)
Salicylates < 1.0 L mg/dl
(2.0-20.0)
Acetaminophen 74 H ug/ml
(30)
U Benzodiazepines Scrn Positive H
(Negative)
01/03/25
05:18
RBC 3.97 L 10^6/uL
(4.20-5.40)
Hgb 11.6 L g/dL
(12.0-16.0)
Hct 34.5 L %
(37.0-47.0)
MPV 10.6 H fL
(7.4-10.4)
Immature Gran %
PT 17.7 H Sec
(11.4-14.6)
APTT
Glucose
Salicylates
Acetaminophen < 10 L ug/ml
(06-25)
U Benzodiazepines Scrn
01/03/25 05:18
01/02/25 16:36
Vital Signs
Initial and Last Documented VS:
Initial Vital Signs
Temp Pulse Resp BP Pulse Ox
98.2 F 95 18 105/55 98
01/02/25 15:34 01/02/25 15:34 01/02/25 15:34 01/02/25 15:34 01/02/25 15:34
Last Documented Vital Signs
Temp Pulse Resp BP Pulse Ox
98.2 F 96 16 134/79 98
01/02/25 15:34 01/03/25 13:30 01/03/25 13:30 01/03/25 13:30 01/03/25 13:30
<Courtney Fay, NAIL TECH - Last Filed: 01/03/25 16:14>
Orders/Labs/Results
Orders:
Orders
01/02/25 15:37
1:1 Observation - Suicide/ Violent Behavior As Directed
01/02/25 16:02
Crisis Consult Urgent
Reason for Consult: reported overdose
01/02/25 16:05
Fentanyl, Urine Urgent
Urine Drug Abuse Screen Urgent
Date Specimen was Collected: 01/02/25
Time Specimen was Collected: 16:02
01/02/25 16:17
Electrocardiogram (*1) Urgent
Reason for Study: QTc Monitoring
EKG- Treatment ONCE
01/02/25 16:36
Acetaminophen Urgent
Complete Blood Count/With Diff Urgent
Comprehensive Metabolic Panel Urgent
Salicylate Urgent
01/02/25 18:44
Protime/PTT Urgent
01/02/25 23:43
Ondansetron Orally Disint [Zofran Odt (Orally Disintegrating)] 4 mg .ROUTE .STK-MED ONE
01/02/25 23:45
Ondansetron Orally Disint [Zofran Odt (Orally Disintegrating)] 4 mg PO NOW STA
01/03/25 01:08
Melatonin 5 mg PO NOW STA
01/03/25 01:26
Chlorpromazine [Thorazine] 50 mg PO NOW STA
01/03/25 01:27
Trazodone [Desyrel] 300 mg PO NOW STA
01/03/25 02:14
Ondansetron Orally Disint [Zofran Odt (Orally Disintegrating)] 4 mg .ROUTE .STK-MED ONE
01/03/25 02:15
Ondansetron Orally Disint [Zofran Odt (Orally Disintegrating)] 4 mg PO NOW STA
01/03/25 05:18
Acetaminophen Urgent
Complete Blood Count/No Diff Urgent
Prothrombin Time Urgent
01/03/25 06:00
Linaclotide [Linzess] 72 mcg PO DAILY @ 0600
01/03/25 06:36
PSYCHIATRY CONSULT Urgent
Consulting Provider: Valeriano Peck
Was physician already notified: No
Reason for consult: 302, intentional OD eliquis and tylenol.
01/03/25 06:39
Consult Notification Routine
Specialty to Notify: Psychiatry
Date consulting provider notified: 01/03/25
Time consulting provider notified: 09:00
Notified:: Provider
01/03/25 08:56
Pantoprazole [Protonix] 40 mg PO NOW STA
01/03/25 08:58
Haloperidol Lactate [Haldol] 5 mg IM NOW STA
Lorazepam [Ativan] 1 mg IM NOW STA
01/03/25 09:00
Famotidine [Pepcid] 40 mg PO DAILY
Levothyroxine [Synthroid] 25 mcg PO DAILY @ 0600
01/03/25 09:17
Diazepam [Valium] 5 mg PO NOW STA
01/03/25 09:19
Haloperidol Lactate [Haldol] 5 mg .ROUTE .STK-MED ONE
01/03/25 10:20
Haloperidol Lactate [Haldol] 10 mg IM NOW STA
Lorazepam [Ativan] 2 mg IM NOW STA
01/03/25 16:00
Gabapentin [Neurontin] 800 mg PO TID
Abnormal Lab Results
01/02/25 01/02/25 01/02/25
16:05 16:36 18:44
RBC 3.84 L 10^6/uL
(4.20-5.40)
Hgb 11.2 L g/dL
(12.0-16.0)
Hct 32.7 L %
(37.0-47.0)
MPV 10.7 H fL
(7.4-10.4)
Immature Gran % 0.6 H %
(0-0.5)
PT 40.5 H Sec
(11.4-14.6)
APTT 132.5 H Sec
(23.4-35.0)
Glucose 116 H mg/dl
(70-99)
Salicylates < 1.0 L mg/dl
(2.0-20.0)
Acetaminophen 74 H ug/ml
(10-30)
U Benzodiazepines Scrn Positive H
(Negative)
01/03/25
05:18
RBC 3.97 L 10^6/uL
(4.20-5.40)
Hgb 11.6 L g/dL
(12.0-16.0)
Hct 34.5 L %
(37.0-47.0)
MPV 10.6 H fL
(7.4-10.4)
Immature Gran %
PT 17.7 H Sec
(11.4-14.6)
APTT
Glucose
Salicylates
Acetaminophen < 10 L ug/ml
(10-30)
U Benzodiazepines Scrn
01/03/25 05:18
01/02/25 16:36
Vital Signs
Initial and Last Documented VS:
Initial Vital Signs
Temp Pulse Resp BP Pulse Ox
98.2 F 95 18 105/55 98
01/02/25 15:34 01/02/25 15:34 01/02/25 15:34 01/02/25 15:34 01/02/25 15:34
Last Documented Vital Signs
Temp Pulse Resp BP Pulse Ox
98.2 F 96 16 134/79 98
01/02/25 15:34 01/03/25 13:30 01/03/25 13:30 01/03/25 13:30 01/03/25 13:30
Piece Dyer consulted with Physician
Piece Dyer consulted with physician?: Yes
Name of Physician Consulted: Tom
<Diane Anderson, DO - Last Filed: 01/03/25 07:03>
Orders/Labs/Results
Orders:
Orders
01/02/25 15:37
1:1 Observation - Suicide/ Violent Behavior As Directed
01/02/25 16:02
Crisis Consult Urgent
Reason for Consult: reported overdose
01/02/25 16:05
Fentanyl, Urine Urgent
Urine Drug Abuse Screen Urgent
Date Specimen was Collected: 01/02/25
Time Specimen was Collected: 16:02
01/02/25 16:17
Electrocardiogram (*1) Urgent
Reason for Study: QTc Monitoring
EKG- Treatment ONCE
01/02/25 16:36
Acetaminophen Urgent
Complete Blood Count/With Diff Urgent
Comprehensive Metabolic Panel Urgent
Salicylate Urgent
01/02/25 18:44
Protime/PTT Urgent
01/02/25 23:43
Ondansetron Orally Disint [Zofran Odt (Orally Disintegrating)] 4 mg .ROUTE .STK-MED ONE
01/02/25 23:45
Ondansetron Orally Disint [Zofran Odt (Orally Disintegrating)] 4 mg PO NOW STA
01/03/25 01:08
Melatonin 5 mg PO NOW STA
01/03/25 01:26
Chlorpromazine [Thorazine] 50 mg PO NOW STA
01/03/25 01:27
Trazodone [Desyrel] 300 mg PO NOW STA
01/03/25 02:14
Ondansetron Orally Disint [Zofran Odt (Orally Disintegrating)] 4 mg .ROUTE .STK-MED ONE
01/03/25 02:15
Ondansetron Orally Disint [Zofran Odt (Orally Disintegrating)] 4 mg PO NOW STA
01/03/25 05:18
Acetaminophen Urgent
Complete Blood Count/No Diff Urgent
Prothrombin Time Urgent
01/03/25 06:00
Linaclotide [Linzess] 72 mcg PO DAILY @ 0600
01/03/25 06:36
PSYCHIATRY CONSULT Urgent
Consulting Provider: Valeriano Peck
Was physician already notified: No
Reason for consult: 302, intentional OD eliquis and tylenol.
01/03/25 06:39
Consult Notification Routine
Specialty to Notify: Psychiatry
Date consulting provider notified: 01/03/25
Time consulting provider notified: 09:00
Notified:: Provider
01/03/25 08:56
Pantoprazole [Protonix] 40 mg PO NOW STA
01/03/25 08:58
Haloperidol Lactate [Haldol] 5 mg IM NOW STA
Lorazepam [Ativan] 1 mg IM NOW STA
01/03/25 09:00
Famotidine [Pepcid] 40 mg PO DAILY
Levothyroxine [Synthroid] 25 mcg PO DAILY @ 0600
01/03/25 09:17
Diazepam [Valium] 5 mg PO NOW STA
01/03/25 09:19
Haloperidol Lactate [Haldol] 5 mg .ROUTE .STK-MED ONE
01/03/25 10:20
Haloperidol Lactate [Haldol] 10 mg IM NOW STA
Lorazepam [Ativan] 2 mg IM NOW STA
01/03/25 16:00
Gabapentin [Neurontin] 800 mg PO TID
Abnormal Lab Results
01/02/25 01/02/25 01/02/25
16:05 16:36 18:44
RBC 3.84 L 10^6/uL
(4.20-5.40)
Hgb 11.2 L g/dL
(12.0-16.0)
Hct 32.7 L %
(37.0-47.0)
MPV 10.7 H fL
(7.4-10.4)
Immature Gran % 0.6 H %
(0-0.5)
PT 40.5 H Sec
(11.4-14.6)
APTT 132.5 H Sec
(23.4-35.0)
Glucose 116 H mg/dl
(70-99)
Salicylates < 1.0 L mg/dl
(2.0-20.0)
Acetaminophen 74 H ug/ml
(10-30)
U Benzodiazepines Scrn Positive H
(Negative)
01/03/25
05:18
RBC 3.97 L 10^6/uL
(4.20-5.40)
Hgb 11.6 L g/dL
(12.0-16.0)
Hct 34.5 L %
(37.0-47.0)
MPV 10.6 H fL
(7.4-10.4)
Immature Gran %
PT 17.7 H Sec
(11.4-14.6)
APTT
Glucose
Salicylates
Acetaminophen < 10 L ug/ml
(1030)
U Benzodiazepines Scrn
01/03/25 05:18
01/02/25 16:36
Vital Signs
Initial and Last Documented VS:
Initial Vital Signs
Temp Pulse Resp BP Pulse Ox
98.2 F 95 18 105/55 98
01/02/25 15:34 01/02/25 15:34 01/02/25 15:34 01/02/25 15:34 01/02/25 15:34
Last Documented Vital Signs
Temp Pulse Resp BP Pulse Ox
98.2 F 96 16 134/79 98
01/02/25 15:34 01/03/25 13:30 01/03/25 13:30 01/03/25 13:30 01/03/25 13:30
Procedures
<Carlos Santos DO - Last Filed: 01/02/25 18:22>
IV Access
Indication: Physician skill needed
Performed by:: Carlos Santos DO
Site:: R arm
Gauge:: 20
Ultrasound Guidance: Yes
<Courtney Fay NP - Last Filed: 01/03/25 16:14>
MDM/Problems Addressed
Differential Diagnosis Includes:
overdose, suicidal
MDM/Problems Addressed:
39 yo female very well known to us for numerous threats of suicide, overdosing, has had Tylenol overdose in past, presents stating she left [place] this a.m. 'because the County to me I had to do Partial and that doesn't help.' States 'so I told
them to discharge me...they asked me if I'm sure I want to be discharged and I said yes and I'm going to go home and overdose.' She states she wants to kill herself by overdose, states she took 'pills' but is refusing to say what pills.
Dr. Santos in and she reports to him that she took '28 Eliquis and 20 Tylenol' at 12 noon. She is asking to speak to Crisis.
States the Eliquis is 'an old prescription, 5 mg tablets'
States the Tylenol was
Pt is awake, alert, oriented, speech clear. NAD
Dr. Santos in to evaluate.
5:00 p.m.
CBC unremarkable
CMP: normal
UDS: Positive benzodiazepines otherwise neg
Acetaminophen: 74 mildly elevated
spoke with Poison Control January, recommends check PT/INR, PTT, observe for 4 hours for bleeding.
8:30 p.m.
INR: 4.27
PT: 40.5
Pt denies possibly taking Coumadin, never was on Coumadin/Warfarin
Spoke with Poison Control again, informed of coag results. Recommends repeating coags in a.m. as well as CBC
Pt resting quietly, awaiting in pt placement from Crisis.
11:58 p.m.
Pt vomited once, Zofran given, no further vomiting. Pt OOB and ambulating in room, calm, conversing with tech.
Case discussed with Dr. Anderson who will assume care from this point.
Pt requesting to speak to Crisis again. The are informed
<Courtney Fay, NAIL TECH - Last Filed: 01/03/25 16:14>
*EKG
EKG Intrepretation Date: 01/02/25
Interpretation: normal
Heart Rate: 76
Rate: normal
Rhythm: sinus
[place]: normal axis
Interval: normal interval
QRS Pattern: normal QRS
Ischemia: no ischemia
<Diane Anderson, DO - Last Filed: 01/03/25 07:03>
*Critical Care Note
Total Time (30-74mins, 75-104mins- exclusive of procedures): Not Applicable
<Carlos Santos, DO - Last Filed: 01/02/25 18:22>
Update Note
Update Note:
4:30 PM patient refusing IV access by nursing staff. Due to being a hard stick, patient requesting ultrasound guidance IV. I placed 20-gauge IV in the right arm without difficulty
Tylenol level less than 150 at the 4-hour yareli. No evidence of transaminitis. Will continue to monitor until 8 PM per poison control given the Eliquis overdose. If no signs of bleeding, patient will be medically cleared
<Diane Anderson DO - Last Filed: 01/03/25 07:03>
Update Note
Update Note:
4:30 PM patient refusing IV access by nursing staff. Due to being a hard stick, patient requesting ultrasound guidance IV. I placed 20-gauge IV in the right arm without difficulty
Tylenol level less than 150 at the 4-hour yareli. No evidence of transaminitis. Will continue to monitor until 8 PM per poison control given the Eliquis overdose. If no signs of bleeding, patient will be medically cleared
06:30
Pt remains quite difficult, manipulative, various demands and overall uncooperative.
Initially requesting inpatient psychiatric treatment and now requesting to go home.
Complains of intermittent nausea without evidence of vomiting.
Initial PT/INR elevated at 4.27 concerning for significant Eliquis ingestion.
Initial acetaminophen level elevated at 74.
With intentional acetaminophen OD, history of unreliability, I have significant concern for potential toxic acetaminophen OD.
Due to significant concern for recurrent intentional overdose patient is not safe to be discharged to home. As such 302 petition has been filed and has been upheld by myself.
Repeat acetaminophen level reassuring at less than 10 and repeat INR reassuring at 1.43.
At this point patient is medically stable and cleared for psychiatric hospitalization.
I have placed a consult for psychiatry, to assist with management of this patient.
with history of multiple intentional overdoses, on a very frequent basis, ptaient is clearly unsafe to reside independently. 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
ED Attending Note
<Carlos Santos, DO - Last Filed: 01/02/25 18:22>
ED Attending Note
Patient seen and examined by attending physician: Yes
I performed the substantive portion of visit, reviewed & personally made and approve the management plan that is documented in note by myself or STEFAN.: Yes
ED Attending Note:
I have seen and evaluated the patient with a [id number] encounter. I have spoken to the advance practicer provider and involved in the medical history, the physical exam, medical decision making.
Evaluation and management service: agree unless noted differently below.
Results interpretation: agree unless noted differently below.
Focused HPI: 39-year-old presenting for evaluation of intentional overdose. Patient is a longstanding history of intentional overdose and suicidal ideations. Patient states she took 60 pills at 12:00. She states she thinks 20 tablets of 5 mg
Eliquis and approximately 20 tablets of Tylenol. She does not discuss the rest of the medication she takes.
Physical exam: Sitting in bed comfortably. Flat affect
Medical Decision Making: Given that it has been 4 hours since then, will obtain level, will obtain basic blood work. Crisis to evaluate
<Courtney Fay NP - Last Filed: 01/03/25 16:14>
-
Portions of this chart may have been created with voice recognition software.� Occasional wrong word or��sound alike� substitutions may have occurred due to the inherent limitations of voice recognition software.
Discharge Plan
Departure
Patient Disposition: Home (Routine Discharge)
Date of Disposition: 01/03/25
Time of Disposition: 06:50
Patient with high blood pressure during this ER visit?: No
Discharge Problem:
Intentional Eliquis overdose, Suicide attempt by acetaminophen overdose, Medical clearance for psychiatric admission
Instructions: Suicide Prevention
Prescriptions:
No Action
levothyroxine 25 mcg Tablet
25 mcg PO DAILY
clonidine HCl 0.1 mg tablet
0.1 mg PO HS
metformin 500 mg tablet
500 mg PO BID
famotidine 40 mg tablet
40 mg PO DAILY
gabapentin 800 mg tablet
800 mg PO TID
ergocalciferol (vitamin D2) [Vitamin D2] 1,250 mcg (50,000 unit) capsule
1,250 mcg PO MO
Linzess 145 mcg capsule
145 mcg PO DAILY
cyanocobalamin (vitamin B-12) 1,000 mcg Tablet, Sublingual
1,000 mcg SUBLINGUAL DAILY
melatonin 5 mg Tablet
5 mg PO HS
diazepam [Valium] 5 mg Tablet
5 mg PO DAILY
Rx Instructions:
am
omeprazole 40 mg Capsule,Delayed Release(Dr/Ec)
40 mg PO DAILY
Rx Instructions:
am
trazodone 150 mg Tablet
300 mg PO HS
diazepam 5 mg Tablet
2.5 mg PO DAILYPRN PRN (Reason: anxiety)
chlorpromazine 50 mg Tablet
50 mg PO HS
Ubrelvy 100 mg Tablet
100 mg PO DAILY PRN (Reason: migraine)
methocarbamol 500 mg Tablet
500 mg PO QIDPRN PRN (Reason: muscle spasms)
ibuprofen 200 mg tablet
400 - 600 mg PO Q6HPRN PRN (Reason: moderate pain) Qty: 1 0RF
celecoxib [Celebrex] 200 mg capsule
200 mg PO BID Qty: 20 0RF
tramadol 50 mg tablet
50 mg PO Q8H PRN (Reason: Pain) Qty: 8 0RF
diphenhydramine HCl [Benadryl] 50 mg Capsule
50 mg PO HS
magnesium glycinate 100 mg Tablet
400 mg PO DAILY
riboflavin (vitamin B2) 400 mg Tablet
400 mg PO DAILY
cholecalciferol (vitamin D3) [Vitamin D3] 25 mcg (1,000 unit) Tablet
25 mcg PO DAILY
Referrals:
Ever West MD [Family Provider] -
Interventions
Interventions:
*Risk Screen - Suicide Last Done: 01/02/25 15:36
*General Assessment Last Done: 01/02/25 15:37
*Neglect/Abuse Screening Last Done: 01/02/25 15:36
*ED- Fall Risk Assessment Last Done: 01/02/25 15:38
*ED COVID-19 Vaccine History Last Done: 01/03/25 13:32
*Nursing Disposition Last Done: 01/03/25 13:32
ED-Psychological Assessment Last Done: 01/02/25 21:15
Discharge Date and Time
Discharge Date/Time: 01/03/25 14:00
Print Language: GEORGIAN
[2025-01-02 16:36] LABS: Amphetamines Negative (Negative); Barbiturates Negative (Negative); Benzodiazepines Positive (Negative); Buprenorphine Negative (Negative); Cocaine Negative (Negative); Marijuana Negative (Negative); Methadone Negative (Negative); Methamphetamines Negative (Negative); Opiates Negative (Negative); Phencyclidine Negative (Negative); Tricyclic Antidepressants Negative (Negative)
[2025-01-02 16:48] LABS: % Basophils 0.6 % (0-2); % Eosinophils 2.4 % (0-6); % Immature Granulocytes 0.6 % (0-0.5); % Lymphocytes 23.5 % (20.5-51.1); % Monocytes 4.7 % (1.7-9.3); % Neutrophils 68.2 % (42.2-75.2); Absolute Eosinophils 0.2 10^3/uL (0-0.7); Absolute Lymphocytes 1.5 10^3/uL (1.2-3.4); Absolute Monocytes 0.3 10^3/uL (0.1-0.6); Absolute Neutrophils 4.5 10^3/uL (1.4-6.5); Hematocrit 32.7 % (37.0-47.0); Hemoglobin 11.2 g/dL (12.0-16.0); Mean Corp Hgb Conc. 34.3 g/dL (33.0-37.0); Mean Corpuscular Hgb 29.2 pg (27.0-31.0); Mean Corpuscular Volume 85.2 fL (81.0-99.0); Mean Platelet Volume 10.7 fL (7.4-10.4); Nucleated Red Blood Cells % 0 %; Platelet Count 244 10^3/uL (130-400); Red Blood Cell Count 3.84 10^6/uL (4.20-5.40); Red Cell Dist. Width 13.8 % (11.5-14.5); White Blood Cell Count 6.6 10^3/uL (4.8-10.8)
[2025-01-02 16:51] LABS: Fentanyl, Urine Negative (Negative)
[2025-01-02 17:26] LABS: ALT (SGPT) 21 U/L (0-35); AST (SGOT) 20 U/L (14-36); Albumin 4.3 g/dl (3.5-5.0); Alkaline Phosphatase 96 U/L (38-126); Blood Urea Nitrogen 12 mg/dl (7-17); Calcium 8.9 mg/dl (8.4-10.2); Carbon Dioxide 24 mmol/L (22-30); Chloride 104 mmol/L (98-107); Glucose 116 mg/dl (70-99); Potassium 4.5 mmol/L (3.5-5.1); Sodium 137 mmol/L (135-145); Total Bilirubin 0.4 mg/dl (0.2-1.3); Total Protein 6.4 g/dl (6.3-8.2); eGFR > 60.00
[2025-01-02 17:36] LABS: Acetaminophen 74 ug/ml (10-30); Salicylate < 1.0 mg/dl (2.0-20.0)
[2025-01-02 19:06] LABS: INR 4.27; PT 40.5 Sec (11.4-14.6)
[2025-01-02 19:08] LABS: APTT 132.5 Sec (23.4-35.0)
[2025-01-02 21:13] VITALS: BP 110/55
[2025-01-02] MEDS: ZOFRAN ODT (ORALLY DISINTEGRATING) 4 MG PO (23:45)
[2025-01-03 00:27] VITALS: BP 97/53
--- NOTE | 2025-01-03 00:29 | PTCARENOTE ---
Pt refused lab work at this time stating that she is a tough stick and doesn't have any veins left. RN offered to look with the US with the primary attempt. This was refused. Pt stated that we could grab it in the AM with her 'Bleeding labs'. VS
obtained. made aware.
[2025-01-03] MEDS: ZOFRAN ODT (ORALLY DISINTEGRATING) 4 MG PO (02:16)
[2025-01-03 05:23] LABS: Hematocrit 34.5 % (37.0-47.0); Hemoglobin 11.6 g/dL (12.0-16.0); Mean Corp Hgb Conc. 33.6 g/dL (33.0-37.0); Mean Corpuscular Hgb 29.2 pg (27.0-31.0); Mean Corpuscular Volume 86.9 fL (81.0-99.0); Mean Platelet Volume 10.6 fL (7.4-10.4); Platelet Count 254 10^3/uL (130-400); Red Blood Cell Count 3.97 10^6/uL (4.20-5.40); Red Cell Dist. Width 13.8 % (11.5-14.5); White Blood Cell Count 6.8 10^3/uL (4.8-10.8)
[2025-01-03 05:41] LABS: Acetaminophen < 10 ug/ml (10-30)
[2025-01-03 05:42] LABS: INR 1.43; PT 17.7 Sec (11.4-14.6)
--- NOTE | 2025-01-03 09:00 | ED.CRISIS ---
Addendum entered and electronically signed by Valeriano Johnson DO 01/03/25 14:47:
Pt seen by psychiatry who has cleared pt from the 302. Pt will, therefore, be discharged. See Dr. Peck's note for details and decision making.
Original Note:
ED Crisis Note
ED Crisis Note
Subjective:
Pt agitated, unhappy she is being 302'ed. She wants to be sedated
Objective:
Awake, agitated, banging on door.
Assessment/Plan:
Pt presented for an ingestion that was potentially serious and life threatening. Caterina presents a difficult dilemma.....she has alienated, due to difficult and confrontational behavior. Her ingestions, though sometimes very serious, seem less about
killing herself and more related to gaining attention and manipulating those around her. She has frequently been cleared from 302 after ingestions. I agree that she needs to be seen by a psychiatrist based on this ingestion but realize her pattern
of behavior is unlikely to change even with inpatient treatment. I will accept psychiatrist opinion on upholding 302 or not. I will order her daily meds and Haldol/Ativen to control her current agitation.
[2025-01-03] MEDS: VALIUM 5 MG PO (09:24)
[2025-01-03] MEDS: SYNTHROID 25 MCG PO (09:25)
[2025-01-03] MEDS: PEPCID 40 MG PO (09:25)
[2025-01-03] MEDS: ATIVAN 2 MG IM (10:28)
[2025-01-03] MEDS: HALDOL 10 MG IM (10:28)
--- NOTE | 2025-01-03 13:20 | W.PN.UPDATE ---
Update Note
Progress Note Update
Psychiatric Evaluation dictated.
Patient at this point states that she no longer has suicidal thoughts. She admits to dysphoria but denies hopelessness or helplessness. Appetite is stable, denies insomnia.
She has a psychiatrist at [facility] as well as a therapist.
Discussed with woodworker helper who tried to identify a bed but none was available on ether voluntary or involuntary basis.
Patient was told to return if she develops self destructive thoughts.
[2025-01-03 13:30] VITALS: BP 134/79
== END 2025-01-03 14:00 | disposition home or self-care (01) ==
LOC: EMR 15:25
PROVIDERS: Registered Nurse; CONSULT PHYSICIAN Psychiatry & Neurology Psychiatry; EMERGENCY PHYSICIAN Student in an Organized Health Care Education/Training Program; FAMILY PHYSICIAN Psychiatry & Neurology Psychiatry
DX: T39.1X2A Poisoning by 4-Aminophenol derivatives, intentional self-harm, initial encounter (principal); T45.512A Poisoning by anticoagulants, intentional self-harm, initial encounter; Y92.9 Unspecified place or not applicable; J45.909 Unspecified asthma, uncomplicated; I10 Essential (primary) hypertension; E03.9 Hypothyroidism, unspecified; F31.9 Bipolar disorder, unspecified; F41.9 Anxiety disorder, unspecified; F60.3 Borderline personality disorder; F90.9 Attention-deficit hyperactivity disorder, unspecified type; G47.30 Sleep apnea, unspecified; I42.9 Cardiomyopathy, unspecified; F17.200 Nicotine dependence, unspecified, uncomplicated; Z59.01 Sheltered homelessness; Z60.2 Problems related to living alone; Z62.898 Other specified problems related to upbringing; Z79.899 Other long term (current) drug therapy; Z80.0 Family history of malignant neoplasm of digestive organs; Z83.3 Family history of diabetes mellitus; Z83.49 Family history of other endocrine, nutritional and metabolic diseases; Z86.718 Personal history of other venous thrombosis and embolism; Z87.820 Personal history of traumatic brain injury; Z88.8 Allergy status to other drugs, medicaments and biological substances; Z90.49 Acquired absence of other specified parts of digestive tract; Z91.51 Personal history of suicidal behavior
CPT/HCPCS: 99283; 96372; 80053; 80143; 80179; 80306; 80307; 85025; 85027; 85610; 85730; 93005

== ENCOUNTER 2025-01-07 14:15 | Emergency (ER) | payer OTHER, SELFPAY ==
[2025-01-07 14:18] VITALS: BP 148/101
--- NOTE | 2025-01-07 14:43 | ED.GENMED ---
History of Present Illness
General
Chief Complaint: Crisis Evaluation
Source: patient and records
Exam Limitations: none
Time Seen by Provider: 01/07/25 14:26
Nursing documentation reviewed up to this point in time: agreed with
History of Present Illness
History of Present Illness:
39-year-old female with history as noted well-known to this emergency room with repeated visits for suicidal ideation and multiple prior significant attempts at suicide via overdose presents to the emergency room once again complaining of
suicidality. Patient says that she had 'a bad day' and that she was having suicidal thoughts and that she was then overdosing to herself. She came to the emergency room for assessment. She denies taking any medications or attempt at self-harm
today. She says she feels very anxious. She denies any drug or alcohol use. Denies other acute complaints.
Past History
Past History
ED Past Medical History: Arrthythmia (Tachycardia), Asthma, HTN, Seizures, Hypothyroidism, Psychiatric (Bipolar, PTSD, suicide attempts, Anxiety/Depression, Borderline personality, ) and Other (TBI 2006, migraines, Cardiomyopathy,
Subarachnoid/Subdural hemorrhage, Intraparenchymal hem, Sleep apnea, GI bleeding, Pernicious anemia, ADHD, DVT with IVC filter)
ED Past Surgical History: Cholecystectomy, , Orthopedic (R and left knee surgery, Carlos L leg removed, Left arm plate, Right wrist surgery, ) and Other (Green field filter)
Social History
Tobacco: Smoker
Alcohol: None
Drug: Other (Took a Hemp gummy this a.m.)
Personal: Single
Living: alone
Employment: Disabled
Family History
Family History: Other (Diabetes, colon cancer, thyroid disease)
Review of Systems
Review of Systems
All Other Systems: ROS reviewed and negative except as documented in HPI and ROS
Psychiatric: Reports depression, anxiety and suicidal; Denies hallucinations
Phy Exam
Physical Exam
Physical Exam:
General: Well appearing and non-toxic
HEENT: protecting airway
Neck: appears supple
CV: No evidence of cyanosis
Resp: No accessory muscle use
Abd: Non-distended
Extremities: No deformities
Neuro: Alert
Psych: Flat affect, depressed mood
Skin: Intact
Scores
Heart Failure Risk
Heart Failure Risk Score: Not Applicable
Heart Score for Chest Pain Patients
STEMI patient?: Not applicable
Withdrawal Assessment of Alcohol
Withdrawal Assessment Completed?: Not applicable
Course
Orders/Labs/Results
Orders:
Orders
01/07/25 14:23
1:1 Observation - Suicide/ Violent Behavior As Directed
01/07/25 14:27
Crisis Consult Routine
Reason for Consult: SI
01/07/25 14:34
Acetaminophen Urgent
Alcohol Urgent
Comprehensive Metabolic Panel Urgent
HCG, Serum Qualitative Screen Urgent
Salicylate Urgent
Diazepam [Valium] 2 mg PO NOW STA
01/07/25 14:35
Test Result ONCE
01/07/25 14:44
Complete Blood Count/With Diff Urgent
01/07/25 14:58
Drug Screen, Urine [Urine Drug Abuse Screen] Urgent
Date Specimen was Collected: 01/07/25
Time Specimen was Collected: 14:56
Fentanyl, Urine Urgent
01/07/25 15:44
PSYCHIATRY CONSULT Urgent
Consulting Provider: Marguerite Arredondo
Was physician already notified: Yes
Abnormal Lab Results
01/07/25 01/07/25
14:44 14:58
RBC 4.18 L 10^6/uL
(4.20-5.40)
Hct 35.3 L %
(37.0-47.0)
MPV 10.6 H fL
(7.4-10.4)
Abs Immat Gran (auto) 0.1 H 10^3/uL
(0-0.05)
Immature Gran % 0.6 H %
(0-0.5)
Lymphocytes % 20.3 L %
(20.5-51.1)
U Benzodiazepines Scrn Positive H
(Negative)
01/07/25 14:44
Vital Signs
Initial and Last Documented VS:
Initial Vital Signs
Temp Pulse Resp BP Pulse Ox
37.1 C 123 16 148/101 98
01/07/25 14:18 01/07/25 14:18 01/07/25 14:18 01/07/25 14:18 01/07/25 14:18
Last Documented Vital Signs
Temp Pulse Resp BP Pulse Ox
37.1 C 123 16 148/101 98
01/07/25 14:18 01/07/25 14:18 01/07/25 14:18 01/07/25 14:18 01/07/25 14:18
MDM/Problems Addressed
Differential Diagnosis Includes:
Suicidal ideation, behavioral disorder
MDM/Problems Addressed:
39-year-old female returns to the ER for suicidal ideation. History of frequent visits for similar has had significant attempts in the past but denies any ingestion or self-harm today. Vitals and exam as above. Given her history we will check
labs, Tylenol salicylate levels, hCG, alcohol and UDS. Discussed with crisis for assessment. Monitor on continuous observation.
Crisis performed assessment, recommended inpatient treatment. Consult into psychiatry to follow-up pending placement�has been very difficult to place in the past.
We were able to get 1 tube of blood work on initial stick inpatient but patient would not allow for repeat attempted blood draw for the rest of her lab work. She insist that she did not take anything today and is refusing further blood work. She
is currently here voluntarily at this point I do not see any clear indication for involuntary commitment or any reason to force blood work upon this patient as she has a benign clinical exam.
Psychiatry performed full assessment of the patient and in their assessment patient is psychiatrically stable for discharge�patient says she feels better since she has been here and wants to leave. Will discharge with outpatient psychiatric
follow-up.
Chronic conditions affecting care:
BPD, depression, anxiety
Acute Exacerbation and/or Progression of Chronic Illness:
Acutely hypertensive without signs or symptoms of hypertensive crisis�no indication for emergent antihypertensives
Acute Exacerbation and/or Progression of Chronic Illness: HTN
*Pulse Oximetry
Patient hypoxic: no
*Critical Care Note
Total Time (30-74mins, 75-104mins- exclusive of procedures): Not Applicable
Data Reviewed
Review of Other/Old Records Reveals: Labs and Records
Source: patient and records
Patient Management
Discussion with other providers: New Car Driver (Discussed with psychiatry) and Other (Discussed with crisis staff)
ED Attending Note
-
Portions of this chart may have been created with voice recognition software.� Occasional wrong word or��sound alike� substitutions may have occurred due to the inherent limitations of voice recognition software.
Discharge Plan
Departure
Patient Disposition: Home (Routine Discharge)
Date of Disposition: 01/07/25
Time of Disposition: 14:48
Patient with high blood pressure during this ER visit?: Yes
Discharge Problem:
Suicidal ideation
Instructions: Depression, Adult (DC), Suicide prevention
Prescriptions:
No Action
levothyroxine 25 mcg Tablet
25 mcg PO DAILY
clonidine HCl 0.1 mg tablet
0.1 mg PO HS
metformin 500 mg tablet
500 mg PO BID
famotidine 40 mg tablet
40 mg PO DAILY
gabapentin 800 mg tablet
800 mg PO TID
ergocalciferol (vitamin D2) [Vitamin D2] 1,250 mcg (50,000 unit) capsule
1,250 mcg PO MO
Linzess 145 mcg capsule
145 mcg PO DAILY
cyanocobalamin (vitamin B-12) 1,000 mcg Tablet, Sublingual
1,000 mcg SUBLINGUAL DAILY
melatonin 5 mg Tablet
5 mg PO HS
diazepam [Valium] 5 mg Tablet
5 mg PO DAILY
Rx Instructions:
am
omeprazole 40 mg Capsule,Delayed Release(Dr/Ec)
40 mg PO DAILY
Rx Instructions:
am
trazodone 150 mg Tablet
300 mg PO HS
diazepam 5 mg Tablet
2.5 mg PO DAILYPRN PRN (Reason: anxiety)
chlorpromazine 50 mg Tablet
50 mg PO HS
Ubrelvy 100 mg Tablet
100 mg PO DAILY PRN (Reason: migraine)
methocarbamol 500 mg Tablet
500 mg PO QIDPRN PRN (Reason: muscle spasms)
ibuprofen 200 mg tablet
400 - 600 mg PO Q6HPRN PRN (Reason: moderate pain) Qty: 1 0RF
celecoxib [Celebrex] 200 mg capsule
200 mg PO BID Qty: 20 0RF
tramadol 50 mg tablet
50 mg PO Q8H PRN (Reason: Pain) Qty: 8 0RF
diphenhydramine HCl [Benadryl] 50 mg Capsule
50 mg PO HS
magnesium glycinate 100 mg Tablet
400 mg PO DAILY
riboflavin (vitamin B2) 400 mg Tablet
400 mg PO DAILY
cholecalciferol (vitamin D3) [Vitamin D3] 25 mcg (1,000 unit) Tablet
25 mcg PO DAILY
Referrals:
UNKNOWN - PT NOT,INTERVIEWE [Family Provider] -
Activity Restrictions/Additional Instructions:
You should follow-up with your normal therapist and psychiatrist as soon as possible.
Interventions
Interventions:
*Risk Screen - Suicide Last Done: 01/07/25 14:18
*General Assessment Last Done: 01/07/25 14:56
*Neglect/Abuse Screening Last Done: 01/07/25 14:18
*ED- Fall Risk Assessment Last Done: 01/07/25 14:56
*ED COVID-19 Vaccine History Last Done: 01/07/25 14:56
ED-Psychological Assessment Last Done: 01/07/25 14:56
Discharge Date and Time
Print Language: GHANAIAN
[2025-01-07] MEDS: VALIUM 2 MG PO (14:49)
[2025-01-07 15:10] LABS: % Basophils 0.5 % (0-2); % Eosinophils 2.8 % (0-6); % Immature Granulocytes 0.6 % (0-0.5); % Lymphocytes 20.3 % (20.5-51.1); % Monocytes 5.8 % (1.7-9.3); Absolute Eosinophils 0.2 10^3/uL (0-0.7); Absolute Immature Granulocytes 0.1 10^3/uL (0-0.05); Absolute Lymphocytes 1.7 10^3/uL (1.2-3.4); Absolute Monocytes 0.5 10^3/uL (0.1-0.6); Absolute Neutrophils 5.9 10^3/uL (1.4-6.5); Hematocrit 35.3 % (37.0-47.0); Hemoglobin 12.2 g/dL (12.0-16.0); Mean Corp Hgb Conc. 34.6 g/dL (33.0-37.0); Mean Corpuscular Hgb 29.2 pg (27.0-31.0); Mean Corpuscular Volume 84.4 fL (81.0-99.0); Mean Platelet Volume 10.6 fL (7.4-10.4); Nucleated Red Blood Cells % 0 %; Platelet Count 286 10^3/uL (130-400); Red Blood Cell Count 4.18 10^6/uL (4.20-5.40); Red Cell Dist. Width 13.6 % (11.5-14.5); White Blood Cell Count 8.4 10^3/uL (4.8-10.8)
[2025-01-07 15:39] LABS: Amphetamines Negative (Negative); Barbiturates Negative (Negative); Benzodiazepines Positive (Negative); Buprenorphine Negative (Negative); Cocaine Negative (Negative); Marijuana Negative (Negative); Methadone Negative (Negative); Methamphetamines Negative (Negative); Opiates Negative (Negative); Phencyclidine Negative (Negative); Tricyclic Antidepressants Negative (Negative)
[2025-01-07 16:03] LABS: Fentanyl, Urine Negative (Negative)
--- NOTE | 2025-01-07 16:19 | W.PN.UPDATE ---
Addendum entered and electronically signed by Marguerite Arredondo MD 01/08/25 15:44:
note this consult done on jan 07 2025
Original Note:
Update Note
Progress Note Update
patient seen chart reviewed. discussed with crisis staff and dr gloria. florinda is well known to me. she is here today bc suicidal thoughts. she was thinking about all of the sad anniversaries that are coming up in her life and mourning the losses she
has experienced. there is no question that she has not had an easy life. we discussed that despite this fact she does have some things in her life she needs to be grateful for. she has two therapists who seem devoted to her as is the institution
of [facility]. she agreed that favio and gennaro are people she can trust and be comfortable with. she has a son emerald whom she can see according to the terms of the adoption and he has told her 'i have two moms'' pointed out to florinda that this shows
he has some attachment to her and she should think about how her suicidal thinking and attempts would affect him. she did not disagree. we talked about her diagnosis. i do not necessarily agree with the dissociate identity disorder. i told her
frankly i think she is borderline personality which is born of trauma which she has experienced. bpd is NOT meant to be pejorative although it has become so in recent years. i explained to her that it describes a maladaptive pattern of behavior that
only she can work on changing. she did not disagree. she said she will not harm self at this point and asked if she could leave. she was allowed to get her belongings and can leave when the er completes the paperwork. she should follow up with her
providers at [facility]
[2025-01-07 16:34] VITALS: BP 131/101
== END 2025-01-07 16:35 | disposition home or self-care (01) ==
LOC: EMR 14:15
PROVIDERS: CONSULT PHYSICIAN Psychiatry & Neurology Psychiatry; EMERGENCY PHYSICIAN Emergency Medicine
DX: R45.851 Suicidal ideations (principal); I10 Essential (primary) hypertension; E03.9 Hypothyroidism, unspecified; F31.9 Bipolar disorder, unspecified; F41.9 Anxiety disorder, unspecified; J45.909 Unspecified asthma, uncomplicated; F17.200 Nicotine dependence, unspecified, uncomplicated; Z87.820 Personal history of traumatic brain injury
CPT/HCPCS: 99283; 80306; 80307; 85025

== ENCOUNTER 2025-01-12 12:08 | Emergency (ER) | payer OTHER, SELFPAY ==
[2025-01-12 12:18] VITALS: BP 139/93
--- NOTE | 2025-01-12 13:43 | ED.GENMED ---
History of Present Illness
General
Chief Complaint: Abdominal Symptoms
Source: patient
Exam Limitations: none
Time Seen by Provider: 01/12/25 13:38
History of Present Illness
History of Present Illness:
See MDM
Past History
Past History
ED Past Medical History: Arrthythmia (Tachycardia), Asthma, HTN, Seizures, Hypothyroidism, Psychiatric (Bipolar, PTSD, suicide attempts, Anxiety/Depression, Borderline personality, ) and Other (TBI 2006, migraines, Cardiomyopathy,
Subarachnoid/Subdural hemorrhage, Intraparenchymal hem, Sleep apnea, GI bleeding, Pernicious anemia, ADHD, DVT with IVC filter)
ED Past Surgical History: Cholecystectomy, , Orthopedic (R and left knee surgery, Carlos L leg removed, Left arm plate, Right wrist surgery, ) and Other (Green field filter)
Social History
Tobacco: Smoker
Alcohol: None
Drug: Other (Took a Hemp gummy this a.m.)
Personal: Single
Living: alone
Employment: Disabled
Family History
Family History: Other (Diabetes, colon cancer, thyroid disease)
Phy Exam
Physical Exam
Physical Exam:
See MDM
Course
Orders/Labs/Results
Orders:
Orders
01/12/25 13:41
Electrocardiogram (*1) Urgent
Reason for Study: QTc Monitoring
EKG- Treatment ONCE
0.9% Sodium Chloride 1000 ml [Nss] 1,000 ml IV BOLUS
Test Result ONCE
01/12/25 14:21
Complete Blood Count/With Diff Urgent
Comprehensive Metabolic Panel Urgent
HCG, Serum Qualitative Screen Urgent
Lipase Urgent
Abnormal Lab Results
01/12/25
14:21
MPV 10.8 H fL
(7.4-10.4)
Abs Immat Gran (auto) 0.1 H 10^3/uL
(0-0.05)
Absolute Monos (auto) 0.7 H 10^3/uL
(0.1-0.6)
Immature Gran % 0.6 H %
(0-0.5)
Glucose 114 H mg/dl
(70-99)
AST 37 H U/L
(14-36)
01/12/25 14:21
01/12/25 14:21
Vital Signs
Initial and Last Documented VS:
Initial Vital Signs
Temp Pulse Resp BP Pulse Ox
98.8 F 127 18 139/93 97
01/12/25 12:18 01/12/25 12:18 01/12/25 12:18 01/12/25 12:18 01/12/25 12:18
Last Documented Vital Signs
Temp Pulse Resp BP Pulse Ox
98.8 F 99 16 139/93 98
01/12/25 12:18 01/12/25 14:00 01/12/25 14:00 01/12/25 12:18 01/12/25 14:00
MDM/Problems Addressed
Differential Diagnosis Includes:
HPI and MDM Narrative:
39-year-old female presenting with abdominal pain. Patient states that she was recently discharged from outside hospital for a propranolol and Eliquis overdose. She states she was having trouble tolerating p.o. fluids even before discharge.
Patient states that she is unable to keep anything down. Patient is well-known to the emergency department for malingering behavior and secondary gain. On my exam, she has a soft and nontender abdomen. Patient is spitting up mucus but no active
vomiting noted. Will provide IV fluids and obtain basic blood work. Patient is denying any current suicidal homicidal thoughts.
Physical exam
General: Well appearing and non-toxic
HEENT: protecting airway. Moist mucous membranes
Neck: appears supple
CV: No evidence of cyanosis
Resp: No accessory muscle use
Abd: Non-distended. Soft and nontender
Extremities: No deformities
Neuro: alert
Psych: Normal affect
Skin: Intact
Problems Addressed including Acute and Chronic Conditions affecting care:
1. Nausea and vomiting
Acuity: acute
Prognosis: stable
Details: I have not witnessed any nausea and vomiting while in the emergency department. She states she cannot keep any food or water down but appears well-hydrated. Will give IV fluids and obtain basic blood work. If QTc on EKG okay, will give
Zofran
Updates
QTc > 480. Will refrain from Zofran. Will consider Tigan if needed
I was going to order Tigan but appears that she is also allergic to that.
4 PM on multiple reassessments, patient sleeping without discomfort
Will give p.o. trial before discharge
Patient tolerating elsa kim
Differential Diagnosis (but not limited to): GI bug, dehydration, pancreatitis
Testing considered: CT abdomen/pelvis but she has no abdominal tenderness on my exam
Drug therapy (if applicable): OTC meds, please see d/c instruction regarding Rx drugs
Amount and/or Complexity of Data Reviewed
Clinical info obtained from: Patient
External data reviewed: Multiple visits for suicidal behavior and malingering behavior
Labs I independently reviewed (but not limited to): White blood cell count normal, GFR normal
Radiology: N/A
Pulse Ox: not hypoxic
EKG independently reviewed: Sinus rhythm, normal axis, no STEMI, prolonged QTc
Barrel Stave Inspector: N/A
Critical Care: N/A
Risk of Complication:
Social Determinants of health: Good social support
Discussed with other providers: N/A
Escalation of Care includes Admit/Obs: After being observed in the Emergency Department, pt stable for discharge.
Occasional wrong word or 'sound a like' substitutions may have occurred due to the inherent limitations of voice recognition software. Read the chart carefully and recognize, using context, where substitutions have occurred.
*Critical Care Note
Total Time (30-74mins, 75-104mins- exclusive of procedures): Not Applicable
ED Attending Note
-
Portions of this chart may have been created with voice recognition software.� Occasional wrong word or��sound alike� substitutions may have occurred due to the inherent limitations of voice recognition software.
Discharge Plan
Departure
Patient Disposition: Home (Routine Discharge)
Date of Disposition: 01/12/25
Time of Disposition: 16:11
Patient with high blood pressure during this ER visit?: No
Discharge Problem:
Nausea & vomiting
Instructions: Nausea and Vomiting, Adult (DC)
Prescriptions:
No Action
levothyroxine 25 mcg Tablet
25 mcg PO DAILY
clonidine HCl 0.1 mg tablet
0.1 mg PO HS
metformin 500 mg tablet
500 mg PO BID
famotidine 40 mg tablet
40 mg PO DAILY
gabapentin 800 mg tablet
800 mg PO TID
ergocalciferol (vitamin D2) [Vitamin D2] 1,250 mcg (50,000 unit) capsule
1,250 mcg PO MO
Linzess 145 mcg capsule
145 mcg PO DAILY
cyanocobalamin (vitamin B-12) 1,000 mcg Tablet, Sublingual
1,000 mcg SUBLINGUAL DAILY
melatonin 5 mg Tablet
5 mg PO HS
diazepam [Valium] 5 mg Tablet
5 mg PO DAILY
Rx Instructions:
am
omeprazole 40 mg Capsule,Delayed Release(Dr/Ec)
40 mg PO DAILY
Rx Instructions:
am
trazodone 150 mg Tablet
300 mg PO HS
diazepam 5 mg Tablet
2.5 mg PO DAILYPRN PRN (Reason: anxiety)
chlorpromazine 50 mg Tablet
50 mg PO HS
Ubrelvy 100 mg Tablet
100 mg PO DAILY PRN (Reason: migraine)
methocarbamol 500 mg Tablet
500 mg PO QIDPRN PRN (Reason: muscle spasms)
ibuprofen 200 mg tablet
400 - 600 mg PO Q6HPRN PRN (Reason: moderate pain) Qty: 1 0RF
celecoxib [Celebrex] 200 mg capsule
200 mg PO BID Qty: 20 0RF
tramadol 50 mg tablet
50 mg PO Q8H PRN (Reason: Pain) Qty: 8 0RF
diphenhydramine HCl [Benadryl] 50 mg Capsule
50 mg PO HS
magnesium glycinate 100 mg Tablet
400 mg PO DAILY
riboflavin (vitamin B2) 400 mg Tablet
400 mg PO DAILY
cholecalciferol (vitamin D3) [Vitamin D3] 25 mcg (1,000 unit) Tablet
25 mcg PO DAILY
Referrals:
UNKNOWN - PT DOES,NOT KNOW [Family Provider] -
Activity Restrictions/Additional Instructions:
Please return for any worsening symptoms.
You may return at any time if you have further concerns.
Please follow up with your doctor at the first available appointment, preferably this week.
Interventions
Interventions:
*Risk Screen - Suicide Last Done: 01/12/25 12:29
*General Assessment Last Done: 01/12/25 12:18
*Neglect/Abuse Screening Last Done: 01/12/25 12:18
*ED- Fall Risk Assessment Last Done: 01/12/25 14:32
YZ-[id number] Assessment Last Done: 01/12/25 14:32
Discharge Date and Time
Print Language: MOROCCAN
[2025-01-12] MEDS: NSS 1000 IV (14:22)
[2025-01-12 14:41] LABS: HCG, Serum Qualitative Screen Negative
[2025-01-12 14:42] LABS: % Basophils 0.6 % (0-2); % Eosinophils 1.1 % (0-6); % Immature Granulocytes 0.6 % (0-0.5); % Lymphocytes 23.3 % (20.5-51.1); % Monocytes 8.1 % (1.7-9.3); % Neutrophils 66.3 % (42.2-75.2); Absolute Basophils 0.1 10^3/uL (0-0.2); Absolute Eosinophils 0.1 10^3/uL (0-0.7); Absolute Immature Granulocytes 0.1 10^3/uL (0-0.05); Absolute Lymphocytes 1.9 10^3/uL (1.2-3.4); Absolute Monocytes 0.7 10^3/uL (0.1-0.6); Absolute Neutrophils 5.3 10^3/uL (1.4-6.5); Hematocrit 37.1 % (37.0-47.0); Hemoglobin 12.7 g/dL (12.0-16.0); Mean Corp Hgb Conc. 34.2 g/dL (33.0-37.0); Mean Corpuscular Hgb 29.6 pg (27.0-31.0); Mean Corpuscular Volume 86.5 fL (81.0-99.0); Mean Platelet Volume 10.8 fL (7.4-10.4); Nucleated Red Blood Cells % 0 %; Platelet Count 290 10^3/uL (130-400); Red Blood Cell Count 4.29 10^6/uL (4.20-5.40); Red Cell Dist. Width 13.5 % (11.5-14.5)
[2025-01-12 14:52] LABS: ALT (SGPT) 33 U/L (0-35); AST (SGOT) 37 U/L (14-36); Albumin 4.7 g/dl (3.5-5.0); Alkaline Phosphatase 117 U/L (38-126); Blood Urea Nitrogen 16 mg/dl (7-17); Calcium 9.5 mg/dl (8.4-10.2); Carbon Dioxide 27 mmol/L (22-30); Chloride 105 mmol/L (98-107); Glucose 114 mg/dl (70-99); Lipase 83 U/L (23-300); Potassium 3.9 mmol/L (3.5-5.1); Sodium 140 mmol/L (135-145); Total Bilirubin 0.9 mg/dl (0.2-1.3); Total Protein 7.7 g/dl (6.3-8.2); eGFR > 60.00
[2025-01-12 16:48] VITALS: BP 145/88
== END 2025-01-12 16:48 | disposition home or self-care (01) ==
LOC: EMR 12:08
PROVIDERS: EMERGENCY PHYSICIAN Student in an Organized Health Care Education/Training Program
DX: R11.2 Nausea with vomiting, unspecified (principal); E03.9 Hypothyroidism, unspecified; G47.30 Sleep apnea, unspecified; I10 Essential (primary) hypertension; I42.9 Cardiomyopathy, unspecified; J45.909 Unspecified asthma, uncomplicated; F17.200 Nicotine dependence, unspecified, uncomplicated; Z87.820 Personal history of traumatic brain injury; Z86.718 Personal history of other venous thrombosis and embolism; Z91.51 Personal history of suicidal behavior
CPT/HCPCS: 99284; 96360; 96361; 80053; 83690; 84703; 85025; 93005

== ENCOUNTER 2025-01-26 14:04 | Emergency (ER) | payer OTHER, SELFPAY ==
[2025-01-26 14:13] VITALS: BMI 37.0
[2025-01-26 14:15] VITALS: BP 142/85
--- NOTE | 2025-01-26 14:20 | EDRN ---
On arrival prior to triage pt demanded that she be brought a elsa kim. Security brought pt a elsa kim.
--- NOTE | 2025-01-26 14:30 | EDRN ---
Pt using an angry voice w/ this nurse though not acting on the angry feelings. pt requesting several nurses by name to go to her room to visit her. Only Gela here and informed at this time. Pt refusing to answer questions saying that information was
given last time she was here. pt per suicide screen is HIGH RISK, w/ Gela charge poster RN informed.
--- NOTE | 2025-01-26 14:48 | ED.GENMED ---
History of Present Illness
General
Chief Complaint: Suicidal Ideation
Source: patient, records and ambulance crew
Exam Limitations: none
Time Seen by Provider: 01/26/25 14:08
Nursing documentation reviewed up to this point in time: agreed with
History of Present Illness
History of Present Illness:
39-year-old female with history as noted presents for suicidality. Patient has a long history of multiple visits with similar complaint and multiple legitimate attempts at suicide most often by overdose. She presents today because she is feeling
increased stress and depression over the past few days�she apparently has a scheduled visit with her son on Sunday and is very anxious about this. She says that she has been thinking about suicide and has a plan to overdose after she visits her
son on Sunday. She denies any ingestions or attempts at harming herself today. Denies other complaints.
Past History
Past History
ED Past Medical History: Arrthythmia (Tachycardia), Asthma, HTN, Seizures, Hypothyroidism, Psychiatric (Bipolar, PTSD, suicide attempts, Anxiety/Depression, Borderline personality, ) and Other (TBI 2006, migraines, Cardiomyopathy,
Subarachnoid/Subdural hemorrhage, Intraparenchymal hem, Sleep apnea, GI bleeding, Pernicious anemia, ADHD, DVT with IVC filter)
ED Past Surgical History: Cholecystectomy, , Orthopedic (R and left knee surgery, Carlos L leg removed, Left arm plate, Right wrist surgery, ) and Other (Green field filter)
Social History
Tobacco: Smoker
Alcohol: None
Drug: Other (Took a Hemp gummy this a.m.)
Personal: Single
Living: alone
Employment: Disabled
Family History
Family History: Other (Diabetes, colon cancer, thyroid disease)
Review of Systems
Review of Systems
All Other Systems: ROS reviewed and negative except as documented in HPI and ROS
Psychiatric: Reports depression, anxiety and suicidal
Phy Exam
Physical Exam
Physical Exam:
General: Well appearing and non-toxic
HEENT: protecting airway
Neck: appears supple
CV: No evidence of cyanosis
Resp: No accessory muscle use
Abd: Non-distended
Extremities: No deformities
Neuro: Alert
Psych: Depressed mood, flat affect
Skin: Intact
Scores
Heart Failure Risk
Heart Failure Risk Score: Not Applicable
Heart Score for Chest Pain Patients
STEMI patient?: Not applicable
Withdrawal Assessment of Alcohol
Withdrawal Assessment Completed?: Not applicable
Course
Orders/Labs/Results
Orders:
Orders
01/26/25 14:09
Crisis Consult Routine
Reason for Consult: SI
01/26/25 14:25
1:1 Observation - Suicide/ Violent Behavior As Directed
01/26/25 14:28
PSYCHIATRY CONSULT Urgent
Consulting Provider: Ever West
Was physician already notified: Yes
01/26/25 15:48
Electrocardiogram (*1) Urgent
Reason for Study: QTc Monitoring
EKG- Treatment ONCE
01/26/25 16:30
HOSPITALIST CONSULT Urgent
Consulting Provider: Jaki Ocasio
Was physician already notified: Yes
Acetaminophen Urgent
Alcohol Urgent
Complete Blood Count/With Diff Urgent
Comprehensive Metabolic Panel Urgent
Drug Screen, Urine [Urine Drug Abuse Screen] Urgent
Lipase Urgent
Salicylate Urgent
01/26/25 16:31
Metoclopramide [Reglan] 10 mg PO NOW STA
01/26/25 16:35
Diphenhydramine [Benadryl] 50 mg PO HSPRN PRN
01/26/25 16:37
Diazepam [Valium] 2 mg PO Q8HPRN PRN
01/26/25 22:00
Clonidine [Catapres] 0.1 mg PO HS
Melatonin 5 mg PO HS
Trazodone [Desyrel] 300 mg PO HS
01/27/25 08:00
Diazepam [Valium] 5 mg PO DAILY
Vital Signs
Initial and Last Documented VS:
Initial Vital Signs
Pulse Resp BP Pulse Ox
105 16 142/85 96
01/26/25 14:15 01/26/25 14:15 01/26/25 14:15 01/26/25 14:15
Last Documented Vital Signs
Pulse Resp BP Pulse Ox
105 16 142/85 96
01/26/25 14:15 01/26/25 14:15 01/26/25 14:15 01/26/25 14:15
MDM/Problems Addressed
Differential Diagnosis Includes:
Suicidal ideation
MDM/Problems Addressed:
39-year-old female presents with suicidal ideation with a plan to overdose. Multiple visits with similar in the past. Will place on continuous observation one-to-one. Case was discussed with crisis for assessment as well as with psychiatry for
consultation. Monitor closely reassess after the above.
Patient seen by psychiatry�they are recommending inpatient psychiatric treatment. Patient is currently voluntary. Will monitor pending placement.
Patient has been having it sounds like subacute to chronic issues with appetite and nausea/vomiting and has been following with GI. She says that they are working up for gastroparesis. She is supposed to start Reglan and is asking for a dose�will
provide this. Will have hospitalist consult on patient as she will be boarding pending placement, unlikely to have expeditious placement.
Patient is now requesting to leave the hospital. Crisis called to speak to patient�that they do not feel there are grounds for involuntary psychiatric hold at this point. Patient was seen by psychiatrist who did not feel there was grounds for
involuntary psychiatric hold. They reached out to the patient's therapist who felt there were no grounds for an involuntary psychiatric hold. When I speak to the patient she says she wants to leave to go sleep in her own bed. She says that she
does not feel suicidal at this point. I asked her why she complained of feeling suicidal earlier she says�'because I felt suicidal at that time but I do not feel suicidal anymore.' She says that she is really looking forward to seeing her son on
Sunday. At this point based on my observations, I tend to agree that there is not a clear indication for involuntarily holding this patient against her will for psychiatric treatment at this point in time. Patient will be leaving the hospital in
keeping with her wishes. She is well-established with outpatient psychiatric care.
Chronic conditions affecting care:
Anxiety, bipolar disorder, PTSD, BPD
*Pulse Oximetry
Patient hypoxic: no
*Critical Care Note
Total Time (30-74mins, 75-104mins- exclusive of procedures): Not Applicable
Data Reviewed
Source: patient, records and ambulance crew
Patient Management
Discussion with other providers: Hospitalist (Discussed with hospitalist for consultation), Service Order Clerk (Discussed with psychiatry) and Other (Discussed with crisis staff)
ED Attending Note
-
Portions of this chart may have been created with voice recognition software.� Occasional wrong word or��sound alike� substitutions may have occurred due to the inherent limitations of voice recognition software.
Discharge Plan
Departure
Patient Disposition: Home (Routine Discharge)
Date of Disposition: 01/26/25
Time of Disposition: 15:45
Patient with high blood pressure during this ER visit?: Yes
Discharge Problem:
Suicidal ideations
Instructions: Suicide Prevention
Prescriptions:
No Action
levothyroxine 25 mcg Tablet
25 mcg PO DAILY
clonidine HCl 0.1 mg tablet
0.1 mg PO HS
famotidine 40 mg tablet
40 mg PO DAILY
gabapentin 800 mg tablet
800 mg PO TID
ergocalciferol (vitamin D2) [Vitamin D2] 1,250 mcg (50,000 unit) capsule
1,250 mcg PO MO
Linzess 145 mcg capsule
145 mcg PO DAILY
cyanocobalamin (vitamin B-12) 1,000 mcg Tablet, Sublingual
1,000 mcg SUBLINGUAL DAILY
melatonin 5 mg Tablet
5 mg PO HS
diazepam [Valium] 5 mg Tablet
5 mg PO DAILY
Rx Instructions:
am
omeprazole 40 mg Capsule,Delayed Release(Dr/Ec)
40 mg PO DAILY
Rx Instructions:
am
trazodone 150 mg Tablet
300 mg PO HS
diazepam 5 mg Tablet
2.5 mg PO DAILYPRN PRN (Reason: anxiety)
chlorpromazine 50 mg Tablet
50 mg PO HS
Ubrelvy 100 mg Tablet
100 mg PO DAILY PRN (Reason: migraine)
methocarbamol 500 mg Tablet
500 mg PO QIDPRN PRN (Reason: muscle spasms)
ibuprofen 200 mg tablet
400 - 600 mg PO Q6HPRN PRN (Reason: moderate pain) Qty: 1 0RF
celecoxib [Celebrex] 200 mg capsule
200 mg PO BID Qty: 20 0RF
tramadol 50 mg tablet
50 mg PO Q8H PRN (Reason: Pain) Qty: 8 0RF
diphenhydramine HCl [Benadryl] 50 mg Capsule
50 mg PO HS
magnesium glycinate 100 mg Tablet
400 mg PO DAILY
riboflavin (vitamin B2) 400 mg Tablet
400 mg PO DAILY
cholecalciferol (vitamin D3) [Vitamin D3] 25 mcg (1,000 unit) Tablet
25 mcg PO DAILY
Referrals:
UNKNOWN,NO INTERVIEW [Family Provider]
Interventions
Interventions:
*Risk Screen - Suicide Last Done: 01/26/25 14:24
*General Assessment Last Done: 01/26/25 14:21
*Neglect/Abuse Screening Last Done: 01/26/25 14:24
*ED- Fall Risk Assessment Last Done: 01/26/25 14:21
*ED COVID-19 Vaccine History Last Done: 01/26/25 14:21
ED-Psychological Assessment Last Done: 06/02/25 14:36
Discharge Date and Time
Print Language: ROMANIAN
--- NOTE | 2025-01-26 15:02 | EDRN ---
This RN in to check on pt. Pt demanded 8 mg of zofran for her nausea. Pt drank tall styrofoam cup of esla kim. Pt asked if she has ordered a diet. Pt stated to RN in a gruff like voice, 'I have not eaten in [address] Elder informed of pt's
request and that she stated she has not eaten in 3 weeks.
--- NOTE | 2025-01-26 15:52 | CS.PSYCHR ---
Consult Summary - Psychiatry
-
Pt is 39 yo female with Borderline personality d/o, hx of PTSD, presenting with depression, SI. Reviewed with Crisis staff; pt has not stated a specific plan. On interview, pt is irritable, edgy, not willing to discuss a safety plan, no longer has
PF ACT Team. Pt states she called 911 due to SI, had an argument with her son's adoptive parents about visitation, complaining about not seeing him until this Sunday. Crisis reports pt stated she will end her life after seeing her son this
Sunday. Pt uncooperative, stating 'you always let me go and then I go home and overdose, so I don't want to waste your time' with sarcastic affect. Pt reportedly presenting to [facility] in between ER visits here at , multiple brief ER stays
over the past couple months, recently overdosed.
Imp: Unspecified Depressive d/o, with SI
PTSD by hx
Rec: continue observation/stabilization, with possible referral to voluntary inpatient treatment, continue outpatient med regimen
Will follow
--- NOTE | 2025-01-26 16:06 | EDRN ---
Dr. Elder said pt needs an EKG prior to getting zofran. This RN went to do EKG. Pt declined EKG saying she wants to go home because she doesn't want to miss her visit w/ her son. Dr. Elder informed that she wishes to speak to him. Dr. Elder said pt
will be a safety hold and not released voluntarily as she has SI. Crisis is awaiting Dr. West to decide on whether pt will be a SAFETY HOLD and papers filed. As this RN just spoke to crisis. Pt informed that she cannot leave at this time and also
that Dr. Elder said he would be in. Pt said to me she wants a different nurse.
--- NOTE | 2025-01-26 16:13 | EDRN ---
linux network engineer Riley informed that pt requested another RN. He said there is no other RN to assign to pt at this time. Per camera in room pt is quiet at this time lying on bed.
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
--- NOTE | 2025-01-26 16:59 | EDRN ---
Crisis in room w/ pt at this time.
--- NOTE | 2025-01-26 17:09 | EDRN ---
Pt states she is declining any blood work saying, 'I am not a medical pt.'
[2025-01-26] MEDS: REGLAN 10 MG PO (17:10)
--- NOTE | 2025-01-26 17:12 | EDRN ---
Pt just took reglan for her nausea. Pt declined having any bloodwork drawn and said she will not give a urine. Pt stated to this RN, 'I am not a 302. I am voluntary and I can leave at any time. Crisis said so when they were just here.' I informed pt
I would call crisis and check her status as to SAFETY HOLD or voluntary. Pt told me, 'you call them right now.'
--- NOTE | 2025-01-26 17:16 | EDRN ---
Crisis states that they have been working on a SAFETY HOLD for pt but none has been filed as of yet. Pt remains a voluntary pt at this time. This RN will TT Dr. Elder at this time.
== END 2025-01-26 17:52 | disposition home or self-care (01) ==
LOC: EMR 14:04
PROVIDERS: CONSULT PHYSICIAN Hospitalist; CONSULT PHYSICIAN Psychiatry & Neurology Psychiatry; EMERGENCY PHYSICIAN Emergency Medicine
DX: R45.851 Suicidal ideations (principal); E03.9 Hypothyroidism, unspecified; E11.9 Type 2 diabetes mellitus without complications; F31.9 Bipolar disorder, unspecified; F41.9 Anxiety disorder, unspecified; F43.10 Post-traumatic stress disorder, unspecified; G47.30 Sleep apnea, unspecified; I10 Essential (primary) hypertension; I42.9 Cardiomyopathy, unspecified; J45.909 Unspecified asthma, uncomplicated; K58.9 Irritable bowel syndrome, unspecified; F17.290 Nicotine dependence, other tobacco product, uncomplicated; Z79.01 Long term (current) use of anticoagulants; Z79.890 Hormone replacement therapy; Z80.0 Family history of malignant neoplasm of digestive organs; Z83.3 Family history of diabetes mellitus; Z83.49 Family history of other endocrine, nutritional and metabolic diseases; Z86.718 Personal history of other venous thrombosis and embolism; Z87.820 Personal history of traumatic brain injury; Z90.49 Acquired absence of other specified parts of digestive tract; Z91.041 Radiographic dye allergy status; Z91.51 Personal history of suicidal behavior
CPT/HCPCS: 99283; 93005

== ENCOUNTER 2025-01-27 08:39 | Emergency (ER) | payer OTHER, SELFPAY ==
--- NOTE | 2025-01-27 09:37 | ED.GENMED ---
History of Present Illness
General
Chief Complaint: Crisis Evaluation
Source: patient and other (Lisa, crisis)
Time Seen by Provider: 01/27/25 09:31
History of Present Illness
History of Present Illness:
39-year-old Caterina Aviles is here in the emergency room yet again. Patient expressed suicidal ideations to her therapist. Patient has numerous visits after expressing suicidal ideations. Patient has also had significant attempts at suicide. She
has had multiple psychiatric evaluations. Most recently psychiatry has concluded that there is little benefit to continued hospitalization as she is essentially constantly expressing the suicidal ideations. She did not do anything today to harm
herself. She currently denies suicidal ideation.
Past History
Past History
ED Past Medical History: Arrthythmia (Tachycardia), Asthma, HTN, Seizures, Hypothyroidism, Psychiatric (Bipolar, PTSD, suicide attempts, Anxiety/Depression, Borderline personality, ) and Other (TBI 2005, migraines, Cardiomyopathy,
Subarachnoid/Subdural hemorrhage, Intraparenchymal hem, Sleep apnea, GI bleeding, Pernicious anemia, ADHD, DVT with IVC filter)
ED Past Surgical History: Cholecystectomy, , Orthopedic (R and left knee surgery, Carlos L leg removed, Left arm plate, Right wrist surgery, ) and Other (Green field filter)
Social History
Tobacco: Smoker
Alcohol: None
Drug: Other (Took a Hemp gummy this a.m.)
Personal: Single
Living: alone
Employment: Disabled
Family History
Family History: Other (Diabetes, colon cancer, thyroid disease)
Phy Exam
Physical Exam
Physical Exam:
General: Awake, Alert, Oriented X3. Agitated, argumentative
Vitals: unremarkable
Head: Atraumatic
Eyes: Pupils equal, EOMI
Throat: Airway intact, no exudates
Neuro: Cranial nerves intact, muscle strength equal bilaterally, cerebellar exam normal
Skin: Warm, dry, no rash
Extremities: pulses equal b/l, no edema
Course
Orders/Labs/Results
Orders:
Orders
01/27/25 08:46
1:1 Observation - Suicide/ Violent Behavior As Directed
Crisis Consult Urgent
Reason for Consult: +SI/302
MDM/Problems Addressed
Differential Diagnosis Includes:
Depression, suicidal ideations, manipulative behavior
MDM/Problems Addressed:
Patient received her to the emergency room for 3 mg by her therapist. Patient evidently expressed suicidal ideations to her. She denies this for me. Patient expressing frustration about her medications and previous interactions with the health
system in general. She is very upset that she is here and wasting her time. Patient has had multiple visits for similar circumstances. Given the patient currently denies suicidal thoughts and even when 3 or 2 has been filed she frequently stays
here for a period of time is unable to be placed and is then discharged I do not feel that her presentation today requires commitment against her will. There is always a risk with Caterina going home and attempting suicide as this seems to be just her
nature. However given the level of agitation she is exhibiting keeping her as a 302 at this point would require physical restraint, chemical restraint and my overall impression is that she is just not actually suicidal and these interventions have
a greater risk of harm to Caterina into the staff that potential gain.
*Pulse Oximetry
Patient hypoxic: no
*Critical Care Note
Total Time (30-74mins, 75-104mins- exclusive of procedures): Not Applicable
ED Attending Note
-
Portions of this chart may have been created with voice recognition software.� Occasional wrong word or��sound alike� substitutions may have occurred due to the inherent limitations of voice recognition software.
Discharge Plan
Departure
Patient Disposition: Home (Routine Discharge)
Date of Disposition: 01/27/25
Time of Disposition: 09:53
Patient Status:: 302
Patient with high blood pressure during this ER visit?: No
Condition: Good
Discharge Problem:
Suicidal ideations
Instructions: Depression in adults - ED discharge instructions
Prescriptions:
No Action
levothyroxine 25 mcg Tablet
25 mcg PO DAILY
clonidine HCl 0.1 mg tablet
0.1 mg PO HS
famotidine 40 mg tablet
40 mg PO DAILY
gabapentin 800 mg tablet
800 mg PO TID
ergocalciferol (vitamin D2) [Vitamin D2] 1,250 mcg (50,000 unit) capsule
1,250 mcg PO MO
Linzess 145 mcg capsule
145 mcg PO DAILY
cyanocobalamin (vitamin B-12) 1,000 mcg Tablet, Sublingual
1,000 mcg SUBLINGUAL DAILY
melatonin 5 mg Tablet
5 mg PO HS
diazepam [Valium] 5 mg Tablet
5 mg PO DAILY
Rx Instructions:
am
omeprazole 40 mg Capsule,Delayed Release(Dr/Ec)
40 mg PO DAILY
Rx Instructions:
am
diazepam 5 mg Tablet
2.5 mg PO DAILYPRN PRN (Reason: anxiety)
chlorpromazine 50 mg Tablet
50 mg PO HS
Ubrelvy 100 mg Tablet
100 mg PO DAILY PRN (Reason: migraine)
methocarbamol 500 mg Tablet
500 mg PO QIDPRN PRN (Reason: muscle spasms)
ibuprofen 200 mg tablet
400 - 600 mg PO Q6HPRN PRN (Reason: moderate pain) Qty: 1 0RF
tramadol 50 mg tablet
50 mg PO Q8H PRN (Reason: Pain) Qty: 8 0RF
magnesium glycinate 100 mg Tablet
400 mg PO DAILY
riboflavin (vitamin B2) 400 mg Tablet
400 mg PO DAILY
cholecalciferol (vitamin D3) [Vitamin D3] 25 mcg (1,000 unit) Tablet
25 mcg PO DAILY
celecoxib 100 mg Capsule
100 mg PO BID
metformin 500 mg Tablet
500 mg PO BID
Caplyta 21 mg Capsule
21 mg PO DAILY
Referrals:
UNKNOWN,NO INTERVIEW [Family Provider]
Interventions
Interventions:
*Risk Screen - Suicide Last Done: 01/27/25 08:45
*Nursing Disposition Last Done: 01/27/25 09:56
Discharge Date and Time
Discharge Date/Time: 01/27/25 09:35
Print Language: BHUTANESE
--- NOTE | 2025-01-27 09:51 | EDRN ---
0917Thiluanne RN and Dr. Johnson entered crisis room to speak with patient. Pt is refusing to change into hospital scrubs and refusing to allow Vital signs. The patient is agitated and upset at 302 being filed by her therapist. Pt states ' I just want
to go home and I am going to bang on the door and do whatever I want'. Pt informed that crisis was bringing over [address] Johnson would evaluate the 302 and assess patient.
0931: Pt reassessed by Dr. Johnson, patient discharged to home and cleared of 302.
0935: Patient was let out of crisis room by security.
== END 2025-01-27 09:35 | disposition home or self-care (01) ==
LOC: EMR 08:39
PROVIDERS: EMERGENCY PHYSICIAN Emergency Medicine
DX: R45.851 Suicidal ideations (principal); F31.9 Bipolar disorder, unspecified; E03.9 Hypothyroidism, unspecified; G47.30 Sleep apnea, unspecified; I10 Essential (primary) hypertension; I42.9 Cardiomyopathy, unspecified; J45.909 Unspecified asthma, uncomplicated; F17.200 Nicotine dependence, unspecified, uncomplicated; Z79.899 Other long term (current) drug therapy
CPT/HCPCS: 99283

== ENCOUNTER 2025-01-31 12:31 | Emergency (ER) | payer OTHER, SELFPAY ==
[2025-01-31 12:36] VITALS: BP 155/104
[2025-01-31 13:23] VITALS: BMI 35.9
[2025-01-31 13:27] VITALS: BP 127/91
[2025-01-31 13:47] VITALS: BP 112/74
[2025-01-31 14:00] VITALS: BP 124/100
--- NOTE | 2025-01-31 14:34 | ED.GENMED ---
History of Present Illness
General
Chief Complaint: Abdominal Pain
Source: patient
Exam Limitations: none
Time Seen by Provider: 01/31/25 14:15
History of Present Illness
History of Present Illness:
See MDM
Past History
Past History
ED Past Medical History: Arrthythmia (Tachycardia), Asthma, HTN, Seizures, Hypothyroidism, Psychiatric (Bipolar, PTSD, suicide attempts, Anxiety/Depression, Borderline personality, ) and Other (TBI 2006, migraines, Cardiomyopathy,
Subarachnoid/Subdural hemorrhage, Intraparenchymal hem, Sleep apnea, GI bleeding, Pernicious anemia, ADHD, DVT with IVC filter)
ED Past Surgical History: Cholecystectomy, , Orthopedic (R and left knee surgery, Carlos L leg removed, Left arm plate, Right wrist surgery, ) and Other (Green field filter)
Social History
Tobacco: Smoker
Alcohol: None
Drug: Other (Took a Hemp gummy this a.m.)
Personal: Single
Living: alone
Employment: Disabled
Family History
Family History: Other (Diabetes, colon cancer, thyroid disease)
Phy Exam
Physical Exam
Physical Exam:
See MDM
Course
Vital Signs
Initial and Last Documented VS:
Initial Vital Signs
Temp Pulse Resp BP Pulse Ox
99.2 F 122 22 155/104 99
01/31/25 12:36 01/31/25 12:36 01/31/25 12:36 01/31/25 12:36 01/31/25 12:36
Last Documented Vital Signs
Temp Pulse Resp BP Pulse Ox
99.2 F 104 21 127/91 96
01/31/25 12:36 01/31/25 13:30 01/31/25 13:27 01/31/25 13:27 01/31/25 13:30
MDM/Problems Addressed
Differential Diagnosis Includes:
HPI and MDM Narrative:
39-year-old female presenting for evaluation of abdominal pain. Patient is concerned that she has undiagnosed gastroparesis. Patient is well-known to the emergency department. She frequently comes in with multiple complaints. Patient states she
has been having pain and nausea when she eats. She complains of dark stools. She is post to have endoscopy next month. She called the GI office earlier today and she was instructed to go to the hospital if she is complaining of inability to eat
or drink. On my exam she is extremely well-appearing and nontoxic. She has a nontender abdominal exam. She intermittently complains of pain but it is distractible.
Since she complains of dark stool, I did discuss that ruling out upper GI bleed would be the most important diagnosis. We discussed doing a rectal exam. Patient was hesitant at first but I told her that I cannot truly assess for upper GI bleeding
without stool sample. I did offer to wait for her to give a stool sample and I can check that. Patient states she already went to the bathroom and she only goes once a day.
I allowed the patient to think about it for some time.
Patient states that she wants to do the rectal exam to try to figure out the ongoing problem. The nurse Coretta was at bedside during the procedure as a retort cooler. Rectal exam showed brown stool that was guaiac negative. I then discussed with the
patient that it would be beneficial to obtain blood work to look for any evidence of worsening anemia. I did raise concern that I do not want to treat with most antiemetics due to her chronic history of prolonged QTc. I did offer Tigan but patient
states she has a reaction to that as well
Patient is worried because she is 'a hard stick'. She understands that we have the ability for ultrasound-guided IV. Regardless, patient stating that she believes that she can go home. She understands that we have given her the option of going
further with the workup. We discussed ttaa-rsx-bgossjy elsa remedies to help with nausea. Patient states she will call her telecasting engineer this week
Physical exam
General: Well appearing and non-toxic
HEENT: protecting airway. Moist mucous membranes
Neck: appears supple
CV: No evidence of cyanosis
Resp: No accessory muscle use
Abd: Non-distended. No significant tenderness. Distractible exam
Rectal: Rectal exam performed with nurse retort cooler Coretta at bedside. Stool was brown and guaiac negative
Extremities: No deformities
Neuro: alert
Psych: Normal affect
Skin: Intact
Problems Addressed including Acute and Chronic Conditions affecting care:
1. Abdominal pain
Acuity: acute
Prognosis: stable
Details: Potentially in the setting of reflux versus gastroparesis. She had endoscopy pending.
Differential Diagnosis (but not limited to): Gastritis, pancreatitis, peptic ulcer disease
Testing considered: Abdominal x-ray
Drug therapy (if applicable): OTC meds, please see d/c instruction regarding Rx drugs
Amount and/or Complexity of Data Reviewed
Clinical info obtained from: Patient
External data reviewed: N/A
Labs I independently reviewed (but not limited to): N/A
Radiology: N/A
Pulse Ox: not hypoxic
EKG independently reviewed: N/A
Tombstone Erector: N/A
Critical Care: N/A
Risk of Complication:
Social Determinants of health: Good social support
Discussed with other providers: N/A
Escalation of Care includes Admit/Obs: After being observed in the Emergency Department, pt stable for discharge.
Occasional wrong word or 'sound a like' substitutions may have occurred due to the inherent limitations of voice recognition software. Read the chart carefully and recognize, using context, where substitutions have occurred.
*Critical Care Note
Total Time (30-74mins, 75-104mins- exclusive of procedures): Not Applicable
ED Attending Note
-
Portions of this chart may have been created with voice recognition software.� Occasional wrong word or��sound alike� substitutions may have occurred due to the inherent limitations of voice recognition software.
Discharge Plan
Departure
Patient Disposition: Home (Routine Discharge)
Date of Disposition: 01/31/25
Time of Disposition: 14:35
Patient with high blood pressure during this ER visit?: No
Discharge Problem:
Abdominal pain
Instructions: Abdominal Pain
Prescriptions:
No Action
levothyroxine 25 mcg Tablet
25 mcg PO DAILY
clonidine HCl 0.1 mg tablet
0.1 mg PO HS
famotidine 40 mg tablet
40 mg PO DAILY
gabapentin 800 mg tablet
800 mg PO TID
ergocalciferol (vitamin D2) [Vitamin D2] 1,250 mcg (50,000 unit) capsule
1,250 mcg PO MO
Linzess 145 mcg capsule
145 mcg PO DAILY
cyanocobalamin (vitamin B-12) 1,000 mcg Tablet, Sublingual
1,000 mcg SUBLINGUAL DAILY
melatonin 5 mg Tablet
5 mg PO HS
diazepam [Valium] 5 mg Tablet
5 mg PO DAILY
Rx Instructions:
am
omeprazole 40 mg Capsule,Delayed Release(Dr/Ec)
40 mg PO DAILY
Rx Instructions:
am
diazepam 5 mg Tablet
2.5 mg PO DAILYPRN PRN (Reason: anxiety)
chlorpromazine 50 mg Tablet
50 mg PO HS
Ubrelvy 100 mg Tablet
100 mg PO DAILY PRN (Reason: migraine)
methocarbamol 500 mg Tablet
500 mg PO QIDPRN PRN (Reason: muscle spasms)
ibuprofen 200 mg tablet
400 - 600 mg PO Q6HPRN PRN (Reason: moderate pain) Qty: 1 0RF
tramadol 50 mg tablet
50 mg PO Q8H PRN (Reason: Pain) Qty: 8 0RF
magnesium glycinate 100 mg Tablet
400 mg PO DAILY
riboflavin (vitamin B2) 400 mg Tablet
400 mg PO DAILY
cholecalciferol (vitamin D3) [Vitamin D3] 25 mcg (1,000 unit) Tablet
25 mcg PO DAILY
celecoxib 100 mg Capsule
100 mg PO BID
metformin 500 mg Tablet
500 mg PO BID
Caplyta 21 mg Capsule
21 mg PO DAILY
Referrals:
Tiffanie Xiong CRNP [Family Provider]
Activity Restrictions/Additional Instructions:
Please return for any worsening symptoms.
You may return at any time if you have further concerns.
Please keep your gastroenterology appointment.
Interventions
Interventions:
*Risk Screen - Suicide Last Done: 01/31/25 12:36
*General Assessment Last Done: 01/31/25 12:36
*Neglect/Abuse Screening Last Done: 01/31/25 12:36
*ED- Fall Risk Assessment Last Done: 01/31/25 13:27
*ED COVID-19 Vaccine History Last Done: 01/31/25 13:27
PW-Kbsylz-Bgxiqorpzu Assessment Last Done: 01/31/25 13:28
Discharge Date and Time
Print Language: NICARAGUAN
== END 2025-01-31 14:47 | disposition home or self-care (01) ==
LOC: EMR 12:31
PROVIDERS: EMERGENCY PHYSICIAN Student in an Organized Health Care Education/Training Program; FAMILY PHYSICIAN Nurse Practitioner Primary Care
DX: R10.9 Unspecified abdominal pain (principal); E03.9 Hypothyroidism, unspecified; F17.200 Nicotine dependence, unspecified, uncomplicated; I10 Essential (primary) hypertension; J45.909 Unspecified asthma, uncomplicated; I42.9 Cardiomyopathy, unspecified; G47.30 Sleep apnea, unspecified; Z86.718 Personal history of other venous thrombosis and embolism
CPT/HCPCS: 99282

== ENCOUNTER → 2025-02-09 13:30 | Outpatient (REF) | payer OTHER, SELFPAY | LOC: RAD 13:30 | PROVIDERS: ATTENDING PHYSICIAN Student in an Organized Health Care Education/Training Program; FAMILY PHYSICIAN Nurse Practitioner Primary Care | DX: R63.4 Abnormal weight loss (principal); R11.2 Nausea with vomiting, unspecified; R10.9 Unspecified abdominal pain | CPT/HCPCS: 74177; Q9967 ==

== ENCOUNTER 2025-02-16 08:00 | Emergency (ER) | payer OTHER, SELFPAY ==
[2025-02-16 08:06] VITALS: BP 114/72
[2025-02-16 08:07] VITALS: BP 114/72
--- NOTE | 2025-02-16 08:21 | ED.GENMED ---
History of Present Illness
General
Chief Complaint: Abdominal Pain
Source: patient
Exam Limitations: none
Time Seen by Provider: 02/16/25 08:11
History of Present Illness
History of Present Illness:
See MDM
Past History
Past History
ED Past Medical History: Arrthythmia (Tachycardia), Asthma, HTN, Seizures, Hypothyroidism, Psychiatric (Bipolar, PTSD, suicide attempts, Anxiety/Depression, Borderline personality, ) and Other (TBI 2006, migraines, Cardiomyopathy,
Subarachnoid/Subdural hemorrhage, Intraparenchymal hem, Sleep apnea, GI bleeding, Pernicious anemia, ADHD, DVT with IVC filter)
ED Past Surgical History: Cholecystectomy, , Orthopedic (R and left knee surgery, Carlos L leg removed, Left arm plate, Right wrist surgery, ) and Other (Green field filter)
Social History
Tobacco: Smoker
Alcohol: None
Drug: Other (Took a Hemp gummy this a.m.)
Personal: Single
Living: alone
Employment: Disabled
Family History
Family History: Other (Diabetes, colon cancer, thyroid disease)
Phy Exam
Physical Exam
Physical Exam:
See MDM
Course
Orders/Labs/Results
Orders:
Orders
02/16/25 08:16
0.9% Sodium Chloride 1000 ml [Nss] 1,000 ml IV BOLUS
02/16/25 08:20
Electrocardiogram (*1) Urgent
Reason for Study: QTc Monitoring
EKG- Treatment ONCE
02/16/25 08:35
Complete Blood Count/With Diff Urgent
Comprehensive Metabolic Panel Urgent
Lipase Urgent
02/16/25 08:44
Ondansetron Injectable [Zofran] 4 mg IV NOW STA
02/16/25 11:12
Morphine Sulfate 4 mg IV NOW STA
Abnormal Lab Results
02/16/25
08:35
Hct 36.3 L %
(37.0-47.0)
MPV 11.1 H fL
(7.4-10.4)
Lymphocytes % 19.2 L %
(20.5-51.1)
Chloride 109 H mmol/L
(98-107)
Carbon Dioxide 21 L mmol/L
(22-30)
BUN 4 L mg/dl
(7-17)
Glucose 117 H mg/dl
(70-99)
02/16/25 08:35
02/16/25 08:35
Vital Signs
Initial and Last Documented VS:
Initial Vital Signs
Temp Pulse Resp BP Pulse Ox
98.9 F 105 18 114/72 95
02/16/25 08:06 02/16/25 08:06 02/16/25 08:06 02/16/25 08:06 02/16/25 08:06
Last Documented Vital Signs
Temp Pulse Resp BP Pulse Ox
98.0 F 72 20 111/72 94
02/16/25 08:06 02/16/25 11:22 02/16/25 11:22 02/16/25 12:00 02/16/25 12:00
MDM/Problems Addressed
Differential Diagnosis Includes:
Note:
CHIEF COMPLAINT(S)
Abdominal pain and vomiting.
HISTORY OF PRESENT ILLNESS
The patient is a 39-year-old female with a history of iron deficiency presenting with worsening abdominal pain and vomiting. Symptoms began last night and were associated with nausea. The patient took ondansetron this morning for nausea, prescribed
by her primary care provider. A prior CT scan showed sigmoid diverticulosis and possible uterine masses, ordered as an outpatient by [facility], Dr. Talbert. She has spoken to her lithographic press feeder but has not had a recent evaluation. Her labs showed low
iron levels. The patient requested further assessment and management. She states she talked to GI who wanted her to be evaluated by GI in the ED
PHYSICAL EXAM
General: Well appearing and non-toxic
HEENT: protecting airway
Neck: appears supple
CV: No evidence of cyanosis
Resp: No accessory muscle use
Abd: Non-distended. Soft and nontender
Extremities: No deformities
Neuro: alert
Psych: Normal affect
Skin: Intact
- Nursing notes reviewed and vital signs reviewed.
PLAN
The patient will undergo laboratory testing and receive IV fluids. Consultation with the Gastroenterology team will be arranged to assess her current condition and further interpret imaging results.
DIFFERENTIAL DIAGNOSIS
The Differential Diagnosis includes, in no particular order and is not limited to:
1. Sigmoid diverticulitis
2. Uterine fibroids
3. Ovarian mass or cyst
4. Iron deficiency anemia
5. Gastroenteritis
6. Gastroesophageal reflux disease
7. Peptic ulcer disease
EKG
My independent EKG interpretation is:
- Normal sinus rhythm
- Normal axis
- No signs of ST-elevation myocardial infarction (NSTEMI)
- Heart rate of 94 beats per minute
- QTc interval within normal limits
CARE-UPDATE
02/16/25 - 12:49
The patient remains well-appearing and medically stable for discharge, despite reporting uncontrolled vomiting, which was not witnessed during reassessment. She is well-hydrated upon examination. GI no longer follows the patient due to previous
history and has been fired from the practice, but the current on-call lithographic press feeder has arranged for an EGD in an outpatient setting in two days. The patient acknowledges that she is supposed to get a call today to confirm this appointment. She
expressed suicidal ideation contingent on not receiving immediate EGD, a pattern noted in her history, and was informed that such a crisis response would delay the EGD. After discussion, she confirmed no actual suicidal intent, agreeing instead to
return to the emergency department for hydration if necessary before her scheduled endoscopy.
Disposition:
SUMMARY OF ENCOUNTER
The patient, a 39-year-old female with a history of iron deficiency, presented to the emergency department with worsening abdominal pain and vomiting that began the night before. Her symptoms were accompanied by nausea for which she had taken
ondansetron, prescribed by her primary care provider. A prior CT scan revealed sigmoid diverticulosis and possible uterine masses. Despite contacting her lithographic press feeder, she had not received recent evaluation and requested further assessment. In
the ED, her blood work was reviewed, showing no evidence of acute kidney injury, and she was found to be well-hydrated on examination. The on-call lithographic press feeder was consulted but determined that an immediate endoscopy was not necessary,
recommending that she follow up with her scheduled outpatient endoscopy in two days. The patient had threatened suicidal thoughts, a chronic issue noted in her history, but after discussion, clarified no intent to harm herself and agreed to return
to the ED for IV fluids if necessary until her upcoming endoscopy.
DISPOSITION
The patient was medically stable for discharge with outpatient follow-up for endoscopy scheduled in two days. She was advised to return to the ED for IV fluids if symptoms persisted.
MANAGEMENT OF THE PATIENTS CARE WAS DISCUSSED WITH
The on-call lithographic press feeder was consulted regarding the management and timing of the endoscopy.
MEDICAL DECISION MAKING
Chronic conditions affecting care: iron deficiency, history of sigmoid diverticulosis, possible uterine masses. The differential diagnosis included sigmoid diverticulitis, uterine fibroids, and other gastrointestinal conditions. Evaluation of
laboratory results showed no acute kidney injury, which contributed to the decision to not pursue immediate invasive intervention. The on-call gastroenterologists input guided the plan for outpatient endoscopy.
*Pulse Oximetry
Patient hypoxic: no
*Critical Care Note
Total Time (30-74mins, 75-104mins- exclusive of procedures): Not Applicable
ED Attending Note
-
Portions of this chart may have been created with voice recognition software.� Occasional wrong word or��sound alike� substitutions may have occurred due to the inherent limitations of voice recognition software.
Discharge Plan
Departure
Patient Disposition: Home (Routine Discharge)
Date of Disposition: 02/16/25
Time of Disposition: 12:54
Patient with high blood pressure during this ER visit?: No
Discharge Problem:
GERD (gastroesophageal reflux disease)
Instructions: Acid Reflux and GERD in Adults (DC)
Prescriptions:
No Action
levothyroxine 25 mcg Tablet
25 mcg PO DAILY
clonidine HCl 0.1 mg tablet
0.1 mg PO HS
famotidine 40 mg tablet
40 mg PO DAILY
gabapentin 800 mg tablet
800 mg PO TID
ergocalciferol (vitamin D2) [Vitamin D2] 1,250 mcg (50,000 unit) capsule
1,250 mcg PO MO
Linzess 145 mcg capsule
145 mcg PO DAILY
cyanocobalamin (vitamin B-12) 1,000 mcg Tablet, Sublingual
1,000 mcg SUBLINGUAL DAILY
melatonin 5 mg Tablet
5 mg PO HS
diazepam [Valium] 5 mg Tablet
5 mg PO DAILY
Rx Instructions:
am
omeprazole 40 mg Capsule,Delayed Release(Dr/Ec)
40 mg PO DAILY
Rx Instructions:
am
diazepam 5 mg Tablet
2.5 mg PO DAILYPRN PRN (Reason: anxiety)
chlorpromazine 50 mg Tablet
50 mg PO HS
Ubrelvy 100 mg Tablet
100 mg PO DAILY PRN (Reason: migraine)
methocarbamol 500 mg Tablet
500 mg PO QIDPRN PRN (Reason: muscle spasms)
ibuprofen 200 mg tablet
400 - 600 mg PO Q6HPRN PRN (Reason: moderate pain) Qty: 1 0RF
tramadol 50 mg tablet
50 mg PO Q8H PRN (Reason: Pain) Qty: 8 0RF
magnesium glycinate 100 mg Tablet
400 mg PO DAILY
riboflavin (vitamin B2) 400 mg Tablet
400 mg PO DAILY
cholecalciferol (vitamin D3) [Vitamin D3] 25 mcg (1,000 unit) Tablet
25 mcg PO DAILY
celecoxib 100 mg Capsule
100 mg PO BID
metformin 500 mg Tablet
500 mg PO BID
Caplyta 21 mg Capsule
21 mg PO DAILY
Referrals:
Tiffanie Xiong CRNP [Family Provider]
Activity Restrictions/Additional Instructions:
As we discussed, the on-call lithographic press feeder does not feel that you need an emergent endoscopy. They suggested that you follow-up with your lithographic press feeder for your endoscopy on Sunday. The on-call lithographic press feeder got confirmation from
Dr. Talbert that the office will call you later today to confirm the appointment on Sunday. If you are having trouble with p.o. intake, return to the emergency department for IV fluids. If you have thoughts of hurting yourself, please return
immediately.
Interventions
Interventions:
*Risk Screen - Suicide Last Done: 02/16/25 08:06
*General Assessment Last Done: 02/16/25 08:06
*Neglect/Abuse Screening Last Done: 02/16/25 08:06
*ED COVID-19 Vaccine History Last Done: 02/16/25 12:59
*Nursing Disposition Last Done: 02/16/25 12:59
KU-Nqsolg-Unjzgiswga Assessment Last Done: 02/16/25 08:41
Discharge Date and Time
Discharge Date/Time: 02/16/25 13:00
Print Language: LATVIAN
[2025-02-16] MEDS: NSS 1000 IV (08:40)
[2025-02-16 08:45] LABS: % Basophils 0.6 % (0-2); % Eosinophils 2.3 % (0-6); % Immature Granulocytes 0.4 % (0-0.5); % Lymphocytes 19.2 % (20.5-51.1); % Monocytes 4.2 % (1.7-9.3); % Neutrophils 73.3 % (42.2-75.2); Absolute Eosinophils 0.2 10^3/uL (0-0.7); Absolute Lymphocytes 1.4 10^3/uL (1.2-3.4); Absolute Monocytes 0.3 10^3/uL (0.1-0.6); Absolute Neutrophils 5.2 10^3/uL (1.4-6.5); Hematocrit 36.3 % (37.0-47.0); Hemoglobin 12.4 g/dL (12.0-16.0); Mean Corp Hgb Conc. 34.2 g/dL (33.0-37.0); Mean Corpuscular Hgb 29.4 pg (27.0-31.0); Mean Platelet Volume 11.1 fL (7.4-10.4); Nucleated Red Blood Cells % 0 %; Platelet Count 278 10^3/uL (130-400); Red Blood Cell Count 4.22 10^6/uL (4.20-5.40); Red Cell Dist. Width 12.5 % (11.5-14.5); White Blood Cell Count 7.1 10^3/uL (4.8-10.8)
[2025-02-16 08:57] LABS: ALT (SGPT) 23 U/L (0-35); AST (SGOT) 21 U/L (14-36); Albumin 4.4 g/dl (3.5-5.0); Alkaline Phosphatase 108 U/L (38-126); Blood Urea Nitrogen 4 mg/dl (7-17); Calcium 9.1 mg/dl (8.4-10.2); Carbon Dioxide 21 mmol/L (22-30); Chloride 109 mmol/L (98-107); Glucose 117 mg/dl (70-99); Lipase 39 U/L (23-300); Potassium 4.1 mmol/L (3.5-5.1); Sodium 139 mmol/L (135-145); Total Bilirubin 0.5 mg/dl (0.2-1.3); Total Protein 6.9 g/dl (6.3-8.2); eGFR > 60.00
[2025-02-16] MEDS: ZOFRAN 4 MG IV (08:58)
[2025-02-16 10:00] VITALS: BP 123/82
--- NOTE | 2025-02-16 10:10 | EDRN ---
Assisting with care; answered call light. PT is OOB amb in room complaining of continuing pain and nausea,I did tell her nurse ( who was with another pt) and the ER provider. Pt was informed that the ER provider is waiting on a GI Consult
[2025-02-16] MEDS: MORPHINE SULFATE 4 MG IV (11:19)
[2025-02-16 11:21] VITALS: BP 104/61
[2025-02-16 11:22] VITALS: BP 104/61
[2025-02-16 11:29] VITALS: BMI 35.2
[2025-02-16 12:00] VITALS: BP 111/72
== END 2025-02-16 13:00 | disposition home or self-care (01) ==
LOC: EMR 08:00
PROVIDERS: EMERGENCY PHYSICIAN Student in an Organized Health Care Education/Training Program; FAMILY PHYSICIAN Nurse Practitioner Primary Care
DX: R10.9 Unspecified abdominal pain (principal); J45.909 Unspecified asthma, uncomplicated; I10 Essential (primary) hypertension; E03.9 Hypothyroidism, unspecified; F31.9 Bipolar disorder, unspecified; F41.9 Anxiety disorder, unspecified; F17.200 Nicotine dependence, unspecified, uncomplicated; G47.30 Sleep apnea, unspecified; I42.9 Cardiomyopathy, unspecified; K21.9 Gastro-esophageal reflux disease without esophagitis; Z80.0 Family history of malignant neoplasm of digestive organs; Z83.3 Family history of diabetes mellitus; Z83.49 Family history of other endocrine, nutritional and metabolic diseases; Z86.718 Personal history of other venous thrombosis and embolism; Z87.820 Personal history of traumatic brain injury; Z90.49 Acquired absence of other specified parts of digestive tract; Z91.51 Personal history of suicidal behavior
CPT/HCPCS: 99283; 96374; 96375; 96361; 80053; 83690; 85025; 93005

== ENCOUNTER 2025-02-18 06:12 | Day surgery (SDC) | payer OTHER, SELFPAY ==
--- NOTE | 2025-02-17 13:56 | CM ---
CM received call from Alexis in [facility]. Patient is for Upper GI procedure on 02/18. CM confirmed needs for 1:1 monitoring given patient's long history of suicide attempts and gestures. CM will remain available as needed.
[2025-02-18 11:57] VITALS: BP 133/90
[2025-02-18 12:01] LABS: Glucose - Point of Care 101 mg/dl (70-99)
[2025-02-18 12:08] VITALS: BMI 34.2
[2025-02-18] MEDS: ZOFRAN 4 MG IV (12:41)
[2025-02-18 14:46] VITALS: BP 99/82
[2025-02-18 15:00] VITALS: BP 118/79
[2025-02-18 15:15] VITALS: BP 98/85
== END 2025-02-18 15:20 | disposition home or self-care (01) ==
LOC: SDS 06:12
PROVIDERS: ATTENDING PHYSICIAN Student in an Organized Health Care Education/Training Program
DX: R10.84 Generalized abdominal pain (principal); R63.4 Abnormal weight loss; R11.15 Cyclical vomiting syndrome unrelated to migraine; K20.90 Esophagitis, unspecified without bleeding
CPT/HCPCS: 43239; 88305; 82962; 88342

== ENCOUNTER 2025-02-20 18:59 | Emergency (ER) | payer OTHER, SELFPAY ==
[2025-02-20] MEDS: KETAMINE HCL 300 MG IM (19:46)
--- NOTE | 2025-02-20 19:47 | ED.GENMED ---
History of Present Illness
<Marquez Elder MD - Last Filed: 02/20/25 21:22>
General
Chief Complaint: Psychiatric Problem
Source: patient and records
Exam Limitations: none
Time Seen by Provider: 02/20/25 19:19
Nursing documentation reviewed up to this point in time: agreed with
History of Present Illness
History of Present Illness:
39-year-old female with medical history as noted well-known to this emergency room with repeated visits for suicidality presents to the ER on a 302 filed by her therapist. Patient apparently made suicidal threats to her therapist and police were
called to bring her into the emergency room on a 302. Patient denies being actively suicidal. She says she feels fine and has no acute complaints. She says she was seen at [facility] yesterday for suicidality and cleared by psychiatrist. She is
screaming and yelling and being very aggressive here in the emergency room.
Past History
<Marquez Elder MD - Last Filed: 02/20/25 21:22>
Past History
ED Past Medical History: Arrthythmia (Tachycardia), Asthma, HTN, Seizures, Hypothyroidism, Psychiatric (Bipolar, PTSD, suicide attempts, Anxiety/Depression, Borderline personality, ) and Other (TBI 2006, migraines, Cardiomyopathy,
Subarachnoid/Subdural hemorrhage, Intraparenchymal hem, Sleep apnea, GI bleeding, Pernicious anemia, ADHD, DVT with IVC filter)
ED Past Surgical History: Cholecystectomy, , Orthopedic (R and left knee surgery, Carlos L leg removed, Left arm plate, Right wrist surgery, ) and Other (Green field filter)
Social History
Tobacco: Smoker
Alcohol: None
Drug: Other (Took a Hemp gummy this a.m.)
Personal: Single
Living: alone
Employment: Disabled
Family History
Family History: Other (Diabetes, colon cancer, thyroid disease)
Review of Systems
<Marquez Elder MD - Last Filed: 02/20/25 21:22>
Review of Systems
All Other Systems: ROS reviewed and negative except as documented in HPI and ROS
Psychiatric: Reports anxiety and hallucinations; Denies suicidal (Patient denies)
Phy Exam
<Marquez Elder MD - Last Filed: 02/20/25 21:22>
Physical Exam
Physical Exam:
General: Well appearing and non-toxic
HEENT: protecting airway
Neck: appears supple
CV: No evidence of cyanosis
Resp: No accessory muscle use
Abd: Non-distended
Extremities: No deformities
Neuro: Alert
Psych: Bizarre affect, aggressive behavior�slamming her head against the wall and screaming at staff
Skin: Intact
Scores
<Marquez Elder MD - Last Filed: 02/20/25 21:22>
Heart Failure Risk
Heart Failure Risk Score: Not Applicable
Heart Score for Chest Pain Patients
STEMI patient?: Not applicable
Withdrawal Assessment of Alcohol
Withdrawal Assessment Completed?: Not applicable
Course
<Marquez Elder MD - Last Filed: 02/20/25 21:22>
Orders/Labs/Results
Orders:
Orders
02/20/25 19:19
Crisis Consult Routine
Reason for Consult: SI
ED Special Safety Observation ONCE
Observation level: One to One
02/20/25 19:36
Haloperidol Lactate [Haldol] 5 mg IM NOW STA
Lorazepam [Ativan] 2 mg IM NOW STA
02/20/25 19:37
Haloperidol Lactate [Haldol] 5 mg .ROUTE .STK-MED ONE
Lorazepam [Ativan] 2 mg .ROUTE .STK-MED ONE
02/20/25 19:46
Ketamine Concentrate Injection [Ketamine HCl] 300 mg IM NOW STA
02/20/25 19:54
Ondansetron Injectable [Zofran] 4 mg .ROUTE .STK-MED ONE
Ondansetron Injectable [Zofran] 4 mg IV NOW STA
02/20/25 19:55
Electrocardiogram (*1) Urgent
Reason for Study: QTc Monitoring
EKG- Treatment ONCE
Drug Screen, Urine [Urine Drug Abuse Screen] Urgent
Test Result ONCE
02/20/25 20:29
1:1 Observation - Suicide/ Violent Behavior As Directed
Restraints - Violent As Directed
Restraint Type-: Locked-4 point/4 rails
Apply From (date): 02/20/25
Apply from (time): 19:00
Remove (date): 02/20/25
Remove (time): 23:00
02/20/25 20:35
Acetaminophen Urgent
Alcohol Urgent
Complete Blood Count/With Diff Urgent
Comprehensive Metabolic Panel Urgent
HCG, Serum Qualitative Screen Urgent
Salicylate Urgent
02/20/25 22:33
Ondansetron Orally Disint [Zofran Odt (Orally Disintegrating)] 4 mg .ROUTE .STK-MED ONE
02/20/25 22:35
Ondansetron Orally Disint [Zofran Odt (Orally Disintegrating)] 4 mg PO NOW STA
02/21/25 01:06
Ondansetron Orally Disint [Zofran Odt (Orally Disintegrating)] 4 mg .ROUTE .STK-MED ONE
02/21/25 01:11
Ondansetron Orally Disint [Zofran Odt (Orally Disintegrating)] 4 mg PO NOW STA
Abnormal Lab Results
02/20/25
20:35
Hct 36.9 L %
(37.0-47.0)
MPV 11.2 H fL
(7.4-10.4)
Chloride 109 H mmol/L
(98-107)
Carbon Dioxide 19 L mmol/L
(22-30)
BUN 3 L mg/dl
(7-17)
Glucose 142 H mg/dl
(70-99)
Salicylates < 1.0 L mg/dl
(2.0-20.0)
Acetaminophen < 10 L ug/ml
(10-30)
02/20/25 20:35
02/20/25 20:35
Vital Signs
Initial and Last Documented VS:
Initial Vital Signs
Temp Pulse Resp BP Pulse Ox
98.1 F 88 12 132/105 98
02/20/25 20:20 02/20/25 20:20 02/20/25 20:20 02/20/25 20:20 02/20/25 20:20
Last Documented Vital Signs
Temp Pulse Resp BP Pulse Ox
98.1 F 69 17 109/94 100
02/20/25 20:20 02/21/25 00:45 02/20/25 23:15 02/21/25 01:00 02/21/25 01:00
<Diane Anderson, DO - Last Filed: 02/21/25 03:51>
Orders/Labs/Results
Orders:
Orders
02/20/25 19:19
Crisis Consult Routine
Reason for Consult: SI
ED Special Safety Observation ONCE
Observation level: One to One
02/20/25 19:36
Haloperidol Lactate [Haldol] 5 mg IM NOW STA
Lorazepam [Ativan] 2 mg IM NOW STA
02/20/25 19:37
Haloperidol Lactate [Haldol] 5 mg .ROUTE .STK-MED ONE
Lorazepam [Ativan] 2 mg .ROUTE .STK-MED ONE
02/20/25 19:46
Ketamine Concentrate Injection [Ketamine HCl] 300 mg IM NOW STA
02/20/25 19:54
Ondansetron Injectable [Zofran] 4 mg .ROUTE .STK-MED ONE
Ondansetron Injectable [Zofran] 4 mg IV NOW STA
02/20/25 19:55
Electrocardiogram (*1) Urgent
Reason for Study: QTc Monitoring
EKG- Treatment ONCE
Drug Screen, Urine [Urine Drug Abuse Screen] Urgent
Test Result ONCE
02/20/25 20:29
1:1 Observation - Suicide/ Violent Behavior As Directed
Restraints - Violent As Directed
Restraint Type-: Locked-4 point/4 rails
Apply From (date): 02/20/25
Apply from (time): 19:00
Remove (date): 02/20/25
Remove (time): 23:00
02/20/25 20:35
Acetaminophen Urgent
Alcohol Urgent
Complete Blood Count/With Diff Urgent
Comprehensive Metabolic Panel Urgent
HCG, Serum Qualitative Screen Urgent
Salicylate Urgent
02/20/25 22:33
Ondansetron Orally Disint [Zofran Odt (Orally Disintegrating)] 4 mg .ROUTE .STK-MED ONE
02/20/25 22:35
Ondansetron Orally Disint [Zofran Odt (Orally Disintegrating)] 4 mg PO NOW STA
02/21/25 01:06
Ondansetron Orally Disint [Zofran Odt (Orally Disintegrating)] 4 mg .ROUTE .STK-MED ONE
02/21/25 01:11
Ondansetron Orally Disint [Zofran Odt (Orally Disintegrating)] 4 mg PO NOW STA
Abnormal Lab Results
02/20/25
20:35
Hct 36.9 L %
(37.0-47.0)
MPV 11.2 H fL
(7.4-10.4)
Chloride 109 H mmol/L
(98-107)
Carbon Dioxide 19 L mmol/L
(22-30)
BUN 3 L mg/dl
(7-17)
Glucose 142 H mg/dl
(70-99)
Salicylates < 1.0 L mg/dl
(2.0-20.0)
Acetaminophen < 10 L ug/ml
(10-30)
02/20/25 20:35
02/20/25 20:35
Vital Signs
Initial and Last Documented VS:
Initial Vital Signs
Temp Pulse Resp BP Pulse Ox
98.1 F 88 12 132/105 98
02/20/25 20:20 02/20/25 20:20 02/20/25 20:20 02/20/25 20:20 02/20/25 20:20
Last Documented Vital Signs
Temp Pulse Resp BP Pulse Ox
98.1 F 69 17 109/94 100
02/20/25 20:20 02/21/25 00:45 02/20/25 23:15 02/21/25 01:00 02/21/25 01:00
<Marquez Elder MD - Last Filed: 02/20/25 21:22>
MDM/Problems Addressed
Differential Diagnosis Includes:
Suicidal ideation
MDM/Problems Addressed:
39-year-old female with repeated emergency room visits for suicidality is here on a 302 filed by her psychiatrist for suicidal ideation. She denies being actively suicidal at this moment but unfortunately this seems to change mom at the moment and
she has had multiple significant suicide attempts in the past. I had a long discussion with the patient as she has been very aggressive and agitated here after my initial assessment. Unfortunately I was not able to verbally de-escalate the
patient. She initially was singing/screaming at the top of her lungs and then ultimately began slamming her head against the door, screaming and cursing at staff. Further attempts at verbal de-escalation unsuccessful and for patient and staff
safety decision was made for chemical sedation and restraint. Plan initially was for Haldol and Ativan for sedation but patient said that she is allergic and began screaming and so decision was made to instead proceed with ketamine for sedation. I
did speak to crisis to explain the situation, she will ultimately need psychiatry assessment; unfortunately and requires sedation for acute agitation before psychiatry is available. At this point I will uphold her 302.
Now that patient is in restraints and sedated she is making some vague comments about 'will never find out what I took.' Given her history will place IV send labs including Tylenol and salicylate levels, UDS. EKG for QTc monitoring. Monitor on
telemetry.
QTc acceptable on EKG, narrow complex QRS. Labs pending. Patient resting comfortably, stable vital signs.
CBC unremarkable, CMP shows marginal acidosis likely from thrashing in the setting of restraints. Her LFTs are normal. Tylenol and salicylate levels are negative. Continue to monitor. Telepsych evaluation is currently pending.
Chronic conditions affecting care:
Chronic suicidality, behavioral disorder
<Marquez Elder MD - Last Filed: 02/20/25 21:22>
*Pulse Oximetry
Patient hypoxic: no (95%)
*EKG
Interpreted by ED Provider?: Yes
Comparison EKG: no changes
Heart Rate: 82
Rate: normal
Rhythm: sinus
Wedron: normal axis
Interval: normal interval and normal QT interval
QRS Pattern: normal QRS
Ischemia: no ischemia
*Critical Care Note
Total Time (30-74mins, 75-104mins- exclusive of procedures): Not Applicable
Data Reviewed
Source: patient and records
<Marquez Elder MD - Last Filed: 02/20/25 21:22>
Patient Management
Discussion with other providers: Other (Discussed with crisis staff)
Escalation/DeEscalation of care consider admission/obs:
Inpatient psychiatric treatment
<Diane Anderson DO - Last Filed: 02/21/25 03:51>
Update Note
Update Note:
03:40
After receiving IV ketamine for significant agitation, purposeful head-banging patient is now awake, alert, much more cooperative. No further agitation.
She continues to deny suicidal thoughts or plan.
She has been evaluated by telepsychiatrist who does not feel patient requires inpatient psychiatric treatment.
Plan is for discharge to home to continue with current outpatient therapy and psychiatry follow-up.
ED Attending Note
<Marquez Elder MD - Last Filed: 02/20/25 21:22>
-
Portions of this chart may have been created with voice recognition software.� Occasional wrong word or��sound alike� substitutions may have occurred due to the inherent limitations of voice recognition software.
Discharge Plan
Departure
Patient Disposition: Home (Routine Discharge)
Date of Disposition: 02/20/25
Time of Disposition: 19:20
Patient with high blood pressure during this ER visit?: No
Discharge Problem:
fleeting suicidal ideations
Instructions: Depression in adults, Suicide prevention
Prescriptions:
No Action
levothyroxine 25 mcg Tablet
25 mcg PO DAILY
omeprazole 20 mg Capsule,Delayed Release(Dr/Ec)
20 mg PO DAILY
loratadine 10 mg Tablet
10 mg PO DAILY
diazepam 5 mg Tablet
5 mg PO HS
Caplyta 21 mg Capsule
21 mg PO DAILY
ondansetron HCl [Zofran] 4 mg Tablet
4 mg PO BID PRN (Reason: nausea)
Interventions
Interventions:
*Risk Screen - Suicide Last Done: 02/20/25 19:00
*General Assessment Last Done: 02/20/25 19:07
*ED- Fall Risk Assessment Last Done: 02/21/25 02:59
*ED COVID-19 Vaccine History Last Done: 02/21/25 02:59
ED-Psychological Assessment Last Done: 02/20/25 19:22
Discharge Date and Time
Print Language: MONGOLIAN
[2025-02-20] MEDS: ZOFRAN 4 MG IV (19:54)
[2025-02-20 20:20] VITALS: BP 132/105
[2025-02-20 20:57] LABS: % Basophils 0.4 % (0-2); % Eosinophils 2.2 % (0-6); % Immature Granulocytes 0.3 % (0-0.5); % Lymphocytes 25.6 % (20.5-51.1); % Monocytes 5.2 % (1.7-9.3); % Neutrophils 66.3 % (42.2-75.2); Absolute Eosinophils 0.2 10^3/uL (0-0.7); Absolute Lymphocytes 1.7 10^3/uL (1.2-3.4); Absolute Monocytes 0.4 10^3/uL (0.1-0.6); Absolute Neutrophils 4.4 10^3/uL (1.4-6.5); Hematocrit 36.9 % (37.0-47.0); Hemoglobin 12.5 g/dL (12.0-16.0); Mean Corp Hgb Conc. 33.9 g/dL (33.0-37.0); Mean Corpuscular Hgb 29.1 pg (27.0-31.0); Mean Corpuscular Volume 85.8 fL (81.0-99.0); Mean Platelet Volume 11.2 fL (7.4-10.4); Nucleated Red Blood Cells % 0 %; Platelet Count 275 10^3/uL (130-400); Red Cell Dist. Width 12.8 % (11.5-14.5); White Blood Cell Count 6.7 10^3/uL (4.8-10.8)
[2025-02-20 21:00] VITALS: BP 131/94
[2025-02-20 21:08] LABS: HCG, Serum Qualitative Screen Negative
[2025-02-20 21:13] LABS: ALT (SGPT) 21 U/L (0-35); AST (SGOT) 21 U/L (14-36); Albumin 4.5 g/dl (3.5-5.0); Alkaline Phosphatase 85 U/L (38-126); Blood Urea Nitrogen 3 mg/dl (7-17); Calcium 9.5 mg/dl (8.4-10.2); Carbon Dioxide 19 mmol/L (22-30); Chloride 109 mmol/L (98-107); Glucose 142 mg/dl (70-99); Potassium 3.7 mmol/L (3.5-5.1); Sodium 141 mmol/L (135-145); Total Bilirubin 0.4 mg/dl (0.2-1.3); eGFR > 60.00
[2025-02-20 21:18] LABS: Acetaminophen < 10 ug/ml (10-30); Salicylate < 1.0 mg/dl (2.0-20.0)
[2025-02-20 21:21] LABS: Alcohol None Detected
[2025-02-20 22:00] VITALS: BP 128/100
[2025-02-20] MEDS: ZOFRAN ODT (ORALLY DISINTEGRATING) 4 MG PO (22:36)
[2025-02-20 23:00] VITALS: BP 115/86
[2025-02-21] VITALS: BP 109/80
[2025-02-21 01:00] VITALS: BP 109/94
[2025-02-21] MEDS: ZOFRAN ODT (ORALLY DISINTEGRATING) 4 MG PO (01:15)
== END 2025-02-21 04:10 | disposition home or self-care (01) ==
LOC: EMR 18:59
PROVIDERS: EMERGENCY PHYSICIAN Emergency Medicine; FAMILY PHYSICIAN Nurse Practitioner Primary Care
DX: R45.851 Suicidal ideations (principal); F32.A Depression, unspecified; F41.9 Anxiety disorder, unspecified; E87.20 Acidosis, unspecified; E03.9 Hypothyroidism, unspecified; G47.30 Sleep apnea, unspecified; I10 Essential (primary) hypertension; J45.909 Unspecified asthma, uncomplicated; F17.200 Nicotine dependence, unspecified, uncomplicated; Z86.718 Personal history of other venous thrombosis and embolism; Z87.820 Personal history of traumatic brain injury
CPT/HCPCS: 96372; 96374; 99284; 80053; 80143; 80179; 82077; 84703; 85025; 93005

== ENCOUNTER 2025-02-27 12:54 | Emergency (ER) | payer OTHER, SELFPAY ==
[2025-02-27 12:55] VITALS: BP 133/86
[2025-02-27 13:11] VITALS: BP 131/85; BMI 25.9
--- NOTE | 2025-02-27 13:22 | ED.GENMED ---
History of Present Illness
General
Chief Complaint: Suicidal Ideation
Time Seen by Provider: 02/27/25 13:21
History of Present Illness
History of Present Illness:
TIME OF INITIAL EVALUATION
- 1:25 PM
REVIEW OF OLD RECORDS
- The patient has history of multiple visits to the ED related to SI. She has history of bipolar, anxiety/depression, ADHD. The patient was seen here 02/20/2025, at that time the patient was given ketamine and had more than 1 telepsych evaluations.
The patient also just had a recent upper endoscopy which was relatively unremarkable.
CHIEF COMPLAINT(S)
Persistent suicidal ideation with a recent escalation in heart rate.
HISTORY OF PRESENT ILLNESS
The patient is a 39-year-old female who describes ongoing suicidal ideation. She reported multiple visits to different medical facilities over the past several days. Initially, on Sunday, she went to [facility] and left by Sunday.
She then visited [facility] at approximately 2:30 AM on Sunday. The patient also went to the emergency department at [facility] on Sunday due to an elevated heart rate measuring between 154-155 beats per minute. Despite these interventions,
she notes that the feelings of suicidal ideation have persisted.
The patient mentions seeing an online psychiatrist who was informed of her intention to overdose, resulting in a constant state of urgency. Despite receiving care, the discharges from each facility have led her back to those thoughts. She expressed
that the treatment occasionally provides relief but is not consistent.
The patient denied any chest pain or shortness of breath but reported general malaise and nausea. She mentioned being prescribed a medication for nausea, which may provide some relief. The patient is awaiting a consultation with a crisis
intervention team.
SOCIAL DETERMINANTS AFFECTING HEALTH
The patient admitted to planning an overdose and has made several visits to multiple facilities in an attempt to manage her mental health crisis. She indicates inconsistent relief from current therapeutic interventions. This suggests possible
instability in support systems and ongoing mental health challenges.
MEDICATIONS
The patient is prescribed medication for nausea.
PHYSICAL EXAM
- General: Well appearing in no distress
- HEENT: Poor dentition
- Cardiovascular: No murmurs, normal heart rate, regular rhythm, No chest wall tenderness
- Pulmonary: No respiratory distress, breath sounds are clear and equal
- Abdomen: Soft with no peritoneal signs, no tenderness
- Neurologic: Excellent strength all extremities, no coordination deficits
- Psychiatric: Appropriate mental status, somewhat of a flat depressed affect
- Extremities: Nontender, no edema, moves all extremities equally
- Skin: No rash, no lesions
PROBLEM LIST
- Acute: Suicidal ideation, elevated heart rate, nausea.
- Chronic: Mental health instability.
PLAN
- Immediate consultation with the crisis intervention team.
- Administration of antiemetic medication for nausea.
DIFFERENTIAL DIAGNOSIS
The Differential Diagnosis includes, in no particular order and is not limited to:
1. Major depressive disorder with suicidal ideation
2. Generalized anxiety disorder with panic attacks
3. Substance-induced mood disorder
4. Tachycardia due to anxiety
5. Medication side effects
6. Adjustment disorder with mixed anxiety and depressed mood
7. Bipolar disorder
8. Borderline personality disorder
9. Acute stress disorder
10. Post-traumatic stress disorder
RADIOLOGY
-
EKG
-
LABS
-
UPDATE
-SUMMARY OF ENCOUNTER
The patient, a 39-year-old female, was seen in the emergency department for persistent suicidal ideation and an elevated heart rate. Despite previous interventions at various facilities, the patient continues to experience these symptoms. The crisis
team was consulted and confirmed that the patient is receiving care from the ACT team. The patient denies having any specific plan for suicide during this visit.
ASSESSMENT
The patient continues to present with suicidal ideation and elevated heart rate. She is currently under the care of ACT team services, suggesting existing mental health support, but there remains a need for ongoing monitoring and intervention.
PLAN
Immediate consultation with the crisis intervention team was conducted to coordinate care and recommend continued outpatient management. The patient is to follow up with the ACT team.
MEDICAL DECISION MAKING
- Number and Complexity of Problems Addressed: Chronic conditions affecting care include mental health instability with suicidal ideation and elevated heart rate. Differential diagnosis includes major depressive disorder with suicidal ideation,
generalized anxiety disorder with panic attacks, substance-induced mood disorder, tachycardia due to anxiety, medication side effects, adjustment disorder with mixed anxiety and depressed mood, bipolar disorder, borderline personality disorder,
acute stress disorder, and post-traumatic stress disorder.
- Data:
Category 3: Discussion of management with a mental health liaison from the crisis intervention team about continued care and follow-up with the ACT team.
-Risk: Prescription medication management was discussed but details were not explicitly mentioned. Social determinants affecting health include the patients ongoing mental health challenges and potentially unstable support systems.
DIAGNOSIS
- Major depressive disorder with suicidal ideation (F32.2)
Past History
Past History
ED Past Medical History: Arrthythmia (Tachycardia), Asthma, HTN, Seizures, Hypothyroidism, Psychiatric (Bipolar, PTSD, suicide attempts, Anxiety/Depression, Borderline personality, ) and Other (TBI 2005, migraines, Cardiomyopathy,
Subarachnoid/Subdural hemorrhage, Intraparenchymal hem, Sleep apnea, GI bleeding, Pernicious anemia, ADHD, DVT with IVC filter)
ED Past Surgical History: Cholecystectomy, , Orthopedic (R and left knee surgery, Carlos L leg removed, Left arm plate, Right wrist surgery, ) and Other (Green field filter)
Social History
Tobacco: Smoker
Alcohol: None
Drug: Other (Took a Hemp gummy this a.m.)
Personal: Single
Living: alone
Employment: Disabled
Family History
Family History: Other (Diabetes, colon cancer, thyroid disease)
Phy Exam
Physical Exam
Physical Exam:
See HPI
Course
Orders/Labs/Results
Orders:
Orders
02/27/25 12:58
1:1 Observation - Suicide/ Violent Behavior As Directed
02/27/25 14:32
Crisis Consult Urgent
Reason for Consult: SI
Vital Signs
Initial and Last Documented VS:
Initial Vital Signs
Temp Pulse Resp BP Pulse Ox
37.1 C 84 16 133/86 98
02/27/25 12:55 02/27/25 12:55 02/27/25 12:55 02/27/25 12:55 02/27/25 12:55
Last Documented Vital Signs
Temp Pulse Resp BP Pulse Ox
37.0 C 86 20 131/85 99
02/27/25 13:11 02/27/25 13:11 02/27/25 13:11 02/27/25 13:11 02/27/25 13:26
*Pulse Oximetry
SaO2: 99
Oxygen Mode of Delivery: Room air
Patient hypoxic: no
*Critical Care Note
Total Time (30-74mins, 75-104mins- exclusive of procedures): Not Applicable
ED Attending Note
-
Portions of this chart may have been created with voice recognition software.� Occasional wrong word or��sound alike� substitutions may have occurred due to the inherent limitations of voice recognition software.
Discharge Plan
Departure
Patient Disposition: Home (Routine Discharge)
Date of Disposition: 02/27/25
Time of Disposition: 14:42
Patient with high blood pressure during this ER visit?: Yes
Discharge Problem:
Depression
Instructions: Depression, Adult (DC), BLOOD PRESSURE
Prescriptions:
No Action
levothyroxine 25 mcg Tablet
25 mcg PO DAILY
omeprazole 20 mg Capsule,Delayed Release(Dr/Ec)
20 mg PO DAILY
loratadine 10 mg Tablet
10 mg PO DAILY
diazepam 5 mg Tablet
5 mg PO HS
Caplyta 21 mg Capsule
21 mg PO DAILY
ondansetron HCl [Zofran] 4 mg Tablet
4 mg PO BID PRN (Reason: nausea)
Referrals:
Tiffanie Xiong CRNP [Family Provider]
Activity Restrictions/Additional Instructions:
You were seen by crisis today. Return here if worse or other concerns. Follow-up with your ACT team.
Interventions
Interventions:
*Risk Screen - Suicide Last Done: 02/27/25 12:55
*General Assessment Last Done: 02/27/25 12:55
*Neglect/Abuse Screening Last Done: 02/27/25 12:55
*ED- Fall Risk Assessment Last Done: 02/27/25 13:11
*ED COVID-19 Vaccine History Last Done: 02/27/25 13:11
ED-Psychological Assessment Last Done: 02/27/25 13:11
Discharge Date and Time
Print Language: FRISIAN
== END 2025-02-27 14:47 | disposition home or self-care (01) ==
LOC: EMR 12:54
PROVIDERS: EMERGENCY PHYSICIAN Emergency Medicine; FAMILY PHYSICIAN Nurse Practitioner Primary Care
DX: F32.2 Major depressive disorder, single episode, severe without psychotic features (principal); E03.9 Hypothyroidism, unspecified; I10 Essential (primary) hypertension; J45.909 Unspecified asthma, uncomplicated; F17.200 Nicotine dependence, unspecified, uncomplicated; R45.851 Suicidal ideations; Z87.820 Personal history of traumatic brain injury
CPT/HCPCS: 99283

== ENCOUNTER → 2025-03-01 15:21 | Emergency (ER) | payer OTHER, SELFPAY ==
[2025-03-01 15:37] VITALS: BP 121/82
--- NOTE | 2025-03-01 16:00 | ED.GENMED ---
Addendum entered and electronically signed by Cade Spears DO 03/01/25 16:58:
She has no jaundice, cleared yesterday from an outside hospital denies any further overdose
Addendum entered and electronically signed by Cade Spears, 03/01/25 16:57:
Update reviewed with crisis patient unable to be placed she has extensive outpatient resources she has therapy tomorrow morning scheduled in PT patient refused blood work
Original Note:
History of Present Illness
General
Chief Complaint: Crisis Evaluation
Source: patient, records and previous hospital records
Exam Limitations: none
Time Seen by Provider: 03/01/25 15:24
Nursing documentation reviewed up to this point in time: agreed with
History of Present Illness
History of Present Illness:
39-year-old female well-known to the ER staff depression mental illness presents after suicide attempt she tells me she tried to hang herself bedsheets presents via EMS, apparently was at [place] yesterday after taking Tylenol she was discharged
was in [place] 2 days ago and discharged was at [place] last week sent to [facility] ER due to tachycardia she eloped was walking around try to get back to [place] was not admitted and ended up with [facility]
Past History
Past History
ED Past Medical History: Arrthythmia (Tachycardia), Asthma, HTN, Seizures, Hypothyroidism, Psychiatric (Bipolar, PTSD, suicide attempts, Anxiety/Depression, Borderline personality, ) and Other (TBI 2006, migraines, Cardiomyopathy,
Subarachnoid/Subdural hemorrhage, Intraparenchymal hem, Sleep apnea, GI bleeding, Pernicious anemia, ADHD, DVT with IVC filter)
ED Past Surgical History: Cholecystectomy, , Orthopedic (R and left knee surgery, Carlos L leg removed, Left arm plate, Right wrist surgery, ) and Other (Green field filter)
Social History
Tobacco: Smoker
Alcohol: None
Drug: Other (Took a Hemp gummy this a.m.)
Personal: Single
Living: alone
Employment: Disabled
Family History
Family History: Other (Diabetes, colon cancer, thyroid disease)
Review of Systems
Review of Systems
All Other Systems: Not applicable
Constitutional: Reports sleep disturbance
Psychiatric: Reports depression and suicidal
Phy Exam
Physical Exam
Physical Exam:
Physical Exam
General: no apparent distress, not acutely ill
Neck: No stridor clear voice few petechiae around the neck no antione ligature
Heart: Regular
Lungs: no acute respiratory distress. clear bilaterally
Neuro: alert and oriented. no focal neurological deficits
Skin: no rash
Psychiatric: flat affect admits to feeling suicidal
Extremities: no edema.
Course
Orders/Labs/Results
Orders:
Orders
03/01/25 15:46
1:1 Observation - Suicide/ Violent Behavior As Directed
Crisis Consult Urgent
Reason for Consult: suicidal
03/01/25 15:49
Acetaminophen Urgent
Alcohol Urgent
Complete Blood Count/With Diff Urgent
Comprehensive Metabolic Panel Urgent
HCG, Serum Qualitative Screen Urgent
Salicylate Urgent
Urine Drug Abuse Screen Urgent
Test Result ONCE
03/01/25 15:56
Lorazepam [Ativan] 1 mg PO NOW STA
Vital Signs
Initial and Last Documented VS:
Initial Vital Signs
Temp Pulse Resp BP Pulse Ox
98.3 F 91 17 121/82 97
03/01/25 15:37 03/01/25 15:37 03/01/25 15:37 03/01/25 15:37 03/01/25 15:37
Last Documented Vital Signs
Temp Pulse Resp BP Pulse Ox
98.3 F 91 17 121/82 97
03/01/25 15:37 03/01/25 15:37 03/01/25 15:37 03/01/25 15:37 03/01/25 16:01
MDM/Problems Addressed
Differential Diagnosis Includes:
Suicidal ideation multiple visits Tylenol yesterday hanging today no stridor no ligature
Chronic conditions affecting care: Psychiatric illness
Acute Exacerbation and/or Progression of Chronic Illness: Psychiatric illness
*Pulse Oximetry
SaO2: 97
Oxygen Mode of Delivery: Room air
Patient hypoxic: no
*Critical Care Note
Total Time (30-74mins, 75-104mins- exclusive of procedures): Not Applicable
ED Attending Note
-
Portions of this chart may have been created with voice recognition software.� Occasional wrong word or��sound alike� substitutions may have occurred due to the inherent limitations of voice recognition software.
Discharge Plan
Departure
Prescriptions:
No Action
levothyroxine 25 mcg Tablet
25 mcg PO DAILY
omeprazole 20 mg Capsule,Delayed Release(Dr/Ec)
20 mg PO DAILY
loratadine 10 mg Tablet
10 mg PO DAILY
diazepam 5 mg Tablet
5 mg PO HS
Caplyta 21 mg Capsule
21 mg PO DAILY
ondansetron HCl [Zofran] 4 mg Tablet
4 mg PO BID PRN (Reason: nausea)
Interventions
Interventions:
*Risk Screen - Suicide Last Done: 03/01/25 15:37
*General Assessment Last Done: 03/01/25 15:37
*Neglect/Abuse Screening Last Done: 03/01/25 15:37
Discharge Date and Time
Print Language: ROMANIAN
--- NOTE | 2025-03-01 16:55 | ED.GENMED ---
History of Present Illness
General
Chief Complaint: Crisis Evaluation
Time Seen by Provider: 03/01/25 15:24
Past History
Past History
ED Past Medical History: Arrthythmia (Tachycardia), Asthma, HTN, Seizures, Hypothyroidism, Psychiatric (Bipolar, PTSD, suicide attempts, Anxiety/Depression, Borderline personality, ) and Other (TBI 2006, migraines, Cardiomyopathy,
Subarachnoid/Subdural hemorrhage, Intraparenchymal hem, Sleep apnea, GI bleeding, Pernicious anemia, ADHD, DVT with IVC filter)
ED Past Surgical History: Cholecystectomy, , Orthopedic (R and left knee surgery, Carlos L leg removed, Left arm plate, Right wrist surgery, ) and Other (Green field filter)
Social History
Tobacco: Smoker
Alcohol: None
Drug: Other (Took a Hemp gummy this a.m.)
Personal: Single
Living: alone
Employment: Disabled
Family History
Family History: Other (Diabetes, colon cancer, thyroid disease)
Course
Orders/Labs/Results
Orders:
Orders
03/01/25 15:46
1:1 Observation - Suicide/ Violent Behavior As Directed
Crisis Consult Urgent
Reason for Consult: suicidal
03/01/25 15:49
Acetaminophen Urgent
Alcohol Urgent
Complete Blood Count/With Diff Urgent
Comprehensive Metabolic Panel Urgent
HCG, Serum Qualitative Screen Urgent
Salicylate Urgent
Urine Drug Abuse Screen Urgent
Test Result ONCE
03/01/25 15:56
Lorazepam [Ativan] 1 mg PO NOW STA
Vital Signs
Initial and Last Documented VS:
Initial Vital Signs
Temp Pulse Resp BP Pulse Ox
98.3 F 91 17 121/82 97
03/01/25 15:37 03/01/25 15:37 03/01/25 15:37 03/01/25 15:37 03/01/25 15:37
Last Documented Vital Signs
Temp Pulse Resp BP Pulse Ox
98.3 F 91 17 121/82 97
03/01/25 15:37 03/01/25 15:37 03/01/25 15:37 03/01/25 15:37 03/01/25 16:01
*Pulse Oximetry
SaO2: 97
Oxygen Mode of Delivery: Room air
Update Note
Update Note:
5 PM, update reviewed with crisis patient unable to be placed she has extensive outpatient resources,
Patient is refused blood work, was cleared yesterday from her Tylenol overdose she has no jaundice here, tells me she has therapy and PT scheduled tomorrow
ED Attending Note
-
Portions of this chart may have been created with voice recognition software.� Occasional wrong word or��sound alike� substitutions may have occurred due to the inherent limitations of voice recognition software.
Discharge Plan
Departure
Patient Disposition: Home (Routine Discharge)
Date of Disposition: 03/01/25
Time of Disposition: 16:56
Patient with high blood pressure during this ER visit?: No
Condition: Good
Discharge Problem:
Suicidal ideations
Instructions: Suicide prevention
Prescriptions:
No Action
levothyroxine 25 mcg Tablet
25 mcg PO DAILY
omeprazole 20 mg Capsule,Delayed Release(Dr/Ec)
20 mg PO DAILY
loratadine 10 mg Tablet
10 mg PO DAILY
diazepam 5 mg Tablet
5 mg PO HS
Caplyta 21 mg Capsule
21 mg PO DAILY
ondansetron HCl [Zofran] 4 mg Tablet
4 mg PO BID PRN (Reason: nausea)
Interventions
Interventions:
*Risk Screen - Suicide Last Done: 03/01/25 15:37
*General Assessment Last Done: 03/01/25 15:37
*Neglect/Abuse Screening Last Done: 03/01/25 15:37
Discharge Date and Time
Print Language: YEMENI
== END | disposition home or self-care (01) ==
LOC: EMR 15:21
PROVIDERS: EMERGENCY PHYSICIAN Emergency Medicine; FAMILY PHYSICIAN Nurse Practitioner Primary Care
DX: R45.851 Suicidal ideations (principal); R00.0 Tachycardia, unspecified; J45.909 Unspecified asthma, uncomplicated; E03.9 Hypothyroidism, unspecified; F31.9 Bipolar disorder, unspecified; F43.10 Post-traumatic stress disorder, unspecified; F60.3 Borderline personality disorder; F90.9 Attention-deficit hyperactivity disorder, unspecified type; F17.200 Nicotine dependence, unspecified, uncomplicated; F41.9 Anxiety disorder, unspecified; G47.30 Sleep apnea, unspecified; I10 Essential (primary) hypertension; I42.9 Cardiomyopathy, unspecified; Z80.0 Family history of malignant neoplasm of digestive organs; Z83.3 Family history of diabetes mellitus; Z83.49 Family history of other endocrine, nutritional and metabolic diseases; Z86.718 Personal history of other venous thrombosis and embolism; Z87.820 Personal history of traumatic brain injury; Z90.49 Acquired absence of other specified parts of digestive tract; Z91.51 Personal history of suicidal behavior
CPT/HCPCS: 99282

== ENCOUNTER 2025-03-10 21:54 | Emergency (ER) | payer OTHER, SELFPAY ==
[2025-03-10 21:57] VITALS: BP 160/93
[2025-03-10 22:15] LABS: Hematocrit 32.9 % (37.0-47.0); Hemoglobin 11.2 g/dL (12.0-16.0); Mean Corp Hgb Conc. 34.0 g/dL (33.0-37.0); Mean Corpuscular Volume 85.9 fL (81.0-99.0); Nucleated Red Blood Cells % 0 %; Platelet Count 241 10^3/uL (130-400); Red Cell Dist. Width 12.5 % (11.5-14.5)
[2025-03-10 22:27] LABS: ALT (SGPT) 23 U/L (0-35); AST (SGOT) 24 U/L (14-36); Albumin 4.4 g/dl (3.5-5.0); Alkaline Phosphatase 73 U/L (38-126); Blood Urea Nitrogen 11 mg/dl (7-17); Calcium 9.4 mg/dl (8.4-10.2); Carbon Dioxide 24 mmol/L (22-30); Chloride 108 mmol/L (98-107); Glucose 123 mg/dl (70-99); Potassium 4.3 mmol/L (3.5-5.1); Sodium 138 mmol/L (135-145); Total Protein 6.9 g/dl (6.3-8.2); eGFR > 60.00
--- NOTE | 2025-03-10 23:46 | ED.GENMED ---
History of Present Illness
General
Chief Complaint: Abdominal Symptoms
Source: patient
Exam Limitations: none
Time Seen by Provider: 03/10/25 23:41
Nursing documentation reviewed up to this point in time: agreed with
History of Present Illness
History of Present Illness:
This is a 39-year-old female with a past medical history of asthma, bipolar disorder, ADHD, depression, borderline personality disorder, who presents emergency department today with concerns of constipation. Patient reports that she was recently
discharged from [facility] inpatient [facility] and since coming home she has been struggling with constipation. Patient reports that she has had multiple episodes of this in the past. Patient reports that she has tried magnesium citrate
a few days ago which did cause her to have a bowel movement and did help however she continues to feel that she has constipation again. She has tried MiraLAX, Colace, dietary changes which has not helped. She has also tried enemas herself which
did not help. She is declining enemas and suppositories today. She had some left-sided abdominal discomfort as well and rectal discomfort. She denies any dark tarry stools she denies any fevers or chills, denies any rectal bleeding. She denies
any chest pain or shortness of breath. She denies any sick contacts.
Past History
Past History
ED Past Medical History: Arrthythmia (Tachycardia), Asthma, HTN, Seizures, Hypothyroidism, Psychiatric (Bipolar, PTSD, suicide attempts, Anxiety/Depression, Borderline personality, ) and Other (TBI 2006, migraines, Cardiomyopathy,
Subarachnoid/Subdural hemorrhage, Intraparenchymal hem, Sleep apnea, GI bleeding, Pernicious anemia, ADHD, DVT with IVC filter)
ED Past Surgical History: Cholecystectomy, , Orthopedic (R and left knee surgery, Carlos L leg removed, Left arm plate, Right wrist surgery, ) and Other (Green field filter)
Social History
Tobacco: Smoker
Alcohol: None
Drug: Other (Took a Hemp gummy this a.m.)
Personal: Single
Living: alone
Employment: Disabled
Family History
Family History: Other (Diabetes, colon cancer, thyroid disease)
Review of Systems
Review of Systems
All Other Systems: ROS reviewed and negative except as documented in HPI and ROS
Phy Exam
Physical Exam
Physical Exam:
General: Patient is well appearing and in no acute distress; non-toxic
Skin: Warm and dry, no rashes or lesions
Head: Normocephalic, atraumatic
Eyes: Sclera non-icteric. EOMs intact.
Cardiac: Regular rate
Peripheral Vascular: No lower extremity swelling or edema
Pulm: Normal respiratory effort
Abdomen: Abdomen is soft and nontender to palpation
Neuro: CN II-XII intact, no focal neurologic deficits.
Psychiatric: Appropriate mood and affect.
Course
Orders/Labs/Results
Orders:
Orders
03/10/25 22:00
CR Obstruct Series W/pa Chest Urgent
Comment:
Reason For Exam: constipation
03/10/25 22:08
Complete Blood Count/With Diff Urgent
Comprehensive Metabolic Panel Urgent
03/11/25 00:00
Magnesium Citrate [Citroma] 300 ml PO ONCE ONE
Abnormal Lab Results
03/10/25
22:08
RBC 3.83 L 10^6/uL
(4.20-5.40)
Hgb 11.2 L g/dL
(12.0-16.0)
Hct 32.9 L %
(37.0-47.0)
MPV 10.9 H fL
(7.4-10.4)
Chloride 108 H mmol/L
(98-107)
Glucose 123 H mg/dl
(70-99)
03/10/25 22:08
03/10/25 22:08
Vital Signs
Initial and Last Documented VS:
Initial Vital Signs
Temp Pulse Resp BP Pulse Ox
98.0 F 99 18 160/93 98
03/10/25 21:57 03/10/25 21:57 03/10/25 21:57 03/10/25 21:57 03/10/25 21:57
Last Documented Vital Signs
Temp Pulse Resp BP Pulse Ox
98.0 F 80 18 134/99 100
03/10/25 21:57 03/11/25 00:05 03/11/25 00:05 03/11/25 00:05 03/11/25 00:05
MDM/Problems Addressed
Differential Diagnosis Includes:
Constipation, IBS, diverticulitis, gastroenteritis
MDM/Problems Addressed:
This is a 39-year-old female with a past medical history of asthma, bipolar disorder, ADHD, depression, borderline personality disorder, who presents emergency department today with concerns of constipation. Her last bowel movement was around 4
days ago after she took magnesium citrate. Today, patient is requesting another dose of mag museum citrate and would like more lactulose in case she does not have a bowel movement in a few days after coming home. I discussed with patient that
lactulose is supposed to be used on a short-term basis and she should not use it every single day. Patient expressed understanding. Patient reports that she has a follow-up appointment with her motorcycle deliverer from [facility] on the .
Discussed dietary changes. Discussed increased water intake. Will give another dose of magnesium citrate to go home with. Lab work unremarkable, hemoglobin at baseline. X-ray shows moderate/severe colonic stool burden. Do not suspect acute
intra-abdominal pathology as blood work is unremarkable and patient has a benign abdominal exam. Patient stable for discharge.
*Pulse Oximetry
SaO2: 98
Patient hypoxic: no
*Critical Care Note
Total Time (30-74mins, 75-104mins- exclusive of procedures): Not Applicable
Data Reviewed
Review of Other/Old Records Reveals: Records (Reviewed ER physician documentation from 03/01/2025 patient seen for suicide attempt, reviewed ER physician documentation from 02/16/2025 patient seen for GERD exacerbation,) and Discharge Summary (Reviewed
discharge summary from 12/04/2024 patient seen for laparoscopic cholecystectomy)
Source: patient and records
Patient Management
Escalation/DeEscalation of care consider admission/obs:
Admit not indicated patient stable for discharge
ED Attending Note
-
Portions of this chart may have been created with voice recognition software.� Occasional wrong word or��sound alike� substitutions may have occurred due to the inherent limitations of voice recognition software.
Discharge Plan
Departure
Patient Disposition: Home (Routine Discharge)
Date of Disposition: 03/11/25
Time of Disposition: 00:07
Patient with high blood pressure during this ER visit?: Yes
Condition: Good
Discharge Problem:
Constipation
Instructions: Constipation, Adult (DC), BLOOD PRESSURE
Prescriptions:
New
lactulose 10 gram packet
10 g PO DAILY 3 Days Qty: 15 0RF
No Action
levothyroxine 25 mcg Tablet
25 mcg PO DAILY
omeprazole 20 mg Capsule,Delayed Release(Dr/Ec)
20 mg PO DAILY
loratadine 10 mg Tablet
10 mg PO DAILY
diazepam 5 mg Tablet
5 mg PO HS
Caplyta 21 mg Capsule
21 mg PO DAILY
ondansetron HCl [Zofran] 4 mg Tablet
4 mg PO BID PRN (Reason: nausea)
Referrals:
UNKNOWN - PT DOES,NOT KNOW [Family Provider]
Activity Restrictions/Additional Instructions:
DO NOT take magnesium citrate and lactulose together.
You can use lactulose in a few days should you have persistent symptoms. This medication is intended for short term use. Please drink lots of water. Please resume taking 1 capful of MiraLAX once daily. Please follow-up with your GI doctor at [facility].
Please follow-up with your primary care provider.
Please return to the emergency department should you develop an acute worsening or symptoms, intractable nausea or vomiting, fevers or chills, rectal bleeding, dark tarry stools, or any other signs or symptoms worrisome to you.
Interventions
Interventions:
*Risk Screen - Suicide Last Done: 03/10/25 21:59
*General Assessment Last Done: 03/10/25 21:59
*Neglect/Abuse Screening Last Done: 03/10/25 21:59
*ED COVID-19 Vaccine History Last Done: 03/10/25 21:59
*Nursing Disposition Last Done: 03/11/25 00:11
AR-Kgbntk-Dlhffnbspj Assessment Last Done: 03/10/25 23:15
Discharge Date and Time
Discharge Date/Time: 03/11/25 00:11
Print Language: SOUTH KOREAN
[2025-03-11] MEDS: CITROMA 300 ML PO (00:04)
[2025-03-11 00:05] VITALS: BP 134/99
== END 2025-03-11 00:11 | disposition home or self-care (01) ==
LOC: EMR 21:54
PROVIDERS: Emergency Medicine; EMERGENCY PHYSICIAN Emergency Medicine
DX: K59.00 Constipation, unspecified (principal); J45.909 Unspecified asthma, uncomplicated; E03.9 Hypothyroidism, unspecified; Z86.718 Personal history of other venous thrombosis and embolism; Z87.820 Personal history of traumatic brain injury; F17.200 Nicotine dependence, unspecified, uncomplicated
CPT/HCPCS: 99284; 74022; 80053; 85025

== ENCOUNTER 2025-03-16 06:12 | Emergency (ER) | payer OTHER, SELFPAY ==
[2025-03-16 06:34] VITALS: BP 130/99
[2025-03-16 07:24] LABS: Hematocrit 34.7 % (37.0-47.0); Hemoglobin 11.8 g/dL (12.0-16.0); Mean Corp Hgb Conc. 34.0 g/dL (33.0-37.0); Mean Corpuscular Volume 84.6 fL (81.0-99.0); Nucleated Red Blood Cells % 0 %; Platelet Count 267 10^3/uL (130-400); Red Cell Dist. Width 12.5 % (11.5-14.5)
[2025-03-16 07:41] LABS: HCG, Serum Qualitative Screen Negative
[2025-03-16 07:42] LABS: ALT (SGPT) 17 U/L (0-35); AST (SGOT) 17 U/L (14-36); Albumin 4.7 g/dl (3.5-5.0); Alkaline Phosphatase 85 U/L (38-126); Blood Urea Nitrogen 8 mg/dl (7-17); Calcium 9.3 mg/dl (8.4-10.2); Carbon Dioxide 23 mmol/L (22-30); Chloride 108 mmol/L (98-107); Glucose 114 mg/dl (70-99); Potassium 3.9 mmol/L (3.5-5.1); Sodium 138 mmol/L (135-145); Total Protein 7.2 g/dl (6.3-8.2); eGFR > 60.00
[2025-03-16 07:51] LABS: Troponin I < 0.012 ng/ml
[2025-03-16 09:13] VITALS: BMI 37.6
[2025-03-16 09:20] VITALS: BP 132/99
[2025-03-16 09:22] VITALS: BP 132/99
[2025-03-16] MEDS: ZOFRAN ODT (ORALLY DISINTEGRATING) 4 MG PO (09:24)
--- NOTE | 2025-03-16 09:25 | ED.GENMED ---
History of Present Illness
General
Chief Complaint: Dizziness
Source: patient
Exam Limitations: none
Time Seen by Provider: 03/16/25 08:13
Nursing documentation reviewed up to this point in time: agreed with
History of Present Illness
History of Present Illness:
Patient is a 39-year-old female with past medical history of previous TBI, psychiatric illness, previous DVT presenting to the emergency department today with concerns of lightheadedness some shortness of breath and achiness. Also discomfort to her
left calf. She is also had ongoing nausea and decreased oral intake.
Past History
Past History
ED Past Medical History: Arrthythmia (Tachycardia), Asthma, HTN, Seizures, Hypothyroidism, Psychiatric (Bipolar, PTSD, suicide attempts, Anxiety/Depression, Borderline personality, ) and Other (TBI 2005, migraines, Cardiomyopathy,
Subarachnoid/Subdural hemorrhage, Intraparenchymal hem, Sleep apnea, GI bleeding, Pernicious anemia, ADHD, DVT with IVC filter)
ED Past Surgical History: Cholecystectomy, , Orthopedic (R and left knee surgery, Carlos L leg removed, Left arm plate, Right wrist surgery, ) and Other (Green field filter)
Social History
Tobacco: Smoker
Alcohol: None
Drug: Other (Took a Hemp gummy this a.m.)
Personal: Single
Living: alone
Employment: Disabled
Family History
Family History: Other (Diabetes, colon cancer, thyroid disease)
Review of Systems
Review of Systems
Allergies reviewed?: Yes
All Other Systems: ROS reviewed and negative except as documented in HPI and ROS
Phy Exam
Physical Exam
Physical Exam:
GENERAL: Alert , in no apparent distress
EYE: pupils equal and reactive
NECK: Supple, no significant adenopathy.
ENT: o/p clr, mmm.
CARDIAC: Regular rate and rhythm .
LUNGS: Clear breath sounds bilaterally, no acute respiratory distress, no wheezes/rales/rhonchi
ABDOMEN: Soft, without focal tenderness, no r/g, no cvat
NEUROLOGICAL: Alert and oriented, no focal neuro deficits
SKIN: Warm and dry, skin intact.
MUSCULOSKELETAL: No edema, well perfused.
PSYCH: Normal and appropriate interaction.
Course
Orders/Labs/Results
Orders:
Orders
03/16/25 06:38
Electrocardiogram (*1) Urgent
Reason for Study: Chest Pain
EKG- Treatment ONCE
Test Result ONCE
03/16/25 07:01
Complete Blood Count/With Diff Urgent
Comprehensive Metabolic Panel Urgent
HCG, Serum Qualitative Screen Urgent
Troponin I Urgent
03/16/25 08:24
Ondansetron Orally Disint [Zofran Odt (Orally Disintegrating)] 4 mg PO NOW STA
Venous Doppler Lwr Ext Left [US Periph Venous LOWER Ext LT] Urgent
Comment:
Reason For Exam: left leg pain hx of clot
Abnormal Lab Results
03/16/25
07:01
RBC 4.10 L 10^6/uL
(4.20-5.40)
Hgb 11.8 L g/dL
(12.0-16.0)
Hct 34.7 L %
(37.0-47.0)
MPV 10.7 H fL
(7.4-10.4)
Lymphocytes % 20.1 L %
(20.5-51.1)
Chloride 108 H mmol/L
(98-107)
Creatinine 0.5 L mg/dL
(0.6-1.0)
Glucose 114 H mg/dl
(70-99)
03/16/25 07:01
03/16/25 07:01
Vital Signs
Initial and Last Documented VS:
Initial Vital Signs
Temp Pulse Resp BP Pulse Ox
98.3 F 102 18 130/99 98
03/16/25 06:34 07/21/25 06:34 03/16/25 06:34 03/16/25 06:34 03/16/25 06:34
Last Documented Vital Signs
Temp Pulse Resp BP Pulse Ox
98.3 F 72 18 132/99 99
03/16/25 06:34 03/16/25 09:22 03/16/25 09:22 03/16/25 09:22 03/16/25 09:28
MDM/Problems Addressed
MDM/Problems Addressed:
39-year-old female presenting with multiple concerns. Here vital signs are normal patient in no obvious distress during examination normal distal pulses normal abdominal examination normal heart and lung exam labs unremarkable EKG completely
unchanged troponin no clot in the left leg on ultrasound other labs unremarkable without evidence of electrolyte abnormality or significant dehydration. Ultrasound normal. Patient ambulating well here in no distress stable for discharge return
precautions given.
*Pulse Oximetry
SaO2: 99
Oxygen Mode of Delivery: Room air
Patient hypoxic: no (99)
*Critical Care Note
Total Time (30-74mins, 75-104mins- exclusive of procedures): Not Applicable
ED Attending Note
-
Portions of this chart may have been created with voice recognition software.� Occasional wrong word or��sound alike� substitutions may have occurred due to the inherent limitations of voice recognition software.
Discharge Plan
Departure
Patient Disposition: Home (Routine Discharge)
Date of Disposition: 03/16/25
Time of Disposition: 09:42
Patient with high blood pressure during this ER visit?: No
Condition: Good
Covid-19: Not Applicable
Discharge Problem:
Calf pain, Lightheadedness
Instructions: Dizziness, Nonvertigo, (DC)
Prescriptions:
No Action
levothyroxine 25 mcg Tablet
25 mcg PO DAILY
omeprazole 20 mg Capsule,Delayed Release(Dr/Ec)
20 mg PO DAILY
loratadine 10 mg Tablet
10 mg PO DAILY
diazepam 5 mg Tablet
5 mg PO HS
Caplyta 21 mg Capsule
21 mg PO DAILY
ondansetron HCl [Zofran] 4 mg Tablet
4 mg PO BID PRN (Reason: nausea)
lactulose 10 gram packet
10 g PO DAILY 3 Days Qty: 15 0RF
Referrals:
UNKNOWN - PT NOT,INTERVIEWE [Family Provider]
Activity Restrictions/Additional Instructions:
You came to the emergency department with concerns of lightheadedness nausea calf pain.. Reassuring assessment. Please follow closely with your outpatient doctors. Return for any worsening, new or concerning symptoms.
Interventions
Interventions:
*Risk Screen - Suicide Last Done: 03/16/25 06:34
*General Assessment Last Done: 03/16/25 06:34
*Neglect/Abuse Screening Last Done: 03/16/25 06:34
*ED COVID-19 Vaccine History Last Done: 03/16/25 06:34
ED- Neurological Assessment Last Done: 03/16/25 09:13
ED- Cardiac Assessment Last Done: 03/16/25 09:13
ED Swallowing Screen Last Done: 03/16/25 09:13
Discharge Date and Time
Print Language: POLISH
--- NOTE | 2025-03-16 09:55 | EDRN ---
Reviewed discharge instructions with patient. Verbalized understanding. Ambulated with steady gait to the lobby.
== END 2025-03-16 09:50 | disposition home or self-care (01) ==
LOC: EMR 06:12
PROVIDERS: Student in an Organized Health Care Education/Training Program; EMERGENCY PHYSICIAN Emergency Medicine
DX: R42 Dizziness and giddiness (principal); M79.662 Pain in left lower leg; R11.0 Nausea; Z87.820 Personal history of traumatic brain injury; E03.9 Hypothyroidism, unspecified; F17.200 Nicotine dependence, unspecified, uncomplicated; G47.30 Sleep apnea, unspecified; I10 Essential (primary) hypertension; J45.909 Unspecified asthma, uncomplicated; Z90.49 Acquired absence of other specified parts of digestive tract
CPT/HCPCS: 99284; 80053; 84484; 84703; 85025; 93005; 93971

== ENCOUNTER 2025-04-03 21:41 | Emergency (ER) | payer OTHER, SELFPAY ==
[2025-04-03 21:46] VITALS: BP 105/61
[2025-04-03 21:53] VITALS: BP 105/61
[2025-04-03 22:00] VITALS: BP 110/89
--- NOTE | 2025-04-04 00:21 | ED.GENMED ---
History of Present Illness
General
Chief Complaint: Back Pain
Time Seen by Provider: 04/03/25 23:49
History of Present Illness
History of Present Illness:
39-year-old female history of TBI, asthma, DVT status post IVC filter, bipolar, PTSD presenting with low back pain radiating down bilateral legs starting Friday 03/30. Patient states that she was seen at [facility], was admitted for 2 days and
recommended going to rehab but needed prior authorization so she was sent home. Patient states that she has been taking oxycodone with minimal relief. Patient denies numbness, weakness, tingling or incontinence. No fever. No recent fall or
trauma.
Past History
Past History
ED Past Medical History: Arrthythmia (Tachycardia), Asthma, HTN, Seizures, Hypothyroidism, Psychiatric (Bipolar, PTSD, suicide attempts, Anxiety/Depression, Borderline personality, ) and Other (TBI 2006, migraines, Cardiomyopathy,
Subarachnoid/Subdural hemorrhage, Intraparenchymal hem, Sleep apnea, GI bleeding, Pernicious anemia, ADHD, DVT with IVC filter)
ED Past Surgical History: Cholecystectomy, , Orthopedic (R and left knee surgery, Carlos L leg removed, Left arm plate, Right wrist surgery, ) and Other (Green field filter)
Social History
Tobacco: Smoker
Alcohol: None
Drug: Other (Took a Hemp gummy this a.m.)
Personal: Single
Living: alone
Employment: Disabled
Family History
Family History: Other (Diabetes, colon cancer, thyroid disease)
Phy Exam
Physical Exam
Physical Exam:
General: Alert, no acute distress
Head: NCAT
Eyes: clear conjunctiva
Neck: supple
Cardiac: regular rate and rhythm, no murmur
Lungs: clear to auscultation bilaterally. No wheezes, rales, or rhonchi. Speaking full unlabored sentences. No respiratory distress.
Abdomen: soft, nondistended nontender. No rebound or guarding.
MSK: no lower extremity edema bilaterally. No deformity. Bilateral paraspinal lumbar tenderness to palpation
Skin: warm, dry
Neuro: Alert and oriented x3. 5 out of 5 strength bilateral hip/knee/ankle flexion extension. Sensation intact no saddle paresthesias. Ambulatory with cane with steady gait
Course
Orders/Labs/Results
Orders:
Orders
04/04/25 00:20
Lidocaine [Lidocaine 4% Patch] 1 patch TOPICAL ONCE STA
Apply Lidocaine patch(s) to:: low back
04/04/25 00:21
Cyclobenzaprine HCl [Flexeril] 10 mg PO NOW STA
04/04/25 08:00
Prednisone [Deltasone] 40 mg PO DAILY
Vital Signs
Initial and Last Documented VS:
Initial Vital Signs
BP
105/61
04/03/25 21:46
Last Documented Vital Signs
Temp Pulse Resp BP Pulse Ox
98.1 F 85 18 110/89 94
04/03/25 21:53 04/04/25 00:00 04/04/25 00:00 04/03/25 22:00 04/04/25 00:24
MDM/Problems Addressed
MDM/Problems Addressed:
39-year-old female presenting with low back pain radiating down bilateral legs starting 5 days ago. Patient otherwise neurologically intact and ambulatory. Patient has been taking oxycodone with minimal relief. Patient is able to ambulate in the
ER, 5/5 strength bilateral lower extremities, no saddle paresthesias. No red flags signs/symptoms that warrant emergent imaging at this time. Low suspicion for cauda equina given neurologically intact, no incontinence, ambulatory with steady gait.
No recent fall/trauma that indicate imaging at this time. Likely muscle strain/sciatica. Discussed with patient at bedside. Patient ambulated to the bathroom by herself. Patient left prior to receiving discharge paperwork or medication.
*Pulse Oximetry
SaO2: 94
Oxygen Mode of Delivery: Room air
Patient hypoxic: no
*Critical Care Note
Total Time (30-74mins, 75-104mins- exclusive of procedures): Not Applicable
ED Attending Note
-
Portions of this chart may have been created with voice recognition software.� Occasional wrong word or��sound alike� substitutions may have occurred due to the inherent limitations of voice recognition software.
Discharge Plan
Departure
Patient Disposition: Home (Routine Discharge)
Date of Disposition: 04/04/25
Time of Disposition: 00:24
Patient with high blood pressure during this ER visit?: No
Discharge Problem:
Low back pain
Prescriptions:
New
methylprednisolone [Medrol (Jona)] 4 mg tablets,dose pack
4 mg PO DAILY Qty: 21 0RF
No Action
levothyroxine 25 mcg Tablet
25 mcg PO DAILY
omeprazole 20 mg Capsule,Delayed Release(Dr/Ec)
20 mg PO DAILY
loratadine 10 mg Tablet
10 mg PO DAILY
diazepam 5 mg Tablet
5 mg PO HS
Caplyta 21 mg Capsule
21 mg PO DAILY
ondansetron HCl [Zofran] 4 mg Tablet
4 mg PO Q4
lactulose 10 gram packet
10 g PO DAILY 3 Days Qty: 15 0RF
Referrals:
Tiffanie Xiong CRNP [Family Provider]
Activity Restrictions/Additional Instructions:
Take Medrol Dosepak as prescribed
Take Tylenol 975 mg every 6 hours and/or ibuprofen 800 mg every 8 hours with food as needed for pain
Follow-up with primary care doctor next week
Return to emergency department for numbness, weakness, tingling, incontinence or new/worsening symptoms
Interventions
Interventions:
*Risk Screen - Suicide Last Done: 04/03/25 21:53
*General Assessment Last Done: 04/03/25 21:53
*Neglect/Abuse Screening Last Done: 04/03/25 21:53
*ED- Fall Risk Assessment Last Done: 04/03/25 21:53
*ED COVID-19 Vaccine History Last Done: 04/04/25 00:29
*Nursing Disposition Last Done: 04/04/25 00:34
ED-Musculoskeletal Assessment Last Done: 04/03/25 21:53
Discharge Date and Time
Discharge Date/Time: 04/04/25 00:35
Print Language: GREENLANDIC
== END 2025-04-04 00:35 | disposition home or self-care (01) ==
LOC: EMR 21:41
PROVIDERS: EMERGENCY PHYSICIAN Emergency Medicine; FAMILY PHYSICIAN Nurse Practitioner Primary Care
DX: M54.50 Low back pain, unspecified (principal); I10 Essential (primary) hypertension; G47.30 Sleep apnea, unspecified; J45.909 Unspecified asthma, uncomplicated; D51.0 Vitamin B12 deficiency anemia due to intrinsic factor deficiency; E03.9 Hypothyroidism, unspecified; G43.909 Migraine, unspecified, not intractable, without status migrainosus; F31.9 Bipolar disorder, unspecified; F43.10 Post-traumatic stress disorder, unspecified; F60.3 Borderline personality disorder; F41.9 Anxiety disorder, unspecified; F90.9 Attention-deficit hyperactivity disorder, unspecified type; F17.200 Nicotine dependence, unspecified, uncomplicated; Z87.820 Personal history of traumatic brain injury; Z86.718 Personal history of other venous thrombosis and embolism; Z91.51 Personal history of suicidal behavior; Z83.49 Family history of other endocrine, nutritional and metabolic diseases
CPT/HCPCS: 99283

== ENCOUNTER 2025-04-08 08:33 | Emergency (ER) | payer OTHER, SELFPAY ==
[2025-04-08 08:36] VITALS: BP 144/97
--- NOTE | 2025-04-08 10:07 | ED.GENMED ---
History of Present Illness
General
Chief Complaint: Crisis Evaluation
Source: patient
Exam Limitations: none
Time Seen by Provider: 04/08/25 08:43
Nursing documentation reviewed up to this point in time: agreed with
History of Present Illness
History of Present Illness:
Patient is a 39-year-old female with longstanding history of psychiatric issues, TBI, DVT, chronic pain PTSD suicidal ideation anxiety bipolar depression presents to the ER for evaluation of worsening depression. She has recently intermittently
feels suicidal. She has no present suicidal plan but is just upset with all of her physical and mental issues.
She complains of chronic back pain prescribed oxycodone recently by family doctor(Dr. Tiffanie Xiong)
She reports she is followed closely with to [facility] therapists.
Past History
Past History
ED Past Medical History: Arrthythmia (Tachycardia), Asthma, HTN, Seizures, Hypothyroidism, Psychiatric (Bipolar, PTSD, suicide attempts, Anxiety/Depression, Borderline personality, ) and Other (TBI 2005, migraines, Cardiomyopathy,
Subarachnoid/Subdural hemorrhage, Intraparenchymal hem, Sleep apnea, GI bleeding, Pernicious anemia, ADHD, DVT with IVC filter)
ED Past Surgical History: Cholecystectomy, , Orthopedic (R and left knee surgery, Carlos L leg removed, Left arm plate, Right wrist surgery, ) and Other (Green field filter)
Social History
Tobacco: Smoker
Alcohol: None
Drug: Other (Took a Hemp gummy this a.m.)
Personal: Single
Living: alone
Employment: Disabled
Family History
Family History: Other (Diabetes, colon cancer, thyroid disease)
Phy Exam
General Physical Exam
General Presentation: no apparent distress
General Skin: warm and dry
General Habitus: normal
General Hydration: appears well hydrated
Neurological Exam
Neurological Exam: alert
Musculoskeletal Exam
Musculoskeletal Exam: full ROM
Skin Exam
Skin Exam: normal color and warm/dry
Psychiatric Exam
Psychiatric Exam: normal mood/affect
Course
Orders/Labs/Results
Orders:
Orders
04/08/25 08:44
Crisis Consult Urgent
Reason for Consult: suicide ideation
Vital Signs
Initial and Last Documented VS:
Initial Vital Signs
Temp Pulse Resp BP Pulse Ox
98.4 F 110 16 144/97 98
04/08/25 08:36 04/08/25 08:36 04/08/25 08:36 04/08/25 08:36 04/08/25 08:36
Last Documented Vital Signs
Temp Pulse Resp BP Pulse Ox
98.4 F 110 16 144/97 98
04/08/25 08:36 04/08/25 08:36 04/08/25 08:36 04/08/25 08:36 04/08/25 10:08
MDM/Problems Addressed
Differential Diagnosis Includes:
Not limited to chronic suicidal ideation, chronic depression anxiety
MDM/Problems Addressed:
Patient is a 39-year-old female with longstanding history of psychiatric issues well-known to this ER presents for depression. She is chronically suicidal and felt depressed and anxious over her then home physical symptoms. She is no acute
distress here and has no plan of care. She was eval by crisis as well as psychiatry who feels the patient is safe to go home. She has several upcoming appointments with her therapist and psychiatrist. She does have a family doctor and regarding
back pain currently being followed by family doctor prescribed pain medicine and is also going to be evaluated by [facility]. She did speak with psychiatry and contracted for safety with narcotic medication.
*Pulse Oximetry
SaO2: 98
Oxygen Mode of Delivery: Room air
Patient hypoxic: no
*Critical Care Note
Total Time (30-74mins, 75-104mins- exclusive of procedures): Not Applicable
Patient Management
Discussion with other providers: Jail Manager (DR Arredondo)
ED Attending Note
-
Portions of this chart may have been created with voice recognition software.� Occasional wrong word or��sound alike� substitutions may have occurred due to the inherent limitations of voice recognition software.
Discharge Plan
Departure
Patient Disposition: Home (Routine Discharge)
Date of Disposition: 04/08/25
Time of Disposition: 11:01
Patient with high blood pressure during this ER visit?: Yes
Condition: Fair
Covid-19: Not Applicable
Discharge Problem:
encounter for crisis evaluation
Prescriptions:
No Action
levothyroxine 25 mcg Tablet
25 mcg PO DAILY
omeprazole 20 mg Capsule,Delayed Release(Dr/Ec)
20 mg PO DAILY
loratadine 10 mg Tablet
10 mg PO DAILY
diazepam 5 mg Tablet
5 mg PO HS
Caplyta 21 mg Capsule
21 mg PO DAILY
ondansetron HCl [Zofran] 4 mg Tablet
4 mg PO Q4
lactulose 10 gram packet
10 g PO DAILY 3 Days Qty: 15 0RF
methylprednisolone [Medrol (Jona)] 4 mg tablets,dose pack
4 mg PO DAILY Qty: 21 0RF
Referrals:
UNKNOWN,NO INTERVIEW [Family Provider]
Activity Restrictions/Additional Instructions:
Follow-up with an outpatient therapist as scheduled and additional physicians. Return if any worsening symptoms.
Interventions
Interventions:
*Risk Screen - Suicide Last Done: 04/08/25 08:36
*General Assessment Last Done: 04/08/25 09:43
*Neglect/Abuse Screening Last Done: 04/08/25 09:43
*ED- Fall Risk Assessment Last Done: 04/08/25 09:43
*ED COVID-19 Vaccine History Last Done: 04/08/25 09:43
ED-Psychological Assessment Last Done: 04/08/25 09:43
Discharge Date and Time
Print Language: KYRGYZ
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
== END 2025-04-08 11:08 | disposition home or self-care (01) ==
LOC: EMR 08:33
PROVIDERS: EMERGENCY PHYSICIAN Student in an Organized Health Care Education/Training Program
DX: Z03.89 Encounter for observation for other suspected diseases and conditions ruled out (principal); F31.9 Bipolar disorder, unspecified; F41.9 Anxiety disorder, unspecified; E03.9 Hypothyroidism, unspecified; G47.30 Sleep apnea, unspecified; I10 Essential (primary) hypertension; I42.9 Cardiomyopathy, unspecified; J45.909 Unspecified asthma, uncomplicated; F17.200 Nicotine dependence, unspecified, uncomplicated; Z80.0 Family history of malignant neoplasm of digestive organs; Z83.3 Family history of diabetes mellitus; Z83.49 Family history of other endocrine, nutritional and metabolic diseases; Z86.718 Personal history of other venous thrombosis and embolism; Z87.820 Personal history of traumatic brain injury; Z90.49 Acquired absence of other specified parts of digestive tract; Z91.51 Personal history of suicidal behavior
CPT/HCPCS: 99282

== ENCOUNTER 2025-04-12 16:43 | Emergency (ER) | payer OTHER, SELFPAY ==
[2025-04-12 16:51] VITALS: BP 147/105
[2025-04-12 18:31] LABS: Hematocrit 33.5 % (37.0-47.0); Hemoglobin 11.2 g/dL (12.0-16.0); Mean Corp Hgb Conc. 33.4 g/dL (33.0-37.0); Mean Corpuscular Volume 83.8 fL (81.0-99.0); Nucleated Red Blood Cells % 0 %; Platelet Count 263 10^3/uL (130-400); Red Cell Dist. Width 12.7 % (11.5-14.5)
[2025-04-12 18:46] LABS: ALT (SGPT) 43 U/L (0-35); AST (SGOT) 51 U/L (14-36); Albumin 4.3 g/dl (3.5-5.0); Alkaline Phosphatase 83 U/L (38-126); Blood Urea Nitrogen 9 mg/dl (7-17); Calcium 9.3 mg/dl (8.4-10.2); Carbon Dioxide 25 mmol/L (22-30); Chloride 107 mmol/L (98-107); Glucose 107 mg/dl (70-99); Potassium 4.5 mmol/L (3.5-5.1); Sodium 139 mmol/L (135-145); Total Protein 6.8 g/dl (6.3-8.2); eGFR > 60.00
== END 2025-04-12 18:44 | disposition home or self-care (01) ==
LOC: EMR 16:43
PROVIDERS: EMERGENCY PHYSICIAN Emergency Medicine
DX: R14.0 Abdominal distension (gaseous) (principal); Z53.21 Procedure and treatment not carried out due to patient leaving prior to being seen by health care provider
CPT/HCPCS: 80053; 85025

== ENCOUNTER 2025-04-22 18:53 | Emergency (ER) | payer OTHER, SELFPAY ==
[2025-04-22 19:00] VITALS: BP 145/94
--- NOTE | 2025-04-22 19:36 | ED.GENMED ---
History of Present Illness
General
Chief Complaint: Crisis Evaluation
Source: patient
Exam Limitations: none
Time Seen by Provider: 04/22/25 19:34
History of Present Illness
History of Present Illness:
See MDM
Past History
Past History
ED Past Medical History: Arrthythmia (Tachycardia), Asthma, HTN, Seizures, Hypothyroidism, Psychiatric (Bipolar, PTSD, suicide attempts, Anxiety/Depression, Borderline personality, ) and Other (TBI 2006, migraines, Cardiomyopathy,
Subarachnoid/Subdural hemorrhage, Intraparenchymal hem, Sleep apnea, GI bleeding, Pernicious anemia, ADHD, DVT with IVC filter)
ED Past Surgical History: Cholecystectomy, , Orthopedic (R and left knee surgery, Carlos L leg removed, Left arm plate, Right wrist surgery, ) and Other (Green field filter)
Social History
Tobacco: Smoker
Alcohol: None
Drug: Other (Took a Hemp gummy this a.m.)
Personal: Single
Living: alone
Employment: Disabled
Family History
Family History: Other (Diabetes, colon cancer, thyroid disease)
Phy Exam
Physical Exam
Physical Exam:
See MDM
Course
Orders/Labs/Results
Orders:
Orders
04/22/25 19:03
1:1 Observation - Suicide/ Violent Behavior As Directed
Crisis Consult Urgent
Reason for Consult: + SI
Vital Signs
Initial and Last Documented VS:
Initial Vital Signs
Temp Pulse Resp BP Pulse Ox
98.2 F 109 20 145/94 99
04/22/25 19:00 04/22/25 19:00 04/22/25 19:00 04/22/25 19:00 04/22/25 19:00
Last Documented Vital Signs
Temp Pulse Resp BP Pulse Ox
98.2 F 109 20 145/94 99
04/22/25 19:00 04/22/25 19:00 04/22/25 19:00 04/22/25 19:00 04/22/25 19:00
MDM/Problems Addressed
Differential Diagnosis Includes:
HPI and MDM Narrative:
39-year-old female presented to the hospital for suicidal thoughts. She is well-known to the emergency department and has chronic suicidal thoughts. Unfortunately, patient has acted on these thoughts before.
Patient has well-documented malingering and manipulative personality. Due to this, she has been extremely difficult to place in any mental health facility. I have talked to her many times indicating that this does not mean that we do not still
try. She came in with passive SI. Due to the hospital's protocol, we are going to take her belongings and phone until crisis evaluates. Patient states that her phone is a coping mechanism and she refuses to stay in the hospital if she cannot
perform. I tried to explain does not mean that her phone will be gone entirely but we need to go through the process and have crisis evaluate her. Refused and states she no longer wants to hurt herself and walked out of the emergency department
Even after I tried to explain the situation to her, she developed threatening behavior. She continues to threaten to report hospital staff to the authorities. She then will intermittently threaten to hurt herself since we are letting her leave.
But then, she will take the threats back
Patient left without waiting for written discharge instructions
Physical exam
General: Well appearing and non-toxic
HEENT: protecting airway
Neck: appears supple
CV: No evidence of cyanosis
Resp: No accessory muscle use
Abd: Non-distended
Extremities: No deformities
Neuro: alert
Psych: Agitated
Skin: Intact
Problems Addressed including Acute and Chronic Conditions affecting care:
1. Chronic depression
Acuity: acute
Prognosis: stable
Details: Patient has been evaluated multiple times by multiple different psychiatrist. Patient is known to have chronic suicidal thoughts
Differential Diagnosis (but not limited to): Depression, suicidal
Testing considered: Blood work
Drug therapy (if applicable): OTC meds, please see d/c instruction regarding Rx drugs
Amount and/or Complexity of Data Reviewed
Clinical info obtained from: Patient
External data reviewed: Multiple visits for same scenario where she has been evaluated by psychiatry and discharged
Labs I independently reviewed (but not limited to): N/A
Radiology: N/A
Pulse Ox: not hypoxic
EKG independently reviewed: N/A
Cable Ferry Operator: N/A
Critical Care: N/A
Risk of Complication:
Social Determinants of health: Poor social support
Discussed with other providers: N/A
Escalation of Care includes Admit/Obs: Patient refused to stay and was discharged home
Occasional wrong word or 'sound a like' substitutions may have occurred due to the inherent limitations of voice recognition software. Read the chart carefully and recognize, using context, where substitutions have occurred.
*Pulse Oximetry
SaO2: 99
Oxygen Mode of Delivery: Room air
Patient hypoxic: no
*Critical Care Note
Total Time (30-74mins, 75-104mins- exclusive of procedures): Not Applicable
ED Attending Note
-
Portions of this chart may have been created with voice recognition software.� Occasional wrong word or��sound alike� substitutions may have occurred due to the inherent limitations of voice recognition software.
Discharge Plan
Departure
Patient Disposition: Home (Routine Discharge)
Date of Disposition: 04/22/25
Time of Disposition: 19:45
Patient with high blood pressure during this ER visit?: No
Discharge Problem:
Depression
Instructions: Depression, Adult (DC)
Prescriptions:
No Action
levothyroxine 25 mcg Tablet
25 mcg PO DAILY
omeprazole 20 mg Capsule,Delayed Release(Dr/Ec)
20 mg PO DAILY
loratadine 10 mg Tablet
10 mg PO DAILY
diazepam 5 mg Tablet
5 mg PO HS
Caplyta 21 mg Capsule
21 mg PO DAILY
ondansetron HCl [Zofran] 4 mg Tablet
4 mg PO Q4
lactulose 10 gram packet
10 g PO DAILY 3 Days Qty: 15 0RF
methylprednisolone [Medrol (Jona)] 4 mg tablets,dose pack
4 mg PO DAILY Qty: 21 0RF
Interventions
Interventions:
*Risk Screen - Suicide Last Done: 04/22/25 19:02
*General Assessment Last Done: 04/22/25 19:02
*Neglect/Abuse Screening Last Done: 04/22/25 19:02
*ED COVID-19 Vaccine History Last Done: 04/22/25 19:02
Discharge Date and Time
Print Language: YAKUT
[2025-04-22 19:45] VITALS: BP 135/78
== END 2025-04-22 19:45 | disposition home or self-care (01) ==
LOC: EMR 18:53
PROVIDERS: EMERGENCY PHYSICIAN Student in an Organized Health Care Education/Training Program; FAMILY PHYSICIAN Nurse Practitioner Primary Care
DX: F32.A Depression, unspecified (principal); F41.9 Anxiety disorder, unspecified; E03.9 Hypothyroidism, unspecified; G47.30 Sleep apnea, unspecified; I10 Essential (primary) hypertension; I42.9 Cardiomyopathy, unspecified; J45.909 Unspecified asthma, uncomplicated; F17.200 Nicotine dependence, unspecified, uncomplicated; Z86.718 Personal history of other venous thrombosis and embolism; Z87.820 Personal history of traumatic brain injury; Z98.890 Other specified postprocedural states
CPT/HCPCS: 99283

== ENCOUNTER 2025-04-26 23:03 | Emergency (ER) | payer OTHER, SELFPAY ==
[2025-04-26 23:12] VITALS: BP 108/55
[2025-04-26 23:26] VITALS: BMI 36.9
[2025-04-26] MEDS: ZOFRAN ODT (ORALLY DISINTEGRATING) 4 MG PO (23:36)
--- NOTE | 2025-04-27 04:44 | ED.GENMED ---
History of Present Illness
General
Chief Complaint: Crisis Evaluation
Source: patient and previous hospital records (Multiple previous ED visits for very similar complaints)
Exam Limitations: none
Time Seen by Provider: 04/26/25 23:29
Nursing documentation reviewed up to this point in time: agreed with
History of Present Illness
History of Present Illness:
This is a 39-year-old female who was brought to the ED for 302/involuntary psychiatric evaluation after she called the suicide hotline [employer] reporting suicidal thoughts. She is well-known to this emergency department and has chronic suicidal
thoughts, history of borderline personality disorder. Unfortunately, patient has acted on these thoughts in the past.
Promptly upon arrival to the ED patient states she is currently not suicidal and is requesting to go home. She admits that 'I do not want to be here' 'I did not ask to be brought here'
Past History
Past History
ED Past Medical History: Arrthythmia (Tachycardia), Asthma, HTN, Seizures, Hypothyroidism, Psychiatric (Bipolar, PTSD, suicide attempts, Anxiety/Depression, Borderline personality, ) and Other (TBI 2006, migraines, Cardiomyopathy,
Subarachnoid/Subdural hemorrhage, Intraparenchymal hem, Sleep apnea, GI bleeding, Pernicious anemia, ADHD, DVT with IVC filter)
ED Past Surgical History: Cholecystectomy, , Orthopedic (R and left knee surgery, Carlos L leg removed, Left arm plate, Right wrist surgery, ) and Other (Green field filter)
Social History
Tobacco: Smoker
Alcohol: None
Drug: Other (Took a Hemp gummy this a.m.)
Personal: Single
Living: alone
Employment: Disabled
Family History
Family History: Other (Diabetes, colon cancer, thyroid disease)
Phy Exam
Physical Exam
Physical Exam:
GENERAL: 39-year-old obese female appears her stated age. Lying on bed, currently denies suicidal thoughts or plan. Requesting to go home. Appears in no acute distress.
EYE: anicteric
NECK: Supple, nontender, no meningismus, no significant adenopathy.
ENT: oral mucosa is moist.
CARDIAC: Regular rate and rhythm. no murmur.
LUNGS: Clear breath sounds bilaterally, no acute respiratory distress, no wheezes/rales/rhonchi
ABDOMEN: Soft, nondistended, without focal tenderness
NEUROLOGICAL: Alert and oriented x3, no focal neuro deficits. Gait is steady.
SKIN: Warm and dry, normal color, skin intact. No rash.
MUSCULOSKELETAL: No C/C/E. peripheral pulses are full and equal b/l. No palpable tenderness.
PSYCH: Markedly blunted affect. Sporadic thoughts of suicide. Manipulative.
Course
Orders/Labs/Results
Orders:
Orders
04/26/25 23:25
1:1 Observation - Suicide/ Violent Behavior As Directed
Crisis Consult Urgent
Reason for Consult: SI
04/26/25 23:29
Crisis Consult Urgent
Reason for Consult: SI
04/26/25 23:30
Ondansetron Orally Disint [Zofran Odt (Orally Disintegrating)] 4 mg PO NOW STA
04/27/25 04:52
COVID-19 Antigen Urgent
Source: Nasal Swab
INF RAPID [Influenza A+B Rapid Molecular] Urgent
KERLINE Source: Nasal Swab
Specimen Description:
04/27/25 Breakfast
Regular
At Your Request: Full Participation
Does patient need a safe tray?: Yes
Levothyroxine [Synthroid] 25 mcg PO DAILY @ 0600
04/27/25 06:39
PSYCHIATRY CONSULT Urgent
Consulting Provider: Yolis Goodrich
Was physician already notified: Yes
Reason for consult: 302--SI
04/28/25 06:00
Linaclotide [Linzess] 145 mcg PO DAILY @ 0600
Vital Signs
Initial and Last Documented VS:
Initial Vital Signs
Temp Pulse Resp BP Pulse Ox
98.0 F 86 18 108/55 99
04/26/25 23:12 04/26/25 23:12 04/26/25 23:12 04/26/25 23:12 04/26/25 23:12
Last Documented Vital Signs
Temp Pulse Resp BP Pulse Ox
98.0 F 68 18 103/68 99
04/26/25 23:12 04/27/25 05:00 04/27/25 05:00 04/27/25 05:00 04/27/25 05:02
MDM/Problems Addressed
Differential Diagnosis Includes:
Longstanding history of psychiatric disorder, bipolar disorder, previous suicide attempts.
Presents with thoughts of suicide, currently on involuntary psychiatric hold.
Multiple previous evaluations for similar complaints and patient is well-known to this ER. She is quite manipulative and often becomes argumentative, accusatory along with multiple frequent demands for various and asundry medications, stipulations
etc.
Currently requesting a dose of Zofran for nausea. She has had no vomiting.
Will continue one-to-one observation and will plan for telepsychiatry evaluation.
Patient is eager to be released and return to home. I have recommended that she cooperate and remain truthful with the psychiatrist.
MDM/Problems Addressed:
Suicidal thoughts.
Chronic depression, chronic thoughts of suicide.
Chronic conditions affecting care:
Multiple medical issues including TBI 2005
Chronic venous thrombosis with IVC filter in place.
Chronic low back pain from DJD.
Cardiomyopathy status post . Hypothyroidism, Asthma, hypertension, migraines, mild anemia, obstructive sleep apnea, GERD
Acute Exacerbation and/or Progression of Chronic Illness: Psychiatric illness
*Pulse Oximetry
SaO2: 99
Oxygen Mode of Delivery: Room air
Patient hypoxic: no
*Critical Care Note
Total Time (30-74mins, 75-104mins- exclusive of procedures): Not Applicable
Update Note
Update Note:
Patient has refused to speak to tele-psychiatrist and due to her prior history, psychiatrist unfortunately is not willing to release the patient back to home and recommends upholding the 302.
As above, patient has longstanding history of significantly manipulative behavior.
Will continue to hold in the ED, maintain one-to-one observation.
Will temporarily uphold the 302 and plan for [id number] consult with psychiatrist this morning.
ED Attending Note
-
Portions of this chart may have been created with voice recognition software.� Occasional wrong word or��sound alike� substitutions may have occurred due to the inherent limitations of voice recognition software.
Discharge Plan
Departure
Patient Disposition: Psych Facility
Date of Disposition: 04/27/25
Time of Disposition: 05:01
Patient with high blood pressure during this ER visit?: No
Condition: Good
Discharge Problem:
Suicidal ideation
Prescriptions:
No Action
levothyroxine 25 mcg Tablet
25 mcg PO DAILY
omeprazole 20 mg Capsule,Delayed Release(Dr/Ec)
40 mg PO DAILY
loratadine 10 mg Tablet
10 mg PO DAILY
diazepam 5 mg Tablet
5 mg PO HS
Caplyta 21 mg Capsule
42 mg PO DAILY
ondansetron HCl [Zofran] 4 mg Tablet
4 mg PO Q4
lactulose 10 gram packet
10 g PO DAILY 3 Days Qty: 15 0RF
gabapentin 400 mg Capsule
400 mg PO TID
trazodone 150 mg Tablet
150 mg PO HS
prazosin [Minipress] 2 mg Capsule
2 mg PO HS
risperidone [Risperdal M-TAB] 2 mg Tablet,Disintegrating
2 mg PO BID
cholecalciferol (vitamin D3) [Vitamin D3] 25 mcg (1,000 unit) Tablet,Chewable
25 mcg PO DAILY
Linzess 145 mcg Capsule
145 mcg PO DAILY
Referrals:
UNKNOWN - PT DOES,NOT KNOW [Family Provider]
Interventions
Interventions:
*Risk Screen - Suicide Last Done: 04/26/25 23:12
*General Assessment Last Done: 04/26/25 23:12
*Neglect/Abuse Screening Last Done: 04/26/25 23:12
*ED- Fall Risk Assessment Last Done: 04/26/25 23:15
*ED COVID-19 Vaccine History Last Done: 04/26/25 23:15
ED-Psychological Assessment Last Done: 04/26/25 23:30
Discharge Date and Time
Print Language: CITIZEN OF [place]
[2025-04-27 05:00] VITALS: BP 103/68
[2025-04-27 05:30] LABS: COVID-19 Antigen Negative (Negative)
[2025-04-27] MEDS: SYNTHROID 25 MCG PO (06:11)
[2025-04-27] MEDS: LINZESS 145 MCG PO (07:30)
[2025-04-27] MEDS: ROXICODONE 5 MG PO (08:06)
[2025-04-27] MEDS: NEURONTIN 400 MG PO (08:07)
[2025-04-27] MEDS: RISPERDAL 2 MG PO (08:07)
[2025-04-27] MEDS: CLARITIN 10 MG PO (08:07)
--- NOTE | 2025-04-27 10:52 | ED.CRISIS ---
ED Crisis Note
ED Crisis Note
Subjective:
Suicidal ideations
Objective:
Suicidal ideations
Assessment/Plan:
Patient states she does not feel suicidal and contracts for safety. Patient adamantly wants to go home. Patient evaluated by psychiatry, who cleared patient to go home.
Patient is now calm and cooperative (10:53 am)
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
== END 2025-04-27 10:50 | disposition home or self-care (01) ==
LOC: EMR 23:03
PROVIDERS: Emergency Medicine; CONSULT PHYSICIAN Psychiatry & Neurology Psychiatry; EMERGENCY PHYSICIAN Emergency Medicine
DX: R45.851 Suicidal ideations (principal); F31.9 Bipolar disorder, unspecified; F60.3 Borderline personality disorder; F43.10 Post-traumatic stress disorder, unspecified; F90.9 Attention-deficit hyperactivity disorder, unspecified type; E03.9 Hypothyroidism, unspecified; D64.9 Anemia, unspecified; F41.9 Anxiety disorder, unspecified; G47.33 Obstructive sleep apnea (adult) (pediatric); I10 Essential (primary) hypertension; I42.9 Cardiomyopathy, unspecified; F17.200 Nicotine dependence, unspecified, uncomplicated; J45.909 Unspecified asthma, uncomplicated; K21.9 Gastro-esophageal reflux disease without esophagitis; Z59.01 Sheltered homelessness; Z60.2 Problems related to living alone; Z79.890 Hormone replacement therapy; Z79.899 Other long term (current) drug therapy; Z80.0 Family history of malignant neoplasm of digestive organs; Z81.8 Family history of other mental and behavioral disorders; Z83.3 Family history of diabetes mellitus; Z83.49 Family history of other endocrine, nutritional and metabolic diseases; Z87.820 Personal history of traumatic brain injury; Z88.8 Allergy status to other drugs, medicaments and biological substances; Z90.49 Acquired absence of other specified parts of digestive tract; Z91.041 Radiographic dye allergy status; Z91.51 Personal history of suicidal behavior; Z95.828 Presence of other vascular implants and grafts
CPT/HCPCS: 99283; 87502; 87811

== ENCOUNTER 2025-05-03 09:37 | Emergency (ER) | payer OTHER, SELFPAY ==
[2025-05-03 09:59] VITALS: BP 133/93
[2025-05-03] MEDS: NSS 1000 IV (10:14)
[2025-05-03 10:29] LABS: Hematocrit 31.2 % (37.0-47.0); Hemoglobin 10.5 g/dL (12.0-16.0); Mean Corp Hgb Conc. 33.7 g/dL (33.0-37.0); Mean Corpuscular Volume 82.1 fL (81.0-99.0); Nucleated Red Blood Cells % 0 %; Platelet Count 232 10^3/uL (130-400); Red Cell Dist. Width 12.8 % (11.5-14.5)
--- NOTE | 2025-05-03 10:35 | ED.GENMED ---
History of Present Illness
General
Chief Complaint: Abdominal Pain
Source: patient and records
Exam Limitations: none
Time Seen by Provider: 05/03/25 09:47
Nursing documentation reviewed up to this point in time: agreed with
History of Present Illness
History of Present Illness:
39-year-old female with history as noted well-known to this emergency room presents with discomfort and constipation. Patient reports that she has been dealing with constipation recently, was seen at [facility] and had CT that apparently showed
significant constipation. She says she called her GI doctor and they recommended that she take MiraLAX and magnesium citrate�unfortunately was not able to get MiraLAX delivered to her house in a timely manner but did receive magnesium citrate today
and took it about 3 hours prior to arrival. She says that since taking this she has had increasing abdominal bloating, left-sided abdominal discomfort and has not passed a bowel movement. She was concern for possible obstruction and came to the ER
for assessment. She denies any nausea or vomiting. She denies any fevers or chills or any other acute complaints.
Past History
Past History
ED Past Medical History: Arrthythmia (Tachycardia), Asthma, HTN, Seizures, Hypothyroidism, Psychiatric (Bipolar, PTSD, suicide attempts, Anxiety/Depression, Borderline personality, ) and Other (TBI 2005, migraines, Cardiomyopathy,
Subarachnoid/Subdural hemorrhage, Intraparenchymal hem, Sleep apnea, GI bleeding, Pernicious anemia, ADHD, DVT with IVC filter)
ED Past Surgical History: Cholecystectomy, , Orthopedic (R and left knee surgery, Carlos L leg removed, Left arm plate, Right wrist surgery, ) and Other (Green field filter)
Social History
Tobacco: Smoker
Alcohol: None
Drug: Other (Took a Hemp gummy this a.m.)
Personal: Single
Living: alone
Employment: Disabled
Family History
Family History: Other (Diabetes, colon cancer, thyroid disease)
Review of Systems
Review of Systems
All Other Systems: ROS reviewed and negative except as documented in HPI and ROS
Constitutional: Denies fever
Respiratory: Denies trouble breathing
Cardiac: Denies chest pain
ABD/GI: Reports abdominal pain, constipated and other (Bloating); Denies nausea or vomiting
Musculoskeletal: Denies neck pain or back pain
Neurological: Denies headache
Phy Exam
Physical Exam
Physical Exam:
General: Awake, alert, oriented x3; no acute distress
Head: Normocephalic, atraumatic
Eyes: Conjunctiva normal, sclera anicteric
Throat: Airway intact
Neck: Trachea midline
Lungs: Breathing comfortably no distress
Heart: Regular rate
Abd: Soft, mild distention, no fluid wave, mildly tender left upper and lower abdomen
Skin: No rash in area of concern
Extremities: Warm and well-perfused
Scores
Heart Failure Risk
Heart Failure Risk Score: Not Applicable
Heart Score for Chest Pain Patients
STEMI patient?: Not applicable
Withdrawal Assessment of Alcohol
Withdrawal Assessment Completed?: Not applicable
Course
Orders/Labs/Results
Orders:
Orders
05/03/25 09:49
Urinalysis Reflex To Culture Urgent
Test Result ONCE
05/03/25 10:01
CT Abd/pel Without Iv Or Oral Urgent
Comment:
Reason For Exam: abd pain, constipation, distention
05/03/25 10:13
0.9% Sodium Chloride 1000 ml [Nss] 1,000 ml IV BOLUS
05/03/25 10:21
Acetaminophen Urgent
Complete Blood Count/With Diff Urgent
Comprehensive Metabolic Panel Urgent
HCG, Serum Qualitative Screen Urgent
Lipase Urgent
Salicylate Urgent
05/03/25 11:18
Enema- Treatment ONCE
Type: Milk of Molasses
05/03/25 11:46
Mineral Oil Enema [Fleet Mineral Oil Enema] 133 ml .ROUTE .[facility]
Abnormal Lab Results
05/03/25
10:21
RBC 3.80 L 10^6/uL
(4.20-5.40)
Hgb 10.5 L g/dL
(12.0-16.0)
Hct 31.2 L %
(37.0-47.0)
Abs Immat Gran (auto) 0.1 H 10^3/uL
(0-0.05)
Immature Gran % 0.8 H %
(0-0.5)
Chloride 110 H mmol/L
(98-107)
Creatinine 0.5 L mg/dL
(0.6-1.0)
Glucose 105 H mg/dl
(70-99)
Salicylates < 1.0 L mg/dl
(2.0-20.0)
Acetaminophen < 10 L ug/ml
(10-30)
05/03/25 10:21
05/03/25 10:21
Vital Signs
Initial and Last Documented VS:
Initial Vital Signs
Temp Pulse Resp Pulse Ox
36.9 C 91 18 98
05/03/25 09:39 05/03/25 09:39 05/03/25 09:39 05/03/25 09:39
Last Documented Vital Signs
Temp Pulse Resp BP Pulse Ox
36.9 C 91 16 133/93 98
05/03/25 09:39 05/03/25 09:39 05/03/25 10:09 05/03/25 09:59 05/03/25 10:39
MDM/Problems Addressed
Differential Diagnosis Includes:
Bowel obstruction, constipation, ileus, volvulus, diverticulitis
MDM/Problems Addressed:
39-year-old female presents for evaluation of bloating, abdominal discomfort in the setting of recent constipation�symptoms worsening after taking magnesium citrate this morning. Vitals and exam as above. Plan to check basic labs, urinalysis.
Will check CT abdomen to evaluate for signs of obstruction. Reassess after the above.
Labs reviewed: CBC shows stable anemia, CMP no clinically significant abnormalities. CT shows constipation no other acute abnormalities. Discussed with patient we will plan to treat with enema, will reassess.
Patient able to have bowel movement with enema here. Encouraged to proceed with plan as instructed by GI to take MiraLAX over the next few days to help keep bowel movements regular. Encouraged to follow-up with GI. Stable for discharge. All
questions answered.
Chronic conditions affecting care:
Multiple prior surgeries and long psychiatric history
*Radiology
Radiology exam reviewed: radiology read reviewed
*Pulse Oximetry
SaO2: 98
Oxygen Mode of Delivery: Room air
Patient hypoxic: no (98%)
*Critical Care Note
Total Time (30-74mins, 75-104mins- exclusive of procedures): Not Applicable
Data Reviewed
Review of Other/Old Records Reveals: Labs and Records
Source: patient and records
ED Attending Note
-
Portions of this chart may have been created with voice recognition software.� Occasional wrong word or��sound alike� substitutions may have occurred due to the inherent limitations of voice recognition software.
Discharge Plan
Departure
Patient Disposition: Home (Routine Discharge)
Date of Disposition: 05/03/25
Time of Disposition: 12:23
Patient with high blood pressure during this ER visit?: No
Discharge Problem:
Constipation
Instructions: Constipation, Adult (DC)
Prescriptions:
No Action
levothyroxine 25 mcg Tablet
25 mcg PO DAILY@06
loratadine 10 mg Tablet
10 mg PO DAILY
diazepam 5 mg Tablet
5 mg PO HS
Caplyta 21 mg Capsule
42 mg PO DAILY
ondansetron HCl [Zofran] 4 mg Tablet
4 mg PO Q4
gabapentin 400 mg Capsule
400 mg PO TID
trazodone 150 mg Tablet
150 mg PO HS
prazosin [Minipress] 2 mg Capsule
2 mg PO HS
risperidone [Risperdal M-TAB] 2 mg Tablet,Disintegrating
2 mg PO BID
cholecalciferol (vitamin D3) [Vitamin D3] 25 mcg (1,000 unit) Tablet,Chewable
25 mcg PO DAILY
Linzess 145 mcg Capsule
145 mcg PO DAILY
omeprazole 40 mg capsule,delayed release(DR/EC)
40 mg PO DAILY
lactulose 10 gram packet
10 g PO DAILY
Referrals:
Tiffanie Xiong CRNP [Family Provider]
Pola Talbert DO [Active, Gastroenterology] - Call in 1-3 days for appt
Activity Restrictions/Additional Instructions:
Thank you for visiting the Emergency Department at [facility].
1. Please schedule a follow up appointment as directed. Call first thing tomorrow morning to make an appointment.
2. If indicated, please take your medications as instructed and indicated on discharge paperwork.
3. If any of your symptoms do not improve, or persist, or become more severe within 6-12 hours, please return to the emergency department for further care.
4. Please return to the emergency department if you develop a headache, neck pain/stiffness, fever greater than 100.4F, chest pain, shortness of breath, persistent nausea, vomiting, slurred speech, difficulty walking, numbness/tingling, weakness,
signs of infection or any other symptoms that are worrisome to you.
Please call [phone] if you have any questions.
Interventions
Interventions:
*Risk Screen - Suicide Last Done: 05/03/25 09:43
*General Assessment Last Done: 05/03/25 10:00
*Neglect/Abuse Screening Last Done: 05/03/25 10:00
*ED- Fall Risk Assessment Last Done: 05/03/25 10:00
*ED COVID-19 Vaccine History Last Done: 05/03/25 10:00
RR-Qhsqzo-Bickqjutew Assessment Last Done: 05/03/25 10:00
Discharge Date and Time
Print Language: [id number]
[2025-05-03 10:40] LABS: HCG, Serum Qualitative Screen Negative
[2025-05-03 10:52] LABS: ALT (SGPT) 19 U/L (0-35); AST (SGOT) 21 U/L (14-36); Acetaminophen < 10 ug/ml (10-30); Albumin 4.0 g/dl (3.5-5.0); Alkaline Phosphatase 69 U/L (38-126); Blood Urea Nitrogen 9 mg/dl (7-17); Calcium 8.7 mg/dl (8.4-10.2); Carbon Dioxide 23 mmol/L (22-30); Chloride 110 mmol/L (98-107); Glucose 105 mg/dl (70-99); Lipase 93 U/L (23-300); Potassium 4.3 mmol/L (3.5-5.1); Salicylate < 1.0 mg/dl (2.0-20.0); Sodium 139 mmol/L (135-145); Total Protein 6.5 g/dl (6.3-8.2); eGFR > 60.00
[2025-05-03 12:40] VITALS: BP 103/64
== END 2025-05-03 12:51 | disposition home or self-care (01) ==
LOC: EMR 09:37
PROVIDERS: EMERGENCY PHYSICIAN Emergency Medicine; FAMILY PHYSICIAN Nurse Practitioner Primary Care
DX: K59.00 Constipation, unspecified (principal); D64.9 Anemia, unspecified; E03.9 Hypothyroidism, unspecified; G47.30 Sleep apnea, unspecified; I10 Essential (primary) hypertension; J45.909 Unspecified asthma, uncomplicated; Z86.718 Personal history of other venous thrombosis and embolism; Z87.820 Personal history of traumatic brain injury
CPT/HCPCS: 99284; 96360; 74176; 80053; 80143; 80179; 83690; 84703; 85025

== ENCOUNTER 2025-05-16 19:45 | Emergency (ER) | payer OTHER, SELFPAY ==
[2025-05-16 19:49] VITALS: BP 156/95
--- NOTE | 2025-05-16 22:21 | ED.GENMED ---
History of Present Illness
General
Chief Complaint: Extremity Pain (non-traumatic)
Source: patient
Exam Limitations: none
Time Seen by Provider: 05/16/25 21:25
Nursing documentation reviewed up to this point in time: agreed with
History of Present Illness
History of Present Illness:
Patient admitted at [facility] last month and was diagnosed with herniated disc in her lower back, with associated leg pain, presents to ED secondary to continual and intermittent worsening back and lower leg pain, despite taking
medication at home. Denies fever or chills. Denies new trauma. Denies urinary or bowel incontinence. Denies weakness. Patient states it is harder for her to go up and down the stairs, as she lives on second floor. Patient has been evaluated in
the past by pain management physician, who performed 'minor surgery' in her back. Patient plans on calling him back for an appointment next week. In addition, her family doctor is making arrangements for an outpatient MRI to be obtained.
Past History
Past History
ED Past Medical History: Arrthythmia (Tachycardia), Asthma, HTN, Seizures, Hypothyroidism, Psychiatric (Bipolar, PTSD, suicide attempts, Anxiety/Depression, Borderline personality, ) and Other (TBI 2006, migraines, Cardiomyopathy,
Subarachnoid/Subdural hemorrhage, Intraparenchymal hem, Sleep apnea, GI bleeding, Pernicious anemia, ADHD, DVT with IVC filter)
ED Past Surgical History: Cholecystectomy, , Orthopedic (R and left knee surgery, Carlos L leg removed, Left arm plate, Right wrist surgery, ) and Other (Green field filter)
Social History
Tobacco: Smoker
Alcohol: None
Drug: Other (Took a Hemp gummy this a.m.)
Personal: Single
Living: alone
Employment: Disabled
Family History
Family History: Other (Diabetes, colon cancer, thyroid disease)
Review of Systems
Review of Systems
Allergies reviewed?: Yes
All Other Systems: ROS reviewed and negative except as documented in HPI and ROS
Constitutional: Reports no symptoms; Denies fever
ABD/GI: Reports no symptoms; Denies vomiting
: Reports no symptoms; Denies incontinence
Musculoskeletal: Reports back pain and other (leg pain)
Skin: Reports no symptoms
Neurological: Denies weakness or numbness
Phy Exam
Physical Exam
Physical Exam:
Physical Exam
General: no apparent distress, not acutely ill. afebrile
Head: nc/at. eomi
Neck: supple. normal range of motion
Abdomen: normal bowel sounds. not tender.
Back: no midline tenderness/ecchymosis/swelling/erythema.
Neuro: alert and oriented x 3. no focal neurological deficits.
Skin: no rash
Psychiatric: well kept. interactive and cooperative
Extremities: no edema. no calf tenderness. normal range of motion
Course
Orders/Labs/Results
Orders:
Orders
05/16/25 22:20
Dexamethasone Pf [Decadron] 10 mg PO NOW STA
Vital Signs
Initial and Last Documented VS:
Initial Vital Signs
Temp Pulse Resp BP Pulse Ox
98.5 F 98 16 156/95 98
05/16/25 19:49 05/16/25 19:49 05/16/25 19:49 05/16/25 19:49 05/16/25 19:49
Last Documented Vital Signs
Temp Pulse Resp BP Pulse Ox
98.5 F 98 16 156/95 98
05/16/25 19:49 05/16/25 19:49 05/16/25 19:49 05/16/25 19:49 05/16/25 22:21
MDM/Problems Addressed
MDM/Problems Addressed:
Patient with likely ongoing pain, secondary to likely recently diagnosed herniated disc. Fortunately, patient is afebrile, and without any exam findings concerning for cauda equina syndrome. Prior to discharge, patient is noted to be able to
spontaneously move affected leg without difficulty and ambulate. Patient will be discharged home with a short course of higher dose of Percocet, to be used as needed, along with close outpatient follow-up with PCP or clock and watch hands painter.
Patient cautioned regarding use of Valium and Percocet at the same time, which she was aware of.
*Pulse Oximetry
SaO2: 98
Oxygen Mode of Delivery: Room air
Patient hypoxic: no
*Critical Care Note
Total Time (30-74mins, 75-104mins- exclusive of procedures): Not Applicable
ED Attending Note
-
Portions of this chart may have been created with voice recognition software.� Occasional wrong word or��sound alike� substitutions may have occurred due to the inherent limitations of voice recognition software.
Discharge Plan
Departure
Patient Disposition: Home (Routine Discharge)
Date of Disposition: 05/16/25
Time of Disposition: 22:21
Patient with high blood pressure during this ER visit?: Yes
Condition: Good
Discharge Problem:
Low back pain radiating down leg
Instructions: Back Pain
Prescriptions:
New
oxycodone 10 mg tablet
10 mg PO Q8H PRN (Reason: Pain) Qty: 8 0RF
No Action
levothyroxine 25 mcg Tablet
25 mcg PO DAILY@06
loratadine 10 mg Tablet
10 mg PO DAILY
diazepam 5 mg Tablet
5 mg PO HS
Caplyta 21 mg Capsule
42 mg PO DAILY
ondansetron HCl [Zofran] 4 mg Tablet
4 mg PO Q4
gabapentin 400 mg Capsule
400 mg PO TID
trazodone 150 mg Tablet
150 mg PO HS
prazosin [Minipress] 2 mg Capsule
2 mg PO HS
risperidone [Risperdal M-TAB] 2 mg Tablet,Disintegrating
2 mg PO BID
cholecalciferol (vitamin D3) [Vitamin D3] 25 mcg (1,000 unit) Tablet,Chewable
25 mcg PO DAILY
Linzess 145 mcg Capsule
145 mcg PO DAILY
omeprazole 40 mg capsule,delayed release(DR/EC)
40 mg PO DAILY
lactulose 10 gram packet
10 g PO DAILY
Referrals:
Tiffanie Xiong CRNP [Family Provider]
Activity Restrictions/Additional Instructions:
As discussed, please follow-up with your primary care physician and/or clock and watch hands painter for further evaluation and treatment. Please consider return to ED with worsening symptoms, i.e. fever/incontinence/weakness. Your prescription has
been sent electronically to [facility] in [place]. You must remember to not take prescribed oxycodone with Valium at the same time.
Interventions
Interventions:
*Risk Screen - Suicide Last Done: 05/16/25 19:49
*General Assessment Last Done: 05/16/25 19:49
*Neglect/Abuse Screening Last Done: 05/16/25 19:49
*ED- Fall Risk Assessment Last Done: 05/16/25 19:49
*ED COVID-19 Vaccine History Last Done: 05/16/25 19:49
*Nursing Disposition Last Done: 05/16/25 22:35
ED-Skin Assessment Last Done: 05/16/25 21:10
ED-Peripheral Vascular Assessment Last Done: 05/16/25 21:10
ED-Musculoskeletal Assessment Last Done: 05/16/25 21:10
Discharge Date and Time
Discharge Date/Time: 05/16/25 22:35
Print Language: CONGOLESE
[2025-05-16] MEDS: DECADRON 10 MG PO (22:30)
== END 2025-05-16 22:35 | disposition home or self-care (01) ==
LOC: EMR 19:45
PROVIDERS: EMERGENCY PHYSICIAN Emergency Medicine; FAMILY PHYSICIAN Nurse Practitioner Primary Care
DX: M54.50 Low back pain, unspecified (principal); M79.606 Pain in leg, unspecified; E03.9 Hypothyroidism, unspecified; F17.200 Nicotine dependence, unspecified, uncomplicated; J45.909 Unspecified asthma, uncomplicated
CPT/HCPCS: 99283

== ENCOUNTER 2025-05-23 20:43 | Emergency (ER) | payer OTHER, SELFPAY ==
[2025-05-23 20:58] VITALS: BP 103/66
--- NOTE | 2025-05-23 21:27 | ED.GENMED ---
History of Present Illness
General
Chief Complaint: Suicidal Ideation
Source: patient
Exam Limitations: none
Time Seen by Provider: 05/23/25 21:20
History of Present Illness
History of Present Illness:
Patient apparently called mobile crisis for some suicidal ideation. No plan. No intent. She states she does not want to stay if she cannot have her phone. She denies being acutely suicidal or plan at this time. No acute medical issues
Past History
Past History
ED Past Medical History: Arrthythmia (Tachycardia), Asthma, HTN, Seizures, Hypothyroidism, Psychiatric (Bipolar, PTSD, suicide attempts, Anxiety/Depression, Borderline personality, ) and Other (TBI 2005, migraines, Cardiomyopathy,
Subarachnoid/Subdural hemorrhage, Intraparenchymal hem, Sleep apnea, GI bleeding, Pernicious anemia, ADHD, DVT with IVC filter)
ED Past Surgical History: Cholecystectomy, , Orthopedic (R and left knee surgery, Carlos L leg removed, Left arm plate, Right wrist surgery, ) and Other (Green field filter)
Social History
Tobacco: Smoker
Alcohol: None
Drug: Other (Took a Hemp gummy this a.m.)
Personal: Single
Living: alone
Employment: Disabled
Family History
Family History: Other (Diabetes, colon cancer, thyroid disease)
Review of Systems
Review of Systems
All Other Systems: Not applicable
Constitutional: Denies fever or chills
Respiratory: Reports no symptoms
Cardiac: Reports no symptoms
Phy Exam
Physical Exam
Physical Exam:
GENERAL: Alert and oriented in no apparent distress
EYE: Orbits normal.
NECK: Supple
CARDIAC: Regular rate and rhythm without any obvious murmurs.
LUNGS: Clear breath sounds,normal
ABDOMEN: Soft, without focal tenderness or distention
NEUROLOGICAL: Alert and oriented , grossly non-focal
SKIN: Warm and dry
MUSCULOSKELETAL: No edema,no deformity.Good color
PSYCH: Normal and appropriate interaction.
Course
Orders/Labs/Results
Orders:
Orders
05/23/25 21:05
1:1 Observation - Suicide/ Violent Behavior As Directed
Crisis Consult Urgent
Reason for Consult: suicide attempt today
Vital Signs
Initial and Last Documented VS:
Initial Vital Signs
Temp Pulse Resp BP Pulse Ox
97.7 F 104 20 103/66 99
05/23/25 20:58 05/23/25 20:58 05/23/25 20:58 05/23/25 20:58 05/23/25 20:58
Last Documented Vital Signs
Temp Pulse Resp BP Pulse Ox
97.7 F 104 20 103/66 99
05/23/25 20:58 05/23/25 20:58 05/23/25 20:58 05/23/25 20:58 05/23/25 21:29
MDM/Problems Addressed
Differential Diagnosis Includes:
Patient does not want to stay. She came in voluntarily with police. There is been no petition to my knowledge. We are checking in with mobile crisis. She has no plan or intent at this time. At this time and less mobile crisis feels differently
I cannot justify psychiatric committal. Will await a conversation between crisis and mobile crisis to confirm this
*Pulse Oximetry
SaO2: 99
Oxygen Mode of Delivery: Room air
Patient hypoxic: no
*Critical Care Note
Total Time (30-74mins, 75-104mins- exclusive of procedures): Not Applicable
Data Reviewed
Review of Other/Old Records Reveals: Labs, Records, Testing and Progress Notes
Update Note
Update Note:
Mobile crisis is not following or petitioning on a committal. Crisis also recalls with the patient and she has no intent or plan. She would like to leave. Do not feel she is a psychiatric committal at this time
ED Attending Note
-
Portions of this chart may have been created with voice recognition software.� Occasional wrong word or��sound alike� substitutions may have occurred due to the inherent limitations of voice recognition software.
Discharge Plan
Departure
Patient Disposition: Home (Routine Discharge)
Date of Disposition: 05/23/25
Time of Disposition: 21:35
Patient with high blood pressure during this ER visit?: No
Discharge Problem:
Depression
Instructions: Depression, Adult (DC)
Prescriptions:
No Action
levothyroxine 25 mcg Tablet
25 mcg PO DAILY@06
loratadine 10 mg Tablet
10 mg PO DAILY
diazepam 5 mg Tablet
5 mg PO HS
Caplyta 21 mg Capsule
42 mg PO DAILY
ondansetron HCl [Zofran] 4 mg Tablet
4 mg PO Q4
gabapentin 400 mg Capsule
400 mg PO TID
trazodone 150 mg Tablet
150 mg PO HS
prazosin [Minipress] 2 mg Capsule
2 mg PO HS
risperidone [Risperdal M-TAB] 2 mg Tablet,Disintegrating
2 mg PO BID
cholecalciferol (vitamin D3) [Vitamin D3] 25 mcg (1,000 unit) Tablet,Chewable
25 mcg PO DAILY
Linzess 145 mcg Capsule
145 mcg PO DAILY
omeprazole 40 mg capsule,delayed release(DR/EC)
40 mg PO DAILY
lactulose 10 gram packet
10 g PO DAILY
oxycodone 10 mg tablet
10 mg PO Q8H PRN (Reason: Pain) Qty: 8 0RF
Activity Restrictions/Additional Instructions:
Follow-up closely with your counselors
Please return immediately if you have any intent or plan to hurt yourself or are just feeling worse
Interventions
Interventions:
*Risk Screen - Suicide Last Done: 05/23/25 20:58
*General Assessment Last Done: 05/23/25 20:58
*Neglect/Abuse Screening Last Done: 05/23/25 20:58
*ED- Fall Risk Assessment Last Done: 05/23/25 20:58
*ED COVID-19 Vaccine History Last Done: 05/23/25 20:58
*Nursing Disposition Last Done: 05/23/25 21:42
ED-Psychological Assessment Last Done: 05/23/25 21:23
Discharge Date and Time
Print Language: MOZAMBICAN
== END 2025-05-23 22:01 | disposition home or self-care (01) ==
LOC: EMR 20:43
PROVIDERS: EMERGENCY PHYSICIAN Emergency Medicine
DX: F32.A Depression, unspecified (principal); R45.851 Suicidal ideations; F60.3 Borderline personality disorder; F41.9 Anxiety disorder, unspecified; F90.9 Attention-deficit hyperactivity disorder, unspecified type; F43.10 Post-traumatic stress disorder, unspecified; I10 Essential (primary) hypertension; I42.9 Cardiomyopathy, unspecified; E03.9 Hypothyroidism, unspecified; J45.909 Unspecified asthma, uncomplicated; G47.30 Sleep apnea, unspecified; D51.0 Vitamin B12 deficiency anemia due to intrinsic factor deficiency; F17.200 Nicotine dependence, unspecified, uncomplicated; Z91.51 Personal history of suicidal behavior; Z87.820 Personal history of traumatic brain injury; Z86.718 Personal history of other venous thrombosis and embolism; Z83.49 Family history of other endocrine, nutritional and metabolic diseases
CPT/HCPCS: 99285